=== PATIENT | male | born 1960 | race Caucasian/White ===

== ENCOUNTER 2020-08-09 09:45 | Observation (INO) | payer MEDICAID, SELFPAY ==
[2020-08-09] VITALS (47 sets, daily range): BP systolic 93–147; BP diastolic 49–97; PULSE 82–135; RESP 13–23; TEMP 36.4–37.3; O2SAT 93–99
--- NOTE | 2020-08-09 09:30 | RT.EKG_ITS ---
APPROVED REPORT Exam: Resting ECG Patient Location: E HR:87 bpm ECG Measurements Heart Rate 87 AXIS [place] 170 P 95 QRSd 86 QRS 20 QT 377 T 88 QTc 454 Conclusion Pacemaker spikes or artifacts...timing non-diagnostic Sinus rhythm AnteriorQ >40mS, abnormal ST-T, V2-V5 Nonspecific T abnormalities, lateral leads I aVL V5 V6
--- NOTE | 2020-08-09 09:41 | ED.GENADUL_ITS ---
Discharge Plan Disposition Patient Disposition: [facility] INPATIENT Condition: Stable Discharge Details Clinical Impression: Contusion of pelvis, Alcoholism, Acute hyponatremia Primary Care Provider: Unknown,Unknown ED Provider: Riaz Schroeder Home Meds and New Rx's Prescriptions: Continued albuterol sulfate 8.5 GM HFA aerosol inhaler 2 inh Implant Q4H PRN Qty: 1 RF: 0 Anoro Ellipta 62.5-25 mcg/actuation blister with device INHALATION DAILY RF: 0 Medical Decision Making 59-year-old male called the ambulance this morning for days of left hip pain. Fell at home on , while using walker and crossing threshold. States he then dragged himself to his couch where he has been using a bucket to go to the bathroom. Denies any other injury at that time. Continues to drink alcohol and smoke cigarettes. He has a history of previous left hip total arthroplasty in [address] Mendoza. Also has a distant history of cervical spine fracture with resultant left-sided weakness for 20 years. The patient presents to the ER afebrile, pulse 103, blood pressure 147/90. He is generally thin and poorly groomed. He is tender without deformity of the left proximal femur. Referred for plain x-rays did not show fracture and subsequent CT images. No acute fracture seen. Patient evaluated by physical therapy and unable to bear weight. With his hyponatremia, general decompensated state, and pelvic contusion with inability to ambulate he will require admission. We discussed loading of Phenobarbital dose for alcohol withdrawal. Lab Data Lab results reviewed: Yes I reviewed the patient's lab results. Labs: Laboratory Results - last 24 hr 08/09/20 08/09/20 08/09/20 10:00 10:05 10:05 WBC RBC Hgb Hct MCV MCH MCHC RDW Plt Count MPV Immature Gran % Neutrophils % Lymphocytes % Monocytes % Eosinophils % Basophils % Nucleated RBC % Absolute Neutrophils Absolute Lymphocytes Absolute Monocytes Absolute Eosinophils Absolute Basophils PT 10.3 INR 1.0 APTT 29.0 H Sodium Potassium Chloride Carbon Dioxide Anion Gap BUN Creatinine Estimated GFR/1.73 m2 Glucose Calcium Magnesium Total Bilirubin AST ALT Alkaline Phosphatase Creatine Kinase 88 Troponin I Total Protein Albumin Urine Color Yellow Urine Clarity Clear Urine pH 6.0 Ur Specific Waldron 1.020 Urine Protein Negative Urine Ketones Negative Urine Blood Trace-lysed H Urine Nitrite Negative Urine Bilirubin Negative Urine Urobilinogen 1.0 H Ur Leukocyte Esterase Negative Urine RBC 0-2 Urine WBC 0-2 Ur Epithelial Cells Few Urine Crystals Negative Urine Bacteria Few Urine Casts Negative Urine Mucus Negative Urine Other Negative Ur Culture Indicated? No Urine Glucose Negative Ethyl Alcohol 229.5 08/09/20 08/09/20 10:05 10:05 WBC 7.95 RBC 4.80 Hgb 16.2 Hct 46.8 MCV 97.5 H MCH 33.8 H MCHC 34.6 RDW 11.9 Plt Count 186 MPV 9.2 Immature Gran % 0.5 Neutrophils % 51.8 Lymphocytes % 33.5 Monocytes % 12.8 Eosinophils % 0.9 Basophils % 0.5 Nucleated RBC % 0 Absolute Neutrophils 4.12 Absolute Lymphocytes 2.66 Absolute Monocytes 1.02 H Absolute Eosinophils 0.07 Absolute Basophils 0.04 PT INR APTT Sodium 129 L Potassium 4.0 Chloride 94 L Carbon Dioxide 25.5 Anion Gap 9.5 BUN 2 L Creatinine 0.57 L Estimated GFR/1.73 m2 >= 60.00 Glucose 100 Calcium 8.6 Magnesium 2.0 Total Bilirubin 0.5 AST 39 H ALT 33 Alkaline Phosphatase 83 Creatine Kinase Troponin I < 0.05 Total Protein 7.9 Albumin 3.3 L Urine Color Urine Clarity Urine pH Ur Specific Wald[place] Urine Protein Urine Ketones Urine Blood Urine Nitrite Urine Bilirubin Urine Urobilinogen Ur Leukocyte Esterase Urine RBC Urine WBC Ur Epithelial Cells Urine Crystals Urine Bacteria Urine Casts Urine Mucus Urine Other Ur Culture Indicated? Urine Glucose Ethyl Alcohol HPI General Mode of arrival: EMS . Date/Time Provider Initiated Documentation: 08/09/20 10:20 . Limitations to Documentation: no limitations . Information obtained by: patient and EMS . History of Present Illness 59 year old M presents to the emergency department with the chief complaint of Fall , Hip pain, Quality is described as dull and constant, and is localized to the left and lower extremity. Patient reports no radiation. Patient started experiencing this day(s) and it has been constant. Rest improves symptom(s), Movement worsens symptoms . Patient notes denies chest pain, fever/chills, headaches and loss of appetite. Patient did receive the following treatments prior to arrival, none Related Data Home Medications Medication Instructions Recorded Confirmed albuterol sulfate 2 inh IMPLANT Q4H PRN #1 inhaler 02/02/14 08/09/20 Anoro Ellipta inh INHALATION DAILY 08/09/20 08/09/20 Previous Rx's Medication Instructions Recorded albuterol sulfate 2 inh IMPLANT Q4H PRN #1 inhaler 02/02/14 Allergies Allergy/AdvReac Type Severity Reaction Status Date / Time ENVIRONMENTAL/POLLEN Allergy CONGESTION, Uncoded 08/09/20 09:46 WATERY EYES, RUNNY NOSE Review of Systems Narrative: Chronic daily use of alcohol. States he dragged himself to his couch. No recent illness. States his breathing has been okay, continues to smoke cigarettes. 8 systems reviewed and otherwise negative. [facility] Social History Smoking/Tobacco Use Status: Current every day Smoking risk assessment performed?: Yes Alcohol Intake: current Alcohol Intake frequency: 3 or more drinks per day Alcohol type: beer Drug use: Never Do you feel safe in your relationship?: Yes Exam Narrative Exam Narrative: GEN: awake, alert, oriented 3. Pleasant, poorly groomed, interactive. HEAD: Normocephalic, atraumatic ENT: Mucous membranes dry, external ear exam unremarkable EYES: PERRL, EOMI NECK: Full ROM, no OLVIN, no menigismus, no pain with palpation CHEST/RESP: Nontender, clear to auscultation bilateral, no wheeze/rhonchi/rales CARDIOVASCULAR: RRR [place] tachycardic, no murmur, rub tasia. 2+ Rad pulse bilateral ABDOMEN: Soft, nontender, no mass. +Bowel sounds EXT: Left proximal femur tenderness to palpation, no gross deformity present. Palpable DP bilaterally. Neuro: Grossly normal neurologic exam, conversant, interactive. Psych: Speech fluent, thoughts congruent, affect normal
--- NOTE | 2020-08-09 09:45 | DI.RAD_ITS ---
EXAM: XR FEMUR LT CLINICAL HISTORY: fall, pain. TECHNIQUE: 2D digital imaging was performed. FINDINGS: Left hip prosthesis is again noted. On the AP view there is a bony fragment off the lateral acetabul ar component which was not evident previously and probably represents fracture fragment at this level . Some calcifications also noted immediately adjacent to the lesser trochanter but this is unchanged fr om 2014. There is no dislocation the prosthesis components. No obvious loosening. IMPRESSION: Left hip prosthesis. Possible acetabular fracture as described above. DATA REPOSITORY: RADIATION DOSE DELIVERED:
--- NOTE | 2020-08-09 09:45 | DI.RAD_ITS ---
EXAM: XR PELVIS AP CLINICAL HISTORY: fall, L pain. TECHNIQUE: 2D digital imaging was performed. FINDINGS: There is a left hip prosthesis. There is a 8 x 5 millimeter calcification off the lateral aspect of the acetabulum which was not evid ent on the 2014 images. However it appears corticated and therefore may not be an acute fracture fra gment, despite the fact that was not evident on the prior 2014 images. IMPRESSION: 8 x 5 millimeter corticated appearing os ossific density off the superolateral aspect of the left hip acetabulum. This is the side with the prosthesis. If clinically indicated further study with CT or MRI can be performed. DATA REPOSITORY: RADIATION DOSE DELIVERED:
--- NOTE | 2020-08-09 09:53 | DI.RAD_ITS ---
EXAM: XR CHEST 1V IN DI DEPT CLINICAL HISTORY: fall, L hip pain. TECHNIQUE: 2D digital imaging was performed. COMPARISON: CR PORTABLE CHEST ONE VIEW from 01/20/2014 FINDINGS: Heart size is normal. The mediastinum is not widened. Lung shepherd reveal COPD emphysematous changes and scarring in the right upper lobe unchanged from 201 4. There are no infiltrates nor pleural effusions. No pulmonary edema. IMPRESSION: No acute pulmonary findings on this single AP portable view of the chest.Six emphysema and right uppe r lobe scarring again noted, as was evident in 2013. DATA REPOSITORY: RADIATION DOSE DELIVERED:
[2020-08-09 10:13] LABS: Abs Immature Grans 0.04 10^3/uL (0.0-0.06); Absolute Basophil Count 0.04 10^3/uL (0.0-0.2); Absolute Eosinophil Count 0.07 10^3/uL (0.0-0.7); Absolute Lymphocyte Count 2.66 10^3/uL (1.2-3.4); Absolute Monocyte Count 1.02 10^3/uL (0.1-0.8); Absolute Neutrophil Count 4.12 10^3/uL (1.2-6.7); Basophils % 0.5; Eosinophils % 0.9; HCT 46.8 % (40.0-50.0); HGB 16.2 g/dL (13.5-17.5); Immature Grans % 0.5; Lymphocytes % 33.5; MCH 33.8 pg (27.0-33.0); MCHC 34.6 % (32.0-36.0); MCV 97.5 fL (80-95); MPV 9.2 fL (8.0-11.0); Monocytes % 12.8; Neutrophils % 51.8; Nucleated RBC 0 %; Platelet Count 186 10^3/uL (130-400); RDW 11.9 % (11.8-14.1); RDW-SD 43.2 fL; WBC 7.95 10^3/uL (4.4-10.8)
[2020-08-09 10:15] LABS: Bilirubin Negative (Negative); Blood Trace-lysed (Negative); Clarity Clear (Clear); Glucose Negative (Negative); Ketones Negative (Negative); Leukocyte Esterase Negative (Negative); Nitrite Negative (Negative)
[2020-08-09] MEDS: HYDROmorphone 2 MG/ML VIAL 0.5 MG IVP (10:15)
[2020-08-09 10:25] LABS: Epithelial Cells Few HPF (Negative); RBC 0-2 HPF (0-2); WBC 0-2 HPF (0-5)
[2020-08-09 10:25] LABS: Creatine Kinase 88 U/L (39-308); ETHANOL BLOOD 229.5 mg/dL (<3)
[2020-08-09 10:26] LABS: Bacteria Few HPF (Negative); C & S Indicated? No; Casts Negative LPF (Negative); Crystals Negative HPF (Negative); Mucus Negative (Negative); Other Cells Negative (Negative)
[2020-08-09 10:29] LABS: ALT 33 U/L (16-63); AST 39 U/L (15-37); Albumin 3.3 g/dL (3.4-5.0); Alkaline Phosphatase 83 U/L (46-116); Anion Gap 9.5 mmol/L (3-11); BUN 2 mg/dL (7-18); Bilirubin, Total 0.5 mg/dL (0.2-1.0); CO2 25.5 mmol/L (21.0-32.0); CREATININE 0.57 mg/dL (0.70-1.30); Calcium 8.6 mg/dL (8.5-10.1); Chloride 94 mmol/L (98-107); Glucose 100 mg/dL (74-106); Sodium 129 mmol/L (136-145); Total Protein 7.9 g/dL (6.4-8.2)
[2020-08-09 10:35] LABS: Troponin I < 0.05 ng/mL (<0.06)
[2020-08-09 10:36] LABS: Prothrombin Time 10.3 sec (9.3-11.0)
--- NOTE | 2020-08-09 10:52 | DI.CT_ITS ---
EXAM: CT HEAD CERVICAL SPINE WO CLINICAL HISTORY: Fall, L hip pain, + Eoth, prev C spine fx. TECHNIQUE: Imaging Protocol: Axial computed tomography images with coronal and sagittal reformatted images were created and reviewed COMPARISON: CT HEAD AND CSPINE W/O CONTRAST from 05/10/2017 FINDINGS: BRAIN: There are no skull fractures nor fluid in the visualized paranasal sinuses. There are prominent areas of abnormal hypodensity in the anterior forceps white matter both frontal l obes, unchanged from 2017 and consistent with prior infarction at these levels in the territory of th e anterior cerebral arteries. There is presently no evidence of intracranial hemorrhage, new mass effect, or shift of midline struc tures. There are no extra-axial fluid collections. The ventricles are not enlarged or shifted and t here is no blood within the ventricular system nor within the basal cisterns. CERVICAL SPINE: Again noted is previously described posterior fusion hardware at C4-C5 level. There has been removal of posterior osseous elements at these levels and there is bilateral intrapedicular screws at these levels again noted. No hardware fracture nor obvious loosening nor radiographic evidence of osteomye litis. No listhesis. There is fusion across the facet joints bilaterally at this level and partial fusion of the anterior column. There is no decreased disc height on either side of this fusion level. There is chronic adv anced degenerative disc disease at C6-7 level. There no jumped facets. No prevertebral soft tissue swelling. No incidental osseous lesions. 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 Other possibly would be for sequelae of remote prior bifr ontal hemorrhages. There is presently no evidence of hemorrhage, intra or extra-axial. No evidence of cervical spine fracture, malalignment, nor acute compromise of the cervical spinal can al. Posterior fusion hardware at C4-5 again noted. RADIATION DOSE DELIVERED: 1,272.59mGy.cm Total DLP DATA REPOSITORY: All CT scans at this facility are submitted to the National Radiology Data Registry (NRDR) Dose Index Registry (DIR) with the [employer] (ACR). RADIATION OPTIMIZATION: All CT scans at this facility use at least one of these dose optimization te chniques: automated exposure control; mA and/or kV adjustment per patient size (includes targeted exa ms where dose is matched to clinical indication); or iterative reconstruction.
[2020-08-09] MEDS: MAGNESIUM SULFATE 8.12 MEQ, MULTIVITAMIN 10 ML, THIAMINE 100 MG, FOLIC ACID 1 MG in Nor... 168.867 MG IV (11:51)
--- NOTE | 2020-08-09 12:51 | DI.CT_ITS ---
EXAM: CT ABDOMEN PELVIS WO CLINICAL HISTORY: Fall, L pelvis pain sacral bruising. TECHNIQUE: Imaging Protocol: Axial computed tomography images with coronal and sagittal reformatted images were created and reviewed CONTRAST MATERIAL: Intravenous: none Oral: None COMPARISON: No exams were available for comparison FINDINGS: VISUALIZED LUNG BASES: No nodules nor pleural effusions evident. ABDOMEN: There is no ascites. LIVER: There are no obvious focal hepatic lesions evident of this noninfused study. No evidence of o bvious a patent laceration. GALLBLADDER/BILIARY: No obvious gallbladder pathology. CBD is not dilated. PANCREAS: No evidence of pancreatic mass nor dilatation of the pancreatic duct. SPLEEN: Spleen is not enlarged. No evidence of splenic laceration. No obvious intrasplenic lesions. ADRENALS: There are no significant adrenal masses. KIDNEYS:No cysts evident. No laceration. No solid lesions. No perinephric fluid. No calculi. No h ydronephrosis.. ABDOMINAL AORTA: The abdominal aorta is heavily calcified but not enlarged. Also heavy calcified joya que at the origin left renal artery and heavily calcified bilateral common iliac arteries which are n ot aneurysmal. ABDOMINAL WALL/GI: No evidence of significant anterior abdominal wall hernia. No bowel obstruction. No evidence of bowel wall hematoma nor mesenteric hematoma. PELVIS: LYMPH NODES: There is no intrapelvic nor inguinal adenopathy. GI: No evidence of appendicitis.No evidence of sigmoid diverticulitis. URINARY BLADDER: Distended. REPRODUCTIVE: Prostate gland is enlarged. Prostatic urethra reflects prior probable TURP. OSSEOUS: There is left hip prosthesis. There does not appear to be an obvious acute fracture of the hip nor of the pubic rami. IMPRESSION: 1. Left hip prosthesis. No obvious acute hip fracture on either side nor pubic rami fractures. 2. Urinary bladder is distended. Prostate gland moderately enlarged and exhibits TURP defect. 3. Heavily calcified abdominal aorta and iliac arteries. No aneurysm evident. There is also calcifi ed plaque at the origin of the left renal artery. Both kidneys exhibit normal size. RADIATION DOSE DELIVERED: 605.38mGy.cm Total DLP DATA REPOSITORY: All CT scans at this facility are submitted to the National Radiology Data Registry (NRDR) Dose Index Registry (DIR) with the [employer] (ACR). RADIATION OPTIMIZATION: All CT scans at this facility use at least one of these dose optimization te chniques: automated exposure control; mA and/or kV adjustment per patient size (includes targeted exa ms where dose is matched to clinical indication); or iterative reconstruction.
--- NOTE | 2020-08-09 14:14 | IN_ITS ---
Date of service: 08/09/20 Time of Service: 14:14 PT Notes Visit Reasons: [facility] Inpatient Initial Evaluation Date: 08/01/2020 Referring Doctor: Riaz Schroeder MD PT Orders: PT CONSULT: Safety consult for D/C Precautions: Fall. Standard. Activity as tolerated. Patient Profile/Admitting Diagnosis: Hesham is a 59-year-old male who presented to the ED today with chief complaints of left hip pain, difficulty with standing, and inability to walk since he fell last , 08/05/2020 while crossing a threshold inside his home using his 4-wheeled walker. X-ray and CT scans did not show any fracture of the L hip and the pelvis chart and per MD. Referral was sent for PT evaluation to make recommendations for safe discharge destination or whether patient is appropriate for med/surg admission. PMHX: COPD History of femoral neck fracture on the left side S/P L CHAD in 2013 History of neck fracture Sepsis syndrome Dystrophic nail Chronic alcoholism Tobacco use History of surgical procedure Social History/Home Situation: Kaleb states that he lives in a home which he sahres with other tenants. He however emphaiszes that he will not have the support of any of these tenants as he states he is on his own. He is independent using a 4 wheeled walker for all indoor ambulation. He states that he rides the taxi for all his community errands. He gets Meals on Wheels every day; gets Sunday and Sunday meals on Fridays. Has 1 step to get into the house without rails. Equipment Owned/DME: 4WW, raised toilet seat Subjective: Kaleb does not feel safe going home in this weak and hurting state saying that he will not have anybody who can help him at home. Reports significant pain at 7-8/10 that can shoot up to 8-9/10 with weight bearing. Refused to walk, even stand long enough, using the front-wheeled walker saying that he will suffer when he does them. He was agreeable to just sitting up and to a quick standing so this provider could replace his wet draw sheet with a new one. Indicated that he has had the tremors since he had the cervical surgery some twenty years ago. Inquired whether he can use his inhaler as he has not had it today. Objective: General Observation: Supine in ED stretcher. L well-healed lateral surgical CHAD incision well-healed. No redness /contusion seen in L hip. Intention tremor to B UE seen while he to sit up from supine. Mental Status: Alert and oriented x4 Pain: 2-3/10 at rest, up to 8-9/10 with weight bearing in the left hip. No lateralization of pain reported. ROM: Right Upper Extremity: Shoulder Flexion WFL. Shoulder abduction WFL. Elbow flexion WFL. Wrist flexion WFL. Opening and closing of hand WFL. Left Upper Extremity: Shoulder Flexion WFL. Shoulder abduction WFL. Elbow flexion WFL. Wrist flexion WFL. Opening and closing of hand WFL. Right Lower Extremity: Hip flexion WFL. Hip abduction WFL. Knee flexion WFL. Knee extension -20 degrees. Ankle dorsiflexion WFL. Ankle plantarflexion WFL. Left Lower Extremity: Hip flexion lacks the last 25% of AROM due to chroninc we akness and pain. Hip abduction aloows only up to 20 degrees, gravity-eliminated. Knee flexion WFL. Knee extension -30 degrees. Ankle dorsiflexion WFL. Ankle plantarflexion WFL. Strength: Right Upper Extremity: Shoulder flexors 4-/5. Shoulder abductors 4-/5. Elbow flexors 4-/5. Elbow extensors 4-/5. Fretted Instrument Maker Hand strong. Left Upper Extremity: Shoulder flexors 4-/5. Shoulder abductors 4-/5. Elbow flexors 4-/5. Elbow extensors 4-/5. Fretted Instrument Maker Hand strong. Right Lower Extremity: Hip flexors 4-/5. Hip abductors 4-/5. Knee flexors 4-/5. Knee extensors 3-/5. Ankle dorsiflexors 4-/5 Ankle plantarflexors 4-/5. Left Lower Extremity:Hip flexors 3-/5. Hip abductors 3-/5. Knee flexors 3-/5. Knee extensors 3-/5. Ankle dorsiflexors 4-/5. Ankle plantarflexors 4-/5. Sensation: Intact as to pain and pressure on bilateral lower extremities. Bed Mobility/Transfers: Rolling guard assist Supine to sit contact guard assist with HOB 30 degrees Sit to supine minimal assist Sit to stand moderate assist Stand to sit moderate assist Bed to chair refused, highly anxious about pain level in the left hip with weight bearing Chair to bed refused, highly anxious about pain level in the left hip with weight bearing Gait: Patient refused to walk as he was so anxious about the level of pain he is going to be at. Balance: Static Sitting: Good Dynamic Sitting: Fair Static Standing: Poor Dynamic Standing: Poor Special Tests: Mobility Limitations Standardized Measure [facility] AM-PAC 6 clicks Basic Mobility Inpatient Short Form: Raw Score: 13 CMS Score: 65% deficit Informed Consent/Education: Patient instructed in purpose of PT consult and plan of care. Assessment: Hesham demonstrates significant functional mobility decline requiring physical assistance with transfers, impaired standing tolerance, inability to walk, impairment with sitting and standing balance, and increased fall risk due to admitting diagnoses and co-morbidities. Patient will require skilled services in order to address impairment level findings and functional limitations listed below. Without services patient will be at risk for further functional mobility decline, higher risk for falls, and inability to thrive at home. Nurse made koehler about issue with inhaler. Patient presents with clinical signs and symptoms consistent with current/admitting diagnoses that have resulted to mobility limitations, gait instability, generalized weakness, and impairment of motor control as demonstrated by the following impairment level findings: 1. Decreased strength to B UE/LE major muscle groups 2. Impaired sitting/standing balance 3. Impaired activity tolerance 4. Limitation of joint range of motion in left hip and knee 5. Intention tremors 6. Pain in left hip 7. Chronic left-sided weakness Impairments are contributing to the following functional limitations: 1. Dependent bed mobility skills 2. Increased dependence with transfers 3. Inability to safely ambulate without assistive device and physical assistance 4. Increase completion time for mobility ADL performance 5. Increased fall risk 6. Inability to negotiate steps alone safely Patient is assessed as a 33359 high complexity based on the following: History: 59-year-old male with impairment level findings, functional limitations, and past medical history as indicated above Examination: Demonstrable impairment in strength, balance, and mobility level with underlying impairments and functional limitations as documented above Presentation:Evolving Decision Makin high complexity Goals: Goals X1 week 1. Supine-Sit independent 2. Sit-Supine independent 3. Sit-Stand independent 4. Stand-Sit independent 5. Bed-Chair independent 6. Chair-Bed independent 7. Independent gait on level surface with use of 4WW for at least 300 feet without report of pain nor dyspnea 8. Independent stair negotiation while holding onto bilateral rails for at least 10 steps without report of pain nor dyspnea 9. Independent with home exercise program 10. Good static and dynamic standing balance/tolerance Plan of Care/Treatment Plan: 1-2x/day, 7 days/week x 1 week. Plan of care has been reviewed with the DIRECTOR REGULATORY COMPLIANCE providing the service under Physical Therapy direction. Initiate Physical Therapy intervention for strengthening, bed mobility, transfers, gait, stairs, balance training, use of assistive device. DISCHARGE RECOMMENDATIONS: Recommend admission to medical surgical unit for mobility training, global strengthening, and balance retraining in order to increase ability to thrive at home and reduce fall risk. TREATMENT CODE/TIME: 21715 x 41 minutes beginning at 2:14 PM. Thank you for the opportunity to participate in the care of this patient. Génesis Castillo PT, DPT, CLT [facility] [place], [place]
--- NOTE | 2020-08-09 14:24 | NUR.NOTE ---
Nursing Note:PT here to evaluate patient.
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
[2020-08-09 16:21] LABS: *AMPHETAMINES SCREEN URINE Negative (Negative); *BARBITURATES SCREEN URINE Negative (Negative); *BENZODIAZEPINES SCREEN URINE Negative (Negative); Cannabinoids THC Negative (Negative); Cocaine Screen,Urine Negative (Negative); METHADONE URINE SCREEN Negative (Negative); OPIATES URINE SCREEN Negative (Negative)
[2020-08-09 16:23] LABS: PHOSPHORUS 3.5 mg/dL (2.6-4.7)
[2020-08-09 16:24] LABS: Tricyclic Antidepressants Negative (Negative)
[2020-08-09] MEDS: Albuterol HFA 8 GM 60 PUFF INH IH (17:42)
[2020-08-09] MEDS: Acetaminophen 325 MG TAB PO (17:48)
[2020-08-09] MEDS: Ketorolac 15 MG/ML VIAL IVP (17:49)
[2020-08-09] MEDS: Normal Saline Flush 10 ML SYR IVP (18:51)
[2020-08-09] MEDS: DEXTROSE 5%-0.9% SALINE 1,000 ML 100 ML IV (22:01)
[2020-08-09] MEDS: Nicotine 21 MG/24 HR PATCH TD (22:47)
[2020-08-10] VITALS (18 sets, daily range): BP systolic 97–127; BP diastolic 53–81; PULSE 66–106; RESP 13–21; TEMP 36.6; O2SAT 93–97
[2020-08-10 07:10] LABS: Anion Gap 6.1 mmol/L (3-11); BUN 4 mg/dL (7-18); CO2 25.9 mmol/L (21.0-32.0); CREATININE 0.51 mg/dL (0.70-1.30); Calcium 7.8 mg/dL (8.5-10.1); Chloride 101 mmol/L (98-107); Glucose 109 mg/dL (74-106); Magnesium 1.7 mg/dL (1.8-2.4); Potassium 3.3 mmol/L (3.5-5.1); Sodium 133 mmol/L (136-145); TSH (W/Ref FT4) 2.03 uIU/mL (0.36-3.74)
--- NOTE | 2020-08-10 07:12 | OCONE_ITS ---
Date of service: 08/10/20 Time of Service: 07:12 History of Present Illness History of Present Illness Chief Complaint: Left Hip and Leg Pain Narrative: Kaleb is a 59-year-old who fell on his left leg and hip around [place]. He is unclear on the details but thinks it was [place]. Either way, he said at home with difficulties with weightbearing and pain. Eventually he was brought into the emergency department. He has chronic weakness and some pain and dysfunction of the left leg due to cervical fracture as well as the hip fracture which he had a total hip replacement performed on 2013. He use a walker and ambulates minimally at baseline. He thinks he slipped on a wet floor but does not believe he lost consciousness or had any prefall symptoms. He denies chest pain or shortness of breath or dizziness. He does have muscle spasms at baseline as well as weakness. He reports pain mostly over the lateral aspect of the left hip. He has been able to assist nursing with moving in the bed although he still feels he will be unable to ambulate. He expresses anxiety about going home and being stranded. He also expresses concern that he does not have the strength to mobilize on his own. 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 Additionally, during his last admission 2013 he had severe delirium tremens. He lives in an apartment with multiple other tenants however none of those he feels will be able to assist him. Consults Consult date: 08/09/20 Requesting physician: Joshua James Consult Reason Left hip pain and ambulatory dysfunction Assessment and Plan Assessment and plan (1) Contusion of pelvis: Status: Acute Assessment and plan: Hesham is a 59-year-old chronic alcoholic who has pain about his left hip after a fall. Unfortunate this matters complicated by his chronic weakness and debilitation from nerve injury after cervical fracture, hip fracture, as well as chronic alcoholism which likely plays a role into his weakness, malnutrition, and nerve dysfunction. I was very honest with Hesham that I do not find anything on examination or on the radiographic studies which would suggest that this needs surgery or any intervention. It is likely that he contused his left side of his pelvis including his greater trochanter. This likely just represents pain within the bone itself which is going to hurt with certain motions especially going from flexion to extension as well as some weightbearing. His weightbearing is limited at baseline and I think it is imperative that we realize his ceiling for improvement is quite low. I think he functions at a very minimal level at baseline and therefore has very little reserve to handle any fall which has set him back some. It is imperative that he work aggressively on trying to strengthen what he has, especially at 59. He will need home services. I also am somewhat pessimistic about his willingness to push through some discomfort and pain. I would consider diclofenac gel to apply over the greater trochanter and iliotibial band on the left side. Additionally, scheduled anti-inflammatory, although there is a risk of bleeding, as well as a possible muscle relaxant may be considered. From orthopedic perspective, there is no reason why he should not be able to mobilize although with some pain, complicated by his chronic weakness. His total hip replacement is in a stable position does not need any further follow-up. If he continues to have issues with mobilization MRI could be considered for diagnosis of bone contusion, however, the sensitivity of this exam will be limited by artifact and therefore would not recommend that. Qualifiers: Encounter type: initial encounter Qualified Code(s): S30.0XXA - Contusion of lower back and pelvis, initial encounter Review of Systems All systems reviewed & are unremarkable except as noted in HPI and below PFSH Medical History Alcohol withdrawal delirium Alcoholism (~01/2014) a. Drinks at least 6 beers per day on a regular basis. COPD (chronic obstructive pulmonary disease) a. Ongoing tobacco abuse. Fracture of femoral neck, left a. S/P left total knee arthroplast, 01/26/[address] Mendoza. History of neck fracture a. Left-sided weakness. b. On SSI disability. Surgical History History of cervical spinal arthrodesis History of total left hip arthroplasty (01/26/14) left total hip arthroplasty; Dr. Riaz Mendoza, [facility] after fall and hip fracture Social History Smoking/Tobacco Use Status: Current every day Smoking risk assessment performed?: Yes Alcohol Intake: current Alcohol Intake frequency: 3 or more drinks per day Alcohol type: beer Drug use: Never Do you feel safe in your relationship?: Yes Exam Narrative Exam Narrative: Hesham is sitting up in bed. He is alert and oriented x3. He is in no acute distress. He is slightly disheveled. He is cooperative and his thought process is congruent. In the bed there is no significant deformity seen of the lower legs. The left leg has a slightly internally rotated posture when compared to the right side. Attempted rotation of the leg does not is a cause pain but does cause some spasms, mostly posteriorly and medially. When he relaxes more fully unable to internally and externally rotate the hip with very minimal discomfort. He does have some pain with flexion and points to the lateral aspect of the left hip. He is quite thin and with very little adiposity. The greater trochanter is palpable almost as a superficial structure where there may be some deficiency of the iliotibial band repair from his hip replacement on the left side. He has exquisite pain to palpation over this area especially over the posterior and posterior lateral aspect of the greater trochanteric. Mild pain over the iliotibial band down towards the knee. He has very weak ankle dorsiflexion and eversion of the foot. The foot is warm and well-perfused. Results Last Vital Signs Temp 37.3 C 08/09/20 20:22 Pulse 67 08/10/20 02:01 Resp 14 08/10/20 02:01 BP 115/59 L 08/10/20 02:01 Pulse Ox 93 08/09/20 16:25 Labs Result diagrams: 08/09/20 10:05 08/10/20 06:14 Labs: Laboratory Results - last 24 hr 08/09/20 08/09/20 08/09/20 10:00 10:00 10:05 WBC RBC Hgb Hct MCV MCH MCHC RDW Plt Count MPV Immature Gran % Neutrophils % Lymphocytes % Monocytes % Eosinophils % Basophils % Nucleated RBC % Absolute Neutrophils Absolute Lymphocytes Absolute Monocytes Absolute Eosinophils Absolute Basophils PT INR APTT Sodium Potassium Chloride Carbon Dioxide Anion Gap BUN Creatinine Estimated GFR/1.73 m2 Glucose Calcium Phosphorus Magnesium Total Bilirubin AST ALT Alkaline Phosphatase Creatine Kinase 88 Troponin I Total Protein Albumin TSH Urine Color Yellow Urine Clarity Clear Urine pH 6.0 Ur Specific [place] 1.020 Urine Protein Negative Urine Ketones Negative Urine Blood Trace-lysed H Urine Nitrite Negative Urine Bilirubin Negative Urine Urobilinogen 1.0 H Ur Leukocyte Esterase Negative Urine RBC 0-2 Urine WBC 0-2 Ur Epithelial Cells Few Urine Crystals Negative Urine Bacteria Few Urine Casts Negative Urine Mucus Negative Urine Other Negative Ur Culture Indicated? No Urine Glucose Negative Urine Opiates Screen Negative Urine Methadone Screen Negative Ur Barbiturates Screen Negative Ur Tricyclics Screen Negative Ur Amphetamines Screen Negative U Benzodiazepines Scrn Negative Urine Cocaine Screen Negative Ur THC Screen Negative Ethyl Alcohol 229.5 08/09/20 08/09/20 08/09/20 10:05 10:05 10:05 WBC 7.95 RBC 4.80 Hgb 16.2 Hct 46.8 MCV 97.5 H MCH 33.8 H MCHC 34.6 RDW 11.9 Plt Count 186 MPV 9.2 Immature Gran % 0.5 Neutrophils % 51.8 Lymphocytes % 33.5 Monocytes % 12.8 Eosinophils % 0.9 Basophils % 0.5 Nucleated RBC % 0 Absolute Neutrophils 4.12 Absolute Lymphocytes 2.66 Absolute Monocytes 1.02 H Absolute Eosinophils 0.07 Absolute Basophils 0.04 PT 10.3 INR 1.0 APTT 29.0 H Sodium 129 L Potassium 4.0 Chloride 94 L Carbon Dioxide 25.5 Anion Gap 9.5 BUN 2 L Creatinine 0.57 L Estimated GFR/1.73 m2 >= 60.00 Glucose 100 Calcium 8.6 Phosphorus Magnesium 2.0 Total Bilirubin 0.5 AST 39 H ALT 33 Alkaline Phosphatase 83 Creatine Kinase Troponin I < 0.05 Total Protein 7.9 Albumin 3.3 L TSH Urine Color Urine Clarity Urine pH Ur Specific [place] Urine Protein Urine Ketones Urine Blood Urine Nitrite Urine Bilirubin Urine Urobilinogen Ur Leukocyte Esterase Urine RBC Urine WBC Ur Epithelial Cells Urine Crystals Urine Bacteria Urine Casts Urine Mucus Urine Other Ur Culture Indicated? Urine Glucose Urine Opiates Screen Urine Methadone Screen Ur Barbiturates Screen Ur Tricyclics Screen Ur Amphetamines Screen U Benzodiazepines Scrn Urine Cocaine Screen Ur THC Screen Ethyl Alcohol 08/09/20 08/10/20 10:05 06:14 WBC RBC Hgb Hct MCV MCH MCHC RDW Plt Count MPV Immature Gran % Neutrophils % Lymphocytes % Monocytes % Eosinophils % Basophils % Nucleated RBC % Absolute Neutrophils Absolute Lymphocytes Absolute Monocytes Absolute Eosinophils Absolute Basophils PT INR APTT Sodium 133 L Potassium 3.3 L Chloride 101 Carbon Dioxide 25.9 Anion Gap 6.1 BUN 4 L Creatinine 0.51 L Estimated GFR/1.73 m2 >= 60.00 Glucose 109 H Calcium 7.8 L Phosphorus 3.5 Magnesium 1.7 L Total Bilirubin AST ALT Alkaline Phosphatase Creatine Kinase Troponin I Total Protein Albumin TSH 2.03 Urine Color Urine Clarity Urine pH Ur Specific [place] Urine Protein Urine Ketones Urine Blood Urine Nitrite Urine Bilirubin Urine Urobilinogen Ur Leukocyte Esterase Urine RBC Urine WBC Ur Epithelial Cells Urine Crystals Urine Bacteria Urine Casts Urine Mucus Urine Other Ur Culture Indicated? Urine Glucose Urine Opiates Screen Urine Methadone Screen Ur Barbiturates Screen Ur Tricyclics Screen Ur Amphetamines Screen U Benzodiazepines Scrn Urine Cocaine Screen Ur THC Screen Ethyl Alcohol Imaging Imaging Studies: X-ray of the left hip and femur shows a hip replacement and appropriate position. There is a osseous fragment seen lateral to the acetabular component but I will see any particular changes in the positioning of the acetabular component or 8 screws when compared to previous x-rays. There are no apparent fracture lines traveling down the left femur. Compared to the previous x-rays I see no change in positioning of components to suggest acute loosening. There are no other areas of lucency seen around the implants and cells. I see no other fracture lines in the pelvis. CT scan of the left hip does show a well-placed prosthesis of the acetabular component as well as the femoral component. One of the posterior screws through the acetabulum does appear to be slightly long but without change or signs of change around the screw suggestive of a fracture. There is an osseous fragment seen on the lateral acetabulum this appears to be heterotopic ossification and not any true fracture from the acetabulum. No fracture seen in the proximal femur. The hip is reduced.
--- NOTE | 2020-08-10 08:06 | NUR.NOTE ---
Urine sample obtained and hand carried to lab.Nursing Note:
[2020-08-10] MEDS: Folic Acid 1 MG TAB PO (08:50)
[2020-08-10] MEDS: Potassium Chloride 10 MEQ CAPCR 20 MEQ PO ×3 (08:52→21:01)
[2020-08-10] MEDS: Thiamine 100 MG TAB PO (08:53)
[2020-08-10] MEDS: Multivitamin TAB 1 TAB PO (08:53)
[2020-08-10] MEDS: Magnesium Gluconate 500 MG TAB PO ×2 (09:08→21:01)
[2020-08-10] MEDS: Methocarbamol 750 MG TAB 1500 MG PO ×4 (09:08→21:00)
[2020-08-10] MEDS: Diclofenac 1% Gel 100 GM TUBE TP ×4 (09:10→21:01)
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
--- NOTE | 2020-08-10 09:49 | IN_ITS ---
Date of service: 08/10/20 Time of Service: 09:49 PT Notes Visit Reasons: HIP CONTUSION, AMBULATORY DYSFUNCTION Physical Therapy Inpatient Initial Evaluation Date: 08/10/2020 Referring Doctor: Joshua James MD PT Orders: PT CONSULT: Safety consult for D/C Precautions: Fall. Standard. WBAT on left LE. Patient Profile/Admitting Diagnosis: Hesham is a 59-year-old male who presented to the ED today with chief complaints of left hip pain, difficulty with standing, and inability to walk since he fell last , 08/05/2020 while crossing a threshold inside his home using his 4-wheeled walker. X-ray and CT scans did not show any fracture of the L hip and the pelvis chart and per MD. Referral was sent for PT evaluation to make recommendations for safe discharge destination or whether patient is appropriate for med/surg admission. PMHX: Medical History Alcohol withdrawal delirium Alcoholism (~01/2014) a. Drinks at least 6 beers per day on a regular basis. COPD (chronic obstructive pulmonary disease) a. Ongoing tobacco abuse. Fracture of femoral neck, left a. S/P left total knee arthroplast, 01/26/[address] Mendoza. History of neck fracture a. Left-sided weakness. b. On SSI disability. Surgical History History of cervical spinal arthrodesis History of total left hip arthroplasty (01/26/14) left total hip arthroplasty; Dr. Riaz Mendoza, [facility] after fall and hip fracture Social History/Home Situation: Kaleb states that he lives in a home which he shares with other tenants. He however emphasizes that he will not have the support of any of these tenants as he states he is on his own. He is independent using a 4-wheeled walker for all indoor ambulation. He states that he rides the taxi for all his community errands. He gets Meals on Wheels every day; gets Sunday and Sunday meals on Fridays. Has 1 step to get into the house without rails. Equipment Owned/DME: 4WW, raised toilet seat Subjective: Kaleb continues to feel not feel safe going home. He indicates that although his pain is better controlled now, his level of mobility still needs to improve in order to return home. Feels good about being able to defecate early this morning. Objective: General Observation: Supine in bed. Telemetry monitoring in place. L well- healed lateral surgical CHAD incision well-healed. Atrophy of L UE and L LE hip/knee major muscle groups due to pre-existing chronic weakness related to previous spinal surgery. Mental Status: Alert and oriented x4 Pain: 2-3/10 at rest, up to 8-9/10 with weight bearing in the left hip. No lateralization of pain reported. ROM: Right Upper Extremity: Shoulder Flexion WFL. Shoulder abduction WFL. Elbow flexion WFL. Wrist flexion WFL. Opening and closing of hand WFL. Left Upper Extremity: Shoulder Flexion allows up to 90 degrees only. Shoulder abduction allows up to 90 degrees only. Elbow flexion WFL. Wrist flexion WFL. O pening and closing of hand WFL. Right Lower Extremity: Hip flexion WFL. Hip abduction WFL. Knee flexion WFL. Knee extension -20 degrees. Ankle dorsiflexion WFL. Ankle plantarflexion WFL. Left Lower Extremity: Hip flexion lacks the last 25% of AROM due to chroninc weakness and pain. Hip abduction aloows only up to 20 degrees, gravity- eliminated. Knee flexion WFL. Knee extension -30 degrees. Ankle dorsiflexion WFL. Ankle plantarflexion WFL. Strength: Right Upper Extremity: Shoulder flexors 4-/5. Shoulder abductors 4-/5. Elbow flexors 4-/5. Elbow extensors 4-/5. Freight Inspector strong. Left Upper Extremity: Shoulder flexors 3-/5. Shoulder abductors 3-/5. Elbow flexors 4-/5. Elbow extensors 3-/5. Freight Inspector weak but functional. Right Lower Extremity: Hip flexors 4-/5. Hip abductors 4-/5. Knee flexors 4-/5. Knee extensors 3-/5. Ankle dorsiflexors 4-/5 Ankle plantarflexors 4-/5. Left Lower Extremity:Hip flexors 3-/5. Hip abductors 3-/5. Knee flexors 3-/5. Knee extensors 3-/5. Ankle dorsiflexors 4-/5. Ankle plantarflexors 4-/5. Sensation: Intact as to pain and pressure on bilateral lower extremities. Bed Mobility/Transfers: Rolling supervision Supine to sit supervision Sit to supine standby assist Sit to stand minimal assist Stand to sit contact-guard assist Bed to chair minimal assist Chair to bed contact-guard assist THERA EX: Patient tolerated seated level range of motion exercises consisting of hip flexion x 10, LAQ x10, and hip abduction adduction x 10 without increase in pain level. Gait: Guided through using front wheeled walker with WBAT on the left LE requiring minimal assist 5 feet was 8 feet was 20 feet with decreased knee extension bilaterally and mid stance due to bilateral knee flexion contracture. Nurse Medrano provided wheelchair follow assist for safety. Decreased kaiden. Complained of minimal pain in the left hip that resolved with rest. Balance: Static Sitting: Normal Dynamic Sitting: Normal Static Standing: Fair Dynamic Standing: Fair Special Tests: Mobility Limitations Standardized Measure [facility] AM-PAC 6 clicks Basic Mobility Inpatient Short Form: Raw Score: 20 CMS Score: 36% deficit Informed Consent/Education: Patient instructed in purpose of PT consult and plan of care. Assessment: Mart demonstrates significant functional mobility decline requiring physical assistance and the use of a front-wheeled walker with mobility ADL perrformance, impaired standing tolerance, difficulty with walking, impairment with standing balance, and increased fall risk due to admitting diagnoses and co-morbidities. Patient will require skilled services in order to address impairment level findings and functional limitations listed below. Without services patient will be at risk for further functional mobility decline , higher risk for falls, and inability to thrive at home. Patient will benfit from [facility] prior to discharge to home to increase ability to stay at home independently. Patient presents with clinical signs and symptoms consistent with current/admitting diagnoses that have resulted to mobility limitations, gait instability, generalized weakness, and impairment of motor control as demonstrated by the following impairment level findings: 1. Decreased strength to B UE/LE major muscle groups with L more affected than R 2. Impaired sitting/standing balance 3. Impaired activity tolerance 4. Limitation of joint range of motion in left hip and knee 5. Intention tremors 6. Pain in left hip 7. Chronic left-sided weakness Impairments are contributing to the following functional limitations: 1. Dependent bed mobility skills 2. Increased dependence with transfers 3. Inability to safely ambulate without assistive device and physical assistance 4. Increase completion time for mobility ADL performance 5. Increased fall risk 6. Inability to negotiate steps alone safely Patient is assessed as a 55524 low complexity based on the following: History: 59-year-old male with impairment level findings, functional limitations, and past medical history as indicated above Examination: Demonstrable impairment in strength, balance, and mobility level with underlying impairments and functional limitations as documented above Presentation:Evolving Decision Makin low complexity Goals: Goals X1 week 1. Supine-Sit independent 2. Sit-Supine independent 3. Sit-Stand independent 4. Stand-Sit independent 5. Bed-Chair supervision 6. Chair-Bed supervision 7. Supervision gait on level surface with use of 4WW for at least 300 feet without report of pain nor dyspnea 8. Supervision stair negotiation while holding onto bilateral rails for at least 10 steps without report of pain nor dyspnea 9. Supervision with home exercise program 10. Good static and dynamic standing balance/tolerance Plan of Care/Treatment Plan: 1-2x/day, 7 days/week x 1 week. Plan of care has been reviewed with the [facility] [employer] providing the service under Physical Therapy direction. Initiate Physical Therapy intervention for strengthening, bed mobility, transfers, gait, stairs, balance training, use of assistive device. DISCHARGE RECOMMENDATIONS: Patient will benefit from [facility] for continued skilled physical therapy services in order to progress mobility level, strength, and balance in preparation for a safe discharge to home. TREATMENT CODE/TIME: 01111 x 25 minutes, 81027 x 20 minutes, 06564 x 11 minutes beginning at 9:49 AM. Thank you for the opportunity to participate in the care of this patient.
--- NOTE | 2020-08-10 10:05 | NUR.NOTE ---
Physical therapist begins working with patient to have him transfer from bed to chair.Nursing Note:
[2020-08-10] MEDS: Ipratropium/Albuterol 4 GM 120 PUFF INH IH ×4 (10:10→20:59)
--- NOTE | 2020-08-10 10:36 | PGE_ITS ---
Date of Service Date of service: 08/10/20 Time of Service: 10:36 Assessment and Plan Assessment and plan (1) Contusion of pelvis: Status: Acute Assessment and plan: Diclofenac ointment and Robaxin were added as per Dr. Lloyd's recommendation for Voltaren gel and a muscle relaxant. Patient will continue to work with physical therapy. We will ask case management to put in referrals for inpatient rehabilitation stay on a short-term basis to improve patient is gait and balance and strength with a goal to work towards independent ADL performance and return to his home safely. Qualifiers: Encounter type: initial encounter Qualified Code(s): S30.0XXA - Contusion of lower back and pelvis, initial encounter (2) Acute hyponatremia: Status: Acute Assessment and plan: Serum sodium has improved with IV fluid hydration. Current sodium levels 133 however he is also developed some hypokalemia and hypomagnesemia probably delusional but also nutritional deficiency from his alcoholism. I have added supplemental potassium and magnesium and repeat his labs for tomorrow. He is on folic acid and a multivitamin and thiamine. (3) Alcoholism: Status: Chronic Assessment and plan: Electrolyte replacement and nutritional supplementation as above. Continue to monitor for acute alcohol withdrawal. He has as needed doses of oral phenobarbital if needed. (4) Hypokalemia: Status: Acute Assessment and plan: Electrolyte replacement as above. Repeat BMP and magnesium in the morning (5) Hypomagnesemia: Status: Acute Assessment and plan: As above (6) Discharge planning issues: Status: Acute Assessment and plan: Case management to make referrals for short-term stay at a SNF for rehabilitation patient intends to return home after that. (7) DVT prophylaxis: Status: Acute Assessment and plan: Patient: Currently on enoxaparin and SCD and WARNER hose Subjective Subjective Interval history since last seen: Patient states his left hip pain is better today and it was tolerable enough that he was able to ambulate with use of his walker and standby assistance of physical therapist and the patient's nurse. Patient is indicated willingness to enter into a [facility] facility for short-term stay for rehabilitation as long as he can go to a facility local to [place]. Lillian, the physical therapist, will discuss recommendations with case management who then make the appropriate referrals. Patient's had no arrhythmias overnight he remains in sinus rhythm and working to discontinue further telemetry. Present time patient does not feel that he is going through any acute alcohol withdrawal. Exam Narrative Exam Narrative: Cachectic disheveled middle-age male who appears to be older than his stated age he is sitting up in his chair eating his breakfast. He is alert and oriented person place time and circumstance. Lungs with diffusely diminished breath sounds no rhonchi or wheezing. Heart regular rate and rhythm. Sacrum with some small bruising and abrasion. Left hip is mildly tender to p alpation but he was able to weight-bear Objective Last Vital Signs Temp 36.6 C 08/10/20 08:12 Pulse 82 08/10/20 08:29 Resp 14 08/10/20 08:12 BP 127/56 L 08/10/20 08:12 Pulse Ox 95 08/10/20 08:12 Laboratory Results - last 24 hr 08/09/20 08/09/20 08/09/20 10:00 10:05 10:05 PT 10.3 INR 1.0 APTT 29.0 H Sodium Potassium Chloride Carbon Dioxide Anion Gap BUN Creatinine Estimated GFR/1.73 m2 Glucose Calcium Phosphorus 3.5 Magnesium TSH Urine Color Urine Clarity Urine pH Ur Specific [place] Urine Protein Urine Ketones Urine Blood Urine Nitrite Urine Bilirubin Urine Urobilinogen Ur Leukocyte Esterase Urine Glucose Urine Opiates Screen Negative Urine Methadone Screen Negative Ur Barbiturates Screen Negative Ur Tricyclics Screen Negative Ur Amphetamines Screen Negative U Benzodiazepines Scrn Negative Urine Cocaine Screen Negative Ur THC Screen Negative 08/09/20 08/10/20 10:08 06:14 PT INR APTT Sodium 133 L Potassium 3.3 L Chloride 101 Carbon Dioxide 25.9 Anion Gap 6.1 BUN 4 L Creatinine 0.51 L Estimated GFR/1.73 m2 >= 60.00 Glucose 109 H Calcium 7.8 L Phosphorus Magnesium 1.7 L TSH 2.03 Urine Color Cancelled Urine Clarity Cancelled Urine pH Cancelled Ur Specific [place] Cancelled Urine Protein Cancelled Urine Ketones Cancelled Urine Blood Cancelled Urine Nitrite Cancelled Urine Bilirubin Cancelled Urine Urobilinogen Cancelled Ur Leukocyte Esterase Cancelled Urine Glucose Cancelled Urine Opiates Screen Urine Methadone Screen Ur Barbiturates Screen Ur Tricyclics Screen Ur Amphetamines Screen U Benzodiazepines Scrn Urine Cocaine Screen Ur THC Screen
--- NOTE | 2020-08-10 10:41 | NUR.NOTE ---
Physical therapist completes work with patient.Nursing Note:
--- NOTE | 2020-08-10 10:47 | NUR.NOTE ---
Telemetry monitoring is dc'd.Nursing Note:
[2020-08-10] MEDS: Normal Saline Flush 10 ML SYR IVP (10:49)
[2020-08-10 11:07] LABS: COVID-19 RT-PCR UVMMC Result Negative (Negative)
--- NOTE | 2020-08-10 12:09 | NUR.NOTE ---
Nursing Note: Patient's lunch is not delivered. RN calls kitchen to have lunch delivered.
--- NOTE | 2020-08-10 12:53 | NUR.NOTE ---
Patient has a healthy appetite.ng Note:
--- NOTE | 2020-08-10 13:55 | NUR.NOTE ---
Patient very comfortable in bed giving his menu choices to the medicine aide.Nursing Note:
--- NOTE | 2020-08-10 14:57 | PT.INTREAT ---
Date of service: 08/10/20 Time of Service: 13:10 PT Notes Visit Reasons: HIP CONTUSION, AMBULATORY DYSFUNCTION Inpatient Physical Therapy Treatment Note [facility] Date: 08/10/2020 PRECAUTIONS: Fall, WBAT L SUBJECTIVE: Kaleb is hesitant, but agreeable to participating in PT. He reports that he continues to have some pain in L hip area, but it better controlled than yesterday. He remains agreeable to discharging to a SNF for continued rehab. OBJECTIVE: PAIN: Patient c/o L hip pain, increasing with gait training BED MOBILITY/TRANSFERS Supine-sit: I Sit-supine: I Sit-stand: S Stand-sit: S GAIT Assistive Device: FWW Weight bearing: WBAT L Assist: CGA Distance: 50' Deviation: B knee flexion contracture, shakiness THEREX: Patient was instructed in a LE strengthening program, while seated at EOB, as per flow sheet. He demonstrates L LE weakness. ASSESSMENT: Patient tolerated session with c/o increased L hip pain with gait training, although was able to tolerate a progression in gait distance, requiring CGA. PLAN: He would benefit from continued gait and transfer training as well as global strengthening for improved activity tolerance and mobility. TREATMENT CODE/TIME: 15 minutes; [id number]
--- NOTE | 2020-08-10 15:32 | PHA.REVIEW ---
Pharmacy Admission Review - Admission Clinical Review (Last Reviewed 08/10/20 @ 07:19 by Josiah Lloyd MD) DVT prophylaxis (Acute) Discharge planning issues (Acute) Hypomagnesemia (Acute) Hypokalemia (Acute) Contusion of pelvis (Acute) Acute hyponatremia (Acute) ENVIRONMENTAL/POLLEN Allergy (Uncoded 08/09/20 09:46) CONGESTION, WATERY EYES, RUNNY NOSE Height 5 ft 8 in Weight 55 kg - Renal Dosing Renal Dosing: BUN 4 mg/dL (7-18) L 08/10/20 06:14 Creatinine 0.51 mg/dL (0.70-1.30) L 08/10/20 06:14 Medications needing adjustments: Reviewed (Crcl ~75 mL/min current meds okay) - Anticoagulation Anticoagulation: Hgb 16.2 g/dL (13.5-17.5) 08/09/20 10:05 Hct 46.8 % (40.0-50.0) 08/09/20 10:05 Plt Count 186 10^3/uL (130-400) 08/09/20 10:05 INR 1.0 (0.9-1.1) 08/09/20 10:05 Creatinine 0.51 mg/dL (0.70-1.30) L 08/10/20 06:14 DVT Prohphylaxis: Reviewed Medications: Enoxaparin Therapeutic Anticoagulation: N/A - Opiate Usage Evaluate Pain Scale/Pains Meds: Reviewed Scheduled Bowel Reg ordered if on Opiates?: No (has PRN meds ordered) - Relevant Labs Sodium 133 mmol/L (136-145) L 08/10/20 06:14 Potassium 3.3 mmol/L (3.5-5.1) L 08/10/20 06:14 Chloride 101 mmol/L (98-107) 08/10/20 06:14 Phosphorus 3.5 mg/dL (2.6-4.7) 08/09/20 10:05 Magnesium 1.7 mg/dL (1.8-2.4) L 08/10/20 06:14 Electrolytes, C-Reactive P, ESR: Reviewed (PO mag and K+ replacment ordered) - DM Control DM Control: Glucose 109 mg/dL (74-106) H 08/10/20 06:14 Insulin Dosing: N/A (BG mildly elevated) - Heart Failure/CO Heart Failure/CO: Troponin I < 0.05 ng/mL (<0.06) 08/09/20 10:05 EF%, HARSHAD's, B-Blockers, Diuretics: Reviewed - BP Control BP Control: Blood Pressure 127/56 Blood Pressure 127/56 Blood Pressure 127/56 Blood Pressure 127/56 Blood Pressure 125/59 If elevated: N/A - Qtc Review If Elevated: N/A (QTc 454 on admission) - IV to PO Switch IV Medications: Reviewed - Home Meds Home Med List reviewed: Reviewed Relevent Home Meds Not ordered & why?: umeclidinium/vilanterol (pt unable to bring in, MD ordered ipratropium/albuterol QID scheduled) - Current meds Current Medication Order Review: Reviewed - Comments Comments/Follow Ups: Watch VS, electrolytes, SCr, and for med changes (need of additional BM meds).
[2020-08-10] MEDS: Enoxaparin 40 MG/0.4 ML SYR SC (16:05)
[2020-08-10] MEDS: Nicotine 21 MG/24 HR PATCH TD (20:57)
[2020-08-10] MEDS: Acetaminophen 325 MG TAB PO (21:01)
[2020-08-11 03:26] VITALS: BP 110/61; PULSE 76
[2020-08-11 03:56] VITALS: BP 110/61; PULSE 82; RESP 12; TEMP 36; O2SAT 96
[2020-08-11 06:57] LABS: Anion Gap 5.6 mmol/L (3-11); BUN 6 mg/dL (7-18); CO2 26.4 mmol/L (21.0-32.0); CREATININE 0.57 mg/dL (0.70-1.30); Calcium 8.3 mg/dL (8.5-10.1); Chloride 102 mmol/L (98-107); Glucose 103 mg/dL (74-106); Magnesium 1.7 mg/dL (1.8-2.4); Sodium 134 mmol/L (136-145)
[2020-08-11] MEDS: Methocarbamol 750 MG TAB 1500 MG PO ×3 (07:33→16:39)
[2020-08-11] MEDS: Diclofenac 1% Gel 100 GM TUBE TP ×3 (07:33→16:39)
[2020-08-11] MEDS: Magnesium Gluconate 500 MG TAB PO (07:33)
[2020-08-11] MEDS: Folic Acid 1 MG TAB PO (07:33)
[2020-08-11] MEDS: Multivitamin TAB 1 TAB PO (07:33)
[2020-08-11] MEDS: Thiamine 100 MG TAB PO (07:34)
[2020-08-11] MEDS: Potassium Chloride 10 MEQ CAPCR 20 MEQ PO (07:34)
[2020-08-11] MEDS: Ipratropium/Albuterol 4 GM 120 PUFF INH IH ×3 (07:39→16:16)
--- NOTE | 2020-08-11 09:42 | W.PM.PROGNOT ---
Date of Service Date of service: 08/11/20 Time of Service: 09:43 Assessment and Plan Assessment and plan (1) Contusion of pelvis: Status: Acute Assessment and plan: Continue diclofenac ointment to his hip along with Robaxin and gabapentin. Continue with physical therapy. Case management is putting out referrals to [facility] for short-term rehabilitation stay. Qualifiers: Encounter type: initial encounter Qualified Code(s): S30.0XXA - Contusion of lower back and pelvis, initial encounter (2) Acute hyponatremia: Status: Acute Assessment and plan: Resolving. Sodium is up to 134. We can DC his IV fluids at this time as he is taking adequate p.o. (3) Alcoholism: Status: Chronic Assessment and plan: Electrolyte replacement and nutritional supplementation as above. Continue to monitor for acute alcohol withdrawal. He has as needed doses of oral phenobarbital if needed. (4) Hypokalemia: Status: Resolved Assessment and plan: Hypokalemia resolved with supplementation (5) Hypomagnesemia: Status: Acute Assessment and plan: Hypomagnesia persist although improved at 1.7. I will increase his oral supplementation. (6) Discharge planning issues: Status: Acute Assessment and plan: Case management to make referrals for short-term stay at a SNF for rehabilitation patient intends to return home after that. (7) DVT prophylaxis: Status: Acute Assessment and plan: Patient: Currently on enoxaparin and SCD and WARNER guerrero Subjective Subjective Interval history since last seen: Overall patient is improving. Was able to ambulate with a front wheel walker and assistance from physical therapy yesterday. He is asking me this morning why is not getting his albuterol. Explained to him that he is getting Combivent on a scheduled basis and only needs to ask for the albuterol but he only be used as needed for wheezing or dyspnea. He says he still has a moderate amount of left hip pain but is not limiting his ability to bear weight. Exam Narrative Exam Narrative: Middle-age male who appears to be older than his stated age of 59. He is alert and oriented person place time circumstance. He is lying in bed having completed his breakfast and was trying to catch a nap before physical therapy. Lungs are clear to auscultation Heart is regular Left hip has some point tenderness over the femoral neck area where he has a prosthesis. I do not see any swelling or redness over the site. Objective Last Vital Signs Temp 36.0 C L 08/11/20 03:56 Pulse 82 08/11/20 03:56 Resp 12 08/11/20 03:56 BP 110/61 08/11/20 03:56 Pulse Ox 96 08/11/20 03:56 Laboratory Results - last 24 hr 08/09/20 08/11/20 16:05 06:20 Sodium 134 L Potassium 4.0 D Chloride 102 Carbon Dioxide 26.4 Anion Gap 5.6 BUN 6 L Creatinine 0.57 L Estimated GFR/1.73 m2 >= 60.00 Glucose 103 Calcium 8.3 L Magnesium 1.7 L SARS-CoV-2 (PCR) Negative Nasopharyn COVID-19 PCR Not Applicable Ref Test Perform Site [facility]
[2020-08-11] MEDS: Acetaminophen 325 MG TAB PO (09:56)
--- NOTE | 2020-08-11 09:56 | W.NUTRFU ---
Date of service: 08/11/20 Time of Service: 09:56 Nutritional Follow up NOTE: 59 year old male admitted to ICU for acute hyponatremia s/p fall at home. Long standing hx of ETOH abuse. BMI indicates underweight status and has been stable > 1 year. Pt is nutritionally compromised in view of low BMI and increased nutrient requirement in view of excessive ETOH use. Currently on MVI, thiamin and folate for repletion. Following regular diet with excellent intake (>75% of meals). Currently meeting 100% nutrient and fluid needs by mouth. Will continue to follow. Time Spent in Nutritional Counseling and Treatment: 0
[2020-08-11] MEDS: Ketorolac 15 MG/ML VIAL IVP (09:57)
[2020-08-11] MEDS: Normal Saline Flush 10 ML SYR IVP (09:57)
[2020-08-11] MEDS: MAGNESIUM SULFATE 2 GM/50 ML BAG IVPB (10:04)
--- NOTE | 2020-08-11 11:00 | PDOC.CMPRO ---
- If Service Date Differs Date of service: 08/11/20 Time of Service: 11:00 Care Management Progress Note S/O: Kaleb was sitting up in bed when CM met with him. He had just been transferred to a new room on [facility]. Kaleb will transition to SB-1 today as he is no longer acute. He may go to a SNF for rehab if he is unable to regain enough strength to return home and care for himself independently. PT will do another evaluation and make recommendations regarding appropriate treatment and disposition. A: Kaleb is a 59 isr[place] old man admitted on 08/10/20 with a hip contusion and ambulatory dysfunction P:Kaleb is agreeable to SNF referral to [facility] which was faxed yesterday. Denisse, from Admissions at [facility] reported that [facility] is closed to admissions until at least Sunday of next week. Bed offer would therefore be pending bed availability for 08/16/19. Transportation to be determined by disposition; if admitted to [facility] anticipate he will transport via the facility's W/C van. Anticipate Kaleb may need to transition to SWB1 awaiting disposition. CM continues to follow. cc:
--- NOTE | 2020-08-11 11:09 | PHA.REVIEW ---
Pharmacy Admission Review - Admission Clinical Review (Last Reviewed 08/10/20 @ 07:19 by Josiah Lloyd MD) DVT prophylaxis (Acute) Discharge planning issues (Acute) Hypomagnesemia (Acute) Contusion of pelvis (Acute) Acute hyponatremia (Acute) ENVIRONMENTAL/POLLEN Allergy (Uncoded 08/09/20 09:46) CONGESTION, WATERY EYES, RUNNY NOSE Height 5 ft 8 in Weight 55.3 kg - Renal Dosing Renal Dosing: BUN 6 mg/dL (7-18) L 08/11/20 06:20 Creatinine 0.57 mg/dL (0.70-1.30) L 08/11/20 06:20 - Anticoagulation Anticoagulation: Hgb 16.2 g/dL (13.5-17.5) 08/09/20 10:05 Hct 46.8 % (40.0-50.0) 08/09/20 10:05 Plt Count 186 10^3/uL (130-400) 08/09/20 10:05 INR 1.0 (0.9-1.1) 08/09/20 10:05 Creatinine 0.57 mg/dL (0.70-1.30) L 08/11/20 06:20 - Relevant Labs Sodium 134 mmol/L (136-145) L 08/11/20 06:20 Potassium 4.0 mmol/L (3.5-5.1) D 08/11/20 06:20 Chloride 102 mmol/L (98-107) 08/11/20 06:20 Phosphorus 3.5 mg/dL (2.6-4.7) 08/09/20 10:05 Magnesium 1.7 mg/dL (1.8-2.4) L 08/11/20 06:20 - DM Control DM Control: Glucose 103 mg/dL (74-106) 08/11/20 06:20 - Heart Failure/MA Heart Failure/MA: Troponin I < 0.05 ng/mL (<0.06) 08/09/20 10:05 - BP Control BP Control: Blood Pressure 110/61 Blood Pressure 110/61
--- NOTE | 2020-08-11 14:40 | PT.INTREAT ---
Date of service: 08/11/20 Time of Service: 14:40 PT Notes Visit Reasons: HIP CONTUSION, AMBULATORY DYSFUNCTION Inpatient Physical Therapy Treatment Note [facility] Date: 08/11/2020 PRECAUTIONS: Fall, WBAT L LE. SUBJECTIVE: Kaleb is more cheerful and much more confident about session performance today. Did not report any pain throughout session but did report fatigue after exercise and ambulation activity. Complained about not having had a bowel movement since hospital admission. OBJECTIVE: PAIN: NOne reported BED MOBILITY/TRANSFERS Supine-sit: Independent Sit-supine: Independent Sit-stand: Supervision Stand-sit: Supervision GAIT Assistive Device: 4WW Weight bearing: WBAT L Assist: SBA Distance: 100 feet +100 feet Deviation: Demonstrates increase in knee extension in bilateral sides with use of 4 wheeled walker resolution of pain. Florencia increasing. Trunk more erect. STAIRS: Instructed on going up and down 6 x 4 inch steps while holding onto bilateral rails with step to gait pattern requiring standby assist however required contact-guard assist while holding onto just one rail only being able to manage 1 step. THEREX: Facilitated BLE strengthening and standing balance with performance of standing level balance exercises while holding onto the ends of bilateral stair rails. Set of hip extension x10, toe taps onto first step of 4 inch step x10, and bilateral heel raises without increase in pain that with report of fatigue and mild SOB. ASSESSMENT: Hesham demonstrates increased tolerance to longer ambulation distance and increased activity level and standing with out increase in pain complaint. PLAN: Progress regimen for strengthening, balance, and ambulation as tolerated by patient in order to achieve initially established goals. TREATMENT CODE/TIME: 99116 x 30 minutes, 35975 x 15 minutes beginning at 14:40 PM.
[2020-08-11 15:35] VITALS: BP 111/72; PULSE 93; RESP 18; TEMP 36.7; O2SAT 96
[2020-08-11] MEDS: Enoxaparin 40 MG/0.4 ML SYR SC (16:39)
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
== END 2020-08-11 17:26 | disposition swing bed (61) ==
LOC: ER 15:39 → ICU 16:10 → MS 08-11 14:21
PROVIDERS: Admitting Provider Internal Medicine; Emergency Provider Emergency Medicine; Visit Provider Internal Medicine
DX: S30.0XXA Contusion of lower back and pelvis, initial encounter (principal); W18.39XA Other fall on same level, initial encounter; E87.1 Hypo-osmolality and hyponatremia; F10.20 Alcohol dependence, uncomplicated; Z96.642 Presence of left artificial hip joint; J44.9 Chronic obstructive pulmonary disease, unspecified; F17.210 Nicotine dependence, cigarettes, uncomplicated; E83.42 Hypomagnesemia; E87.6 Hypokalemia
CPT/HCPCS: 36415; 73552; 80048; 80053; 80307; 82550; 93005; 94640; 96365; 96366; 96375; 97110; 97162; 97530; 99220; 99226; 99238; 99253; 99285; J1650; U0003; 70450; 71045; 72125; 72170; 74176; 80320; 81003; 81015; 83735; 84100; 84443; 84484; 85025; 85610; 85730; 93010; 99217; 99284; G0378; J1885; J2560; J3490; J7042

== ENCOUNTER 2020-08-11 17:38 | Inpatient (IN) | payer MEDICAID, SELFPAY ==
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
--- NOTE | 2020-08-11 17:43 | PT.INTREAT ---
Date of service: 08/11/20 Time of Service: 14:40 PT Notes Inpatient Physical Therapy Treatment Note [facility] Date: 08/11/2020 PRECAUTIONS: Fall, WBAT L LE. SUBJECTIVE: Kaleb is more cheerful and much more confident about session performance today. Did not report any pain throughout session but did report fatigue after exercise and ambulation activity. Complained about not having had a bowel movement since hospital admission. OBJECTIVE: PAIN: NOne reported BED MOBILITY/TRANSFERS Supine-sit: Independent Sit-supine: Independent Sit-stand: Supervision Stand-sit: Supervision GAIT Assistive Device: 4WW Weight bearing: WBAT L Assist: SBA Distance: 100 feet +100 feet Deviation: Demonstrates increase in knee extension in bilateral sides with use of 4 wheeled walker resolution of pain. Florencia increasing. Trunk more erect. STAIRS: Instructed on going up and down 6 x 4 inch steps while holding onto bilateral rails with step to gait pattern requiring standby assist however required contact-guard assist while holding onto just one rail only being able to manage 1 step. THEREX: Facilitated BLE strengthening and standing balance with performance of standing level balance exercises while holding onto the ends of bilateral stair rails. Set of hip extension x10, toe taps onto first step of 4 inch step x10, and bilateral heel raises without increase in pain that with report of fatigue and mild SOB. ASSESSMENT: Hesham demonstrates increased tolerance to longer ambulation distance and increased activity level and standing with out increase in pain complaint. PLAN: Progress regimen for strengthening, balance, and ambulation as tolerated by patient in order to achieve initially established goals. TREATMENT CODE/TIME: 75666 x 30 minutes, 51621 x 15 minutes beginning at 14:40 PM.
[2020-08-11 17:54] VITALS: BP 110/61; PULSE 82; RESP 12; TEMP 36; O2SAT 96
[2020-08-11] MEDS: Methocarbamol 750 MG TAB 1500 MG PO (20:02)
[2020-08-11] MEDS: Magnesium Gluconate 500 MG TAB PO (20:02)
[2020-08-11] MEDS: Ipratropium/Albuterol 4 GM 120 PUFF INH IH (20:03)
[2020-08-11] MEDS: Diclofenac 1% Gel 100 GM TUBE TP (20:03)
[2020-08-11] MEDS: Nicotine 21 MG/24 HR PATCH TD (20:03)
[2020-08-11 22:59] VITALS: BP 132/75; PULSE 79; RESP 18; TEMP 36.2; O2SAT 96
[2020-08-12 06:46] LABS: Platelet Count 191 10^3/uL (130-400)
[2020-08-12] MEDS: Magnesium Gluconate 500 MG TAB PO ×2 (08:02→20:34)
[2020-08-12] MEDS: Potassium Chloride 10 MEQ CAPCR 20 MEQ PO (08:02)
[2020-08-12] MEDS: Methocarbamol 750 MG TAB 1500 MG PO ×4 (08:02→20:34)
[2020-08-12] MEDS: Diclofenac 1% Gel 100 GM TUBE TP ×2 (08:02→20:34)
[2020-08-12] MEDS: Folic Acid 1 MG TAB PO (08:02)
[2020-08-12] MEDS: Thiamine 100 MG TAB PO (08:03)
[2020-08-12] MEDS: Multivitamin TAB 1 TAB PO (08:05)
[2020-08-12 08:07] VITALS: BP 163/83; PULSE 92; RESP 17; TEMP 36.6; O2SAT 97
[2020-08-12] MEDS: Ipratropium/Albuterol 4 GM 120 PUFF INH IH ×4 (08:12→20:34)
--- NOTE | 2020-08-12 08:14 | OTIE_ITS ---
Occupational Therapy Notes Inpatient Occupational Therapy Evaluation Date: 08/12/20 Referring Doctor: Joshua James MD OT Orders: Non- Urgent Precautions: Fall, Standard, Full PATIENT PROFILE/ADMITTING DIAGNOSIS: Pt is a 59-year-old male who presented to the ED with c/o left hip pain, difficulty with standing/walking, and inability to walk. X-ray and CT scans did not show any fracture of the (L) hip and the pelvis chart and per MD. Past Medical History: Medical History Alcohol withdrawal delirium Alcoholism (~01/2014) a. Drinks at least 6 beers per day on a regular basis. COPD (chronic obstructive pulmonary disease) a. Ongoing tobacco abuse. Fracture of femoral neck, left a. S/P left total knee arthroplast, 01/26/[address] Mendoza. History of neck fracture a. Left-sided weakness. b. On SSI disability. Surgical History History of cervical spinal arthrodesis History of total left hip arthroplasty (01/26/14) left total hip arthroplasty; Dr. Riaz Mendoza[facility] after fall and hip fracture Social History/Home Situation: Pt states that he lives alone in an apartment. He notes that he doesn't drive and uses the taxi. He has HH services for two hours but notes that time is limited as he does not have laundry on site so things are not always done that he needs help with. He states that he has a shower with grab bars and he is able to perform his bathing and dressing (I). He always has had issue with donning his (L) sock due to his hip. Equipment owned/DME: 4WW, grab bars, cane, sock aid, grabber SUBJECTIVE: Pt was sitting in bed when OT arrived. He was agreeable to OT session and notes that he is fairly (I) but has some pain in his hip at times. OBJECTIVE: General Observation: Pt was pleasant and agreeable and able to answer questions appropriately. Mental Status: A&Ox3 Pain: no c/o pain during session but notes he has pain in his leg. ROM: RUE AROM WFL L UE AROM WFL STRENGTH: RUE 4/5 throughout globally LUE 4-/5 throughout globally FUNCTIONAL MOBILITY/ADLS: Transfers with 4WW Supine-sit (I) Sit-supine (I) BATHING sitting in bed with max (A) Set up/clean up and min vc Bathing UE (I) face, (B) UE, abdomen, max (A) back Bathing LE (I) to thighs, Mod (A) below knees, max (A) feet DRESSING sitting in bed Dressing UE Min (A) with [facility] hospital gown Dressing LE Max (A) (L) and min (A) (R) pt states that he has adaptive equipment at home but states that he can't find it. OT educates pt in adaptive equipment including sock aid, dressing stick and registered medical transcriptionist for dressing routines. GROOMING (I) with brushing hair TOILETING with urinal (I) EATING NT BALANCE: Static sitting Normal Dynamic Sitting Good SPECIAL TESTS: Daily Activity Limitations Standardized Measure [facility] AM -PAC ?6 clicks? Daily Activity Inpatient Short Form: Raw score: 19 Standardized score: 40.22 CMS score: 42.80% INFORMED CONSENT/EDUCATION: Pt instructed in purpose of OT Consult and plan of care. ASSESSMENT: Patient is a 59-year-old male referred to occupational therapy services with diagnosis of left hip pain, difficulty with standing/walking, and inability to walk. Patient presents with clinical signs and symptoms consistent with dx, as demonstrated by the following impairment level findings/functional limitations: Impairments in ADL/IADL and leisure activities, decreased standing and functional mobility required for ADL performance, decreased standing ADLs, decreased LE dressing and bathing, pain in (L) hip. AMPAC score 19 Patient is assessed as a Low 28701 complexity based on the following: History: see above Examination: see functional limitations/impairments as noted above Presentation: evolving Decision Making: AMPAC score 19 GOALS Goals x1 week 1. Transfers with FWW (I) 2. Dressing sitting on side of the bed (I) UE/LE with adaptive equipment 3. Bathing sitting on side of the bed (I) UE/LE 4. Toileting on commode (I) 5. Eating (I) PLAN OF CARE/TREATMENT PLAN: 1x/day, 5 days/ week x 1week Initiate Occupational Therapy Services for bathing, dressing, grooming, toileting, eating, transfer training. DISCHARGE RECOMMENDATIONS OT recommends that pt return home with HH services vs. short term stay at SNF for increased strengthening. OT will continue to assess as pt progresses throughout [facility] B1 rehabilitation status. TREATMENT TIME/MINUTES/CODES 32980, 26185, 30 minutes (07:05) Klarissa Mukherjee OTR/L [facility]
--- NOTE | 2020-08-12 09:50 | IN_ITS ---
Date of service: 08/12/20 Time of Service: 09:50 PT Notes Visit Reasons: HIP CONTUSION,AMBULATORY DYSFUNCTION Physical Therapy Inpatient Swing bed Level 1 Initial Evaluation Date: 08/12/2020 Referring Doctor: Joshua James MD PT Orders: PT CONSULT: Safety consult for D/C Precautions: Fall. Standard. WBAT on left LE. Patient Profile/Admitting Diagnosis: SB 1 converted as of 08/11/2020. Hesham is a 59-year-old male who presented to the ED today with chief complaints of left hip pain, difficulty with standing, and inability to walk since he fell last , 08/05/2020 while crossing a threshold inside his home using his 4- wheeled walker. X-ray and CT scans did not show any fracture of the L hip and the pelvis chart and per MD. Another referral was sent for PT evaluation to continue with physical therapy services to achieve initially established goals. PMHX: Medical History Alcohol withdrawal delirium Alcoholism (~01/2014) a. Drinks at least 6 beers per day on a regular basis. COPD (chronic obstructive pulmonary disease) a. Ongoing tobacco abuse. Fracture of femoral neck, left a. S/P left total knee arthroplast, 01/26/[address] Mendoza. History of neck fracture a. Left-sided weakness. b. On SSI disability. Surgical History History of cervical spinal arthrodesis on high appetite History of total left hip arthroplasty (01/26/14) left total hip arthroplasty; Dr. Riaz Mendoza, [facility] after fall and hip fracture Social History/Home Situation: Kaleb states that he lives in a home which he shares with other tenants. He however emphasizes that he will not have the support of any of these tenants as he states he is on his own. He is independent using a 4-wheeled walker for all indoor ambulation. He states that he rides the taxi for all his community errands. He gets Meals on Wheels every day; gets Sunday and Sunday meals on Fridays. Has 1 step to get into the house without rails. Equipment Owned/DME: 4WW, raised toilet seat Subjective: Hesham reports stiffness in the left hip that subsides with ambulation performance. Denies any pain throughout session. Did complain of mild shortness of breath after first 300 feet of level surface ambulation that subsided with rest. Objective: General Observation: Seated on bedside chair. L well-healed lateral surgical CHAD incision well-healed. Atrophy of L UE and L LE hip/knee major muscle groups due to pre-existing chronic weakness related to previous spinal surgery. Mental Status: Alert and oriented x4 Pain: None reported ROM: Right Upper Extremity: Shoulder Flexion WFL. Shoulder abduction WFL. Elbow flexion WFL. Wrist flexion WFL. Opening and closing of hand WFL. Left Upper Extremity: Shoulder Flexion allows up to 90 degrees only. Shoulder abduction allows up to 90 degrees only. Elbow flexion WFL. Wrist flexion WFL. Opening and closing of hand WFL. Right Lower Extremity: Hip flexion WFL. Hip abduction WFL. Knee flexion WFL. Knee extension -20 degrees. Ankle dorsiflexion WFL. Ankle plantarflexion WFL. Left Lower Extremity: Hip flexion lacks the last 25% of AROM due to chronic weakness and pain. Hip abduction aloows only up to 20 degrees, gravity- eliminated. Knee flexion WFL. Knee extension -30 degrees. Ankle dorsiflexion WFL. Ankle plantarflexion WFL. Strength: Right Upper Extremity: Shoulder flexors 4-/5. Shoulder abductors 4-/5. Elbow flexors 4-/5. Elbow extensors 4-/5. Saw Handle Assembler strong. Left Upper Extremity: Shoulder flexors 3-/5. Shoulder abductors 3-/5. Elbow flexors 4-/5. Elbow extensors 3-/5. Saw Handle Assembler weak but functional. Right Lower Extremity: Hip flexors 4-/5. Hip abductors 4-/5. Knee flexors 4-/5. Knee extensors 3-/5. Ankle dorsiflexors 4-/5 Ankle plantarflexors 4-/5. Left Lower Extremity:Hip flexors 3-/5. Hip abductors 3-/5. Knee flexors 3-/5. Knee extensors 3-/5. Ankle dorsiflexors 4-/5. Ankle plantarflexors 4-/5. Sensation: Intact as to pain and pressure on bilateral lower extremities. Bed Mobility/Transfers: Rolling independent Supine to sit independent Sit to supine independent Sit to stand supervision Stand to sit supervision Bed to chair supervision Chair to bed supervision GAIT Assistive Device: 4WW Weight bearing: WBAT L Assist: SBA Distance: 300 feet x 2 Deviation: Continues to demonstrate increase in knee extension in both sides with use of 4-wheeled walker. Florencia increasing. Trunk more erect. THEREX: Facilitated B LE strengthening and standing balance with performance of standing level balance exercises while holding onto FWW. Exercises consisted of hip extension x10, hip abduction x 10 and bilateral heel raises without increase in pain that with report of fatigue and mild SOB. Balance: Static Sitting: Normal Dynamic Sitting: Normal Static Standing: Fair Dynamic Standing: Fair Special Tests: Mobility Limitations Standardized Measure [facility] AM-PAC 6 clicks Basic Mobility Inpatient Short Form: Raw Score: 23 CMS Score: 11% deficit Informed Consent/Education: Patient instructed in purpose of PT consult and plan of care. Assessment: Kaleb converted to swing bed level 1 as of 08/11/2020 and is evaluated today for continued services. He continues to demonstrate remaining functional mobility impairments requiring physical assistance and the use of a front-wheeled walker with mobility ADL perrformance, impaired standing balance, difficulty with walking, impairment with standing balance, and increased fall risk due to admitting diagnoses and co-morbidities. Patient will continue to require skilled services in order to address remaining impairment level findings and functional limitations listed below. Without services patient will be at risk for further functional mobility decline, higher risk for falls, and inability to thrive at home. Patient will benfit from senior care facility placement prior to discharge to home to increase ability to stay at home independently. Patient continues to present with clinical signs and symptoms consistent with current/admitting diagnoses that have resulted to mobility limitations, gait instability, generalized weakness, and impairment of motor control as d emonstrated by the following impairment level findings: 1. Decreased strength to B UE/LE major muscle groups with L more affected than R 2. Impaired standing balance 3. Impaired activity tolerance 4. Limitation of joint range of motion in left hip and knee 5. Chronic left-sided weakness Impairments are contributing to the following functional limitations: 1. Inability to safely ambulate without assistive device 2. Increase completion time for mobility ADL performance 3. Increased fall risk 4. Inability to negotiate steps alone safely Patient is assessed as a 16518 moderate complexity based on the following: History: 59-year-old male with impairment level findings, functional limitations, and past medical history as indicated above Examination: Demonstrable impairment in strength, balance, and mobility level with underlying impairments and functional limitations as documented above Presentation:Evolving Decision Makin moderate complexity Goals: Goals X1 week 1. Sit-Stand independent 2. Stand-Sit independent 3. Bed-Chair supervision 4. Chair-Bed supervision 5. Independent gait on level surface with use of 4WW for at least 300 feet without report of pain nor dyspnea 6. Independent stair negotiation while holding onto bilateral rails for at least 10 steps without report of pain nor dyspnea 7. Independent with home exercise program 8. Good static and dynamic standing balance/tolerance Plan of Care/Treatment Plan: 1-2x/day, 7 days/week x 1 week. Plan of care has been reviewed with the OPERATIONS/DISPATCH providing the service under Physical Therapy direction. Initiate Physical Therapy intervention for strengthening, bed mobility, transfers, gait, stairs, balance training, use of assistive device. DISCHARGE RECOMMENDATIONS: Patient will benefit from home health PT services in order to progress mobility level using least restrictive assistive ambulatory device, assess home safety, identify additional equipment needs, and establish a functional maintenance program that will increase ability of patient to remain at home. TREATMENT CODE/TIME: 74878 x 25 minutes, 69209 x 15 minutes beginning at 9:25 AM. Thank you for the opportunity to participate in the care of this patient.
--- NOTE | 2020-08-12 12:41 | W.NUTCONSULT ---
Date of service: 08/12/20 Time of Service: 12:42 Nutritional Consult ASSESSMENT: 59 year old male admitted with COPD, hypokalemia and functional decline, long standing history of alcoholism. Met with Kaleb today, he reports 40 lbs weight loss in last year. At home, receives meals on wheels, home health services. Unable to explain weight loss, reports no food insecurity. Suspect increase in ETOH abuse has decreased PO intake and body weight. At high nutritional risk, presents with moderate malnutrition in view of significant weight loss in last year and excessive intake of ETOH. Following regular meal plan with 100% meal completion. Currently meeting nutrient and fluid needs. Estimated Needs: [id number] kcal, 56-67 g protein. NUTRITIONAL DIAGNOSIS: Moderate malnutrition in view of significant weight loss in past year INTERVENTION: dom regular meal plan declines referral to community connections for additional services when discharges MONITORING AND EVALUATION: weight, po intake, labs Time Spent in Nutritional Counseling and Treatment: 15
--- NOTE | 2020-08-12 14:31 | CM.SBPSYCH ---
- If Service Date Differs Date of service: 08/11/20 Time of Service: 11:00 SB Psychosocial/Act.Assessment - Hospital Admission Admission Date: 08/09/20 Admission From:: Home Diagnosis:: Hip Contusion, Ambulatory Dysfunction - Swing Bed Admission Swing Bed Admit Date:: 08/11/20 Swing Bed Level of Care: Level 1/SNF - Social Supports PREVIOUS FUNCTIONAL STATUS/SOCIAL/FAMILY SUPPORTS:: Kaleb resides locally in [facility], he lives in a shared living dwelling with other tenants, but each is independent of one another. He reports no natural supports in the area. He has a son who resides in [place]. [facility]. Kaleb had an accident many years ago resulting in cervical damage resulting in baseline weakness and tremors. He fell last and has struggled to mobilize since. Kaleb utilizes a FWW at baseline, has [employer] delivery and utilizes the local taxi for transportation. - Prior to Admission Living Arrangements/Environment Prior to Admission:: Resides in rented quarters in shared home. Reports he only shares the front door and has his own living room, bedroom, kitchen and bathroom. Utilizes taxi for transport and MOWs in the community. Housing support through [facility]; subsidized housing voucher. - Work History Employment Status:: Disabled without disability support. - : No 's Spouse: No - Benefits Financial: Medicaid - Temple Active Taoist Member:: No Will Taoist Members or [employer] Visit:: No - Advance Directives for Healthcare If no AD, do you want more information:: No - Present Functional Status Physical Abilities:: Demonstrable impairment in strength, balance, and mobility level with underlying impairments and functional limitations - Medical History PAST MEDICAL HISTORY/PAST SURGICAL HISTORY:: Alcohol withdrawal delirium, alcoholism, COPD, fracture of femoral neck left, hx of neck fracture, cervical spinal arthrodesis, total left hip arthroplasty - Admission Data Reason for Swing Bed Admission:: He continues to demonstrate remaining functional mobility impairments requiring physical assistance and the use of a front-wheeled walker with mobility ADL perrformance, impaired standing balance, difficulty with walking, impairment with standing balance, and increased fall risk due to admitting diagnoses and co-morbidities.Without services patient will be at risk for further functional mobility decline, higher risk for falls, and inability to thrive at home. Kaleb will benefit from SNF placement prior to discharge to home to increase ability to stay at home independently. Discharge Plan:: Home with VNA support and new referral to [facility]. Assessment: S/T rehab prior to returning home to increase mobility level and reduce fall risk. Computer Repair Technician: Barbara Quintero Date Assessment was completed:: 08/11/20
--- NOTE | 2020-08-12 15:19 | CM.SWINGPC ---
- If Service Date Differs Date of service: 08/11/20 Time of Service: 15:20 Swingbed Plan of Care Plan of care: SWING BED PROGRAM ACTIVITIES/DISCHARGE PLAN OF CARE ACTIVITIES PLAN Date: 08/11/20 Identified Need: Life Enrichment during extended hospitalization. Intervention/Plan: CART offerings; declined patient laptop, activities at this time. Requested landlord outreach; CM notified Landlord of hospitalization. Initials: DOUG DISCHARGE PLAN Date: 08/11/20 Identified Need: functional mobility impairments requiring physical assistance and the use of a front-wheeled walker with mobility ADL performance, impaired standing balance, difficulty with walking, impairment with standing balance, and increased fall risk due to admitting diagnoses and co-morbidities. Intervention/Plan: Patient will continue to require skilled services in order to address remaining impairment level findings and functional limitations listed below. Without services patient will be at risk for further functional mobility decline, higher risk for falls, and inability to thrive at home. Patient will benfit from shelter facility placement prior to discharge to home to increase ability to stay at home independently. DISCHARGE CONSIDERATIONS: VNA support, [facility] referral. Initials: DOUG
--- NOTE | 2020-08-12 15:28 | CHAPLAIN ---
Kaleb was in bed when I visited. He said his pain level had been high because of his hop injury, and he hasn't been able to sleep well. He said he[facility] but lives in [facility]. When I asked if he's been in touch any friends or family, he said no, why ruin their holiday. Later I heard him talking on his cell phone with someone.
--- NOTE | 2020-08-12 15:29 | PHA.REVIEW ---
Pharmacy Admission Review - Admission Clinical Review (Last Updated 08/11/20 @ 17:51 by Joshua James) Discharge planning issues (Acute) DVT prophylaxis (Acute) Contusion of pelvis (Acute) ENVIRONMENTAL/POLLEN Allergy (Uncoded 08/09/20 09:46) CONGESTION, WATERY EYES, RUNNY NOSE Weight 56.2 kg - Renal Dosing Medications needing adjustments: Reviewed List of meds needing interventions: eCrCl 77ml/min - Anticoagulation Anticoagulation: Plt Count 191 10^3/uL (130-400) 08/12/20 06:17 DVT Prohphylaxis: Reviewed Medications: Enoxaparin - Opiate Usage Evaluate Pain Scale/Pains Meds: Reviewed (nucynta prn) Scheduled Bowel Reg ordered if on Opiates?: Yes (prn orders) - Relevant Labs Electrolytes, C-Reactive P, ESR: N/A - DM Control Insulin Dosing: N/A - Heart Failure/AK EF%, HARSHAD's, B-Blockers, Diuretics: Reviewed - BP Control BP Control: Blood Pressure 163/83 If elevated: Reviewed - Qtc Review If Elevated: N/A - IV to PO Switch IV Medications: Reviewed - Home Meds Home Med List reviewed: Reviewed Relevent Home Meds Not ordered & why?: all ordered, combivent has been ordered in place of Anoro - Current meds Current Medication Order Review: Intervened (methocarbamol 1500 QID still active now x 3 days -- spoke to md about reducing down to maintance dose of 1500 TID, will potentially wean further) - Comments Comments/Follow Ups: pain control is working well with topical diclofenac and methocarbamol
[2020-08-12 15:51] VITALS: BP 112/69; PULSE 78; RESP 17; TEMP 37.6; O2SAT 95
[2020-08-12] MEDS: Nicotine 21 MG/24 HR PATCH TD (20:34)
[2020-08-12] MEDS: Normal Saline Flush 10 ML SYR IVP (20:49)
[2020-08-12 23:27] VITALS: BP 118/71; PULSE 80; RESP 18; TEMP 37.1; O2SAT 97
[2020-08-13] MEDS: Ipratropium/Albuterol 4 GM 120 PUFF INH IH (07:40)
[2020-08-13 07:42] VITALS: BP 130/75; PULSE 72; RESP 17; TEMP 36.2; O2SAT 96
[2020-08-13] MEDS: Diclofenac 1% Gel 100 GM TUBE TP ×4 (08:52→19:36)
[2020-08-13] MEDS: Methocarbamol 750 MG TAB 1500 MG PO ×3 (08:52→19:36)
[2020-08-13] MEDS: Multivitamin TAB 1 TAB PO (08:53)
[2020-08-13] MEDS: Magnesium Gluconate 500 MG TAB PO ×2 (08:53→19:36)
[2020-08-13] MEDS: Thiamine 100 MG TAB PO (08:53)
[2020-08-13] MEDS: Potassium Chloride 10 MEQ CAPCR 20 MEQ PO (08:53)
[2020-08-13] MEDS: Folic Acid 1 MG TAB PO (08:53)
[2020-08-13] MEDS: Normal Saline Flush 10 ML SYR IVP ×2 (10:18→19:47)
--- NOTE | 2020-08-13 11:30 | PT.INTREAT ---
PT Notes Visit Reasons: HIP CONTUSION,AMBULATORY DYSFUNCTION Inpatient Physical Therapy Treatment Note [facility] Date:08/13/20 SUBJECTIVE: Kaleb offers no complaints to me this am. OBJECTIVE: [] BED MOBILITY/TRANSFERS Supine-sit: I Sit-stand: S Stand-sit: S GAIT Assistive Device: 4WW Weight bearing: AT left Assist:SBA Distance: 150' THEREX: global strength and stabilizations of LE. See flowsheet for details. ASSESSMENT: tolerated session quite well. Seems to be making gains with strength and functional mobility. PLAN: will continue to progress his strength and functional mobility as he is able to tolerate. TREATMENT CODE/TIME: 30 min. [id number], [id number].
--- NOTE | 2020-08-13 13:23 | W.PODCONSULT ---
Date of service: 08/13/20 Time of Service: 13:23 History of Present Illness History of Present Illness Chief Complaint: Severe onychomycosis, onychogryphosis Narrative: 59-year-old male with poor body habitus complaining of severely overgrown toenails that he has tried unsuccessfully to manage. Pain is experienced not only with shoe gear from pressure of bed sheets even his socks cause pain. [facility] Medical History Alcohol withdrawal delirium Alcoholism (~01/2014) a. Drinks at least 6 beers per day on a regular basis. COPD (chronic obstructive pulmonary disease) a. Ongoing tobacco abuse. Fracture of femoral neck, left a. S/P left total knee arthroplast, 01/26/[address] Mendoza. History of neck fracture a. Left-sided weakness. b. On SSI disability. Surgical History History of cervical spinal arthrodesis History of total left hip arthroplasty (01/26/14) left total hip arthroplasty; Dr. Riaz Mendoza, [facility] after fall and hip fracture Social History Smoking/Tobacco Use Status: Current every day Smoking risk assessment performed?: Yes Alcohol Intake: current Alcohol Intake frequency: 3 or more drinks per day Alcohol type: beer Drug use: Never Do you feel safe in your relationship?: Yes Exam Narrative Exam Narrative: 59-year-old white male seen in his room at chair side looking older than his stated age. No acute distress. Peripheral pulses are diminished at the ankle bilaterally but his feet are warm to the touch, no peripheral edema noted. Toenails are severely overgrown, dark yellow, thick, dystrophic, hypertrophic, elongated, laterally rotated with heavy subungual debris and periungual tenderness. No active drainage is noted coming from the nail plates. They are extremely sensitive to even gentle palpation. Heavy xerosis with plaque and peeling noted across the plantar aspects of both feet and web space. Muscle groups of 5 out of 5 bilaterally although markedly deconditioned. He is ambulating with the use of a walker. He did fall initiating this admission contusing his left hip which he states hurts worse than when he fractured and had a hip replacement performed. Impressions: Severe onychomycosis with onychogryphosis Xerosis Plan:. I explained to Kaleb that more effort for personal hygiene, washing the feet with soap and water, applying moisturizing creams would greatly benefit his skin condition. I mechanically and electrically debrided all toenails to patient tolerance. Although his toenails and feet look significantly better than where I started he still needs a fair amount of ongoing work for further improvement. I do believe he will be more comfortable than he was before podiatric care was administered. I would be happy to see him in the office in 6 to 8 weeks for ongoing management as needed. Results Last Vital Signs Temp 36.2 C L 08/13/20 07:42 Pulse 72 08/13/20 07:42 Resp 17 08/13/20 07:42 BP 130/75 08/13/20 07:42 Pulse Ox 96 08/13/20 07:42 Labs Result diagrams: 08/12/20 06:17
[2020-08-13 15:06] VITALS: BP 121/69; PULSE 82; RESP 18; TEMP 36.7; O2SAT 96
[2020-08-13] MEDS: Enoxaparin 40 MG/0.4 ML SYR SC (16:33)
[2020-08-13 19:11] VITALS: BP 119/68; PULSE 94; RESP 19; TEMP 36.9; O2SAT 94
[2020-08-13] MEDS: Nicotine 21 MG/24 HR PATCH TD (19:36)
[2020-08-14 00:02] VITALS: BP 121/71; PULSE 84; RESP 18; TEMP 36.4; O2SAT 96
[2020-08-14 05:25] VITALS: BP 116/70; PULSE 78; RESP 17; TEMP 36.8; O2SAT 93
[2020-08-14 08:00] VITALS: BP 117/71; PULSE 80; RESP 20; TEMP 36.9; O2SAT 97
[2020-08-14] MEDS: Folic Acid 1 MG TAB PO (08:03)
[2020-08-14] MEDS: Magnesium Gluconate 500 MG TAB PO ×2 (08:03→19:25)
[2020-08-14] MEDS: Methocarbamol 750 MG TAB 1500 MG PO ×3 (08:03→19:25)
[2020-08-14] MEDS: Thiamine 100 MG TAB PO (08:03)
[2020-08-14] MEDS: Multivitamin TAB 1 TAB PO (08:04)
[2020-08-14] MEDS: Potassium Chloride 10 MEQ CAPCR 20 MEQ PO (08:04)
[2020-08-14] MEDS: Diclofenac 1% Gel 100 GM TUBE TP ×4 (08:04→19:25)
--- NOTE | 2020-08-14 10:17 | PT.INTREAT ---
PT Notes Visit Reasons: HIP CONTUSION,AMBULATORY DYSFUNCTION Inpatient Physical Therapy Treatment Note [facility] Date: 08/14/20 SUBJECTIVE: Kaleb reports that he is hoping to go home soon. He reports that his hip only bothers when I'm on it too long. OBJECTIVE: [] BED MOBILITY/TRANSFERS Supine-sit: I Sit-supine: I Sit-stand: I Stand-sit: I GAIT Assistive Device: FWW Weight bearing: AT left Assist: SBA Distance: 450' THEREX: held on ther ex today as he increased his distance with ambulation, and beginning to note left hip pain and SOB. ASSESSMENT: tolerated session well despite c/o SOB and hip discomfort. He was able to progress his distance with ambulation without LOB. Fatigued noted towards the end and required standing rest break x 2 fro approx 30 sec each. He declined ex for fear of being too lame afterward as this happened a few days prior. Is making great functional gains as he is able to toilet self and clean himself up. Don/doff shoes and transfer himself into and OOB. PLAN: will continue to progress his strength and endurance as well as further independence with functional mobility. TREATMENT CODE/TIME: 20 min [id number]
[2020-08-14 15:14] VITALS: BP 125/80; PULSE 83; RESP 19; TEMP 36.6; O2SAT 95
[2020-08-14 19:19] VITALS: BP 141/82; PULSE 84; RESP 18; TEMP 37.4; O2SAT 96
[2020-08-14] MEDS: Nicotine 21 MG/24 HR PATCH TD (19:26)
[2020-08-15 03:16] VITALS: BP 157/72; PULSE 71; RESP 18; TEMP 36.4; O2SAT 97
[2020-08-15 07:35] VITALS: BP 119/73; PULSE 55; RESP 18; TEMP 36.1; O2SAT 97
[2020-08-15] MEDS: Magnesium Gluconate 500 MG TAB PO ×2 (07:42→19:35)
[2020-08-15] MEDS: Acetaminophen 325 MG TAB PO (07:43)
[2020-08-15] MEDS: Methocarbamol 750 MG TAB 1500 MG PO ×3 (07:43→19:35)
[2020-08-15] MEDS: Thiamine 100 MG TAB PO (07:43)
[2020-08-15] MEDS: Potassium Chloride 10 MEQ CAPCR 20 MEQ PO (07:43)
[2020-08-15] MEDS: Multivitamin TAB 1 TAB PO (07:43)
[2020-08-15] MEDS: Folic Acid 1 MG TAB PO (07:44)
[2020-08-15] MEDS: Diclofenac 1% Gel 100 GM TUBE TP ×3 (07:44→19:36)
--- NOTE | 2020-08-15 10:37 | PT.INTREAT ---
PT Notes Visit Reasons: HIP CONTUSION,AMBULATORY DYSFUNCTION Inpatient Physical Therapy Treatment Note [facility] Date: 08/15/20 SUBJECTIVE: Kaleb reports that he is feeling well today. He notes improvements in his strength, endurance and balance. Is hoping to go home soon. OBJECTIVE: [] BED MOBILITY/TRANSFERS Supine-sit: I Sit-stand:I Stand-sit: I Bed-Chair: S GAIT Assistive Device:4WW Weight bearing: AT left Assist:SBA Distance: 450' THEREX: performed a global LE strength and functional mobility program, see flowsheet for details. ASSESSMENT: tolerated session well. Very little c/o hip discomfort. He did report stiffness in left knee with ex. No SOB noted today. PLAN:continue following POC TREATMENT CODE/TIME: 30 min [id number], [id number]
[2020-08-15 15:11] VITALS: BP 108/65; PULSE 72; RESP 17; TEMP 36.4; O2SAT 97
--- NOTE | 2020-08-15 16:55 | NUR.NOTE ---
Nursing Note: 08/15/2020 16:55 Nurse offered Enoxaparin and Voltaren gel as ordered for 16:00, patient requested waiting until later for these medication and that he would like to take them but not at this time. Charge nurse notified, nurse will leave medications in [facility] as undocumented.
[2020-08-15] MEDS: Nicotine 21 MG/24 HR PATCH TD (19:35)
[2020-08-15 23:35] VITALS: BP 98/61; PULSE 74; RESP 17; TEMP 34.4; O2SAT 97
[2020-08-16 07:29] VITALS: BP 127/74; PULSE 64; RESP 18; TEMP 36.8; O2SAT 97
[2020-08-16] MEDS: Thiamine 100 MG TAB PO (08:07)
[2020-08-16] MEDS: Folic Acid 1 MG TAB PO (08:07)
[2020-08-16] MEDS: Methocarbamol 750 MG TAB 1500 MG PO (08:07)
[2020-08-16] MEDS: Magnesium Gluconate 500 MG TAB PO (08:07)
[2020-08-16] MEDS: Potassium Chloride 10 MEQ CAPCR 20 MEQ PO (08:07)
[2020-08-16] MEDS: Multivitamin TAB 1 TAB PO (08:07)
[2020-08-16] MEDS: Diclofenac 1% Gel 100 GM TUBE TP (08:09)
--- NOTE | 2020-08-16 08:46 | OTTR_ITS ---
Date of service: 08/16/20 Time of Service: 08:30 Occupational Therapy Notes Occupational Therapy Inpatient Treatment Note Date: 08/16/19 PRECAUTIONS: Fall, Standard, Full SUBJECTIVE: Pt was lying in bed when OT arrived. He was agreeable to OT session and notes that he is tired because he has been up since 1am. OBJECTIVE: PAIN:no c/o pain FUNCTIONAL MOBILITY Rolling L/R: (I) Supine-sit: (I) Sit-supine: (I) BATHING: sitting on side of the bed with max (A) set up/clean up Upper Body: (I) face, (B) UE, abdomen, max (A) back Lower Body: (I) (B) LE DRESSING: sitting on side of the Upper Extremity: Min (A) with don and doffing hospital gown due to (L) UE w eakness. Lower Extremity: (I) (B) LE don and doffing (B) socks TOILETING: Device: Urinal Assist: (I) EATING: Sitting in bed (I) ASSESSMENT/PLAN: Pt was tired but was still able to perform his ADLS in the sitting position. He required (A) with his hospital gown and notes that the weakness in his (L) UE is bothersome to him at times. He is tolerating his ADLs well and is receptive to performing his bathing/dressing in sitting position but denies standing ADLs at this time. TREATMENT CODES/TIME: 04790, 20 minutes (08:30) Klarissa Mukherjee, OTR/L [facility]
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
--- NOTE | 2020-08-16 10:19 | PDOC.HHF2F_ITS ---
Home Health Certification Home Health Certification: 1. Encounter Date and Reason I certify that ROBERT CHANDLER was seen by Hesham Mancia MD on 08/16/20 and that I had a [id number] encounter with this patient that meets the physician face to face encounter requirements. 2. Clinical Findings Supporting Skilled Need and Homebound Status I certify that home health services are medically necessary, include either intermittent [place] [facility] and/or physical/speech therapy, and that this p atient is homebound in that absences from the home require considerable and taxing effort and are infrequent or of short duration, or are attributable to the need to receive medical care. [X] (a) Attached documentation from encounter provides clinical findings supporting skilled need and homebound status (including what assistance patient requires to leave the home). The encounter with the patient was in whole, or in part, for the following medical condition, which is the primary reason for home health care: HIP CONTUSION,AMBULATORY DYSFUNCTION Custodial: Monitor respiratory status / COPD and cardiac status / CAD. Physical Therapy/Occupational Therapy: Continue therapies for strengthening, gait stability, coordination. Speech Therapy: Homebound: Requires assistance of another person to ambulate outside of the home d/t fall with hip contusion 3. Certification and Authentication I certify that I composed the above information based on my clinical judgement relating to this patient's medical condition and, if applicable, clinical findings communicated to me by the NPP or inpatient physician who performed the Home Health Referral. All further orders will be obtained through ____PCP (Community Based Physician - PCP)
--- NOTE | 2020-08-16 11:37 | PT.INDS ---
Date of service: 08/16/20 Time of Service: 11:37 PT Notes Visit Reasons: HIP CONTUSION,AMBULATORY DYSFUNCTION Physical Therapy Inpatient Discharge Summary Date: 08/16/2020 Date of service: 08/10/2020 and 08/15/2020 This is a clinical summary of care provided on the duration of dates listed above. No charge was made in the completion of this documentation. Referring Doctor: Joshua James MD PT Orders: PT CONSULT: Safety consult for D/C Precautions: Fall. Standard. WBAT on left LE. Patient Profile/Admitting Diagnosis: SB 1 converted as of 08/11/2020. Hesham is a 59-year-old male who presented to the ED today with chief complaints of left hip pain, difficulty with standing, and inability to walk since he fell last , 08/05/2020 while crossing a threshold inside his home using his 4-wheeled walker. X-ray and CT scans did not show any fracture of the L hip and the pelvis chart and per MD. Another referral was sent for PT evaluation to continue with physical therapy services to achieve initially established goals. PMHX: Medical History Alcohol withdrawal delirium Alcoholism (~01/2014) a. Drinks at least 6 beers per day on a regular basis. COPD (chronic obstructive pulmonary disease) a. Ongoing tobacco abuse. Fracture of femoral neck, left a. S/P left total knee arthroplast, 01/26/[address] Mendoza. History of neck fracture a. Left-sided weakness. b. On SSI disability. Surgical History History of cervical spinal arthrodesis on high appetite History of total left hip arthroplasty (01/26/14) left total hip arthroplasty; Dr. Riaz Mendoza, [facility] after fall and hip fracture Social History/Home Situation: Kaleb states that he lives in a home which he shares with other tenants. He however emphasizes that he will not have the support of any of these tenants as he states he is on his own. He is independent using a 4-wheeled walker for all indoor ambulation. He states that he rides the taxi for all his community errands. He gets Meals on Wheels every day; gets Saturday and Sunday meals on Fridays. Has 1 step to get into the house without rails. Equipment Owned/DME: 4WW, raised toilet seat Subjective: NT. See most recent GAS OPERATIONS SUPERINTENDENT notes. Objective: General Observation: NT. See most recent GAS OPERATIONS SUPERINTENDENT notes. Mental Status: NT. See most recent GAS OPERATIONS SUPERINTENDENT notes. Pain: NT. See most recent GAS OPERATIONS SUPERINTENDENT notes. ROM: Right Upper Extremity: Shoulder Flexion WFL. Shoulder abduction WFL. Elbow flexion WFL. Wrist flexion WFL. Opening and closing of hand WFL. Left Upper Extremity: Shoulder Flexion allows up to 90 degrees only. Shoulder abduction allows up to 90 degrees only. Elbow flexion WFL. Wrist flexion WFL. Opening and closing of hand WFL. Right Lower Extremity: Hip flexion WFL. Hip abduction WFL. Knee flexion WFL. Knee extension -20 degrees. Ankle dorsiflexion WFL. Ankle plantarflexion WFL. Left Lower Extremity: Hip flexion lacks the last 25% of AROM due to chronic weakness and pain. Hip abduction aloows only up to 20 degrees, gravity-eliminated. Knee flexion WFL. Knee extension -30 degrees. Ankle dorsiflexion WFL. Ankle plantarflexion WFL. Strength: Right Upper Extremity: Shoulder flexors 4-/5. Shoulder abductors 4-/5. Elbow flexors 4-/5. Elbow extensors 4-/5. Contract Administrator strong. Left Upper Extremity: Shoulder flexors 3-/5. Shoulder abductors 3-/5. Elbow flexors 4-/5. Elbow extensors 3-/5. Contract Administrator weak but functional. Right Lower Extremity: Hip flexors 4-/5. Hip abductors 4-/5. Knee flexors 4-/5. Knee extensors 3-/5. Ankle dorsiflexors 4-/5 Ankle plantarflexors 4-/5. Left Lower Extremity:Hip flexors 3-/5. Hip abductors 3-/5. Knee flexors 3-/5. Knee extensors 3-/5. Ankle dorsiflexors 4-/5. Ankle plantarflexors 4-/5. Sensation: Intact as to pain and pressure on bilateral lower extremities. Bed Mobility/Transfers: Rolling independent Supine to sit independent Sit to supine independent Sit to stand independent Stand to sit independent Bed to chair independent Chair to bed independent GAIT Assistive Device: 4WW Weight bearing: WBAT L Assist: Supervision Distance: Up to 450 feet Deviation: Continues to demonstrate increase in knee extension in both sides with use of 4-wheeled walker. Florencia increasing. Trunk more erect. Balance: Static Sitting: Normal Dynamic Sitting: Normal Static Standing: Fair Dynamic Standing: Fair Assessment: Kaleb demonstrates signifincat functional mobility improvement during this episode of care now being modified independent with all bed mobility, transfer task performance, and short distance ambulation using a 4 wheeled walker. He will benefit from home health PT/OT services to gain independence in all ADLs at discharge destination. Patient continues to present with clinical signs and symptoms consistent with current/admitting diagnoses that have resulted to mobility limitations, gait instability, generalized weakness, and impairment of motor control as demonstrated by the following impairment level findings: 1. Decreased strength to B UE/LE major muscle groups with L more affected than R 2. Impaired standing balance 3. Impaired activity tolerance 4. Limitation of joint range of motion in left hip and knee 5. Chronic left-sided weakness Impairments are continuing to contribute to the following functional limitations: 1. Inability to safely ambulate without assistive device 2. Increase completion time for mobility ADL performance 3. Increased fall risk 4. Inability to negotiate steps alone safely Goals: Goals X1 week 1. Sit-Stand independent MET 2. Stand-Sit independent MET 3. Bed-Chair supervision MET 4. Chair-Bed supervision MET 5. Independent gait on level surface with use of 4WW for at least 300 feet without report of pain nor dyspnea NOT MET 6. Independent stair negotiation while holding onto bilateral rails for at least 10 steps without report of pain nor dyspnea NOT MET 7. Independent with home exercise program NOT MET 8. Good static and dynamic standing balance/tolerance NOT MET DISCHARGE RECOMMENDATIONS: Patient will benefit from home health PT services in order to progress mobility level using least restrictive assistive ambulatory device, assess home safety, identify additional equipment needs, and establish a functional maintenance program that will increase ability of patient to remain at home. TREATMENT CODE/TIME: [place] Thank you for the opportunity to participate in the care of this patient. Génesis Castillo PT, DPT, CLT [facility] [place], [place]
--- NOTE | 2020-08-16 15:52 | CMDISCH_ITS ---
LACE Index Scoring Tool - Questions: Length of Stay (in days): 7 - 13 Acuity (Admit via E.D.?): Yes Comorbidities: Chronic Pulmonary Disease E.D. Visits: 1 - Answers: Total Score: 11 Risk of Readmission: High Risk Care Management Discharge Reason for Hospitalization: Hip Contusion resulting in increased weakness. Discharge Plan: Kaleb will return home with new orders for VNA RN/PT. He has a follow up with Dr. Luna on 08/25/19, CM requested Dr. Luna follow orders to permit VNA to open services; awaiting determination. CM discussed plan with Rafita at [facility] and Siria; CCC at [facility]. CM submitted referral for [facility] RN CM as well. Kaleb will resume M[facility] supports and transport via [facility]; coordinated by this service writer. Patient/Family Education Needs: Review of discharge instructions, discuss Ask Me Three. Kaleb was motivated to return home today, he shared no concerns re: care needs or follow up and was agreeable to recommendations for increased service connection. Services Needed at Discharge: Home Delivered Meals (Resume), Home Health Care Services (Pending PCP attachment; RN/PT. ), Transportation ([facility] private over the road driver)
--- NOTE | 2020-08-17 07:18 | OT.INDS ---
Date of service: 08/17/20 Time of Service: 07:18 Occupational Therapy Notes Occupational Therapy Inpatient Discharge Summary Date: 08/17/19 Dates of Service: 08/12/20-08/16/19 Referring Doctor: Joshua James MD OT Orders: Non- Urgent Precautions: Fall, Standard, Full *This document serves as a summary of care, no skilled OT services were provided for this documentation in this date. All information reflects patients care throughout his stay and while working with occupational therapy services* PATIENT PROFILE/ADMITTING DIAGNOSIS: Pt is a 59-year-old male who presented to the ED with c/o left hip pain, difficulty with standing/walking, and inability to walk. X-ray and CT scans did not show any fracture of the (L) hip and the pelvis chart and per MD. Past Medical History: Medical History Alcohol withdrawal delirium Alcoholism (~01/2014) a. Drinks at least 6 beers per day on a regular basis. COPD (chronic obstructive pulmonary disease) a. Ongoing tobacco abuse. Fracture of femoral neck, left a. S/P left total knee arthroplast, 01/26/[address] Mendoza. History of neck fracture a. Left-sided weakness. b. On SSI disability. Surgical History History of cervical spinal arthrodesis History of total left hip arthroplasty (01/26/14) left total hip arthroplasty; Dr. Riaz Mendoza, [facility] after fall and hip fracture Social History/Home Situation: Pt states that he lives alone in an apartment. He notes that he doesn't drive and uses the taxi. He has HH services for two hours but notes that time is limited as he does not have laundry on site so things are not always done that he needs help with. He states that he has a shower with grab bars and he is able to perform his bathing and dressing (I). He always has had issue with donning his (L) sock due to his hip. Equipment owned/DME: 4WW, grab bars, cane, sock aid, grabber SUBJECTIVE: NT OBJECTIVE: ROM: RUE AROM WFL L UE AROM WFL STRENGTH: RUE 4/5 throughout globally LUE 4-/5 throughout globally FUNCTIONAL MOBILITY/ADLS: Transfers with 4WW Supine-sit (I) Sit-supine (I) Bed mobility (I) BATHING sitting on side of the bed with max (A) Set up/clean up and min vc Bathing UE (I) face, (B) UE, abdomen, max (A) back Bathing LE (I) to thighs, (I) below knees, (I) feet DRESSING sitting on side of the bed bed Dressing UE (I) with [facility] gown Dressing LE Max (A) (L) and min (A) (R) pt states that he has adaptive equipment at home but states that he can't find it. OT educates pt in adaptive equipment including sock aid, dressing stick and paperhanger contractor for dressing routines. GROOMING (I) with brushing hair TOILETING with urinal (I) EATING (I) BALANCE: Static sitting Normal Dynamic Sitting Good ASSESSMENT: Patient is a 59-year-old male referred to occupational therapy services with diagnosis of left hip pain, difficulty with standing/walking, and inability to walk. Pt was seen for initial evaluation and 1 consecutive session. He was able to perform his ADLS with increased (I) and increased functional activity tolerance. Pt was discharged home on 08/16/19 and medically cleared per MD. At this time plan is to discharge pt from skilled OT services at this time. GOALS: 1. Transfers with FWW (I)- met 2. Dressing sitting on side of the bed (I) UE/LE with adaptive equipment- met 3. Bathing sitting on side of the bed (I) UE/LE- met 4. Toileting on commode (I)- not met 5. Eating (I)- met PLAN OF CARE/TREATMENT PLAN: Discharge from skilled OT services. DISCHARGE RECOMMENDATIONS OT recommends that pt return home with services vs. short term stay at SNF for increased strengthening. *Pt was discharged home on 08/16/19. TREATMENT TIME/MINUTES/CODES N/A Klarissa Mukherjee OTR/L [facility]
--- NOTE | 2020-08-17 10:23 | PDOC.CMPRO ---
Care Management Progress Note Siria Grover, CCC at [facility] notified that Dr. Luna was willing to follow VNA orders until Kaleb's appointment on 08/25/20. CM notified Rafita of [facility] who reported VNA services would begin tomorrow. CM spoke with Kaleb, reviewed importance of attending appointment and completing new patient paperwork for PCP attachment. CM coordinated [facility] transport for Kaleb to attend PCP appointment at [facility] with parts picker time of 0930 on 08/25/20.
== END 2020-08-16 11:50 | disposition home or self-care (01) | DRG 605 ==
PROVIDERS: Admitting Provider Internal Medicine; Visit Provider Internal Medicine
DX: S30.0XXA Contusion of lower back and pelvis, initial encounter (principal); E87.1 Hypo-osmolality and hyponatremia; Z68.1 Body mass index [BMI] 19.9 or less, adult; J44.9 Chronic obstructive pulmonary disease, unspecified; F10.20 Alcohol dependence, uncomplicated; R26.2 Difficulty in walking, not elsewhere classified; Z96.642 Presence of left artificial hip joint; Z98.1 Arthrodesis status; E86.0 Dehydration; Y90.7 Blood alcohol level of 200-239 mg/100 ml; B35.1 Tinea unguium; R63.6 Underweight
CPT/HCPCS: 11721; 36415; 94640; 97110; 97162; 97530; 97535; 99239; 99306; J1650; 85049

== ENCOUNTER 2022-07-03 09:23 | Emergency (ER) | payer MEDICAID, SELFPAY ==
[2022-07-03] VITALS (37 sets, daily range): BP systolic 106–142; BP diastolic 61–95; PULSE 85–104; RESP 14–18; O2SAT 93–98
--- NOTE | 2022-07-03 09:30 | RT.EKG_ITS ---
APPROVED REPORT Exam: Resting ECG Reason for Exam: ETOH abuse, spasms Patient Location: E HR:86 bpm ECG Measurements Heart Rate 86 AXIS KS 156 P 75 QRSd 92 QRS 40 QT 373 T 77 QTc 446 Conclusion Sinus rhythm...normal P axis, V-rate 60- 99 sinus rhythm, normal axis, normal intervals, non ischemic
--- NOTE | 2022-07-03 09:30 | DI.RAD_ITS ---
Exam(s) XR PORTABLE CHEST AP EXAM: XR PORTABLE CHEST AP CLINICAL HISTORY: SOB TECHNIQUE: 2D digital imaging was performed. COMPARISON: CR XR CHEST 1V IN DI DEPT from 08/09/2020 FINDINGS: LUNGS: Scarring right upper lobe, otherwise clear. No pleural abnormality seen. HEART: Normal. AORTA: Normal. BONES: Unremarkable for age. Soft tissues: Unremarkable. IMPRESSION: No acute findings. DATA REPOSITORY: RADIATION DOSE DELIVERED:
--- NOTE | 2022-07-03 09:43 | ED.GENADUL_ITS ---
Discharge Plan Disposition Patient Disposition: Home Condition: Stable Discharge Details Clinical Impression: Alcohol abuse, Muscle spasm, Chronic pain, Hyponatremia, Hypomagnesemia Primary Care Provider: Juan Diego Luna ED Provider: Vi Ward Home Meds and New Rx's Prescriptions: Continued baclofen 10 mg tablet 10 mg PO TID PRN (Reason: neck pain) Qty: 10 0RF albuterol sulfate 90 mcg/actuation HFA aerosol inhaler 2 inh Implant Q4H PRN Qty: 1 3RF acetaminophen [Tylenol] 325 mg Tablet 325 - 650 mg PO Q4H PRN PRNQty: 0 0RF magnesium gluconate 27 mg magnesium (500 mg) Tablet 500 mg PO DAILY Qty: 30 0RF Discharge Instructions Instructions: Baclofen (By mouth), Chronic Pain (ED), Abuse of Alcohol (ED), Muscle Spasm (ED) Additional Instructions: Please try to cut back on alcohol intake. Encourage frequent walks and mobility- this will help with your muscle spasms. You may use the Baclofen as previously prescribed to help with your leg pain and spasms. Please call primary care to schedule follow up appointment as soon as possible. Please consider use of the reading recovery teacher. If you develop fevers/chills, increased pain or other new/worsening symptoms please seek care urgently once again. We are sending you home with #3 Baclofen, do not take this with alcohol. You may take one tab every 6 hours as needed. Referrals: Juan Diego Luna MD [Primary Care Provider] - Discharge Data Discharge Date/Time-TO BE ENTERED AT DEPARTURE: 07/03/22 16:22 Medical Decision Making Patient is a pleasant 61-year-old gentleman presenting today with chief complaint of spasms in his bilateral legs extending from hip to knee that has been severe and intermittent for the past 24 hours. States that it is chronic but had this acute increase over the past 24 hours. He denies any fevers or chills. Denies any trauma. No back pain. States that he does have a history of alcoholism, last drink at 3 AM but is currently out of alcohol. He denies f eeling like he is having any withdrawal symptoms as of yet. He denies any chest pain. He does report that he has chronic shortness of breath which he attributes to his COPD. Patient is an active smoker. Patient reports that he was able to get dinner last night by ordering from [facility] and having them bring it to where he sat in his chair. Was incontinent of both urine and stool while sitting in his recliner all night. EMS reports that patient is disheveled not concerned about his current living situation. On exam, patient appears chronically unwell and dishevelled. He is covered in feces and urine. Moving all of his extremities. He is A&O, speaking clearly. No objective evidence of trauma. He does have skin breakdown to bottom which was cleansed and protective ointment applied. Neuro exam is intact with no focal deficits. Have not yet attempted ambulation. Lungs are clear, normal cardiac exam. No ascites, LE edema. 2+ distal pulses. Patient cleansed, skin addressed. Concerned about his overall health and nutritional deficits. Will give banana bag. Will treat muscle spasms. ECG obtained, no acute abnormality. Labs reviewed. CBC WNl. CMOP concerned for Na of 124. Discussed with patient. He is eating here. Likely associated with his limited solid food intake and caloric intake being from ETOH. UA shows + leuks. He denies any sxs of UTI. He has blood in his urine which appears to be chronic, advised he discuss further with PCP, likely will need referral to urology. Spasms and pain have improved. Patient ambulated with walker with nursing staff. He was weak but able to do so. Will have him evaluated by PT. Patient refused to ambulate with PT, states that his primary concern is that he has a bad couch at home that is old and difficult to get out of. He states that home health was going to buy him a new couch but that he first needs to buy and be reimbursed. Patient now reporting that he ambulates with walker at home. Does not do much throughout the day. States that he lays on the couch and watches TV but that it is now too uncomfortable which is what prompted him to come in for evaluation. We discussed admission vs. return home. He is not interesed in ETOH cessation, was evaluated by reading recovery teacher and refuses intervetion. He feels he may need admission until new couch is able to be obtained. However, he does not want to work with PT when here. I do not see medical need for admission at this time. He feels that with the improvement in his spasms his strength and ambulation is back to baseline. I have asked our care management team to assist with home needs but advised that we are not able to provide furniture at this time. Recommended that he try to get up and mobilize more frequently as this may be contributing to his spasms. Patient wants to be transported home via taxi so he can go to [facility] store, feels like he will able to ambulate well at the sttore. Will continue to treat spasms. Encouraged that he have more solid food intake with goals of healthier foods. Encouraged cutting back on ETOH and advise dthat he should consider further ETOH cessation. Strict return precautions given. Advised close f/u with PCP. Encoura ged movement, showers, skin care. All of his questions and concerns were addressed, he is in agreement with this plan. Sign Out No HPI General Date/Time Provider Initiated Documentation: 07/03/22 09:26 . Limitations to Documentation: no limitations . Information obtained by: patient, RN notes reviewed and old records reviewed . History of Present Illness 61 year old M presents to the emergency department with the chief complaint of ambulatory dysfunction, weakness, alcohol abuse, bilateral leg pain , described as severe and similar to prior episodes (hx of spasms and severe pain, Baclofen stopped recently), with intensity rated at 10. and is localized to the left, right and lower extremity. Patient extremity (pain BLE hip to knee). Patient started experiencing this unknown (acute on chronic) and it has been intermittent. Immobilization improves symptom(s), Movement worsens symptoms . Patient notes cough (chronic, associates with COPD, no acute change), malaise and weakness; denies chest pain, fever/chills, headaches, nausea/vomiting, rash and shortness of breath. Patient did receive the following treatments prior to arrival, none Related Data Home Medications Medication Instructions Recorded Confirmed acetaminophen 325 mg tablet 325 - 650 mg PO Q4H PRN PRN #0 tabs 08/16/20 07/08/22 (Tylenol) magnesium gluconate 27 mg 500 mg PO DAILY #30 tabs 08/16/20 07/08/22 magnesium (500 mg) tablet baclofen 10 mg tablet 10 mg PO TID PRN neck pain #10 tabs 08/19/21 07/08/22 albuterol sulfate 90 mcg/actuation 2 inh implant Q4H PRN ##1 04/18/22 07/08/22 aerosol inhaler Previous Rx's Medication Instructions Recorded acetaminophen 325 mg tablet 325 - 650 mg PO Q4H PRN PRN #0 tabs 08/16/20 (Tylenol) magnesium gluconate 27 mg 500 mg PO DAILY #30 tabs 08/16/20 magnesium (500 mg) tablet baclofen 10 mg tablet 10 mg PO TID PRN neck pain #10 tabs 08/19/21 albuterol sulfate 90 mcg/actuation 2 inh implant Q4H PRN ##1 04/18/22 aerosol inhaler Allergies Allergy/AdvReac Type Severity Reaction Status Date / Time ENVIRONMENTAL/POLLEN Allergy CONGESTION, Uncoded 10/20/20 15:08 WATERY EYES, RUNNY NOSE General Stated Complaint: GenMedical SOBEIDA: 3 Review of Systems Constitutional Constitutional: Reports as per HPI, Denies chills, Denies fever(s) and Denies headache(s) Eyes Eyes: Reports as per HPI ENT Ears, Nose, Mouth, and Throat: Denies abnormal hearing and Denies headache(s) Cardiovascular Cardiovascular: Reports as per HPI, Denies chest pain and Denies dyspnea Respiratory Respiratory: Reports as per HPI, Denies cough and Denies dyspnea Gastrointestinal Gastrointestinal: Reports as per HPI, Denies abdominal pain, Denies nausea and Denies vomiting Genitourinary Genitourinary: Reports as per HPI and Denies urinary incontinence Musculoskeletal Musculoskeletal: Reports as per HPI Integumentary/Breasts Skin/Breast: Reports as per HPI and Denies rash Neurologic Neurologic: Reports as per HPI, Denies abnormal hearing, Denies abnormal movements, Denies abnormal speech, Denies headache(s), Denies lack of coordination, Denies localized weakness, Denies seizure-like activity and Denies paresthesias PFSH All Active Problems (Updated 07/14/22 @ 15:58 by Josiah Lloyd MD) Tendinitis involving left hip abductors (Acute) Urinary retention with incomplete bladder emptying (Acute) Palliative care encounter (Acute) DVT prophylaxis (Acute) Fever (Acute) Pain, foot (Acute) Arterial vascular disease (Acute) Nail dystrophy (Acute) Decreased activities of daily living (ADL) (Acute) Generalized weakness (Acute) Ambulatory dysfunction (Acute) Alcohol abuse (Chronic) Muscle spasm (Acute) Chronic pain (Chronic) Hyponatremia (Acute) Hypomagnesemia (Acute) Well adult (Acute) White coat syndrome with hypertension (Acute) Discharge planning issues (Acute) DVT prophylaxis (Acute) COPD (chronic obstructive pulmonary disease) (Chronic) a. Ongoing tobacco abuse. Alcoholism (Chronic ~01/2014) a. Drinks at least 6 beers per day on a regular basis. Contusion of pelvis (Acute) Medical History Alcohol withdrawal delirium Fracture of femoral neck, left a. S/P left total knee arthroplast, 01/26/[address] Mendoza. History of neck fracture a. Left-sided weakness. b. On SSI disability. Surgical History History of cervical spinal arthrodesis History of total left hip arthroplasty (01/26/14) left total hip arthroplasty; Dr. Riaz Mendoza, [facility] after fall and hip fracture Social History Smoking/Tobacco Use Status: Current every day Smoking risk assessment performed?: Yes Alcohol Intake: current Alcohol Intake frequency: 3 or more drinks per day Alcohol type: beer Drug use: Never Do you feel safe in your relationship?: Yes Exam Const General: cooperative, healthy appearing, comfortable, no acute distress, disheveled and frail appearing Nutritional Appearance: cachectic Orientation: alert, awake and oriented x3 [facility] Head: normal to inspection, no palpable skull fracture, normocephalic and atraumatic Ears: hearing grossly normal bilaterally, external ears normal and TM's normal bilaterally General nose exam: external nose normal Mouth: oral mucosae normal, lip normal, tongue normal and mucous membranes dry (dry mucous membranes) Throat: posterior oropharynx normal Eyes General: appearance normal, both eyes and all related structures Alignment and Position: alignment normal Periorbital: periorbital findings normal Eyelids: eyelids normal Conjunctivae: conjunctivae normal Pupils: PERRL EOM: EOM intact bilaterally Neck Neck: normal visual inspection, no lymphadenopathy and supple Chest Chest: normal inspection of the chest, normal palpation of entire chest wall, no crepitus and no localized rib tenderness Resp Effort & Inspection: normal respiratory effort, able to speak in complete sentences and no respiratory distress Auscultation: clear to auscultation bilaterally, no rales, no rhonchi and no wheezes Cardio Rate: regular rate Rhythm: regular rhythm Heart Sounds: S1 normal and S2 normal GI Inspection: normal to inspection, no abdominal wall ecchymosis, no edema and non-distended Palpation: soft, no hepatosplenomegaly, not firm, no guarding, no pulsatile masses, not rigid and nontender Auscultation: normal bowel sounds Back/Spine/Pelvis Back: no CVA tenderness Cervical Spine: normal cervical lordosis and cervical ROM normal Thoracic/Lumbar Spine: thoracic and lumbar spine normal to inspection, thoraco- lumbar ROM normal, No thoraco-lumbar ROM limited, No thoraco-lumbar spasm and No thoracic spinal tenderness Pelvis: no pain with anterior-posterior compression and no pain with lateral compression Skin General skin exam: no rashes or lesions noted Lesions: no lesions Rashes: no rashes Trauma: no lacerations or abrasions Wounds: no wounds Neuro General: patient alert, patient awake, patient oriented x3, gait normal, tone normal and moves all extremities Cranial Nerves: CN's II-XI intact bilaterally Cognition: normal cognition Speech: speech normal Gait: normal gait Motor: muscle tone normal throughout and strength 5/5 throughout Sensory Exam: no sensory deficits noted (no saddle paresthesias) Extrem General: normal to inspection, full ROM, capillary refill normal, no pedal edema and no calf tenderness Psych Appearance: grossly normal and well kempt Mental Status: mental status grossly normal Speech and Movement: speech and movement normal Course Vital Signs Vital signs: Vital Signs Pulse 93 H 07/03/22 09:29 Respiratory Rate 18 07/03/22 09:29 Blood Pressure 142/93 H 07/03/22 09:29 Pulse Oximetry 96 07/03/22 09:29 Pulse 93 H 07/03/22 09:29 Respiratory Rate 18 07/03/22 09:29 Blood Pressure 142/93 H 07/03/22 09:29 Pulse Oximetry 96 07/03/22 09:29 Oxygen Delivery Method Room Air 07/03/22 09:29 Oxygen Flow Rate 0 07/03/22 09:29
[2022-07-03 10:05] LABS: Abs Immature Grans 0.05 10^3/uL (0.0-0.06); Absolute Basophil Count 0.02 10^3/uL (0.0-0.2); Absolute Eosinophil Count 0.08 10^3/uL (0.0-0.7); Absolute Monocyte Count 1.11 10^3/uL (0.1-0.8); Absolute Neutrophil Count 5.86 10^3/uL (1.2-6.7); Basophils % 0.2; Eosinophils % 0.8; HCT 41.2 % (40.0-50.0); HGB 14.6 g/dL (13.5-17.5); Immature Grans % 0.5; MCH 32.9 pg (27.0-33.0); MCHC 35.4 % (32.0-36.0); MCV 93 fL (80-95); MPV 8.4 fL (8.0-11.0); Monocytes % 10.8; Neutrophils % 56.7; Platelet Count 300 10^3/uL (130-400); RBC 4.44 10^6/uL (4.36-5.78); RDW 11.8 % (11.8-14.1); RDW-SD 40.8 fL; WBC 10.32 10^3/uL (4.4-10.8)
[2022-07-03 10:27] LABS: ALT 15 U/L (16-63); AST 21 U/L (15-37); Albumin 3.4 g/dL (3.4-5.0); Alkaline Phosphatase 105 U/L (46-116); Anion Gap 8.1 mmol/L (3-11); BUN 5 mg/dL (7-18); Bilirubin, Total 0.5 mg/dL (0.2-1.0); CO2 27.9 mmol/L (21.0-32.0); CREATININE 0.4 mg/dL (0.70-1.30); Calcium 8.8 mg/dL (8.5-10.1); Chloride 88 mmol/L (98-107); ETHANOL BLOOD 51.2 mg/dL (<10); Glucose 80 mg/dL (74-106); Lipase 72 U/L (73-393); Magnesium 1.7 mg/dL (1.8-2.4); Potassium 3.9 mmol/L (3.5-5.1); Troponin I < 50 ng/L (<or=60)
[2022-07-03 10:33] LABS: Sodium 124 mmol/L (136-145)
[2022-07-03 10:34] LABS: Ammonia 22 umol/L (11-32)
[2022-07-03] MEDS: diazePAM 10 MG/2 ML SYR 2 MG IVP (10:56)
[2022-07-03] MEDS: Nicotine 21 MG/24 HR PATCH TD (10:57)
[2022-07-03] MEDS: MAGNESIUM SULFATE 8.12 MEQ, MULTIVITAMIN 10 ML, THIAMINE 100 MG, FOLIC ACID 1 MG in Nor... 168.867 MG IV (10:58)
[2022-07-03] MEDS: diazePAM 5 MG TAB PO (13:48)
[2022-07-03 14:48] LABS: Bilirubin Negative (Negative); Blood Trace-lysed (Negative); Clarity Sl Cloudy (Clear); Glucose Negative (Negative); Ketones Negative (Negative); Leukocyte Esterase Moderate (Negative); Nitrite Negative (Negative); Urobilinogen 0.2 EU/dL (Up TO 0.2)
[2022-07-03 14:53] LABS: Bacteria Few HPF (Negative); C & S Indicated? Yes; Casts Negative LPF (Negative); Crystals Negative HPF (Negative); Epithelial Cells Few HPF (Negative); Mucus Negative (Negative); WBC >50 HPF (0-5)
[2022-07-03 15:04] LABS: Troponin I < 50 ng/L (<or=60)
--- NOTE | 2022-07-03 15:05 | PT.INIE ---
Date of service: 07/03/22 Time of Service: 14:05 PT Notes Visit Reasons: [facility] Inpatient Initial Evaluation Date: 07/03/2022 Referring Doctor: MO Meyer PT Orders: PT CONSULT: difficulty with ambulation Precautions: Fall. Standard. Activity as tolerated. Patient Profile/Admitting Diagnosis: Kaleb is a 61-year-old male who presented to the ED today with diagnosis of EtOH abuse, muscle spasms, chronic pain, hyponatremia, and hypomagnesemia. PMHX: All Active Problems?(Updated 07/03/22 @ 15:40 by MO Meyer) Alcohol abuse (Chronic) Muscle spasm (Acute) Chronic pain (Chronic) Hyponatremia (Acute) Hypomagnesemia (Acute) Well adult (Acute) White coat syndrome with hypertension (Acute) Discharge planning issues (Acute) DVT prophylaxis (Acute) COPD (chronic obstructive pulmonary disease) (Chronic) a. Ongoing tobacco abuse.Alcoholism (Chronic ~01/2014) a. Drinks at least 6 beers per day on a regular basis.Contusion of pelvis (Acute) Medical History? Alcohol withdrawal delirium Alcoholism (~01/2014) a. Drinks at least 6 beers per day on a regular basis.COPD (chronic obstructive pulmonary disease) b. Ongoing tobacco abuse.Fracture of femoral neck, left c. S/P left total knee arthroplast, 01/26/[address] Mendoza.History of? neck fracture d. Left-sided weakness. e. On SSI disability.White coat syndrome with hypertension Surgical History? History of cervical spinal arthrodesis History of total left hip arthroplasty (01/26/14) left total hip arthroplasty; Dr. Riaz Mendoza, [facility] after fall and hip fracture Social History/Home Situation: Kaleb states that he lives in a home which he shares with other tenants. He however emphasizes that he will not have the support of any of these tenants as he states he is on his own. He is independent using a 4-wheeled walker for all indoor ambulation.? He states that he rides the taxi for all his community errands.? He gets Meals on Wheels every day; gets Sunday and Sunday meals on Fridays.? Has 1 step to get into the house without rails. Equipment Owned/DME: 4WW, raised toilet seat Subjective: Hesham states that there were times when he nearly fell but that his 4WW has supported him very well. His main issue is the chronic pain and the spasm which has affected his ability to sleep and move about. He emphasized the difficulty he has had with getting in and out of his [id number] couch at home. He does okay with indoor and outdoor ambulation using said rollator. He refused to walk again with PT stating that he already just walked around the nurses' station using his FWW, he was still recovering from fatigue from that walk when this PT came in. Objective: General Observation: Supine on stretcher.? Deformed and unkempt toenails. Atrophy of L UE and L LE hip/knee major muscle groups due to pre-existing chronic weakness related to previous spinal surgery. Mental Status: Alert and oriented x 4 Pain: Pain in B LE that he states has been chronic ROM: Right Upper Extremity: ? Shoulder Flexion WFL. Shoulder abduction WFL. Elbow flexion WFL. Wrist flexion WFL. Opening and closing of hand WFL. Left Upper Extremity:? Shoulder Flexion allows up to 90 degrees only. Shoulder abduction allows up to 90 degrees only. Elbow flexion WFL. Wrist flexion WFL. Opening and closing of hand WFL. Right Lower Extremity: Hip flexion WFL. Hip abduction WFL. Knee flexion WFL.? Knee extension -20 degrees.? Ankle dorsiflexion WFL. Ankle plantarflexion WFL. Left Lower Extremity: Hip flexion lacks the last 25% of AROM due to chronic weakness and pain. Hip abduction aloows only up to 20 degrees, gravity-eliminated. Knee flexion WFL.? Knee extension -30 degrees.? Ankle dorsiflexion WFL. Ankle plantarflexion WFL. Strength: Right Upper Extremity: Shoulder flexors 4-/5. Shoulder abductors 4-/5. Elbow flexors 4-/5. Elbow extensors 4-/5. Parquetry Layer strong. Left Upper Extremity: Shoulder flexors 3-/5. Shoulder abductors 3-/5. Elbow flexors 4-/5. Elbow extensors 3-/5. Parquetry Layer weak but functional. Right Lower Extremity: Hip flexors 4-/5. Hip abductors 4-/5. Knee flexors 4-/5. Knee extensors 3-/5. Ankle dorsiflexors 4-/5 Ankle plantarflexors 4-/5. Left Lower Extremity:Hip flexors 3-/5. Hip abductors 3-/5. Knee flexors 3-/5. Knee extensors 3-/5. Ankle dorsiflexors 4-/5. Ankle plantarflexors 4-/5. Sensation: Intact as to pain and pressure on bilateral lower extremities. Bed Mobility/Transfers: Supine to sit independent Sit to supine independent Sit to stand supervision. Only tolerated 2 minutes of static standing and requested to sit down due to fatigue. GAIT? Refused by patient. Patient walked with ED nurses using the FWW but looked unsteady. Patient reported fatigue from said activity and refused offer of PT for another walk. ? Balance: Static Sitting: Normal Dynamic Sitting: Normal Static Standing: Fair Dynamic Standing: Fair Special Tests: Mobility Limitations Standardized Measure [facility] 6 clicks Basic Mobility Inpatient Short Form: Raw Score: 23 ? CMS Score: ? 11% deficit? Informed Consent/Education:? Patient instructed in purpose of PT consult and plan of care. Assessment: Patient continues to present with clinical signs and symptoms consistent with current/admitting diagnoses that have resulted to mobility limitations, gait instability, generalized weakness, and impairment of motor control as demonstrated by the following impairment level findings: 1.? Decreased strength to B UE/LE major muscle groups with L more affected than R 2.? Impaired standing balance 3.? Impaired activity tolerance 4.? Limitation of joint range of motion in left hip and knee 5.? Chronic left-sided weakness Impairments are contributing to the following functional limitations: 1.? Inability to safely ambulate without assistive device 2.? Increase completion time for mobility ADL performance 3.? Increased fall risk 4.? Inability to negotiate steps alone safely Patient is assessed as a [id number] moderate complexity based on the following: History: 59-year-old male with impairment level findings, functional limitations, and past medical history as indicated above Examination: Demonstrable impairment in strength, balance, and mobility level with underlying impairments and functional limitations as documented above Presentation:Evolving Decision Makin moderate complexity Goals: N/A. PT evalaution only. Plan of Care/Treatment Plan: N/A. PT evalaution only. DISCHARGE RECOMMENDATIONS: Patient will benefit from home health PT services in order to progress mobility level using least restrictive assistive ambulatory device, assess home safety, identify additional equipment needs, and establish a functional maintenance program that will increase ability of patient to remain at home. TREATMENT CODE/TIME: 09617 x 26 minutes beginning at 14:05 PM. Thank you for the opportunity to participate in the care of this patient. Génesis Castillo PT, DPT, CLT [facility] [place], [place]
[2022-07-03] MEDS: Baclofen 10 MG TAB 30 MG PO (16:36)
== END 2022-07-03 16:22 | disposition home or self-care (01) ==
PROVIDERS: Emergency Provider Physician Assistant; PCP Family Medicine
DX: F10.10 Alcohol abuse, uncomplicated (principal); M62.838 Other muscle spasm; G89.29 Other chronic pain; E87.1 Hypo-osmolality and hyponatremia; E83.42 Hypomagnesemia; J44.9 Chronic obstructive pulmonary disease, unspecified; F17.200 Nicotine dependence, unspecified, uncomplicated; Y90.9 Presence of alcohol in blood, level not specified
CPT/HCPCS: 80053; 83690; 93005; 96365; 96366; 96375; 97163; 99284; 71045; 80320; 81003; 81015; 82140; 83735; 84484; 85025; 87086; 93010; 99285; J3360

== ENCOUNTER 2022-07-08 13:10 | Inpatient (IN) | payer MEDICAID, SELFPAY ==
--- NOTE | 2022-07-08 14:01 | W.ED.GENAD ---
Discharge Plan Discharge Details Chief Complaint: GenMedical Primary Care Provider: Juan Diego Luna ED Provider: Joshua Yao Home Meds and New Rx's Prescriptions: No Action baclofen 10 mg tablet 10 mg PO TID PRN (Reason: neck pain) Qty: 10 0RF albuterol sulfate 90 mcg/actuation HFA aerosol inhaler 2 inh Implant Q4H PRN Qty: 1 3RF acetaminophen [Tylenol] 325 mg Tablet 325 - 650 mg PO Q4H PRN PRNQty: 0 0RF magnesium gluconate 27 mg magnesium (500 mg) Tablet 500 mg PO DAILY Qty: 30 0RF Medical Decision Making This is a 61-year-old gentleman with a past medical history of alcohol abuse, chronic back pain, generalized weakness, presenting to the ER today reporting acute on chronic and worsening back pain with leg weakness. Clinically he appears chronically ill but hemodynamically stable and in no acute distress. He is able to fully lift his legs. Plan is to obtain IV access, give IV fluid, and obtain routine screening laboratory values. If laboratory values are unremarkable then I believe we need to trial him on a walker for ambulation which he typically uses at baseline. I will also check an alcohol level as he does admit to drinking over the past 24 hours. Patient was evaluated earlier this week and was able to ambulate using a walker. At time of signout, awaiting CBC, CMP, alcohol level, COVID, flu, RSV. If unremarkable then likely needs ambulation trial with a walker. This documentation was generated using [employer] dictation system, please disregard any oddities of phrase or misspellings. Medical Records Medical records reviewed: Yes I reviewed the patient's medical records. Sign Out Yes HPI General Mode of arrival: EMS. Date/Time Provider Initiated Documentation: 07/08/22 13:31. Limitations to Documentation: no limitations. Information obtained by: patient and EMS. HPI Narrative: This is a 61-year-old gentleman with a past medical history of alcohol abuse, admits to drinking over the past 24 hours, chronic back pain, COPD, current smoker, presents to the ER complaining of acute on chronic pain, bilateral lower extremities, generalized weakness, difficulty ambulating. He ambulates at baseline using a walker. Patient states that he has a hard time getting up from his couch and because of this has soiled himself. He is currently requesting to have a snack as he is hungry, a glass of water, and he would like his clothing changed. He denies recent illness or trauma. He has no new acute medical concerns or complaints at this time. Related Data Home Medications Medication Instructions Recorded Confirmed acetaminophen 325 mg tablet 325 - 650 mg PO Q4H PRN PRN #0 tabs 08/16/20 08/25/20 (Tylenol) magnesium gluconate 27 mg 500 mg PO DAILY #30 tabs 08/16/20 08/25/20 magnesium (500 mg) tablet baclofen 10 mg tablet 10 mg PO TID PRN neck pain #10 tabs 08/19/21 albuterol sulfate 90 mcg/actuation 2 inh implant Q4H PRN ##1 04/18/22 aerosol inhaler Previous Rx's Medication Instructions Recorded acetaminophen 325 mg tablet 325 - 650 mg PO Q4H PRN PRN #0 tabs 08/16/20 (Tylenol) magnesium gluconate 27 mg 500 mg PO DAILY #30 tabs 08/16/20 magnesium (500 mg) tablet baclofen 10 mg tablet 10 mg PO TID PRN neck pain #10 tabs 08/19/21 albuterol sulfate 90 mcg/actuation 2 inh implant Q4H PRN ##1 04/18/22 aerosol inhaler Allergies Allergy/AdvReac Type Severity Reaction Status Date / Time ENVIRONMENTAL/POLLEN Allergy CONGESTION, Uncoded 10/20/20 15:08 WATERY EYES, RUNNY NOSE General SOBEIDA: 3 Review of Systems Constitutional Constitutional: Denies fever(s), Denies headache(s) and Reports weakness (Generalized) ENT Ears, Nose, Mouth, and Throat: Denies headache(s) and Denies neck pain Cardiovascular Cardiovascular: Denies chest pain and Reports dyspnea (Chronic) Respiratory Respiratory: Denies cough and Reports dyspnea (Chronic) Gastrointestinal Gastrointestinal: Denies abdominal pain, Denies nausea and Denies vomiting Genitourinary Genitourinary: Denies dysuria Musculoskeletal Musculoskeletal: Reports back pain (Chronic) and Denies neck pain Integumentary/Breasts Skin/Breast: Denies rash Neurologic Neurologic: Denies headache(s) and Reports weakness (Generalized) PFSH All Active Problems Alcohol abuse (Chronic) Muscle spasm (Acute) Chronic pain (Chronic) Hyponatremia (Acute) Hypomagnesemia (Acute) Well adult (Acute) White coat syndrome with hypertension (Acute) Discharge planning issues (Acute) DVT prophylaxis (Acute) COPD (chronic obstructive pulmonary disease) (Chronic) a. Ongoing tobacco abuse. Alcoholism (Chronic ~01/2014) a. Drinks at least 6 beers per day on a regular basis. Contusion of pelvis (Acute) Medical History Alcohol withdrawal delirium Fracture of femoral neck, left a. S/P left total knee arthroplast, 01/26/[address] Mendoza. History of neck fracture a. Left-sided weakness. b. On SSI disability. Surgical History History of cervical spinal arthrodesis History of total left hip arthroplasty (01/26/14) left total hip arthroplasty; Dr. Riaz Mendoza, [facility] after fall and hip fracture Social History Smoking/Tobacco Use Status: Current every day Smoking risk assessment performed?: Yes Alcohol Intake: current Alcohol Intake frequency: 3 or more drinks per day Alcohol type: beer Drug use: Never Do you feel safe in your relationship?: Yes Exam Const General: cooperative, comfortable, no acute distress and ill appearing chronically Orientation: alert, awake and oriented x3 Other: His clothing appears to be soiled in both feces and urine HENMT Head: normal to inspection, normocephalic and atraumatic Face and sinus: normal facial exam Mouth: moist mucous membranes abnormal (Slightly dry) Eyes General: appearance normal, both eyes and all related structures Conjunctivae: conjunctivae normal Neck Neck: normal visual inspection, full ROM, no meningeal signs, trachea midline and supple Resp Effort & Inspection: normal respiratory effort and able to speak in complete sentences Auscultation: diminished lung sounds bilaterally in the lower lung shepherd Cardio Rate: regular rate Rhythm: regular rhythm GI Palpation: soft and nontender Back/Spine/Pelvis Back: no CVA tenderness and back tenderness (Diffuse mild lumbar, no midline point tenderness) Skin General skin exam: no rashes or lesions noted Neuro General: patient alert, patient awake, moves all extremities and no focal motor deficits Cognition: normal cognition Speech: speech normal Motor: muscle tone normal throughout and strength 5/5 throughout Sensory Exam: no sensory deficits noted Extrem General: normal to inspection, full ROM, capillary refill normal, no pedal edema and no calf tenderness Psych Appearance: grossly normal Mental Status: mental status grossly normal
[2022-07-08 15:18] VITALS: BP 134/82; PULSE 85; RESP 18; TEMP 36.4; O2SAT 97
[2022-07-08 15:53] LABS: Abs Immature Grans 0.04 10^3/uL (0.0-0.06); Absolute Basophil Count 0.04 10^3/uL (0.0-0.2); Absolute Eosinophil Count 0.21 10^3/uL (0.0-0.7); Absolute Lymphocyte Count 3.62 10^3/uL (1.2-3.4); Absolute Monocyte Count 0.91 10^3/uL (0.1-0.8); Absolute Neutrophil Count 4.92 10^3/uL (1.2-6.7); Basophils % 0.4; Eosinophils % 2.2; HCT 41.1 % (40.0-50.0); HGB 14.2 g/dL (13.5-17.5); Immature Grans % 0.4; Lymphocytes % 37.2; MCH 32.1 pg (27.0-33.0); MCHC 34.5 % (32.0-36.0); MCV 93 fL (80-95); MPV 8.5 fL (8.0-11.0); Monocytes % 9.3; Neutrophils % 50.5; Platelet Count 261 10^3/uL (130-400); RBC 4.42 10^6/uL (4.36-5.78); RDW 11.7 % (11.8-14.1); RDW-SD 40.4 fL; WBC 9.74 10^3/uL (4.4-10.8)
[2022-07-08] MEDS: Normal Saline 1,000 ML 1000 ML IV (15:57)
[2022-07-08 16:08] LABS: ALT 13 U/L (16-63); AST 18 U/L (15-37); Albumin 3.2 g/dL (3.4-5.0); Alkaline Phosphatase 107 U/L (46-116); Anion Gap 3.8 mmol/L (3-11); BUN 5 mg/dL (7-18); Bilirubin, Total 0.4 mg/dL (0.2-1.0); CO2 29.2 mmol/L (21.0-32.0); CREATININE 0.4 mg/dL (0.70-1.30); Calcium 8.6 mg/dL (8.5-10.1); Chloride 85 mmol/L (98-107); ETHANOL BLOOD 105.1 mg/dL (<10); Glucose 85 mg/dL (74-106); Lipase 77 U/L (73-393); Potassium 4.1 mmol/L (3.5-5.1); Total Protein 7.8 g/dL (6.4-8.2)
[2022-07-08 16:10] LABS: Sodium 118 mmol/L (136-145)
--- NOTE | 2022-07-08 16:15 | W.EDPROG ---
Date of service: 07/08/22 Time of Service: 16:15 Medical Decision Making Care assumed from provider (MO Ruiz) Please see their initial HPI, PE, and documentation. Discussed patient details and case and pending workup and disposition. Patient is hemodynamically stable, and alert and oriented. Upon signout awaiting labs, fluids and further evaluation. Patient is a 61-year-old male who is chronically ill and a chronic alcoholic who presents to the ER with weakness reporting that he is unable to get himself off the couch. CBC shows no leukocytosis, absolute lymphocytes 3.62 monocytes 0.91, CMP comes back with a critically low sodium at 118 potassium is 4.1, chloride 85 BUN is 5 creatinine 0.4 GFR is 122. Albumin is 3.2, ethyl alcohol 105.1 fluvid is pending at this time. Discussed results with patient who verbalized understanding. He is eating a sandwich at this time. IV is infusing had approximately 500 cc in. He is agreeable to admission. Will page hospitalist. [id number]: Spoke with Dr. James regarding patient case and details. He agrees to accept patient for admission. This text was generated using [employer] dictation system, please disregard any oddities of phrase or misspellings. Medical Records Medical records reviewed: Yes I reviewed the patient's medical records. Lab Data Lab results reviewed: Yes I reviewed the patient's lab results. Labs: Laboratory Tests Range/Units 07/08/22 07/08/22 07/08/22 15:25 15:43 15:43 WBC (4.4-10.8) 10^3/uL 9.74 RBC (4.36-5.78) 10^6/uL 4.42 Hgb (13.5-17.5) g/dL 14.2 Hct (40.0-50.0) % 41.1 MCV (80-95) fL 93 MCH (27.0-33.0) pg 32.1 MCHC (32.0-36.0) % 34.5 RDW (11.8-14.1) % 11.7 L Plt Count (130-400) 10^3/uL 261 MPV (8.0-11.0) fL 8.5 Immature Gran % 0.4 Neutrophils % 50.5 Lymphocytes % 37.2 Monocytes % 9.3 Eosinophils % 2.2 Basophils % 0.4 Nucleated RBC % (0.0-0.3) % 0.0 Absolute Neutrophils (1.2-6.7) 10^3/uL 4.92 Absolute Lymphocytes (1.2-3.4) 10^3/uL 3.62 H Absolute Monocytes (0.1-0.8) 10^3/uL 0.91 H Absolute Eosinophils (0.0-0.7) 10^3/uL 0.21 Absolute Basophils (0.0-0.2) 10^3/uL 0.04 Sodium (136-145) mmol/L 118 L* Potassium (3.5-5.1) mmol/L 4.1 Chloride (98-107) mmol/L 85 L Carbon Dioxide (21.0-32.0) mmol/L 29.2 Anion Gap (3-11) mmol/L 3.8 BUN (7-18) mg/dL 5 L Creatinine (0.70-1.30) mg/dL 0.4 L Est GFR (CKD-EPI 2020) (mL/min/1.73m2) 122.60 Glucose (74-106) mg/dL 85 Calcium (8.5-10.1) mg/dL 8.6 Total Bilirubin (0.2-1.0) mg/dL 0.4 AST (15-37) U/L 18 ALT (16-63) U/L 13 L Alkaline Phosphatase (46-116) U/L 107 Total Protein (6.4-8.2) g/dL 7.8 Albumin (3.4-5.0) g/dL 3.2 L Lipase (73-393) U/L 77 Ethyl Alcohol (<10) mg/dL 105.1 H COVID-19 Source Nasopharynx SARS-CoV-2 (PCR) (Negative) Negative Influenza Type A (PCR) (Negative) Negative Influenza Type B (PCR) (Negative) Negative RSV (PCR) (Negative) Negative Sign Out Yes Sign Out Sign Out Data: Sign Out Comment: Chronic alcohol abuse. Recent visit for the same. Reports chronic back pain and leg weakness which is worsening in general. Denies recent illness or trauma. No obvious focal deficit on my evaluation. He would like his clothing changed, he would like to eat dinner. Awaiting laboratory values and if unremarkable likely trial ambulation. Patient tells me he is unsure if he would like to pursue admission and/or potential rehab facility placement. Last updated by Joshua Yao PA at 07/08/22 15:36 Discharge Plan Disposition Patient Disposition: Admit to [facility] Condition: Fair Discharge Details Clinical Impression: Acute hyponatremia Admit Date/Time: 07/08/22 16:30 Admit Provider: Joshua James Attending Provider: Joshua James Primary Care Provider: Juan Diego Luna ED Provider: Jessica Chicas
[2022-07-08 16:24] LABS: COVID-19 PCR Negative (Negative); Influenza A PCR Negative (Negative); Influenza B PCR Negative (Negative); RSV PCR Negative (Negative)
[2022-07-08 16:27] LABS: Source Nasopharynx
[2022-07-08 16:30] VITALS: RESP 18
--- NOTE | 2022-07-08 16:33 | NUR.NOTE ---
Nursing Note: Patient to the ED c/o spasms and weakness in legs and needing to eat. He explained that he was unable to get off couch to eat today and only ate a meat stick. Per provider this nurse gave sandwich and a cola to patient
--- NOTE | 2022-07-08 16:54 | HPE_ITS ---
Date of service: 07/08/22 Time of Service: 16:54 Assessment and Plan Assessment and plan (1) Acute hyponatremia: Status: Acute Assessment and plan: will put him on 3% saline @ 36 mL/hr along w/ DDAVP 2 mcg SC/IV q8hr and monitor his BMP every 4hrs. Likely etiology is beer potomania. Professional time spent interviewing and examining patient, discussion of goals of care with hospital team (care management, nursing and consulting professionals) was 45 minutes. (2) Alcohol abuse: Status: Chronic Assessment and plan: high risk of acute withdrawal therefore will put him on phenobarbital protocol prophylaxis (3) Chronic pain: Status: Chronic Assessment and plan: will reorder his baclofen for his chronic back pains. avoid narcotics and particularly Tramadol in setting of hyponatremia which would lower his seizure threshold (4) Ambulatory dysfunction: Status: Acute Assessment and plan: will consult P.T. to evaluate and treat. 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 (5) Generalized weakness: Status: Acute Assessment and plan: as above (6) COPD (chronic obstructive pulmonary disease): Status: Chronic Assessment and plan: he does not take any long acting bronchodilators. I will reorder prn DuoNebs however he should probably be on a long acting muscarinic agent such as Spiriva. History of Present Illness History of Present Illness Chief Complaint: weakness, inability to walk Narrative: 61-year-old male alcoholic with COPD who presents emergency department with generalized weakness of 1-1/2 days duration. Patient states he is been unable to walk. 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 He lives on a first floor apartment in [place]. He lives alone. He is but has 2 grown children with his son in [place] and a daughter who lives on the [facility] border. Patient consumes beer on a daily basis but he cannot give me a definitive answer in terms of how much beer he consumes. He says it depends on whether he has company or not. He drinks at least several beers every day. He continues to smoke although he is down to less than a pack a day. Formerly he was a 3 pack-a-day smoker and began smoking when he was 13 years old. Evaluation in the emergency department revealed that he is significantly hyponatremic with a serum sodium of 118. Despite his drinking history of CBC was pretty unremarkable. There was no macrocytosis and no anemia and no blood dyscrasias. The rest of his chemistry panel in addition to low sodium of 118 showed a chloride of 85. Anion gap was normal at 3.8 BUN and creatinine were low at 5 and 0.4. Transaminases were within normal limits his albumin was low at 3.2. Lipase was normal at 77. Patient was recent evaluated emergency department 07/03/2022 for complaint of spasm in both legs from his hips to his knees. This was interfering with his ambulatory abilities nevertheless he was able to ambulate with a walker. He was discharged from the emergency department and instructed to use his baclofen as needed for leg pain and spasm and follow- up with his primary care provider. He was also advised on his need to cut back on his alcohol and recommend they be referred to a organ recovery coordinator. I asked the patient about going through alcohol withdrawal. He denies any seizures does ad brandon to some increased anxiety when he does not drink but he very rarely goes without drinking. Patient was given 1 L of normal saline while in the emergency department. He will now be admitted to the medical/surgical floor for continued correction of his hyponatremia. He will be put on 3% saline with use of the DDAVP clamp to prevent overcorrection. Using the sodium correction calculator by Dr. Maico Mercado, and putting in for the patient's serum sodium of 118 mmol/L, and a correction rate of 0.5M EQ's per liter per hour and the patient's weight of 55.5 kg this gives a calculated fluid rate of 36 mL/h using 3% saline. DDAVP clamp should be 2 mcg subcu or IV every 8 hours. We will monitor BMP every 4 hours. We will get a physical therapy consultation in the morning to evaluate his s trength and gait. Review of Systems All systems reviewed & are unremarkable except as noted in HPI and below PFSH All Active Problems (Updated 07/08/22 @ 18:28 by Joshua James MD) Generalized weakness (Acute) Ambulatory dysfunction (Acute) Alcohol abuse (Chronic) Muscle spasm (Acute) Chronic pain (Chronic) Hyponatremia (Acute) Hypomagnesemia (Acute) Acute hyponatremia (Acute) Well adult (Acute) White coat syndrome with hypertension (Acute) Discharge planning issues (Acute) DVT prophylaxis (Acute) COPD (chronic obstructive pulmonary disease) (Chronic) a. Ongoing tobacco abuse. Alcoholism (Chronic ~01/2014) a. Drinks at least 6 beers per day on a regular basis. Contusion of pelvis (Acute) Medical History Alcohol withdrawal delirium Fracture of femoral neck, left a. S/P left total knee arthroplast, 01/26/[address] Mendoza. History of neck fracture a. Left-sided weakness. b. On SSI disability. Surgical History History of cervical spinal arthrodesis History of total left hip arthroplasty (01/26/14) left total hip arthroplasty; Dr. Riaz Mendoza[facility] after fall and hip fracture Social History Smoking/Tobacco Use Status: Current every day Smoking risk assessment performed?: Yes Alcohol Intake: current Alcohol Intake frequency: 3 or more drinks per day Alcohol type: beer Drug use: Never Do you feel safe in your relationship?: Yes Meds Allergies and Home Medications Allergies Allergy/AdvReac Type Severity Reaction Status Date / Time ENVIRONMENTAL/POLLEN Allergy CONGESTION, Uncoded 10/20/20 15:08 WATERY EYES, RUNNY NOSE Home Medications Medication Instructions Recorded Confirmed Type acetaminophen 325 mg tablet 325 - 650 mg PO Q4H PRN PRN #0 tabs 08/16/20 Rx (Tylenol) magnesium gluconate 27 mg 500 mg PO DAILY #30 tabs 08/16/20 07/08/22 Rx magnesium (500 mg) tablet baclofen 10 mg tablet 10 mg PO TID PRN neck pain #10 tabs 08/19/21 07/08/22 Rx albuterol sulfate 90 mcg/actuation 2 inh implant Q4H PRN ##1 04/18/22 07/08/22 Rx aerosol inhaler Exam Narrative Exam Narrative: Thin disheveled appearing late middle-aged male. He is alert and oriented person place time circumstance. He has no tremors. HEENT is remarkable and that he is edentulous. Oropharynx without exudate or erythema Neck no JVD normal carotid pulses he has decreased range of motion particularly with extension secondary to previous cervical fusion. He is able to laterally rotate to 45 degrees to either side he is able to flex his neck and touch his chin to his chest. He has visible surgical scar over the cervical spine. There is no erythema no induration Lungs prolonged expiratory phase no rhonchi he does have some fine end expiratory wheezes Heart is regular rate and rhythm Abdomen soft nontender no organomegaly no bruits no tenderness. Extremities no peripheral cyanosis or edema. He is missing the fifth digit on his right hand which he said he lost in the wood splitter. Neuro no focal cranial nerve deficits however he has some paresis in his left hand and arm he is able to raise his left arm up over his head he is able to squeeze with his left hand but not able to fully open his left hand secondary to his previous cervical injury. Results Labs Result diagrams: 07/08/22 15:43 07/08/22 15:43 Labs: Laboratory Results - last 24 hr 07/08/22 07/08/22 07/08/22 15:25 15:43 15:43 WBC 9.74 RBC 4.42 Hgb 14.2 Hct 41.1 MCV 93 MCH 32.1 MCHC 34.5 RDW 11.7 L Plt Count 261 MPV 8.5 Immature Gran % 0.4 Neutrophils % 50.5 Lymphocytes % 37.2 Monocytes % 9.3 Eosinophils % 2.2 Basophils % 0.4 Nucleated RBC % 0.0 Absolute Neutrophils 4.92 Absolute Lymphocytes 3.62 H Absolute Monocytes 0.91 H Absolute Eosinophils 0.21 Absolute Basophils 0.04 Sodium 118 L* Potassium 4.1 Chloride 85 L Carbon Dioxide 29.2 Anion Gap 3.8 BUN 5 L Creatinine 0.4 L Est GFR (CKD-EPI 2020) 122.60 Glucose 85 Calcium 8.6 Total Bilirubin 0.4 AST 18 ALT 13 L Alkaline Phosphatase 107 Total Protein 7.8 Albumin 3.2 L Lipase 77 Ethyl Alcohol 105.1 H COVID-19 Source Nasopharynx SARS-CoV-2 (PCR) Negative Influenza Type A (PCR) Negative Influenza Type B (PCR) Negative RSV (PCR) Negative Last Vital Signs Temp 36.4 C L 07/08/22 15:18 Pulse 85 07/08/22 15:18 Resp 18 07/08/22 16:30 BP 134/82 07/08/22 15:18 Pulse Ox 97 07/08/22 15:18 PAWSS Have you Been Recently Intoxicated or Drunk Within the Last 30 days?: Yes Have you Ever Experienced Previous Episodes of Alcohol Withdrawal?: No Have you ever Experienced Withdrawal Seizures?: No Have you ever Experienced Delirium Tremens(DT)s?: No Have you ever undergone Alcohol Rehabilitation Treatment (i.e, inpt ot outpatient treatment programs)?: Yes Have you ever Experienced Blackouts?: No Have you ever Combined Alcohol with other Downers within the last 90 days?: No Have you ever Combined Alcohol with any other Substance of Abuse during the last 90 days?: No Positive Blood Alcohol level on Presentation? [PCS.BAL]: Yes Evidence of Increased Autonomic Activity (i.e. HR>120, tremor, sweating, agitation, nausea)?: No Result: 3
[2022-07-08] MEDS: Thiamine 100 MG TAB PO (19:06)
[2022-07-08] MEDS: Multivitamin TAB 1 TAB PO (19:06)
[2022-07-08] MEDS: Baclofen 10 MG TAB PO (19:06)
[2022-07-08] MEDS: Folic Acid 1 MG TAB PO (19:06)
[2022-07-08 19:45] VITALS: BP 139/65; PULSE 101; RESP 20; TEMP 35.9; O2SAT 95
[2022-07-08 20:21] LABS: Anion Gap 5.9 mmol/L (3-11); BUN 7 mg/dL (7-18); CO2 26.1 mmol/L (21.0-32.0); CREATININE 0.4 mg/dL (0.70-1.30); Calcium 8.2 mg/dL (8.5-10.1); Chloride 89 mmol/L (98-107); Glucose 96 mg/dL (74-106); Potassium 3.8 mmol/L (3.5-5.1)
[2022-07-08 20:33] LABS: Sodium 121 mmol/L (136-145)
[2022-07-08 21:44] VITALS: PULSE 89
[2022-07-08] MEDS: Enoxaparin 40 MG/0.4 ML SYR SC (21:46)
[2022-07-08 23:30] VITALS: PULSE 90
[2022-07-08 23:41] VITALS: BP 121/75; PULSE 96; RESP 19; TEMP 37.6; O2SAT 96
[2022-07-09] VITALS (9 sets, daily range): BP systolic 94–120; BP diastolic 52–74; PULSE 91–106; RESP 17–20; TEMP 36.5–37.5; O2SAT 93–97
[2022-07-09 01:24] LABS: BUN 7 mg/dL (7-18); CREATININE 0.4 mg/dL (0.70-1.30); Calcium 8.7 mg/dL (8.5-10.1); Chloride 92 mmol/L (98-107); Glucose 89 mg/dL (74-106); Potassium 4.1 mmol/L (3.5-5.1)
[2022-07-09 01:26] LABS: Sodium 124 mmol/L (136-145)
[2022-07-09] MEDS: Acetaminophen 325 MG TAB PO ×2 (02:33→12:54)
[2022-07-09 03:46] LABS: BUN 7 mg/dL (7-18); CREATININE 0.4 mg/dL (0.70-1.30); Calcium 8.1 mg/dL (8.5-10.1); Chloride 92 mmol/L (98-107); Glucose 105 mg/dL (74-106)
[2022-07-09 03:49] LABS: Sodium 123 mmol/L (136-145)
[2022-07-09] MEDS: SODIUM CHLORIDE 3% 500 ML 36 ML IV (04:30)
[2022-07-09 07:19] LABS: PHOSPHORUS 4.2 mg/dL (2.6-4.7)
[2022-07-09 07:30] LABS: Magnesium 1.6 mg/dL (1.8-2.4); TSH (W/Ref FT4) 2.58 uIU/mL (0.36-3.74)
[2022-07-09] MEDS: Magnesium Gluconate 500 MG TAB PO ×3 (07:53→21:23)
[2022-07-09] MEDS: Multivitamin TAB 1 TAB PO (07:54)
[2022-07-09] MEDS: Thiamine 100 MG TAB PO (07:54)
[2022-07-09] MEDS: Baclofen 10 MG TAB PO ×3 (07:54→21:24)
[2022-07-09] MEDS: Folic Acid 1 MG TAB PO (07:54)
[2022-07-09 08:17] LABS: Anion Gap 7.8 mmol/L (3-11); BUN 6 mg/dL (7-18); CO2 26.2 mmol/L (21.0-32.0); CREATININE 0.4 mg/dL (0.70-1.30); Calcium 8.3 mg/dL (8.5-10.1); Chloride 92 mmol/L (98-107); Glucose 105 mg/dL (74-106); Potassium 3.9 mmol/L (3.5-5.1); Sodium 126 mmol/L (136-145)
--- NOTE | 2022-07-09 08:48 | IN_ITS ---
PT Notes Visit Reasons: Hyponatremia, Gen Weak, Self Neglect, Alcoholism Inpatient Physical Therapy Evaluation Date: 07/09/22 Referring Doctor: Dr. James PT Orders: PT CONSULT: fall risk/safety assessment Precautions: fall, standard Patient Profile/Admitting Diagnosis: Patient admitted 07/08/22 after presenting to ER with weakness. Diagnosed with acute hyponatremia in the presence of EtOH abuse, and admitted for medical management. PT consult requested for safety assessment. PMHX: All Active Problems?(Updated 07/08/22 @ 18:28 by Joshua James MD) Generalized weakness (Acute) Ambulatory dysfunction (Acute) Alcohol abuse (Chronic) Muscle spasm (Acute) Chronic pain (Chronic) Hyponatremia (Acute) Hypomagnesemia (Acute) Acute hyponatremia (Acute) Well adult (Acute) White coat syndrome with hypertension (Acute) Discharge planning issues (Acute) DVT prophylaxis (Acute) COPD (chronic obstructive pulmonary disease) (Chronic) a. Ongoing tobacco abuse.Alcoholism (Chronic ~01/2014) a. Drinks at least 6 beers per day on a regular basis.Contusion of pelvis (Acute) Medical History? Alcohol withdrawal delirium Fracture of femoral neck, left a. S/P left total knee arthroplast, 01/26/[address] Mendoza.History of? neck fracture a. Left-sided weakness. b. On SSI disability. Social History/Home Situation: lives alone in first floor apartment. 4WW at baseline. Equipment Owned/DME: 4WW Subjective: Kaleb initially refuses treatment, stating he would like to have breakfast first. He is agreeable on second attempt. States that his legs still feel weak, but perhaps a bit better since getting some food in him. Reports increasing difficulty getting up from couch and walking. States that his legs feel weak, a nd his left hip is painful with all movement. States his hip hurts all the way around. He has a distant history of hip fracture, and underwent CHAD many years ago. Reports frequent stumbles and admits to fall onto his left hip, although cannot recall specifics, including how long ago or if it precedes his current hip pain. Objective: General Observation: Resting in chair with multiple lines. Mental Status: A&Ox3. Cooperative throughout session. Pain: left hip pain with all active movements and weight bearing. Vital Signs: monitored by nursing throughout ROM: Right Upper Extremity: Shoulder flexion 135*. Partial corporate executive chef, full hand opening. Left Upper Extremity: Shoulder flexion to 60* actively. Elbow motion full. Partial corporate executive chef, and limited active hand opening. Functionally able to place hand to walker effectively. Right Lower Extremity: Hip flexion 100*. Knee extension -10*. Knee flexion 130*. Left Lower Extremity: Hip flexion to 90* with pain. ER passively to 15* limited by pain. IR to 20*. Strength: Right Lower Extremity: Hip flexion 4/5. Quads 3+/5. Ankle DF 3/5 or greater. Left Lower Extremity: Hip flexion 3/5 with pain. Quads 3/5, with painful SLR. Ankle DF 3/5 or greater. Sensation: intact distally Coordination: impaired with rapid alternating movements of ankles Bed Mobility/Transfers: sit-stand: mod A x 1 stand-sit: min A x 1 Gait: unable. Patient statically stands x 45 seconds with FWW and mod A, with limited weightbearing to LLE, and approx 20* knee flexion on the right. Balance: Static Sitting: good Dynamic Sitting: fair Static Standing: poor Dynamic Standing: poor Special Tests: Mobility Limitations Standardized Measure [facility] AM-PAC 6 clicks Basic Mobility Inpatient Short Form: Raw Score: 12 CMS Score: 67% impairment Informed Consent/Education: Patient instructed in purpose of PT consult and plan of care. Assessment: Patient is a 61 year old male referred to physical therapy services during acute care stay for management of hyponatremia in the presence of alcoholism. Patient presents with clinical signs and symptoms consistent with acute on chronic mobility issues, with reports of worsening ability to transfer and ambulate. He currently demonstrates the following impairment level findings: 1. LE weakness 2. decreased left hip ROM 3. persistent left hip pain in the presence of CHAD with ? h/o trauma 4. unable to ambulate 5. decreased coordination Impairments are contributing to the following functional limitations: 1. unable to ambulate 2. high fall risk 3. severe hip pain Patient is assessed as Moderate [id number] based on the following: History: Patient is a 61 year old male presenting with severe mobility impairments, with worsening pain and weakness over an unknown period of time. He does have significant restriction in left hip ROM and pain with all motion and weightbearing, with possible h/o trauma. Feel imaging is indicated to rule out hip pathology. He requires skilled PT intervention to maximize strength and mobility, and anticipate he will require further rehabilitation in SNF setting prior to return to community, given his severe mobility deficits and AMPAC score of 12 (below threshold for community dwelling). Examination: functional limiations as above Presentation: evolving Decision Making: moderate complexity Goals: Goals X1 week 1. Supine-Sit : supervision 2. Sit-Supine : supervision 3. Sit-Stand : supervision 4. Stand-Sit : supervision 5. Bed-Chair : min A with FWW 6. Chair-Bed min A with FWW 7. Gait : min A with FWW x 25' Plan of Care/Treatment Plan: 1-2x/day, 7 days/week x 1 week. Plan of care has been reviewed with the ELECTRONIC SECURITY TECHNICIAN providing the service under Physical Therapy direction. Initiate Physical Therapy intervention for strengthening, bed mobility, transfers, gait, stairs, balance training, use of assistive device. DISCHARGE RECOMMENDATIONS: Anticipate need for SNF for continued rehabilitation TREATMENT CODE/TIME: 9:30-10:00 ([id number]) Ingrid Hernández, PT, DPT [facility]
--- NOTE | 2022-07-09 09:11 | NUR.NOTE ---
Nursing Note: At approximately 0910 on 07/09/22, this RN attempted to return a call from Jagdish Prince pt.'s son (on HIPAA). Phone call went to voicemail; no voicemail was left. RN will attempt to return the call again later.
[2022-07-09] MEDS: Normal Saline Flush 10 ML SYR (09:20)
[2022-07-09] MEDS: MAGNESIUM SULFATE 4 GM/100 ML BAG IVPB (09:42)
--- NOTE | 2022-07-09 10:06 | INITIAL_ITS ---
- If Service Date Differs Date of service: 07/09/22 Time of Service: 10:06 Care Management Initial Assess REASON FOR HOSPITALIZATION:: Hyponatremia, Generalized weakness, self neglect, alcoholism PAST MEDICAL HISTORY/PAST SURGICAL HISTORY:: Medical History . Alcohol withdrawal delirium. Fracture of femoral neck, left. a. S/P left total knee arthroplast, 01/26/[address] Mendoza. History of neck fracture. a. Left-sided weakness. b. On SSI disability. Surgical History . History of cervical spinal arthrodesis. History of total left hip arthroplasty (01/26/14). left total hip arthroplasty; Dr. Riaz Mendoza, [facility] after fall and hip fracture PREVIOUS FUNCTIONAL STATUS/SOCIAL/FAMILY SUPPORTS:: Resides alone in [facility], reports having friends that check on him periodically. Son Jagdish and brother Kelvin are next of kin. CURRENT FUNCTIONAL STATUS:: Remains on CIWA protocol, per provider not yet acutely withdrawing. He is working with PT, with goal of progressing mobility with pain management. He is open to considering assisted living, anticipate SNF placement may be indicated upon discharge. Has patient been provided with info about the portal/API?: No Did the patient sign up for the portal?: No CODE STATUS:: Full Code INSURANCE COVERAGE / FINANCIAL ISSUES:: Medicaid CURRENT HOME/COMMUNITY SERVICES/EQUIPMENT:: Tub seat, hand held shower, FWW PRIMARY CARE PHYSICIAN:: Juan Diego Luna POTENTIAL DISCHARGE NEEDS:: gymnastics coach, review of community based supports, PT evaluation for discharge planning recommendations. PATIENT/FAMILY EDUCATION NEEDS:: Review discharge instructions, discuss Ask Me Three. ANTICIPATED BARRIERS TO DISCHARGE:: CIWA protocol, alcohol withdrawal, generalized weakness. TRANSPORTATION:: To be determined by disposition. PLAN:: Kaleb is being closely monitored and treated and remains on CIWA protocol, anticipate once medically stable, he will be evaluated by PT for discharge planning recommendations. CM continues to follow.
--- NOTE | 2022-07-09 11:13 | NUR.NOTE ---
Nursing Note: At approximately 1105 on 07/09/22, this RN attempted to return a call from Jagdish Prince, pt.'s son (on HIPAA), and was able to get through to him. Pt.'s son was updated regarding pt.'s admitting diagnoses, mentation, plan of care, etc. Pt.'s son asking if pt. was going to be seen by a pharmacy care coordinator. RN informed pt.'s son that, yes, a pharmacy care coordinator would be around to speak with the pt. Pt.'s son stating that he would like to start a discussion about the pt. going either to a nursing rehab facility or an assisted living facility/usp, since the pt. has been slowly declining at home. RN informed the pt.'s son that the pharmacy care coordinator would discuss safe discharge options when speaking with the pt. and that the healthcare team would work together with the pt. to determine the best option. Pt.'s son verbalized understanding and presented with no more questions.
[2022-07-09 12:08] LABS: Anion Gap 4.8 mmol/L (3-11); BUN 9 mg/dL (7-18); CO2 28.2 mmol/L (21.0-32.0); CREATININE 0.4 mg/dL (0.70-1.30); Calcium 8.1 mg/dL (8.5-10.1); Chloride 94 mmol/L (98-107); Glucose 130 mg/dL (74-106); Potassium 3.8 mmol/L (3.5-5.1); Sodium 127 mmol/L (136-145)
--- NOTE | 2022-07-09 13:20 | DI.RAD_ITS ---
Exam(s) XR HIP LT COMPLETE AP PELVIS EXAM: XR HIP LT COMPLETE AP PELVIS INDICATION: left hip pain; s/p fall. COMPARISON: CR PELVIS AP from 01/26/2014 CR XR PELVIS AP from 08/09/2020 TECHNIQUE: 2D digital imaging was performed. Three views. FINDINGS: No acute fracture. No change in alignment of left total hip prosthesis. No abnormal surrounding wanda encies. Right hip joint space is maintained. There are prominent vascular calcifications. There ar e degenerative changes in the lower lumbar spine. IMPRESSION: No acute abnormality. DATA REPOSITORY: RADIATION DOSE DELIVERED:
--- NOTE | 2022-07-09 13:37 | DI.VRAD_ITS ---
PROCEDURE INFORMATION: Exam: XR Left Hip Exam date and time: 07/09/2022 1:18 PM Age: 61 years old Clinical indication: Injury or trauma; Fall; Blunt trauma (contusions or hematomas); Left; Prior surgery; Surgery date: 6+ months; Surgery type: Hip replacement TECHNIQUE: Imaging protocol: Radiologic exam of the Left hip. Views: 2 or 3 views hip with pelvis when performed. COMPARISON: CT ABDOMEN PELVIS WO 08/09/2020 12:48 PM FINDINGS: Bones/joints: No acute fracture or dislocation. Total hip prosthesis in satisfactory position, no evidence of hardware malfunction. Soft tissues: Unremarkable. IMPRESSION: No acute findings. Dictated and Authenticated by: Jade Dinh MD. Ordering:[facility] Jacob Lewis MD
--- NOTE | 2022-07-09 14:31 | W.PM.PROGNOT ---
Date of Service Date of service: 07/09/22 Time of Service: 14:31 Assessment and Plan Assessment and plan (1) Acute hyponatremia: Status: Acute Assessment and plan: cont. 3% saline w/ DDAVP clamp; sodium is gradually correcting and now is up to 127 from 118. continue to monitor BMP q4h. (2) Alcohol abuse: Status: Chronic Assessment and plan: high risk of acute withdrawal therefore will put him on phenobarbital protocol prophylaxis. so far no evidence for acute withdrawal. use phenobarbital prn. continue thiamine and folic acid and MVS (3) Chronic pain: Status: Chronic Assessment and plan: will reorder his baclofen for his chronic back pains. avoid narcotics and particularly Tramadol in setting of hyponatremia which would lower his seizure threshold. I have added prn Toradol and scheduled voltaren gel and lidoderm patch. (4) Ambulatory dysfunction: Status: Acute Assessment and plan: continue P.T. hopefully w/ better pain control he will be able to be ambulated. (5) Generalized weakness: Status: Acute Assessment and plan: as above (6) COPD (chronic obstructive pulmonary disease): Status: Chronic Assessment and plan: Spiriva added along w/ prn xopenex.. (7) Decreased activities of daily living (ADL): Status: Acute Assessment and plan: patient has been neglecting himself as evidenced by his poor nutrition and hygiene. I have asked CM to look into his living situation. He even admits that he probably needs placement in assisted living. I think he will need SNF given his ambulatory dysfunction. Subjective Subjective Interval history since last seen: patient was seen by P.T. this morning they attempted to ambulate him but were unable to do so d/t his left hip pain. He has poor static and dynamic standing balance and was only able to stand for 45 sec w/ FWW and moderate asssitance. P.T. came to me out of concern d/t his hx of falls and concern for possible mechanical injury to the right prosthetic joint. X-ray of the left hip and pelvis were obtained and demonstrated the following: No acute fracture.? No change in alignment of left total hip prosthesis.? No abnormal surrounding lucencies.? Right hip joint space is maintained.? There are prominent vascular calcifications.? There are degenerative changes in the lower lumbar spine. Exam Narrative Exam Narrative: Kaleb is alert and oriented x 3, he is in no acute distress; he just finished his bath and nursing found that his groin is rather excoriated (probably d/t self neglect, inability for him to bathe himself at home) So far he has not exhibited any signs of alcohol withdrawal Lungs: diffusely diminished but clear Heart: RRR Abdomen: soft, nontender Groin very reddened and moist and excoriated over intriginous groin folds and scrotum Objective Last Vital Signs Temp 37.1 C 07/09/22 11:00 Pulse 100 H 07/09/22 11:00 Resp 18 07/09/22 11:00 BP 107/63 07/09/22 11:00 Pulse Ox 95 07/09/22 11:00 Laboratory Results - last 24 hr 07/08/22 07/08/22 07/08/22 15:25 15:43 15:43 WBC 9.74 RBC 4.42 Hgb 14.2 Hct 41.1 MCV 93 MCH 32.1 MCHC 34.5 RDW 11.7 L Plt Count 261 MPV 8.5 Immature Gran % 0.4 Neutrophils % 50.5 Lymphocytes % 37.2 Monocytes % 9.3 Eosinophils % 2.2 Basophils % 0.4 Nucleated RBC % 0.0 Absolute Neutrophils 4.92 Absolute Lymphocytes 3.62 H Absolute Monocytes 0.91 H Absolute Eosinophils 0.21 Absolute Basophils 0.04 Sodium 118 L* Potassium 4.1 Chloride 85 L Carbon Dioxide 29.2 Anion Gap 3.8 BUN 5 L Creatinine 0.4 L Est GFR (CKD-EPI 2020) 122.60 Glucose 85 Calcium 8.6 Phosphorus Magnesium Total Bilirubin 0.4 AST 18 ALT 13 L Alkaline Phosphatase 107 Total Protein 7.8 Albumin 3.2 L Lipase 77 TSH Ethyl Alcohol 105.1 H COVID-19 Source Nasopharynx SARS-CoV-2 (PCR) Negative Influenza Type A (PCR) Negative Influenza Type B (PCR) Negative RSV (PCR) Negative 07/08/22 07/09/22 07/09/22 20:00 00:42 03:10 WBC RBC Hgb Hct MCV MCH MCHC RDW Plt Count MPV Immature Gran % Neutrophils % Lymphocytes % Monocytes % Eosinophils % Basophils % Nucleated RBC % Absolute Neutrophils Absolute Lymphocytes Absolute Monocytes Absolute Eosinophils Absolute Basophils Sodium 121 L* 124 L 123 L* Potassium 3.8 4.1 4.0 Chloride 89 L 92 L 92 L Carbon Dioxide 26.1 29.0 29.0 Anion Gap 5.9 3.0 2.0 L BUN 7 7 7 Creatinine 0.4 L 0.4 L 0.4 L Est GFR (CKD-EPI 2020) 122.60 122.60 122.60 Glucose 96 89 105 Calcium 8.2 L 8.7 8.1 L Phosphorus Magnesium Total Bilirubin AST ALT Alkaline Phosphatase Total Protein Albumin Lipase TSH Ethyl Alcohol COVID-19 Source SARS-CoV-2 (PCR) Influenza Type A (PCR) Influenza Type B (PCR) RSV (PCR) 07/09/22 07/09/22 07/09/22 06:00 06:00 07:50 WBC RBC Hgb Hct MCV MCH MCHC RDW Plt Count MPV Immature Gran % Neutrophils % Lymphocytes % Monocytes % Eosinophils % Basophils % Nucleated RBC % Absolute Neutrophils Absolute Lymphocytes Absolute Monocytes Absolute Eosinophils Absolute Basophils Sodium 126 L Potassium 3.9 Chloride 92 L Carbon Dioxide 26.2 Anion Gap 7.8 BUN 6 L Creatinine 0.4 L Est GFR (CKD-EPI 2020) 122.60 Glucose 105 Calcium 8.3 L Phosphorus 4.2 Magnesium 1.6 L Total Bilirubin AST ALT Alkaline Phosphatase Total Protein Albumin Lipase TSH 2.58 Ethyl Alcohol COVID-19 Source SARS-CoV-2 (PCR) Influenza Type A (PCR) Influenza Type B (PCR) RSV (PCR) 07/09/22 11:50 WBC RBC Hgb Hct MCV MCH MCHC RDW Plt Count MPV Immature Gran % Neutrophils % Lymphocytes % Monocytes % Eosinophils % Basophils % Nucleated RBC % Absolute Neutrophils Absolute Lymphocytes Absolute Monocytes Absolute Eosinophils Absolute Basophils Sodium 127 L Potassium 3.8 Chloride 94 L Carbon Dioxide 28.2 Anion Gap 4.8 BUN 9 Creatinine 0.4 L Est GFR (CKD-EPI 2020) 122.60 Glucose 130 H Calcium 8.1 L Phosphorus Magnesium Total Bilirubin AST ALT Alkaline Phosphatase Total Protein Albumin Lipase TSH Ethyl Alcohol COVID-19 Source SARS-CoV-2 (PCR) Influenza Type A (PCR) Influenza Type B (PCR) RSV (PCR) PAWSS Have you Been Recently Intoxicated or Drunk Within the Last 30 days?: Yes Have you Ever Experienced Previous Episodes of Alcohol Withdrawal?: No Have you ever Experienced Withdrawal Seizures?: No Have you ever Experienced Delirium Tremens(DT)s?: No Have you ever undergone Alcohol Rehabilitation Treatment (i.e, inpt ot outpatient treatment programs)?: Yes Have you ever Experienced Blackouts?: No Have you ever Combined Alcohol with other Downers within the last 90 days?: No Have you ever Combined Alcohol with any other Substance of Abuse during the last 90 days?: No Positive Blood Alcohol level on Presentation? [PCS.BAL]: Yes Evidence of Increased Autonomic Activity (i.e. HR>120, tremor, sweating, agitation, nausea)?: No Result: 3
[2022-07-09 16:56] LABS: Anion Gap 3.6 mmol/L (3-11); BUN 11 mg/dL (7-18); CO2 28.4 mmol/L (21.0-32.0); CREATININE 0.5 mg/dL (0.70-1.30); Calcium 7.8 mg/dL (8.5-10.1); Chloride 95 mmol/L (98-107); Estimated GFR 114.61 (mL/min/1.73m2); Glucose 110 mg/dL (74-106); Potassium 4.5 mmol/L (3.5-5.1); Sodium 127 mmol/L (136-145)
[2022-07-09] MEDS: Diclofenac 1% Gel 100 GM TUBE TP ×2 (18:58→21:25)
[2022-07-09] MEDS: Lidocaine 5% Patch 2 PATCH TP (18:59)
[2022-07-09] MEDS: Normal Saline Flush 10 ML SYR IVP (19:00)
[2022-07-09 20:22] LABS: Anion Gap 1.9 mmol/L (3-11); BUN 13 mg/dL (7-18); CO2 30.1 mmol/L (21.0-32.0); CREATININE 0.5 mg/dL (0.70-1.30); Calcium 7.9 mg/dL (8.5-10.1); Chloride 95 mmol/L (98-107); Estimated GFR 114.61 (mL/min/1.73m2); Glucose 107 mg/dL (74-106); Potassium 4.2 mmol/L (3.5-5.1); Sodium 127 mmol/L (136-145)
[2022-07-09] MEDS: Enoxaparin 40 MG/0.4 ML SYR SC (21:25)
[2022-07-10] VITALS (9 sets, daily range): BP systolic 110–130; BP diastolic 67–77; PULSE 64–92; RESP 4–18; TEMP 36.8–37.5; O2SAT 93–97
[2022-07-10 00:54] LABS: Anion Gap 7.7 mmol/L (3-11); BUN 13 mg/dL (7-18); CO2 26.3 mmol/L (21.0-32.0); CREATININE 0.4 mg/dL (0.70-1.30); Calcium 7.8 mg/dL (8.5-10.1); Chloride 94 mmol/L (98-107); Glucose 124 mg/dL (74-106); Potassium 3.8 mmol/L (3.5-5.1); Sodium 128 mmol/L (136-145)
[2022-07-10] MEDS: Normal Saline Flush 10 ML SYR IVP ×2 (02:06→11:40)
[2022-07-10] MEDS: SODIUM CHLORIDE 3% 500 ML 36 ML IV (02:06)
[2022-07-10 06:14] LABS: Abs Immature Grans 0.04 10^3/uL (0.0-0.06); Absolute Basophil Count 0.02 10^3/uL (0.0-0.2); Absolute Lymphocyte Count 3.22 10^3/uL (1.2-3.4); Absolute Monocyte Count 1.09 10^3/uL (0.1-0.8); Absolute Neutrophil Count 3.23 10^3/uL (1.2-6.7); Basophils % 0.3; Eosinophils % 1.3; HCT 33.7 % (40.0-50.0); HGB 11.5 g/dL (13.5-17.5); Immature Grans % 0.5; Lymphocytes % 41.8; MCH 32.8 pg (27.0-33.0); MCHC 34.1 % (32.0-36.0); MCV 96 fL (80-95); MPV 9.1 fL (8.0-11.0); Monocytes % 14.2; Neutrophils % 41.9; Platelet Count 233 10^3/uL (130-400); RBC 3.51 10^6/uL (4.36-5.78); RDW 12.5 % (11.8-14.1); RDW-SD 44.3 fL
[2022-07-10 06:29] LABS: Anion Gap 4.5 mmol/L (3-11); BUN 10 mg/dL (7-18); CO2 29.5 mmol/L (21.0-32.0); CREATININE 0.4 mg/dL (0.70-1.30); Chloride 97 mmol/L (98-107); Glucose 98 mg/dL (74-106); Potassium 3.9 mmol/L (3.5-5.1); Sodium 131 mmol/L (136-145)
[2022-07-10 06:31] LABS: Bilirubin Negative (Negative); Blood Negative (Negative); Clarity Sl Cloudy (Clear); Glucose Negative (Negative); Ketones Negative (Negative); Leukocyte Esterase Moderate (Negative); Nitrite Negative (Negative); Specific Gravity 1.025 (1.005-1.025); Urobilinogen 0.2 EU/dL (Up TO 0.2)
[2022-07-10 06:32] LABS: C-Reactive Protein 0.89 mg/dL (0.0-0.3); Magnesium 1.7 mg/dL (1.8-2.4)
[2022-07-10] MEDS: Patch Removal 1 EACH TP (06:33)
[2022-07-10 06:41] LABS: Bacteria Few HPF (Negative); C & S Indicated? Yes; Crystals Negative HPF (Negative); Epithelial Cells Few HPF (Negative); Mucus Negative (Negative); RBC Negative HPF (0-2); WBC >50 HPF (0-5)
[2022-07-10 06:43] LABS: *AMPHETAMINES SCREEN URINE Negative (Negative); *BARBITURATES SCREEN URINE Positive (Negative); *BENZODIAZEPINES SCREEN URINE Negative (Negative); Cannabinoids THC Negative (Negative); Cocaine Screen,Urine Negative (Negative); METHADONE URINE SCREEN Negative (Negative); OPIATES URINE SCREEN Negative (Negative)
[2022-07-10 06:46] LABS: Tricyclic Antidepressants Negative (Negative)
[2022-07-10 06:52] LABS: Procalcitonin < 0.1 ng/mL
[2022-07-10] MEDS: Tiotropium Bromide-Respimat 10 PUFF INH 2 PUFF IH (07:57)
--- NOTE | 2022-07-10 08:52 | OT.INIE ---
Occupational Therapy Notes Inpatient Occupational Therapy Evaluation Date: 07/10/22 Referring Doctor: Joshua James MD OT Orders: Non- Urgent Precautions: Fall, Standard, Full PATIENT PROFILE/ADMITTING DIAGNOSIS: Pt is a 61-year-old male who presented to the ED with a past medical history of alcohol abuse, chronic back pain, generalized weakness, presenting to the ER today reporting acute on chronic and worsening back pain with leg weakness.?He was admitted to Med Surg. Past Medical History: All Active Problems?(Updated 07/08/22 @ 18:28 by Joshua James MD) Generalized weakness (Acute) Ambulatory dysfunction (Acute) Alcohol abuse (Chronic) Muscle spasm (Acute) Chronic pain (Chronic) Hyponatremia (Acute) Hypomagnesemia (Acute) Acute hyponatremia (Acute) Well adult (Acute) White coat syndrome with hypertension (Acute) Discharge planning issues (Acute) DVT prophylaxis (Acute) COPD (chronic obstructive pulmonary disease) (Chronic) a. Ongoing tobacco abuse.Alcoholism (Chronic ~01/2014) a. Drinks at least 6 beers per day on a regular basis.Contusion of pelvis (Acute) Medical History? Alcohol withdrawal delirium Fracture of femoral neck, left a. S/P left total knee arthroplast, 01/26/[address] Mendoza.History of? neck fracture a. Left-sided weakness. b. On SSI disability. Surgical History? History of cervical spinal arthrodesis History of total left hip arthroplasty (01/26/14) left total hip arthroplasty; Dr. Riaz Mendoza, N.V.R.H. after fall and hip fracture Social History/Home Situation: Pt states that he lives alone in an apartment. He notes that he doesn't drive and uses the [employer] taxi. He has HH services once every 2-3 weeks but notes that time is limited as he does not have laundry on site so things are not always done due to time that he needs help with. He states that he has a shower with grab bars and he is able to perform his dressing (I). He notes that he performs his bathing with wipes and that he is worried that he is going to run out. He does not feel comfortable performing his bathing in his tub shower due to the transfer in and out of the tub. He notes that since his services have declined he only baths 1x every 2-3 weeks in the shower. He always has had issue with donning his (L) sock due to his hip. He states that he has a son that lives in [place] and notes that he gets meals on wheels but if he runs out of that food he has to find someone to take him to the grocery store to be able to get more food. He notes that he is limited in his (I) without (A). He has a woman from that he can call to help him clean his home if needed but she gets paid for by he states that her name is Alexandria Wright. He has a bad (L) shoulder and states that he is limited by this. Equipment owned/DME: 4WW, grab bars, cane, sock aid, grabber SUBJECTIVE:??Pt was sitting in chair when OT arrived. He was agreeable to OT session and notes that he is fairly (I). OBJECTIVE:? General Observation: Pt was pleasant and agreeable and able to answer questions appropriately, valentin in place, IV in (L) UE Mental Status: A&Ox3 Pain: no c/o pain during session but notes some discomfort in his (L) shoulder ROM: RUE AROM WFL L UE AROM WFL STRENGTH: RUE 4/5 throughout globally LUE 3/5 throughout globally FUNCTIONAL MOBILITY/ADLS:? Transfers with 4WW Supine-sit (I) Sit-supine (I) BATHING pt denies at this time DRESSING Dressing LE Max (A) (L) and min (A) (R) pt states that he has adaptive equipment at home but states that he can't find it. OT and pt go over adaptive equipment options and pt is receptive to attempting this. GROOMING (I) with brushing hair TOILETING NT EATING sitting in chair (I) with hand to mouth, utilizes (B) hand hold on food to (A) to mouth. No issues with chewing or swallowing. BALANCE: ? Static sitting Normal Dynamic Sitting Good SPECIAL TESTS:? Daily Activity Limitations Standardized Measure [facility] ? AM -PAC ? ?6 clicks? Daily Activity Inpatient Short Form: Raw score: 17? Standardized score: 37.26? CMS score: 50.11% ? INFORMED CONSENT/EDUCATION: Pt instructed in purpose of OT Consult and plan of care. ASSESSMENT:?? Patient is a? 61-year-old male referred to occupational therapy services with diagnosis with a past medical history of alcohol abuse, chronic back pain, generalized weakness, presenting to the ER today reporting acute on chronic and worsening back pain with leg weakness. Patient presents with clinical signs and symptoms consistent with dx, as demonstrated by the following impairment level findings/functional limitations: Impairments in ADL/IADL and leisure activities, decreased standing and functional mobility required for ADL performance, decreased standing ADLs, decreased LE dressing and bathing, pain in (L) shoulder and hx of (L) leg/hip pain, decreased functional activity tolerance. AMPAC score 19 Patient is assessed as a? Moderate [id number] complexity based on the following: History: see above Examination: see functional limitations/impairments as noted above Presentation: evolving Decision Making: AMPAC score 17 GOALS Goals x1 week 1.? Transfers with FWW (I) for ADLs 2.? Dressing sitting on side of the bed (I) UE/LE with adaptive equipment 3.? Bathing sitting on side of the bed (I) UE/LE 4.? Toileting on commode (I) 5.? Eating (I) PLAN OF CARE/TREATMENT PLAN: 1x/day, 5 days/ week x 1week Initiate Occupational Therapy Services for bathing, dressing, grooming, toileting, eating, transfer training. DISCHARGE RECOMMENDATIONS OT recommends that pt return home with increased HH services vs. short term stay at SNF for increased strengthening. TREATMENT TIME/MINUTES/CODES [id number], 20 minutes (08:25) Klarissa Mukherjee OTR/L [facility]
[2022-07-10] MEDS: Folic Acid 1 MG TAB PO (08:54)
[2022-07-10] MEDS: Magnesium Gluconate 500 MG TAB PO ×2 (08:54→20:12)
[2022-07-10] MEDS: Multivitamin TAB 1 TAB PO (08:54)
[2022-07-10] MEDS: Diclofenac 1% Gel 100 GM TUBE TP ×4 (08:54→20:12)
[2022-07-10] MEDS: Thiamine 100 MG TAB PO (08:54)
[2022-07-10] MEDS: Baclofen 10 MG TAB PO ×3 (08:54→20:12)
--- NOTE | 2022-07-10 12:10 | CMPROGNOTE_ITS ---
- If Service Date Differs Date of service: 07/10/22 Time of Service: 12:10 Care Management Progress Note S/O: Kaleb was sitting up in his chair when CM met with him. He stated that he is still very weak and tired. He stated that at baseline, he is able to walk with a walker, although in the past week his legs have been weak and he has struggled to walk. He stated that he has been more sedentary since moving to his current home, [place] farther out of town than where he previously lived. CM discussed support for alcohol cessation, which he declined. Kaleb is agreeable to short term rehab to gain strength and independence with mobility. He stated that he has been to [facility] in the past, and was very happy with his care, therefore that is the only facility that he is willing to have a referral sent to at this time. CM discussed the limited bed availability, and stated that if he is not accepted for admission at [facility], he would need to identify other facilities vs return home with HH PT/OT. He is not interested in any other facilities at this time. CM will continue to follow. A: Kaleb is a 61 year old male admitted to [facility] on 07/08/22 with hyponatremia, weakness. P: Kaleb is being closely monitored on [facility] for alcohol withdrawal, and continues to work with PT/OT. He may need a short term rehab stay vs home with HH services once he is medically cleared.
--- NOTE | 2022-07-10 14:46 | PGE_ITS ---
Date of Service Date of service: 07/10/22 Time of Service: 14:46 Assessment and Plan Assessment and plan (1) Acute hyponatremia: Status: Resolved Assessment and plan: 3% saline and DDAVP have been stopped. cont free water restriction and monitor his BMP daily. Professional time spent interviewing and examining patient, discussion of goals of care with hospital team (care management, nursing and consulting professionals) was 20 minutes. (2) Alcohol abuse: Status: Chronic Assessment and plan: high risk of acute withdrawal therefore he was put on the prophylaxis dosing of phenobarbital and he continues to receive MVS, thiamine and folic acid (3) Chronic pain: Status: Chronic Assessment and plan: cont. baclofen along w/ topical lidocaine patches and voltaren gel (4) Ambulatory dysfunction: Status: Acute Assessment and plan: cont. P.T., patient likely will need SNF, he is agreeable to going for SNF but [facility]. (5) Generalized weakness: Status: Acute Assessment and plan: as above (6) COPD (chronic obstructive pulmonary disease): Status: Chronic Assessment and plan: Spiriva added along w/ prn xopenex.. (7) Decreased activities of daily living (ADL): Status: Acute Assessment and plan: patient has been neglecting himself as evidenced by his poor nutrition and hygiene. 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 Subjective Subjective Interval history since last seen: Patient did better today for P.T. although they still feel that his generalized weakness and ambulatory dyfunction from his right hip; right hemparesis is going to need inpatient SNF. His hyponatremia has resolved. I have stopped his 3% saline drip and DDAVP clamp. I have put him on a 1 liter per day free water restriction and will monitor his electrolyte response overnight. I suspect that this is d/t beer potomania. Hopefully his sodium will be fine as long as he is not consuming alcohol. As for alcohol withdrawal, he is doing well. He was given phenobarbital prophylaxis dose and has not exhibited symptoms of withdrawal. Exam Narrative Exam Narrative: Alert, oriented; offers no complaints Lungs: diffusely diminished but clear Heart: RRR Abdomen: soft, nondistended, nontender Extremities: no edmea; he has some rubor over both feet but with elevation this has improved. he has some scabs over the dorsum of his toes and his toenails are very dystrophic, thickened some appear to be falling off, others need trimming (podiatry consult has been requested) Objective Last Vital Signs Temp 37.1 C 07/10/22 11:18 Pulse 85 07/10/22 11:18 Resp 17 07/10/22 11:18 BP 130/76 07/10/22 11:18 Pulse Ox 94 07/10/22 11:18 Laboratory Results - last 24 hr 07/09/22 07/09/22 07/10/22 16:10 20:05 00:12 WBC RBC Hgb Hct MCV MCH MCHC RDW Plt Count MPV Immature Gran % Neutrophils % Lymphocytes % Monocytes % Eosinophils % Basophils % Nucleated RBC % Absolute Neutrophils Absolute Lymphocytes Absolute Monocytes Absolute Eosinophils Absolute Basophils Sodium 127 L 127 L Potassium 4.5 4.2 Chloride 95 L 95 L Carbon Dioxide 28.4 30.1 Anion Gap 3.6 1.9 L BUN 11 13 Creatinine 0.5 L 0.5 L Est GFR (CKD-EPI 2020) 114.61 114.61 Glucose 110 H 107 H Calcium 7.8 L 7.9 L Magnesium C-Reactive Protein Procalcitonin Urine Color Yellow Urine Clarity Sl Cloudy Urine pH 6.0 Ur Specific Gregory 1.025 Urine Protein Negative Urine Ketones Negative Urine Blood Negative Urine Nitrite Negative Urine Bilirubin Negative Urine Urobilinogen 0.2 Ur Leukocyte Esterase Moderate H Urine RBC Negative Urine WBC >50 H Ur Epithelial Cells Few Urine Crystals Negative Urine Bacteria Few Urine Mucus Negative Ur Culture Indicated? Yes Urine Glucose Negative Urine Opiates Screen Urine Methadone Screen Ur Barbiturates Screen Ur Tricyclics Screen Ur Amphetamines Screen U Benzodiazepines Scrn Urine Cocaine Screen Ur THC Screen 07/10/22 07/10/22 07/10/22 00:12 00:35 05:40 WBC RBC Hgb Hct MCV MCH MCHC RDW Plt Count MPV Immature Gran % Neutrophils % Lymphocytes % Monocytes % Eosinophils % Basophils % Nucleated RBC % Absolute Neutrophils Absolute Lymphocytes Absolute Monocytes Absolute Eosinophils Absolute Basophils Sodium 128 L Potassium 3.8 Chloride 94 L Carbon Dioxide 26.3 Anion Gap 7.7 BUN 13 Creatinine 0.4 L Est GFR (CKD-EPI 2020) 122.60 Glucose 124 H Calcium 7.8 L Magnesium 1.7 L C-Reactive Protein 0.89 H Procalcitonin Urine Color Urine Clarity Urine pH Ur Specific Gregory Urine Protein Urine Ketones Urine Blood Urine Nitrite Urine Bilirubin Urine Urobilinogen Ur Leukocyte Esterase Urine RBC Urine WBC Ur Epithelial Cells Urine Crystals Urine Bacteria Urine Mucus Ur Culture Indicated? Urine Glucose Urine Opiates Screen Negative Urine Methadone Screen Negative Ur Barbiturates Screen Positive A Ur Tricyclics Screen Negative Ur Amphetamines Screen Negative U Benzodiazepines Scrn Negative Urine Cocaine Screen Negative Ur THC Screen Negative 07/10/22 07/10/22 07/10/22 05:40 05:40 05:40 WBC 7.70 RBC 3.51 L Hgb 11.5 L D Hct 33.7 L MCV 96 H MCH 32.8 MCHC 34.1 RDW 12.5 Plt Count 233 MPV 9.1 Immature Gran % 0.5 Neutrophils % 41.9 Lymphocytes % 41.8 Monocytes % 14.2 Eosinophils % 1.3 Basophils % 0.3 Nucleated RBC % 0.0 Absolute Neutrophils 3.23 Absolute Lymphocytes 3.22 Absolute Monocytes 1.09 H Absolute Eosinophils 0.10 Absolute Basophils 0.02 Sodium 131 L Potassium 3.9 Chloride 97 L Carbon Dioxide 29.5 Anion Gap 4.5 BUN 10 Creatinine 0.4 L Est GFR (CKD-EPI 2020) 122.60 Glucose 98 Calcium 8.0 L Magnesium C-Reactive Protein Procalcitonin < 0.1 Urine Color Urine Clarity Urine pH Ur Specific Gregory Urine Protein Urine Ketones Urine Blood Urine Nitrite Urine Bilirubin Urine Urobilinogen Ur Leukocyte Esterase Urine RBC Urine WBC Ur Epithelial Cells Urine Crystals Urine Bacteria Urine Mucus Ur Culture Indicated? Urine Glucose Urine Opiates Screen Urine Methadone Screen Ur Barbiturates Screen Ur Tricyclics Screen Ur Amphetamines Screen U Benzodiazepines Scrn Urine Cocaine Screen Ur THC Screen PAWSS Have you Been Recently Intoxicated or Drunk Within the Last 30 days?: Yes Have you Ever Experienced Previous Episodes of Alcohol Withdrawal?: No Have you ever Experienced Withdrawal Seizures?: No Have you ever Experienced Delirium Tremens(DT)s?: No Have you ever undergone Alcohol Rehabilitation Treatment (i.e, inpt ot outpatient treatment programs)?: Yes Have you ever Experienced Blackouts?: No Have you ever Combined Alcohol with other Downers within the last 90 days?: No Have you ever Combined Alcohol with any other Substance of Abuse during the last 90 days?: No Positive Blood Alcohol level on Presentation? [PCS.BAL]: Yes Evidence of Increased Autonomic Activity (i.e. HR>120, tremor, sweating, agitation, nausea)?: No Result: 3
--- NOTE | 2022-07-10 15:01 | PT.INTREAT ---
Date of service: 07/10/22 Time of Service: 11:38 PT Notes Visit Reasons: Hyponatremia,Gener Weaknes,Self Neglect,Alcoholism Inpatient Physical Therapy Treatment Note [facility] Date: 07/10/2022 PRECAUTIONS: Fall, activity as tolerated SUBJECTIVE: Kaleb reports that he is feeling very tired today. He is agreeable to participating in PT. OBJECTIVE: PAIN: Patient c/o buttock pain as well as L hip pain BED MOBILITY/TRANSFERS Sit-supine: I with HOB flat Sit-stand: Min A x2 Stand-sit: CGA x2 GAIT Assistive Device: FWW Weight bearing: Full Assist: CGA x2 Distance: 5' F/B + 15' in a.m.; 5' in p.m. Deviation: B knee flexion, increased fatigue, ataxic gait TOILETING: Patient was incontinent of urine in both a.m. and p.m., requiring max assist ASSESSMENT: Patient appears limited by global weakness. He tolerates a slight progression in gait distance, although demonstrates ataxic gait and increased fatigue. PLAN: Continue with global strengthening and general conditioning for improved mobility and activity tolerance. TREATMENT CODE/TIME: Session 1: 20 minutes; [id number] (11:38) Session 2: 12 minutes; [id number] (15:06)
[2022-07-10] MEDS: Levalbuterol 1.25 MG/3 ML UPD VIAL UPD (17:51)
[2022-07-10] MEDS: Lidocaine 5% Patch 2 PATCH TP (17:51)
[2022-07-10] MEDS: Enoxaparin 40 MG/0.4 ML SYR SC (20:12)
[2022-07-10] MEDS: Nicotine 21 MG/24 HR PATCH TD (20:43)
[2022-07-10] MEDS: Albuterol HFA 8 GM 60 PUFF INH IH (22:54)
[2022-07-10] MEDS: Ketorolac 15 MG/ML VIAL IVP (22:57)
[2022-07-11] MEDS: Albuterol HFA 8 GM 60 PUFF INH IH (05:05)
[2022-07-11] MEDS: Ketorolac 15 MG/ML VIAL IVP (05:13)
[2022-07-11] MEDS: Patch Removal 1 EACH TP (05:15)
[2022-07-11] MEDS: Normal Saline Flush 10 ML SYR IVP ×3 (05:16→19:43)
[2022-07-11 06:10] LABS: Anion Gap 4.1 mmol/L (3-11); BUN 9 mg/dL (7-18); CO2 28.9 mmol/L (21.0-32.0); CREATININE 0.4 mg/dL (0.70-1.30); Calcium 8.1 mg/dL (8.5-10.1); Chloride 92 mmol/L (98-107); Glucose 95 mg/dL (74-106); Potassium 3.8 mmol/L (3.5-5.1); Sodium 125 mmol/L (136-145)
[2022-07-11 07:26] VITALS: BP 129/71; PULSE 78; RESP 18; TEMP 36.5; O2SAT 97
[2022-07-11] MEDS: Tiotropium Bromide-Respimat 10 PUFF INH 2 PUFF IH (08:16)
[2022-07-11] MEDS: Folic Acid 1 MG TAB PO (08:21)
[2022-07-11] MEDS: Diclofenac 1% Gel 100 GM TUBE TP ×4 (08:21→19:42)
[2022-07-11] MEDS: Thiamine 100 MG TAB PO (08:22)
[2022-07-11] MEDS: Magnesium Gluconate 500 MG TAB PO ×2 (08:22→19:41)
[2022-07-11] MEDS: Baclofen 10 MG TAB PO ×3 (08:22→19:42)
[2022-07-11] MEDS: Multivitamin TAB 1 TAB PO (08:22)
--- NOTE | 2022-07-11 08:49 | OTTR_ITS ---
Date of service: 07/11/22 Occupational Therapy Notes Occupational Therapy Inpatient Treatment Note Date: 07/11/22 PRECAUTIONS: Fall, standard, full SUBJECTIVE: Pt states that he is doing fine. Nursing is in the room and notes that they are getting ready to wash pt up. OBJECTIVE: PAIN:c/o pain in oscar area which is red with skin breakdown FUNCTIONAL MOBILITY Rolling L/R: min (A) BATHING: max (A) Set up/clean up Upper Body: with vc pt is (I) with his face and (B) UE. He has weakness on his (L) side but is able to perform his washing his UE with vc provided for task initiation. Lower Body: Max (A) oscar area due to soreness/skin breakdown. DRESSING: Upper Extremity: min (A) [facility] seated in bed Lower Extremity: NT GROOMING: (I) with brushing his kevin TOILETING: Device: Urinal Assist: Pt states that he requires (A) with set up but is able to perform (I) TREATMENT CODES/TIME: [id number], 35 minutes Klarissa Mukherjee OTR/L [facility]
--- NOTE | 2022-07-11 10:00 | CMPROGNOTE_ITS ---
- If Service Date Differs Date of service: 07/11/22 Time of Service: 10:00 Care Management Progress Note S/O: Kaleb was sitting on the edge of his bed, getting ready to work with PT when CM met with him. CM discussed options for rehab, as his first choice, [facility] is not accepting patients at this time. He agreed to CM sending a referral to [facility], in [place], on the recommendation of Chip Avalos, from [facility], who works with him in the community. CM followed up on the referral, and admissions is currently reviewing it. CM will continue to follow. A: Kaleb is a 61 year old male admitted to [facility] on 07/08/22 with hyponatremia, weakness. P: Kaleb is being closely monitored on [facility] for alcohol withdrawal, and continues to work with PT/OT. He may need a short term rehab stay vs home with services once he is medically cleared.
[2022-07-11] MEDS: Albuterol HFA 18 GM 200 PUFF INH IH ×3 (10:14→18:24)
--- NOTE | 2022-07-11 10:47 | W.PM.PROGNOT ---
Date of Service Date of service: 07/11/22 Time of Service: 10:47 Assessment and Plan Assessment and plan (1) Acute hyponatremia: Status: Acute Assessment and plan: his sodium seems to fluctuate. He is not symptomatic from this. He has some mild peripheral edema despite elevation of his legs. I will put him on low dose torsdemide to help w/ his edema, this should help w/ his low sodium as well. (2) Alcohol abuse: Status: Chronic Assessment and plan: high risk of acute withdrawal therefore he was put on the prophylaxis dosing of phenobarbital and he continues to receive MVS, thiamine and folic acid. Patient has completed his prophylactic dose of phenobarbital and his CIWA score has been low. (3) Chronic pain: Status: Chronic Assessment and plan: cont. baclofen along w/ topical lidocaine patches and voltaren gel, I have added Nucynta prn for his pain. (4) Ambulatory dysfunction: Status: Acute Assessment and plan: cont. P.T., patient likely will need SNF, he is agreeable to going for SNF but [facility]. (5) Generalized weakness: Status: Acute Assessment and plan: as above (6) COPD (chronic obstructive pulmonary disease): Status: Chronic Assessment and plan: Spiriva added along w/ prn xopenex.. (7) Decreased activities of daily living (ADL): Status: Acute Assessment and plan: patient has been neglecting himself as evidenced by his poor nutrition and hygiene. he will need SNF and should be in a detention facility as he is unable to care for himself. Subjective Subjective Interval history since last seen: Patient states that he did not sleep well last night. He complains of muscle spasms in his left leg however, he has baclofen 10 mg tid. He is willing to go to SNF for rehab but prefers [facility]. I explained to him that they do not have any bed availability and he may have to accept an offer from other facilities otherwise he will have to return home w/ home health services. he indicated that if he returns home he will fail and end up sitting in his own feces. Exam Narrative Exam Narrative: Kaleb was sleeping when I entered the room. He awakens easily and was conversant w/ me Lungs: clear but diffuse diminished Heart: RRR Abdomen: soft, nontender Extremities: trace edema Objective Last Vital Signs Temp 36.5 C 07/11/22 07:26 Pulse 78 07/11/22 07:26 Resp 18 07/11/22 07:26 BP 129/71 07/11/22 07:26 Pulse Ox 97 07/11/22 07:26 Laboratory Results - last 24 hr 07/11/22 05:22 Sodium 125 L Potassium 3.8 Chloride 92 L Carbon Dioxide 28.9 Anion Gap 4.1 BUN 9 Creatinine 0.4 L Est GFR (CKD-EPI 2020) 122.60 Glucose 95 Calcium 8.1 L PAWSS Have you Been Recently Intoxicated or Drunk Within the Last 30 days?: Yes Have you Ever Experienced Previous Episodes of Alcohol Withdrawal?: No Have you ever Experienced Withdrawal Seizures?: No Have you ever Experienced Delirium Tremens(DT)s?: No Have you ever undergone Alcohol Rehabilitation Treatment (i.e, inpt ot outpatient treatment programs)?: Yes Have you ever Experienced Blackouts?: No Have you ever Combined Alcohol with other Downers within the last 90 days?: No Have you ever Combined Alcohol with any other Substance of Abuse during the last 90 days?: No Positive Blood Alcohol level on Presentation? [PCS.BAL]: Yes Evidence of Increased Autonomic Activity (i.e. HR>120, tremor, sweating, agitation, nausea)?: No Result: 3
[2022-07-11] MEDS: Torsemide 20 MG TAB 10 MG PO (12:05)
[2022-07-11] MEDS: Ciprofloxacin 0.3% 2.5 ML BTL OU ×5 (12:06→19:42)
--- NOTE | 2022-07-11 12:17 | PHA.REVIEW2 ---
Pharmacy Admission Review - Admission Clinical Review (Last Reviewed 07/08/22 @ 17:57 by Joshua James MD) Decreased activities of daily living (ADL) (Acute) Generalized weakness (Acute) Ambulatory dysfunction (Acute) Acute hyponatremia (Acute) ENVIRONMENTAL/POLLEN Allergy (Uncoded 10/20/20 15:08) CONGESTION, WATERY EYES, RUNNY NOSE Resuscitation Status Full Code Height 5 ft 7 in Weight 56.6 kg - Renal Dosing Renal Dosing: BUN 9 mg/dL (7-18) 07/11/22 05:22 Creatinine 0.4 mg/dL (0.70-1.30) L 07/11/22 05:22 Medications needing adjustments: Reviewed (Crcl ~60.5 mL/min current meds okay) - Anticoagulation Anticoagulation: Hgb 11.5 g/dL (13.5-17.5) L D 07/10/22 05:40 Hct 33.7 % (40.0-50.0) L 07/10/22 05:40 Plt Count 233 10^3/uL (130-400) 07/10/22 05:40 Creatinine 0.4 mg/dL (0.70-1.30) L 07/11/22 05:22 DVT Prophylaxis: Reviewed Medications: Enoxaparin Therapeutic Anticoagulation: N/A - Opiate Usage Evaluate Pain Scale/Pains Meds: Reviewed Scheduled Bowel Reg ordered if on Opiates?: No (has prn meds ordered) - Relevant Labs Sodium 125 mmol/L (136-145) L 07/11/22 05:22 Potassium 3.8 mmol/L (3.5-5.1) 07/11/22 05:22 Chloride 92 mmol/L (98-107) L 07/11/22 05:22 Phosphorus 4.2 mg/dL (2.6-4.7) 07/09/22 06:00 Magnesium 1.7 mg/dL (1.8-2.4) L 07/10/22 05:40 C-Reactive Protein 0.89 mg/dL (0.0-0.3) H 07/10/22 05:40 Electrolytes, C-Reactive P, ESR: Reviewed (PO mag ordered) - DM Control DM Control: Glucose 95 mg/dL (74-106) 07/11/22 05:22 DM Control: N/A - Cardiac Review BP, HR, EF%: Reviewed - Qtc Review QTc: N/A - IV to PO Switch IV Medications: Reviewed - Home Meds Home Med List reviewed: Reviewed - Current meds Current Medication Order Review: Reviewed - Comments Comments/Follow Ups: Watch VS, SCr, sodium, mag, labs and for med changes (possible renal dose adjustments).
--- NOTE | 2022-07-11 14:52 | PT.INTREAT ---
Date of service: 07/11/22 Time of Service: 09:35 PT Notes Visit Reasons: Hyponatremia,Gener Weaknes,Self Neglect,Alcoholism Inpatient Physical Therapy Treatment Note [facility] Date: 07/11/2022 PRECAUTIONS: Fall, activity as tolerated TREATMENT CODE/TIME: Session 1: 24 minutes; [id number], [id number] (09:35) Session 2: 42 minutes; [id number] x3 (14:11)
[2022-07-11 15:43] VITALS: BP 125/68; PULSE 97; RESP 18; TEMP 37.4; O2SAT 97
[2022-07-11 16:19] LABS: Anion Gap 3.7 mmol/L (3-11); BUN 13 mg/dL (7-18); CO2 32.3 mmol/L (21.0-32.0); CREATININE 0.4 mg/dL (0.70-1.30); Calcium 8.5 mg/dL (8.5-10.1); Chloride 90 mmol/L (98-107); Glucose 106 mg/dL (74-106); Potassium 3.8 mmol/L (3.5-5.1); Sodium 126 mmol/L (136-145)
[2022-07-11] MEDS: Lidocaine 5% Patch 2 PATCH TP (18:10)
[2022-07-11] MEDS: Lidocaine 2% Jelly 11 ML SYR UR (18:11)
[2022-07-11] MEDS: Enoxaparin 40 MG/0.4 ML SYR SC (19:41)
[2022-07-11] MEDS: Tamsulosin 0.4 MG CAPCR PO (19:42)
--- NOTE | 2022-07-12 | DI.RAD_ITS ---
Exam(s) XR PORTABLE CHEST AP EXAM: XR PORTABLE CHEST AP CLINICAL HISTORY: fever TECHNIQUE: COMPARISON: CR XR PORTABLE CHEST AP from 07/03/2022 FINDINGS: There are changes of COPD and pulmonary scarring. Otherwise lungs appear clear. No pleural effusion seen on these frontal films. Cardiac size is within normal limits. IMPRESSION: No evidence of acute process RADIATION DOSE DELIVERED: Total DLP
[2022-07-12 02:44] VITALS: BP 120/62; PULSE 88; RESP 16; TEMP 36.9; O2SAT 96
[2022-07-12] MEDS: Ciprofloxacin 0.3% 2.5 ML BTL OU ×4 (02:50→15:27)
[2022-07-12] MEDS: Albuterol HFA 18 GM 200 PUFF INH IH ×4 (02:51→20:07)
[2022-07-12] MEDS: Patch Removal 1 EACH TP (06:08)
[2022-07-12 07:09] LABS: Anion Gap 4.1 mmol/L (3-11); BUN 10 mg/dL (7-18); CO2 31.9 mmol/L (21.0-32.0); CREATININE 0.4 mg/dL (0.70-1.30); Calcium 8.8 mg/dL (8.5-10.1); Chloride 95 mmol/L (98-107); Glucose 99 mg/dL (74-106); Sodium 131 mmol/L (136-145)
[2022-07-12 07:32] VITALS: BP 111/64; PULSE 94; RESP 18; TEMP 37.3; O2SAT 93
[2022-07-12] MEDS: Torsemide 20 MG TAB 10 MG PO (09:27)
[2022-07-12] MEDS: Thiamine 100 MG TAB PO (09:28)
[2022-07-12] MEDS: Magnesium Gluconate 500 MG TAB PO ×2 (09:28→20:04)
[2022-07-12] MEDS: Multivitamin TAB 1 TAB PO (09:28)
[2022-07-12] MEDS: Folic Acid 1 MG TAB PO (09:28)
[2022-07-12] MEDS: Baclofen 10 MG TAB PO ×3 (09:28→20:04)
[2022-07-12] MEDS: Tamsulosin 0.4 MG CAPCR PO (09:29)
[2022-07-12] MEDS: Diclofenac 1% Gel 100 GM TUBE TP ×3 (09:29→20:02)
[2022-07-12 10:30] LABS: Procalcitonin < 0.1 ng/mL
[2022-07-12] MEDS: Tiotropium Bromide-Respimat 10 PUFF INH 2 PUFF IH (11:45)
[2022-07-12 12:46] LABS: Lab Add On Test DONE
--- NOTE | 2022-07-12 12:56 | PT.INTREAT ---
Date of service: 07/12/22 Time of Service: 11:47 PT Notes Visit Reasons: Hyponatremia,Gener Weaknes,Self Neglect,Alcoholism Inpatient Physical Therapy Treatment Note [facility] Date: 07/12/2022 PRECAUTIONS: Fall, activity as tolerated SUBJECTIVE: Kaleb reports that he is feeling very tired today. He states mentally, I've got one foot in the grave already. He reports that he does not plan to walk again, he feels that his body is giving up. OBJECTIVE: PAIN: Patient c/o buttock pain as well as L hip pain BED MOBILITY/TRANSFERS Supine-sit: Min A and significant cueing with HOB at 50 degrees Sit-stand: Min A Stand-sit: CGA x2 GAIT Assistive Device: FWW Weight bearing: Full Assist: CGA x2 Distance: 5' + 15' x2 Deviation: B knee flexion contracture, increased fatigue, ataxic gait, SOB, seated rest x2 ASSESSMENT: Patient appears limited by global weakness. He tolerates a slight progression in gait distance, although demonstrates ataxic gait, SOB and increased fatigue. PLAN: Continue with global strengthening and general conditioning for improved mobility and activity tolerance. TREATMENT CODE/TIME: Session 1: 28 minutes; [id number] x2 (11:47) Session 2: Refused due to fatigue
--- NOTE | 2022-07-12 14:04 | W.PODCONSULT ---
Date of service: 07/12/22 Time of Service: 12:30 Assessment and Plan Assessment and plan (1) Nail dystrophy: Status: Acute Assessment and plan: The patient was evaluated and treated. Treatment options were reviewed in detail. Dystrophic nails digits 1-5 bilaterally were debrided today in clinic. This was performed uneventfully in clinic today with nail nippers, with a decrease in length achieved upon doing so. This was medically necessary with the pain related, clinical signs of PAD, as well as class findings (Q9), making him at risk for complications, such as infection. He was encouraged to assess her feet daily, present to clinic immediately if he notes any open wounds, blisters, ulcerations, or signs of infection. Emphasis was placed on appropriately fitting footwear, use of socks, drying in between his toes, and use of lotion elsewhere. All questions were answered (2) Arterial vascular disease: Status: Acute (3) Pain, foot: Status: Acute History of Present Illness History of Present Illness Chief Complaint: scabs on toes, toe infections, toenails need to be cut Narrative: Mr. Prince was evaluated at bedside for scabs on toes, toe infectons, and elongated toenails. He notes pain with the toenails, and reports some bleeding recently as they snagged on his socks. He notes there is often bleeding from the toenails and sores, but is unsure what causes this. He denies diabetes and denies numbness or tingling. His feet and legs are generally painful and he notes sensitivity to cold temperatures. He has pain when the nails are treated and warns that treatment will have to be stopped right away if he has pain [facility] All Active Problems (Updated 07/12/22 @ 14:10 by Yvonne Moore DPM) Pain, foot (Acute) Arterial vascular disease (Acute) Nail dystrophy (Acute) Decreased activities of daily living (ADL) (Acute) Generalized weakness (Acute) Ambulatory dysfunction (Acute) Alcohol abuse (Chronic) Muscle spasm (Acute) Chronic pain (Chronic) Hyponatremia (Acute) Hypomagnesemia (Acute) Acute hyponatremia (Acute) Well adult (Acute) White coat syndrome with hypertension (Acute) Discharge planning issues (Acute) DVT prophylaxis (Acute) COPD (chronic obstructive pulmonary disease) (Chronic) a. Ongoing tobacco abuse. Alcoholism (Chronic ~01/2014) a. Drinks at least 6 beers per day on a regular basis. Contusion of pelvis (Acute) Medical History Alcohol withdrawal delirium Fracture of femoral neck, left a. S/P left total knee arthroplast, 01/26/[address] Mendoza. History of neck fracture a. Left-sided weakness. b. On SSI disability. Surgical History History of cervical spinal arthrodesis History of total left hip arthroplasty (01/26/14) left total hip arthroplasty; Dr. Riaz Mendoza, [facility] after fall and hip fracture Social History Smoking/Tobacco Use Status: Current every day Smoking risk assessment performed?: Yes Alcohol Intake: current Alcohol Intake frequency: 3 or more drinks per day Alcohol type: beer Drug use: Never Do you feel safe in your relationship?: Yes Exam Cardio Other: DP/ PT pulses 1/4, CFT slightly delayed, pedal hair decreased, delayed proximal to distal cooling, changes in skin texture and turgor, nails discolored and dystrophic. Dependent rubor noted with thin shiny skin and feet are cool today Skin Other: Nails 1-5 bilaterally are elongated, dystrophic, a few thickened, all discolored and some incurvated, with minimal subungual debris, and with pain to palpation today. No surrounding erythema, purulence, fluctuance or signs of infection noted. Eschars are noted on the digits, stable and with skin deep to them. No full thickness ulcerations are noted with no purulence, fluctuance, lymphangitis or signs of infection Neuro Other: Paresthesias present. No other neurological deficits Extrem Other: no significant musculoskeletal abnormalities are noted Results Last Vital Signs Temp 99.1 F 07/12/22 07:32 Pulse 94 H 07/12/22 07:32 Resp 18 07/12/22 07:32 BP 111/64 07/12/22 07:32 Pulse Ox 93 07/12/22 07:32 Labs Result diagrams: 07/10/22 05:40 07/12/22 05:50 Labs: Laboratory Results - last 24 hr 07/11/22 07/12/2222 15:51 03:50 03:50 Sodium 126 L Potassium 3.8 Chloride 90 L Carbon Dioxide 32.3 H Anion Gap 3.7 BUN 13 Creatinine 0.4 L Est GFR (CKD-EPI 2020) 122.60 Glucose 106 Calcium 8.5 C-Reactive Protein 1.40 H Procalcitonin Add-On Test Request DONE 07/12/22 07/12/22 03:50 05:50 Sodium 131 L Potassium 4.0 Chloride 95 L Carbon Dioxide 31.9 Anion Gap 4.1 BUN 10 Creatinine 0.4 L Est GFR (CKD-EPI 2020) 122.60 Glucose 99 Calcium 8.8 C-Reactive Protein Procalcitonin < 0.1 Add-On Test Request
[2022-07-12 15:25] VITALS: BP 104/67; PULSE 99; RESP 16; TEMP 38.1; O2SAT 93
[2022-07-12 15:26] VITALS: TEMP 38.1
[2022-07-12] MEDS: Acetaminophen 325 MG TAB PO (15:26)
[2022-07-12] MEDS: Lidocaine 5% Patch 2 PATCH TP (18:47)
--- NOTE | 2022-07-12 18:47 | W.PM.PROGNOT ---
Date of Service Date of service: 07/12/22 Time of Service: 18:47 Assessment and Plan Assessment and plan (1) Fever: Status: Acute Assessment and plan: Obtain UA, Blood cultures, CXR, pcr for COVID-19, procalcitonin. (2) Acute hyponatremia: Status: Acute Assessment and plan: Continue free water restriction and torsdemide Improving. (3) Alcohol abuse: Status: Chronic Assessment and plan: no evidence of w/d. S/p phenobarbital load. Monitor for sx of w/d. (4) Chronic pain: Status: Chronic Assessment and plan: Pain controlled at time of my exam. continue baclofen, topical lidocaine patches, voltaren gel, Nucynta prn (5) Ambulatory dysfunction: Status: Acute Assessment and plan: Continue working w/ PT. Care management looking for placement. (6) Generalized weakness: Status: Acute Assessment and plan: as above (7) COPD (chronic obstructive pulmonary disease): Status: Chronic Assessment and plan: Doubt COPD exacerbation. However, obtaining CXR and procalcitonin - there may be a role for antibiotics. Continue spiriva, prn xopenex. (8) Decreased activities of daily living (ADL): Status: Acute Assessment and plan: Evidence of self neglect. Unable to care for himself. We are looking for SNF placement. (9) DVT prophylaxis: Status: Acute Assessment and plan: SC enoxaparin (10) Discharge planning issues: Status: Acute Assessment and plan: Full code Continues to require hospitalization Subjective Subjective Interval history since last seen: Mr Prince states that he is feeling ok. HE does reports some shortness of breath at rest. He says not yet when I ask him if he is in pain. Denies dizziness, chest discomfort, nausea. He chooses to take a phone call right as I was about to examin him. Exam Narrative Exam Narrative: General: Frail appearing Middle-aged male, A&Ox3, hypotonic, disheveled appearance HEENT: EOMI, MMM Heart: not auscultated Lungs: nonlabored breathing on RA, not coughing Abdomen: not distended : has a valentin Extremities: no edema BLEs Objective Last Vital Signs Temp 38.1 C H 07/12/22 15:26 Pulse 99 H 07/12/22 15:25 Resp 16 07/12/22 15:25 BP 104/67 07/12/22 15:25 Pulse Ox 93 07/12/22 15:25 Laboratory Results - last 24 hr 07/12/22 07/12/22 07/12/22 03:50 03:50 03:50 Sodium Potassium Chloride Carbon Dioxide Anion Gap BUN Creatinine Est GFR (CKD-EPI 2020) Glucose Calcium C-Reactive Protein 1.40 H Procalcitonin < 0.1 Add-On Test Request DONE 07/12/22 05:50 Sodium 131 L Potassium 4.0 Chloride 95 L Carbon Dioxide 31.9 Anion Gap 4.1 BUN 10 Creatinine 0.4 L Est GFR (CKD-EPI 2020) 122.60 Glucose 99 Calcium 8.8 C-Reactive Protein Procalcitonin Add-On Test Request PAWSS Have you Been Recently Intoxicated or Drunk Within the Last 30 days?: Yes Have you Ever Experienced Previous Episodes of Alcohol Withdrawal?: No Have you ever Experienced Withdrawal Seizures?: No Have you ever Experienced Delirium Tremens(DT)s?: No Have you ever undergone Alcohol Rehabilitation Treatment (i.e, inpt ot outpatient treatment programs)?: Yes Have you ever Experienced Blackouts?: No Have you ever Combined Alcohol with other Downers within the last 90 days?: No Have you ever Combined Alcohol with any other Substance of Abuse during the last 90 days?: No Positive Blood Alcohol level on Presentation? [PCS.BAL]: Yes Evidence of Increased Autonomic Activity (i.e. HR>120, tremor, sweating, agitation, nausea)?: No Result: 3
--- NOTE | 2022-07-12 19:07 | PDOC.CMPRO ---
- If Service Date Differs Date of service: 07/12/22 Time of Service: 19:07 Care Management Progress Note S/O: Kaleb was lying in bed when CM met with him. He reported that he is feeling ok, but he no longer wants to participate with PT, and doesn't want to be 'poked and proded'. CM asked MD for a palliative care consult, and will discuss his discharge plan further after he clarifies his goals. CM will continue to follow. A: Kaleb is a 61 year old male admitted to [facility] on 07/08/22 with hyponatremia, weakness. P: Kaleb is being closely monitored on [facility] for alcohol withdrawal, and continues to work with PT/OT. He may need a short term rehab stay vs home with services once he is medically cleared.
--- NOTE | 2022-07-12 19:57 | DI.VRAD_ITS ---
PROCEDURE INFORMATION: Exam: XR Chest Exam date and time: 07/12/2022 19:06 Age: 61 years old Clinical indication: Other: Fever TECHNIQUE: Imaging protocol: Radiologic exam of the chest. Views: 1 view. COMPARISON: CR XR PORTABLE CHEST AP 07/03/2022 10:45 FINDINGS: Lungs: Mild hyperinflation without airspace consolidation. Pleural spaces: No pleural effusion. No pneumothorax. Heart/Mediastinum: Diminution of the cardiac silhouette in the setting of emphysema. Bones/joints: Cervical spine fixation hardware is partially assessed. No displaced fracture. IMPRESSION: Mild hyperinflation without airspace consolidation. Dictated and Authenticated by: Helen Alamo MD. Ordering:YVES Faust MD
[2022-07-12] MEDS: Normal Saline Flush 10 ML SYR IVP (20:04)
[2022-07-12] MEDS: Enoxaparin 40 MG/0.4 ML SYR SC (20:04)
[2022-07-12 20:37] LABS: Source Nasal/Nares
[2022-07-12 20:56] LABS: ALT 17 U/L (16-63); AST 20 U/L (15-37); Albumin 2.8 g/dL (3.4-5.0); Alkaline Phosphatase 78 U/L (46-116); Anion Gap 3.9 mmol/L (3-11); BUN 17 mg/dL (7-18); Bilirubin, Total 0.3 mg/dL (0.2-1.0); CO2 33.1 mmol/L (21.0-32.0); CREATININE 0.6 mg/dL (0.70-1.30); Calcium 8.7 mg/dL (8.5-10.1); Chloride 90 mmol/L (98-107); Estimated GFR 108.47 (mL/min/1.73m2); Glucose 117 mg/dL (74-106); Potassium 3.9 mmol/L (3.5-5.1); Sodium 127 mmol/L (136-145); Total Protein 6.4 g/dL (6.4-8.2)
[2022-07-12 21:09] LABS: COVID-19 PCR Negative (Negative)
[2022-07-12 21:26] LABS: HCT 33.5 % (40.0-50.0); HGB 11.4 g/dL (13.5-17.5); MCH 32.4 pg (27.0-33.0); MCV 95 fL (80-95); MPV 8.5 fL (8.0-11.0); Platelet Count 256 10^3/uL (130-400); RBC 3.52 10^6/uL (4.36-5.78); RDW-SD 45.1 fL
[2022-07-12 21:26] LABS: Lab Add On Test DONE
[2022-07-12 22:08] LABS: Bilirubin Negative (Negative); Blood Moderate (Negative); Clarity Clear (Clear); Glucose Negative (Negative); Ketones Negative (Negative); Leukocyte Esterase Trace (Negative); Nitrite Negative (Negative); Urobilinogen 0.2 EU/dL (Up TO 0.2)
[2022-07-12 22:37] LABS: Bacteria Rare HPF (Negative); C & S Indicated? No; Crystals Negative HPF (Negative); Epithelial Cells Negative HPF (Negative); Mucus Negative (Negative); WBC 0-2 HPF (0-5)
[2022-07-12 22:54] LABS: Procalcitonin 0.1 ng/mL
[2022-07-12 23:17] VITALS: BP 106/58; PULSE 88; RESP 19; TEMP 37.2; O2SAT 95
--- NOTE | 2022-07-13 | DI.US_ITS ---
Exam(s) US EXTREMITY VENOUS BI EXAM: US EXTREMITY VENOUS BI CLINICAL HISTORY: Fever of unknown origin. TECHNIQUE: Ultrasound performed using standard protocol. COMPARISON: No exams were available for comparison FINDINGS: Duplex venous ultrasound was performed according to the usual protocol. The deep veins are freely com pressible throughout and there is normal flow augmentation with manual calf compression. 2D and Doppl er evaluation are unremarkable. IMPRESSION: No evidence of deep venous thrombosis of the right or left lower extremity. DATA REPOSITORY:
[2022-07-13] MEDS: Albuterol HFA 18 GM 200 PUFF INH IH ×6 (01:16→21:50)
[2022-07-13] MEDS: Patch Removal 1 EACH TP (05:31)
[2022-07-13 06:43] LABS: Abs Immature Grans 0.04 10^3/uL (0.0-0.06); Absolute Basophil Count 0.02 10^3/uL (0.0-0.2); Absolute Eosinophil Count 0.14 10^3/uL (0.0-0.7); Absolute Lymphocyte Count 2.65 10^3/uL (1.2-3.4); Absolute Neutrophil Count 6.05 10^3/uL (1.2-6.7); Basophils % 0.2; Eosinophils % 1.3; HCT 33.2 % (40.0-50.0); HGB 11.2 g/dL (13.5-17.5); Immature Grans % 0.4; Lymphocytes % 25.5; MCH 32.6 pg (27.0-33.0); MCHC 33.7 % (32.0-36.0); MCV 97 fL (80-95); Monocytes % 14.4; Neutrophils % 58.2; Platelet Count 254 10^3/uL (130-400); RBC 3.44 10^6/uL (4.36-5.78); RDW 13.2 % (11.8-14.1)
[2022-07-13 07:08] LABS: Iron 39 ug/dL (65-175); Total Iron Binding Capacity 244 ug/dL (250-450); Transferrin Sat 16 % (20-55)
--- NOTE | 2022-07-13 07:12 | NT_ITS ---
Date of service: 07/13/22 Occupational Therapy Notes 07/14/22 Pt refused performing his ADLs today as he had already performed this with dilma gant. Klarissa Mukherjee, OTR/L
[2022-07-13 07:34] LABS: Anion Gap 3.9 mmol/L (3-11); BUN 13 mg/dL (7-18); CO2 32.1 mmol/L (21.0-32.0); CREATININE 0.4 mg/dL (0.70-1.30); Calcium 8.8 mg/dL (8.5-10.1); Chloride 92 mmol/L (98-107); Ferritin 174 ng/mL (26-388); Folate 15.6 ng/mL (8.6-20.0); Glucose 135 mg/dL (74-106); Magnesium 1.6 mg/dL (1.8-2.4); Potassium 3.5 mmol/L (3.5-5.1); Sodium 128 mmol/L (136-145); Vitamin B12 293 pg/mL (193-986)
[2022-07-13 07:44] VITALS: BP 122/80; PULSE 93; RESP 20; TEMP 37.6; O2SAT 96
[2022-07-13] MEDS: Ciprofloxacin 0.3% 2.5 ML BTL OU ×4 (07:53→18:18)
[2022-07-13] MEDS: Diclofenac 1% Gel 100 GM TUBE TP ×2 (07:53→16:06)
[2022-07-13] MEDS: Tamsulosin 0.4 MG CAPCR PO (07:54)
[2022-07-13] MEDS: Tiotropium Bromide-Respimat 10 PUFF INH 2 PUFF IH (07:54)
[2022-07-13] MEDS: Thiamine 100 MG TAB PO (07:54)
[2022-07-13] MEDS: Torsemide 20 MG TAB 10 MG PO (07:54)
[2022-07-13] MEDS: Baclofen 10 MG TAB PO ×3 (07:54→19:19)
[2022-07-13] MEDS: Multivitamin TAB 1 TAB PO (07:54)
[2022-07-13] MEDS: Magnesium Gluconate 500 MG TAB PO ×2 (07:55→19:15)
[2022-07-13] MEDS: Folic Acid 1 MG TAB PO (07:55)
[2022-07-13 09:06] LABS: Lab Add On Test DONE
[2022-07-13 09:18] LABS: ESR 59 mm/hr (0-20)
[2022-07-13 09:22] LABS: C-Reactive Protein 3.52 mg/dL (0.0-0.3)
[2022-07-13] MEDS: Cyanocobalamin 500 MCG TAB 1000 MCG PO (09:38)
[2022-07-13] MEDS: Cyanocobalamin 1000 MCG/ML VIAL IM/SC (09:38)
[2022-07-13] MEDS: MAGNESIUM SULFATE 2 GM/50 ML BAG IVPB (09:38)
[2022-07-13] MEDS: Normal Saline Flush 10 ML SYR IVP ×2 (10:04→19:21)
--- NOTE | 2022-07-13 14:00 | W.PALLCONSUL ---
Date of service: 07/13/22 Time of Service: 14:00 History of Present Illness Narrative: Kaleb is a 61 year old man who presented to the ED with weakness and leg pain. He was found to have electrolyte abnormalities. He has Hx of ETOH abuse, continues to consume alcohol, COPD, continues to smoke, on disability for remote Hx of neck Fx w/ baseline mobility issues. Normally ambulates with walker. No plans to stop using ETOH or tobacco. He has been working with PT. PT recommends SNF. Kaleb was seen in his hospital room. AMI Cunningham was present at the beginning of the visit. She verbalizes concern that Kaleb's goals may not be in line with his current care. He has verbalized to her that he may not want to continue to work on walking and he may prefer to use a wheelchair. She reports that he has chronic bilateral knee contractures and ambulates with a walker. Kevin states, I want to go home but I know it is impossible... I can't walk. He is open to going to SNF for rehab. He told CM that he only wants [facility], however, he states he is open to referral to the [facility] in [place]. He wants to be able to go out and smoke and have ETOH. Discussed that ETOH would need to be ordered by provider at the facility. Discussed that he has not been drinking or smoking here at the hospital. He states he, has been going through DT's, having hot flashes and has been irritable. Review of documentation states he has not had Sx of withdrawal. Reviewed CODE status. He reports that he has been revived several times and is open to attempts at resuscitation. We reviewed HCA and he was able to assign his son, Jagdish and his brother, Kelvin to make decisions for him if he is unable. He agrees to hospitalization as needed. He agrees to being followed by Palliative as an outpatient. Kelvin joined the meeting at the end, he agrees to be Kevin's HCA. Kevin is connected with family independence case manager, Serena Myles. He has Meals on Wheels. He may be eligible for additional services if he goes home, however, he does not feel he can manage alone at home. Assessment and Plan Assessment and plan (1) Alcoholism: Status: Chronic (2) COPD (chronic obstructive pulmonary disease): Status: Chronic (3) Ambulatory dysfunction: Status: Acute (4) Generalized weakness: Status: Acute (5) Decreased activities of daily living (ADL): Status: Acute (6) Palliative care encounter: Status: Acute Assessment and plan: Kaleb is a 61 year old man who presented to the ED with weakness and leg pain. He was found to have electrolyte abnormalities. He has Hx of ETOH abuse, continues to consume alcohol, COPD, continues to smoke, on disability for remote Hx of neck Fx w/ baseline mobility issues. Normally ambulates with walker. No plans to stop using ETOH or tobacco. He has been working with PT. PT recommends SNF. Kevin does not think he can return home safely. He is open to rehab, which may result in medical terminologist placement. He wishes to remain a full code. He will benefit from ongoing discussion re: CODE STATUS. He named Jagdish, son and Kelvin, brother to be his HCAs. He agrees to f/u with Palliative care as an outpatient. Follow up in 2 months. Review of Systems Narrative: He reports SOB with activity, chronic smokers cough, occasional wheezing. He states he cannot walk, PT reports that he ambulates with walker. [facility] All Active Problems (Updated 07/13/22 @ 15:25 by Leni Mcgregor NP) Palliative care encounter (Acute) DVT prophylaxis (Acute) Fever (Acute) Pain, foot (Acute) Arterial vascular disease (Acute) Nail dystrophy (Acute) Decreased activities of daily living (ADL) (Acute) Generalized weakness (Acute) Ambulatory dysfunction (Acute) Alcohol abuse (Chronic) Muscle spasm (Acute) Chronic pain (Chronic) Hyponatremia (Acute) Hypomagnesemia (Acute) Acute hyponatremia (Acute) Well adult (Acute) White coat syndrome with hypertension (Acute) Discharge planning issues (Acute) DVT prophylaxis (Acute) COPD (chronic obstructive pulmonary disease) (Chronic) a. Ongoing tobacco abuse. Alcoholism (Chronic ~01/2014) a. Drinks at least 6 beers per day on a regular basis. Contusion of pelvis (Acute) Medical History Alcohol withdrawal delirium Fracture of femoral neck, left a. S/P left total knee arthroplast, 01/26/[address] Mendoza. History of neck fracture a. Left-sided weakness. b. On SSI disability. Surgical History History of cervical spinal arthrodesis History of total left hip arthroplasty (01/26/14) left total hip arthroplasty; Dr. Riaz Mendoza, [facility] after fall and hip fracture Social History Smoking/Tobacco Use Status: Current every day Smoking risk assessment performed?: Yes Alcohol Intake: current Alcohol Intake frequency: 3 or more drinks per day Alcohol type: beer Drug use: Never Do you feel safe in your relationship?: Yes Exam Narrative Exam Narrative: General: thin middle aged man, appears older than stated age. He is awake, alert and oriented. He engages in conversation. [place]. HEENT: normocephalic, atraumatic, EOMI, MMM, edentulous. Neck: supple. Skin: several scars over shoulders/chest, ?picking. dressing over sacrum. Cardiovascular: heart sounds regular, HR 94. Respiratory: respirations appear even and unlabored, lungs sound clear on limited anterior and lateral exam. GI: thin/flat abd, soft, nondistended, nontender on palpation, +BS. : valentin draining medium yellow urine. Extremities: bilateral knee contractures, no edema. Moves all 4 extremities. Results Last Vital Signs Temp 37.6 C H 07/13/22 07:44 Pulse 93 H 07/13/22 07:44 Resp 20 07/13/22 07:44 BP 122/80 07/13/22 07:44 Pulse Ox 96 07/13/22 07:44 Labs Result diagrams: 07/13/22 05:36 07/13/22 05:36 Labs: Laboratory Results - last 24 hr 07/12/22 07/12/22 07/12/22 19:15 20:20 20:24 WBC RBC Hgb Hct MCV MCH MCHC RDW Plt Count MPV Immature Gran % Neutrophils % Lymphocytes % Monocytes % Eosinophils % Basophils % Nucleated RBC % Absolute Neutrophils Absolute Lymphocytes Absolute Monocytes Absolute Eosinophils Absolute Basophils ESR Sodium 127 L Potassium 3.9 Chloride 90 L Carbon Dioxide 33.1 H Anion Gap 3.9 BUN 17 Creatinine 0.6 L Est GFR (CKD-EPI 2020) 108.47 Glucose 117 H Calcium 8.7 Magnesium Iron TIBC Transferrin % Sat Ferritin Total Bilirubin 0.3 AST 20 ALT 17 Alkaline Phosphatase 78 C-Reactive Protein Total Protein 6.4 Albumin 2.8 L Vitamin B12 Folate Procalcitonin Urine Color Urine Clarity Urine pH Ur Specific [place] Urine Protein Urine Ketones Urine Blood Urine Nitrite Urine Bilirubin Urine Urobilinogen Ur Leukocyte Esterase Urine RBC Urine WBC Ur Epithelial Cells Urine Crystals Urine Bacteria Urine Mucus Ur Culture Indicated? Urine Glucose COVID-19 Source Nasal/Nares SARS-CoV-2 (PCR) Negative Add-On Test Request DONE 07/12/22 07/12/22 07/12/22 21:19 21:55 22:04 WBC 11.40 H RBC 3.52 L Hgb 11.4 L Hct 33.5 L MCV 95 MCH 32.4 MCHC 34.0 RDW 13.0 Plt Count 256 MPV 8.5 Immature Gran % Neutrophils % Lymphocytes % Monocytes % Eosinophils % Basophils % Nucleated RBC % Absolute Neutrophils Absolute Lymphocytes Absolute Monocytes Absolute Eosinophils Absolute Basophils ESR Sodium Potassium Chloride Carbon Dioxide Anion Gap BUN Creatinine Est GFR (CKD-EPI 2020) Glucose Calcium Magnesium Iron TIBC Transferrin % Sat Ferritin Total Bilirubin AST ALT Alkaline Phosphatase C-Reactive Protein Total Protein Albumin Vitamin B12 Folate Procalcitonin 0.1 Urine Color Yellow Urine Clarity Clear Urine pH 6.0 Ur Specific [place] 1.010 Urine Protein Negative Urine Ketones Negative Urine Blood Moderate H Urine Nitrite Negative Urine Bilirubin Negative Urine Urobilinogen 0.2 Ur Leukocyte Esterase Trace H Urine RBC 3-5 H Urine WBC 0-2 Ur Epithelial Cells Negative Urine Crystals Negative Urine Bacteria Rare Urine Mucus Negative Ur Culture Indicated? No Urine Glucose Negative COVID-19 Source SARS-CoV-2 (PCR) Add-On Test Request 07/13/22 07/13/22 07/13/22 05:36 05:36 05:36 WBC 10.40 RBC 3.44 L Hgb 11.2 L Hct 33.2 L MCV 97 H MCH 32.6 MCHC 33.7 RDW 13.2 Plt Count 254 MPV 9.0 Immature Gran % 0.4 Neutrophils % 58.2 Lymphocytes % 25.5 Monocytes % 14.4 Eosinophils % 1.3 Basophils % 0.2 Nucleated RBC % 0.0 Absolute Neutrophils 6.05 Absolute Lymphocytes 2.65 Absolute Monocytes 1.50 H Absolute Eosinophils 0.14 Absolute Basophils 0.02 ESR Sodium 128 L Potassium 3.5 Chloride 92 L Carbon Dioxide 32.1 H Anion Gap 3.9 BUN 13 Creatinine 0.4 L Est GFR (CKD-EPI 2020) 122.60 Glucose 135 H Calcium 8.8 Magnesium 1.6 L Iron 39 L TIBC 244 L Transferrin % Sat 16 L Ferritin 174 Total Bilirubin AST ALT Alkaline Phosphatase C-Reactive Protein Total Protein Albumin Vitamin B12 293 Folate 15.6 Procalcitonin Urine Color Urine Clarity Urine pH Ur Specific [place] Urine Protein Urine Ketones Urine Blood Urine Nitrite Urine Bilirubin Urine Urobilinogen Ur Leukocyte Esterase Urine RBC Urine WBC Ur Epithelial Cells Urine Crystals Urine Bacteria Urine Mucus Ur Culture Indicated? Urine Glucose COVID-19 Source SARS-CoV-2 (PCR) Add-On Test Request 07/13/22 07/13/22 07/13/22 05:36 05:36 05:36 WBC RBC Hgb Hct MCV MCH MCHC RDW Plt Count MPV Immature Gran % Neutrophils % Lymphocytes % Monocytes % Eosinophils % Basophils % Nucleated RBC % Absolute Neutrophils Absolute Lymphocytes Absolute Monocytes Absolute Eosinophils Absolute Basophils ESR 59 H Sodium Potassium Chloride Carbon Dioxide Anion Gap BUN Creatinine Est GFR (CKD-EPI 2020) Glucose Calcium Magnesium Iron TIBC Transferrin % Sat Ferritin Total Bilirubin AST ALT Alkaline Phosphatase C-Reactive Protein 3.52 H Total Protein Albumin Vitamin B12 Folate Procalcitonin Urine Color Urine Clarity Urine pH Ur Specific [place] Urine Protein Urine Ketones Urine Blood Urine Nitrite Urine Bilirubin Urine Urobilinogen Ur Leukocyte Esterase Urine RBC Urine WBC Ur Epithelial Cells Urine Crystals Urine Bacteria Urine Mucus Ur Culture Indicated? Urine Glucose COVID-19 Source SARS-CoV-2 (PCR) Add-On Test Request DONE
--- NOTE | 2022-07-13 15:27 | PT.INNT ---
Date of service: 07/13/22 Time of Service: 14:00 PT Notes Visit Reasons: Hyponatremia,Gener Weaknes,Self Neglect,Alcoholism 07/13/2022 Patient declined to work with PT today, stating that he is not feeling well and that he is hoping to meet with Palliative Care today to discuss his goals and discharge plan. Leni, from Palliative Care entered during this discussion. We spent several minutes reviewing Kaleb's progress with PT and current mobility level, as well as previous discussions had during PT sessions. Will attempt to resume PT services tomorrow morning, pending outcome of Palliative Care meeting.
--- NOTE | 2022-07-13 15:46 | UCONE_ITS ---
Date of service: 07/13/22 Time of Service: 15:46 Assessment and Plan Assessment and plan (1) Urinary retention with incomplete bladder emptying: Status: Acute Assessment and plan: From his description, I wonder if he has a urethral stricture which made it difficult to place his urethral catheter. Risks for a stricture would include previous catheterization and previous urethral surgery. He has certainly described prolonged urethral catheterization. He does not recall having had a transurethral resection of the prostate, but his CT scan looks as though some type of surgery on the prostate had been done previously (some neurologic conditions can also lead to a dilated proximal urethra). The patient's history is questionable and I do not have any urology records locally. I will do a bit more digging into his [facility] records to see what I can find out. In the meantime, he does have adequate bladder drainage with a urethral catheter. From my brief encounter with this gentleman, I do not believe he would ever be able to perform CIC. If he does require chronic catheterization, we can consider a suprapubic tube instead of a urethral catheter. With no hydronephrosis, leaving him catheter free he is also a reasonable option. History of Present Illness History of Present Illness Chief Complaint: Incomplete bladder emptying Narrative: This is a 61-year-old gentleman who is currently hospitalized with ambulatory dysfunction and electrolyte abnormalities. I have been asked to see him for obstructive uropathy. The patient is a very poor historian but it seems like he has had a significant urologic history. I do not have any record of him seeing the urology service here at [facility]. He tells me that he had been at [facility] for quite a while and I wonder if I might be able to find some records in the [facility] EMR. The patient has a history of a cervical spine injury. He recalls having spent over a month as an inpatient at [facility] back in the 90s after his injury. He does remember that he had a urethral catheter in place for an extended period of time. He does not recall ever having any other type of urologic surgery. When he presented to our emergency department recently, he was evaluated with a CT of the abdomen and pelvis. His bladder was distended but he had no hydronephrosis. The patient tells me that there was quite a bit of difficulty in placing a urethral catheter for him. He does not describe recurrent episodes of retention or urinary tract infections. FOR[facility] All Active Problems (Updated 07/14/22 @ 15:58 by Josiah Lloyd MD) Tendinitis involving left hip abductors (Acute) Urinary retention with incomplete bladder emptying (Acute) Palliative care encounter (Acute) DVT prophylaxis (Acute) Fever (Acute) Pain, foot (Acute) Arterial vascular disease (Acute) Nail dystrophy (Acute) Decreased activities of daily living (ADL) (Acute) Generalized weakness (Acute) Ambulatory dysfunction (Acute) Alcohol abuse (Chronic) Muscle spasm (Acute) Chronic pain (Chronic) Hyponatremia (Acute) Hypomagnesemia (Acute) Well adult (Acute) White coat syndrome with hypertension (Acute) Discharge planning issues (Acute) DVT prophylaxis (Acute) COPD (chronic obstructive pulmonary disease) (Chronic) a. Ongoing tobacco abuse. Alcoholism (Chronic ~01/2014) a. Drinks at least 6 beers per day on a regular basis. Contusion of pelvis (Acute) Medical History Alcohol withdrawal delirium Fracture of femoral neck, left a. S/P left total knee arthroplast, 01/26/[address] Mendoza. History of neck fracture a. Left-sided weakness. b. On SSI disability. Surgical History History of cervical spinal arthrodesis History of total left hip arthroplasty (01/26/14) left total hip arthroplasty; Dr. Riaz Mendoza, [facility] after fall and hip fracture Social History Smoking/Tobacco Use Status: Current every day Smoking risk assessment performed?: Yes Alcohol Intake: current Alcohol Intake frequency: 3 or more drinks per day Alcohol type: beer Drug use: Never Do you feel safe in your relationship?: Yes Exam Narrative Exam Narrative: He appears chronically ill. He does not appear septic or toxic His vital signs are documented elsewhere His abdomen is soft. His bladder is not distended. A urethral catheter is in place and is draining clear urine He is awake and alert I reviewed his CT scan on the PACS system. There was no hydronephrosis at the time of the CT. His bladder was distended but there does appear to be dilation of the proximal ureter which is quite consistent with a previous transurethral resection of the prostate. Results Last Vital Signs Temp 37.6 C H 07/13/22 07:44 Pulse 93 H 07/13/22 07:44 Resp 20 07/13/22 07:44 BP 122/80 07/13/22 07:44 Pulse Ox 96 07/13/22 07:44 Labs Result diagrams: 07/17/22 05:48 07/17/22 05:48 Labs: Laboratory Results - last 24 hr 07/12/22 07/12/22 07/12/22 19:15 20:20 20:24 WBC RBC Hgb Hct MCV MCH MCHC RDW Plt Count MPV Immature Gran % Neutrophils % Lymphocytes % Monocytes % Eosinophils % Basophils % Nucleated RBC % Absolute Neutrophils Absolute Lymphocytes Absolute Monocytes Absolute Eosinophils Absolute Basophils ESR Sodium 127 L Potassium 3.9 Chloride 90 L Carbon Dioxide 33.1 H Anion Gap 3.9 BUN 17 Creatinine 0.6 L Est GFR (CKD-EPI 2020) 108.47 Glucose 117 H Calcium 8.7 Magnesium Iron TIBC Transferrin % Sat Ferritin Total Bilirubin 0.3 AST 20 ALT 17 Alkaline Phosphatase 78 C-Reactive Protein Total Protein 6.4 Albumin 2.8 L Vitamin B12 Folate Procalcitonin Urine Color Urine Clarity Urine pH Ur Specific [place] Urine Protein Urine Ketones Urine Blood Urine Nitrite Urine Bilirubin Urine Urobilinogen Ur Leukocyte Esterase Urine RBC Urine WBC Ur Epithelial Cells Urine Crystals Urine Bacteria Urine Mucus Ur Culture Indicated? Urine Glucose COVID-19 Source Nasal/Nares SARS-CoV-2 (PCR) Negative Add-On Test Request DONE 07/12/22 07/12/22 07/12/22 21:19 21:55 22:04 WBC 11.40 H RBC 3.52 L Hgb 11.4 L Hct 33.5 L MCV 95 MCH 32.4 MCHC 34.0 RDW 13.0 Plt Count 256 MPV 8.5 Immature Gran % Neutrophils % Lymphocytes % Monocytes % Eosinophils % Basophils % Nucleated RBC % Absolute Neutrophils Absolute Lymphocytes Absolute Monocytes Absolute Eosinophils Absolute Basophils ESR Sodium Potassium Chloride Carbon Dioxide Anion Gap BUN Creatinine Est GFR (CKD-EPI 2020) Glucose Calcium Magnesium Iron TIBC Transferrin % Sat Ferritin Total Bilirubin AST ALT Alkaline Phosphatase C-Reactive Protein Total Protein Albumin Vitamin B12 Folate Procalcitonin 0.1 Urine Color Yellow Urine Clarity Clear Urine pH 6.0 Ur Specific [place] 1.010 Urine Protein Negative Urine Ketones Negative Urine Blood Moderate H Urine Nitrite Negative Urine Bilirubin Negative Urine Urobilinogen 0.2 Ur Leukocyte Esterase Trace H Urine RBC 3-5 H Urine WBC 0-2 Ur Epithelial Cells Negative Urine Crystals Negative Urine Bacteria Rare Urine Mucus Negative Ur Culture Indicated? No Urine Glucose Negative COVID-19 Source SARS-CoV-2 (PCR) Add-On Test Request 07/13/22 07/13/22 07/13/22 05:36 05:36 05:36 WBC 10.40 RBC 3.44 L Hgb 11.2 L Hct 33.2 L MCV 97 H MCH 32.6 MCHC 33.7 RDW 13.2 Plt Count 254 MPV 9.0 Immature Gran % 0.4 Neutrophils % 58.2 Lymphocytes % 25.5 Monocytes % 14.4 Eosinophils % 1.3 Basophils % 0.2 Nucleated RBC % 0.0 Absolute Neutrophils 6.05 Absolute Lymphocytes 2.65 Absolute Monocytes 1.50 H Absolute Eosinophils 0.14 Absolute Basophils 0.02 ESR Sodium 128 L Potassium 3.5 Chloride 92 L Carbon Dioxide 32.1 H Anion Gap 3.9 BUN 13 Creatinine 0.4 L Est GFR (CKD-EPI 2020) 122.60 Glucose 135 H Calcium 8.8 Magnesium 1.6 L Iron 39 L TIBC 244 L Transferrin % Sat 16 L Ferritin 174 Total Bilirubin AST ALT Alkaline Phosphatase C-Reactive Protein Total Protein Albumin Vitamin B12 293 Folate 15.6 Procalcitonin Urine Color Urine Clarity Urine pH Ur Specific [place] Urine Protein Urine Ketones Urine Blood Urine Nitrite Urine Bilirubin Urine Urobilinogen Ur Leukocyte Esterase Urine RBC Urine WBC Ur Epithelial Cells Urine Crystals Urine Bacteria Urine Mucus Ur Culture Indicated? Urine Glucose COVID-19 Source SARS-CoV-2 (PCR) Add-On Test Request 07/13/22 07/13/22 07/13/22 05:36 05:36 05:36 WBC RBC Hgb Hct MCV MCH MCHC RDW Plt Count MPV Immature Gran % Neutrophils % Lymphocytes % Monocytes % Eosinophils % Basophils % Nucleated RBC % Absolute Neutrophils Absolute Lymphocytes Absolute Monocytes Absolute Eosinophils Absolute Basophils ESR 59 H Sodium Potassium Chloride Carbon Dioxide Anion Gap BUN Creatinine Est GFR (CKD-EPI 2020) Glucose Calcium Magnesium Iron TIBC Transferrin % Sat Ferritin Total Bilirubin AST ALT Alkaline Phosphatase C-Reactive Protein 3.52 H Total Protein Albumin Vitamin B12 Folate Procalcitonin Urine Color Urine Clarity Urine pH Ur Specific [place] Urine Protein Urine Ketones Urine Blood Urine Nitrite Urine Bilirubin Urine Urobilinogen Ur Leukocyte Esterase Urine RBC Urine WBC Ur Epithelial Cells Urine Crystals Urine Bacteria Urine Mucus Ur Culture Indicated? Urine Glucose COVID-19 Source SARS-CoV-2 (PCR) Add-On Test Request DONE
[2022-07-13 15:49] VITALS: BP 100/73; PULSE 108; RESP 19; TEMP 38; O2SAT 92
[2022-07-13 16:06] VITALS: TEMP 38
[2022-07-13] MEDS: Acetaminophen 325 MG TAB PO (16:06)
--- NOTE | 2022-07-13 17:23 | PDOC.CMPRO ---
- If Service Date Differs Date of service: 07/13/22 Time of Service: 17:23 Care Management Progress Note S/O: Kaleb was lying in bed when CM met with him. His brother, Kelvin, was visiting. CM discussed Kaleb's goals for discharge, and he stated that he would like to have an electric wheelchair and help at home to be able to get him in and out of it. CM stated that there are barriers to obtaining an electric wheelchair. Per PT, he is able to walk, contact guard, although Kaleb reports that it is very painful. CM discussed the option to go to a facility out of the area, with the possibility of returning to [facility] once a bed becomes available. He is agreeable to this plan. 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 CM contacted [facility], who stated that they currently do not have any extermination supervisor beds in the [facility]. CM sent the referral to bordering facilities in [place] that accept LTMCD, as well as other facilities in [place]. CM reached out to Serena Myles, his case supervisor, and left a message. CM also left a message for Jagdish, his son, who is involved in his care, although he lives out of state ([place]). MARY KAY will continue to follow. A: Kaleb is a 61 year old male admitted to [facility] on 07/08/22 with hyponatremia, weakness. P: Kaleb is being closely monitored on CIWA for alcohol withdrawal, and continues to work with PT/OT. He may need a short term rehab stay vs home with services once he is medically cleared.
--- NOTE | 2022-07-13 18:15 | W.PM.PROGNOT ---
Date of Service Date of service: 07/13/22 Time of Service: 18:15 Assessment and Plan Assessment and plan (1) Fever: Status: Acute Assessment and plan: UA, CXR negative. Blood cultures pending. Procalcitonin negative. COVID-19 negative. Venous dopplers negative for DVT. Fever is recurrent tonight. Reinforced need for IS with both nursing and patient. CRP is rising. Consider orthopedic consult for a possibility of L hip prosthesis infection, especially if blood cultures are positive. Consider repeating testing for COVID-19 tomorrow. (2) Acute hyponatremia: Status: Resolved Assessment and plan: The patient is likely at his baseline. COntinue diuretics and monitor sodium. (3) Alcohol abuse: Status: Chronic Assessment and plan: no evidence of w/d. S/p phenobarbital load. Monitor for sx of w/d. (4) Chronic pain: Status: Chronic Assessment and plan: Pain controlled at time of my exam. continue baclofen, topical lidocaine patches, voltaren gel, Nucynta prn (5) Ambulatory dysfunction: Status: Acute Assessment and plan: Continue working w/ PT. Care management looking for placement. (6) Generalized weakness: Status: Acute Assessment and plan: as above (7) COPD (chronic obstructive pulmonary disease): Status: Chronic Assessment and plan: Doubt COPD exacerbation. CXR/procalcitonin negative. Continue spiriva, prn xopenex. (8) Decreased activities of daily living (ADL): Status: Acute Assessment and plan: Evidence of self neglect. Unable to care for himself. We are looking for SNF placement. (9) DVT prophylaxis: Status: Acute Assessment and plan: SC enoxaparin (10) Discharge planning issues: Status: Acute Assessment and plan: Full code Continues to require hospitalization. Hoping for SNF placement on discharge Subjective Subjective Interval history since last seen: Mr Prince states he is having pain in his left hip. He does report feeling short of breath and like he needs his inhaler. When I ask him if he knows what the source of his fever might be, he states is it my smoking and alcohol? Denies dizziness, chest pain, nausea. He requests the use of his inhaler right now. Exam Narrative Exam Narrative: General: Frail appearing Middle-aged male, A&Ox3, NAD HEENT: EOMI, MMM Heart: RRR, no m/r/g Lungs: CTAB, no wheezing Abdomen: not distended : has a valentin Extremities: no edema BLEs Objective Last Vital Signs Temp 38 C H 07/13/22 16:06 Pulse 108 H 07/13/22 15:49 Resp 19 07/13/22 15:49 BP 100/73 07/13/22 15:49 Pulse Ox 92 07/13/22 15:49 Laboratory Results - last 24 hr 07/12/22 07/12/22 07/12/22 19:15 20:20 20:24 WBC RBC Hgb Hct MCV MCH MCHC RDW Plt Count MPV Immature Gran % Neutrophils % Lymphocytes % Monocytes % Eosinophils % Basophils % Nucleated RBC % Absolute Neutrophils Absolute Lymphocytes Absolute Monocytes Absolute Eosinophils Absolute Basophils ESR Sodium 127 L Potassium 3.9 Chloride 90 L Carbon Dioxide 33.1 H Anion Gap 3.9 BUN 17 Creatinine 0.6 L Est GFR (CKD-EPI 2020) 108.47 Glucose 117 H Calcium 8.7 Magnesium Iron TIBC Transferrin % Sat Ferritin Total Bilirubin 0.3 AST 20 ALT 17 Alkaline Phosphatase 78 C-Reactive Protein Total Protein 6.4 Albumin 2.8 L Vitamin B12 Folate Procalcitonin Urine Color Urine Clarity Urine pH Ur Specific [place] Urine Protein Urine Ketones Urine Blood Urine Nitrite Urine Bilirubin Urine Urobilinogen Ur Leukocyte Esterase Urine RBC Urine WBC Ur Epithelial Cells Urine Crystals Urine Bacteria Urine Mucus Ur Culture Indicated? Urine Glucose COVID-19 Source Nasal/Nares SARS-CoV-2 (PCR) Negative Add-On Test Request DONE 07/12/22 07/12/22 07/12/22 21:19 21:55 22:04 WBC 11.40 H RBC 3.52 L Hgb 11.4 L Hct 33.5 L MCV 95 MCH 32.4 MCHC 34.0 RDW 13.0 Plt Count 256 MPV 8.5 Immature Gran % Neutrophils % Lymphocytes % Monocytes % Eosinophils % Basophils % Nucleated RBC % Absolute Neutrophils Absolute Lymphocytes Absolute Monocytes Absolute Eosinophils Absolute Basophils ESR Sodium Potassium Chloride Carbon Dioxide Anion Gap BUN Creatinine Est GFR (CKD-EPI 2020) Glucose Calcium Magnesium Iron TIBC Transferrin % Sat Ferritin Total Bilirubin AST ALT Alkaline Phosphatase C-Reactive Protein Total Protein Albumin Vitamin B12 Folate Procalcitonin 0.1 Urine Color Yellow Urine Clarity Clear Urine pH 6.0 Ur Specific [place] 1.010 Urine Protein Negative Urine Ketones Negative Urine Blood Moderate H Urine Nitrite Negative Urine Bilirubin Negative Urine Urobilinogen 0.2 Ur Leukocyte Esterase Trace H Urine RBC 3-5 H Urine WBC 0-2 Ur Epithelial Cells Negative Urine Crystals Negative Urine Bacteria Rare Urine Mucus Negative Ur Culture Indicated? No Urine Glucose Negative COVID-19 Source SARS-CoV-2 (PCR) Add-On Test Request 07/13/22 07/13/22 07/13/22 05:36 05:36 05:36 WBC 10.40 RBC 3.44 L Hgb 11.2 L Hct 33.2 L MCV 97 H MCH 32.6 MCHC 33.7 RDW 13.2 Plt Count 254 MPV 9.0 Immature Gran % 0.4 Neutrophils % 58.2 Lymphocytes % 25.5 Monocytes % 14.4 Eosinophils % 1.3 Basophils % 0.2 Nucleated RBC % 0.0 Absolute Neutrophils 6.05 Absolute Lymphocytes 2.65 Absolute Monocytes 1.50 H Absolute Eosinophils 0.14 Absolute Basophils 0.02 ESR Sodium 128 L Potassium 3.5 Chloride 92 L Carbon Dioxide 32.1 H Anion Gap 3.9 BUN 13 Creatinine 0.4 L Est GFR (CKD-EPI 2020) 122.60 Glucose 135 H Calcium 8.8 Magnesium 1.6 L Iron 39 L TIBC 244 L Transferrin % Sat 16 L Ferritin 174 Total Bilirubin AST ALT Alkaline Phosphatase C-Reactive Protein Total Protein Albumin Vitamin B12 293 Folate 15.6 Procalcitonin Urine Color Urine Clarity Urine pH Ur Specific [place] Urine Protein Urine Ketones Urine Blood Urine Nitrite Urine Bilirubin Urine Urobilinogen Ur Leukocyte Esterase Urine RBC Urine WBC Ur Epithelial Cells Urine Crystals Urine Bacteria Urine Mucus Ur Culture Indicated? Urine Glucose COVID-19 Source SARS-CoV-2 (PCR) Add-On Test Request 07/13/22 07/13/22 07/13/22 05:36 05:36 05:36 WBC RBC Hgb Hct MCV MCH MCHC RDW Plt Count MPV Immature Gran % Neutrophils % Lymphocytes % Monocytes % Eosinophils % Basophils % Nucleated RBC % Absolute Neutrophils Absolute Lymphocytes Absolute Monocytes Absolute Eosinophils Absolute Basophils ESR 59 H Sodium Potassium Chloride Carbon Dioxide Anion Gap BUN Creatinine Est GFR (CKD-EPI 2020) Glucose Calcium Magnesium Iron TIBC Transferrin % Sat Ferritin Total Bilirubin AST ALT Alkaline Phosphatase C-Reactive Protein 3.52 H Total Protein Albumin Vitamin B12 Folate Procalcitonin Urine Color Urine Clarity Urine pH Ur Specific [place] Urine Protein Urine Ketones Urine Blood Urine Nitrite Urine Bilirubin Urine Urobilinogen Ur Leukocyte Esterase Urine RBC Urine WBC Ur Epithelial Cells Urine Crystals Urine Bacteria Urine Mucus Ur Culture Indicated? Urine Glucose COVID-19 Source SARS-CoV-2 (PCR) Add-On Test Request DONE PAWLG Have you Been Recently Intoxicated or Drunk Within the Last 30 days?: Yes Have you Ever Experienced Previous Episodes of Alcohol Withdrawal?: No Have you ever Experienced Withdrawal Seizures?: No Have you ever Experienced Delirium Tremens(DT)s?: No Have you ever undergone Alcohol Rehabilitation Treatment (i.e, inpt ot outpatient treatment programs)?: Yes Have you ever Experienced Blackouts?: No Have you ever Combined Alcohol with other Downers within the last 90 days?: No Have you ever Combined Alcohol with any other Substance of Abuse during the last 90 days?: No Positive Blood Alcohol level on Presentation? [PCS.BAL]: Yes Evidence of Increased Autonomic Activity (i.e. HR>120, tremor, sweating, agitation, nausea)?: No Result: 3
[2022-07-13] MEDS: Lidocaine 5% Patch 2 PATCH TP (18:19)
[2022-07-13] MEDS: Enoxaparin 40 MG/0.4 ML SYR SC (19:25)
[2022-07-13] MEDS: Melatonin 3 MG TAB PO (21:50)
[2022-07-13 23:34] VITALS: BP 100/75; PULSE 98; RESP 16; TEMP 36.7; O2SAT 94
[2022-07-14] MEDS: Albuterol HFA 18 GM 200 PUFF INH IH ×6 (00:51→20:56)
[2022-07-14] MEDS: Ciprofloxacin 0.3% 2.5 ML BTL OU ×2 (06:23→07:53)
[2022-07-14 06:24] LABS: Abs Immature Grans 0.05 10^3/uL (0.0-0.06); Absolute Basophil Count 0.03 10^3/uL (0.0-0.2); Absolute Eosinophil Count 0.24 10^3/uL (0.0-0.7); Absolute Lymphocyte Count 2.73 10^3/uL (1.2-3.4); Absolute Monocyte Count 1.37 10^3/uL (0.1-0.8); Absolute Neutrophil Count 4.24 10^3/uL (1.2-6.7); Basophils % 0.3; Eosinophils % 2.8; HCT 34.1 % (40.0-50.0); HGB 11.4 g/dL (13.5-17.5); Immature Grans % 0.6; Lymphocytes % 31.5; MCH 32.6 pg (27.0-33.0); MCHC 33.4 % (32.0-36.0); MCV 97 fL (80-95); MPV 8.7 fL (8.0-11.0); Monocytes % 15.8; Platelet Count 279 10^3/uL (130-400); RDW 13.1 % (11.8-14.1); RDW-SD 46.7 fL; WBC 8.66 10^3/uL (4.4-10.8)
[2022-07-14] MEDS: Patch Removal 1 EACH TP (06:30)
[2022-07-14 06:49] LABS: Anion Gap 2.4 mmol/L (3-11); BUN 13 mg/dL (7-18); C-Reactive Protein 3.43 mg/dL (0.0-0.3); CO2 32.6 mmol/L (21.0-32.0); CREATININE 0.4 mg/dL (0.70-1.30); Calcium 8.6 mg/dL (8.5-10.1); Chloride 97 mmol/L (98-107); Glucose 99 mg/dL (74-106); Magnesium 1.9 mg/dL (1.8-2.4); Sodium 132 mmol/L (136-145)
[2022-07-14 07:48] VITALS: BP 105/60; PULSE 100; RESP 16; TEMP 36.7; O2SAT 98
[2022-07-14] MEDS: Diclofenac 1% Gel 100 GM TUBE TP ×3 (07:54→20:57)
[2022-07-14] MEDS: Tiotropium Bromide-Respimat 10 PUFF INH 2 PUFF IH (07:54)
[2022-07-14] MEDS: Cyanocobalamin 500 MCG TAB 1000 MCG PO (07:56)
[2022-07-14] MEDS: Folic Acid 1 MG TAB PO (07:57)
[2022-07-14] MEDS: Thiamine 100 MG TAB PO (07:57)
[2022-07-14] MEDS: Magnesium Gluconate 500 MG TAB PO ×2 (07:58→20:53)
[2022-07-14] MEDS: Baclofen 10 MG TAB PO ×3 (07:58→20:53)
[2022-07-14] MEDS: Torsemide 20 MG TAB 10 MG PO (07:58)
[2022-07-14] MEDS: Multivitamin TAB 1 TAB PO (07:58)
[2022-07-14] MEDS: Tamsulosin 0.4 MG CAPCR PO (07:58)
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
[2022-07-14] MEDS: Omnipaque 350 MG/ML 100 ML BTL IJ (13:03)
[2022-07-14] MEDS: Normal Saline - Diluent 50 ML VIAL IV (13:03)
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
--- NOTE | 2022-07-14 14:04 | CMPROGNOTE_ITS ---
- If Service Date Differs Date of service: 07/14/22 Time of Service: 14:04 Care Management Progress Note S/O: Kaleb was lying in bed when CM met with him. He stated that he went to an ultrasound today, which was difficult for him. He refused to work with PT today. CM discussed this with him, as he will need to work with PT in order to be placed for rehab. CM discussed the plan to get him home with increased support and services. CM supported him with filling out a senior care [employer] application today. CM will continue to follow. A: Kaleb is a 61 year old male admitted to [facility] on 07/08/22 with hyponatremia, weakness. P: Kaleb is being closely monitored on CIWA for alcohol withdrawal, and continues to work with PT/OT. He may need a short term rehab stay vs home with services once he is medically cleared.
--- NOTE | 2022-07-14 14:32 | PT.INNT ---
PT Notes Visit Reasons: Hyponatremia,Gener Weaknes,Self Neglect,Alcoholism pt refused PT. States that he has been busy all am. Just returned from some sort of a scan. He is tired and not interested in doing ex or walking. Will check in with him in am.
[2022-07-14 15:45] VITALS: BP 117/67; PULSE 95; RESP 18; TEMP 37.6; O2SAT 93
--- NOTE | 2022-07-14 15:45 | OCONE_ITS ---
Date of service: 07/14/22 Time of Service: 12:40 History of Present Illness History of Present Illness Chief Complaint: Left hip pain Narrative: Hesham is a 61-year-old who has notable medical issues. He suffered a cervical fracture in 1992 which caused partial paralysis on his left side and has caused weakness since then. He fractured his left hip and 2013 and underwent a hip replacement. He feels that since that time he has always had some pain and dysfunction of his left hip. He continues to smoke and drink. He has very lit tle function at baseline and has been admitted for failure to thrive at home with notable weakness and inability to care for himself. He has been treated for hyponatremia and general medical decompensation with some improvements. However, he started running low-grade temperatures of 38-38.1 yesterday. He continues to have an elevated CRP with a negative procalcitonin. Blood cultures have been negative. He reports that the pain is intermittent. It is over the buttock and posterior region of the left hip. It is not sharp. It is present with some palpation. However, sometimes is not present. Sometimes it is at rest and sometimes it is with motion although mostly when he is sitting in the bed. He denies any groin pain. Denies any numbness or tingling. Consults Consult date: 07/14/22 Requesting physician: Christianne Salomon Consult Reason Left hip pain Assessment and Plan Assessment and plan (1) Tendinitis involving left hip abductors: Status: Acute Assessment and plan: Kaleb is a 61-year-old who is notably conditioned. He has a history of a cervical fracture which is caused weakness and numbness but he also has a history of a hip fracture for which he had hip replacement in 2013. His pain he is having currently around the left hip is mostly related to the deconditioning of the abductors, resultant tendinitis, and some likely bursitis of the greater trochanter. I do not see anything on his examination nor in his imaging studies which suggest that he has a periprosthetic infection about the left hip. If he did it would be a chronic, indolent infection. Given his other medical comorbidities you would make an argument even to treat this with suppressive antibiotics. Nevertheless, I do not think it warrants aspiration the left hip unless his symptoms change. I cannot fully explain his elevated CRP or the low- grade fevers but is likely related to some generalized inflammation, especially with a negative procalcitonin. If he does have any worsening left hip pain the neck step would be an aspiration of the left hip. I would expect that his pain would be more located to the groin and worsened with weightbearing activities and active motion rather than just direct pressure over the buttock. Review of Systems All systems reviewed & are unremarkable except as noted in HPI and below PFSH All Active Problems (Updated 07/14/22 @ 15:58 by Josiah Lloyd MD) Tendinitis involving left hip abductors (Acute) Urinary retention with incomplete bladder emptying (Acute) Palliative care encounter (Acute) DVT prophylaxis (Acute) Fever (Acute) Pain, foot (Acute) Arterial vascular disease (Acute) Nail dystrophy (Acute) Decreased activities of daily living (ADL) (Acute) Generalized weakness (Acute) Ambulatory dysfunction (Acute) Alcohol abuse (Chronic) Muscle spasm (Acute) Chronic pain (Chronic) Hyponatremia (Acute) Hypomagnesemia (Acute) Well adult (Acute) White coat syndrome with hypertension (Acute) Discharge planning issues (Acute) DVT prophylaxis (Acute) COPD (chronic obstructive pulmonary disease) (Chronic) a. Ongoing tobacco abuse. Alcoholism (Chronic ~01/2014) a. Drinks at least 6 beers per day on a regular basis. Contusion of pelvis (Acute) Medical History Alcohol withdrawal delirium Fracture of femoral neck, left a. S/P left total knee arthroplast, 01/26/[address] Mendoza. History of neck fracture a. Left-sided weakness. b. On SSI disability. Surgical History History of cervical spinal arthrodesis History of total left hip arthroplasty (01/26/14) left total hip arthroplasty; Dr. Riaz Mendoza, [facility] after fall and hip fracture Social History Smoking/Tobacco Use Status: Current every day Smoking risk assessment performed?: Yes Alcohol Intake: current Alcohol Intake frequency: 3 or more drinks per day Alcohol type: beer Drug use: Never Do you feel safe in your relationship?: Yes Exam Narrative Exam Narrative: Sitting in the hospital bed. No acute distress. Frail. Evaluation of the left hip shows a well-healed incision. No erythema. No warmth. Some mild fullness over the posterior lateral aspect left hip. Prominent greater trochanter. Pain with palpation of the abductors and the posterior hip musculature. Some pain over the greater trochanter although much milder. Minimal pain with hip internal and external rotation. He is able to actively demonstrate flexion, external and internal rotation of the hip without notable limitation. Results Last Vital Signs Temp 36.7 C 07/14/22 07:48 Pulse 100 H 07/14/22 07:48 Resp 16 07/14/22 07:48 BP 105/60 07/14/22 07:48 Pulse Ox 98 07/14/22 07:48 Labs Result diagrams: 07/14/22 05:46 07/14/22 05:46 Labs: Laboratory Results - last 24 hr 07/14/22 07/14/22 05:46 05:46 WBC 8.66 RBC 3.50 L Hgb 11.4 L Hct 34.1 L MCV 97 H MCH 32.6 MCHC 33.4 RDW 13.1 Plt Count 279 MPV 8.7 Immature Gran % 0.6 Neutrophils % 49.0 Lymphocytes % 31.5 Monocytes % 15.8 Eosinophils % 2.8 Basophils % 0.3 Nucleated RBC % 0.0 Absolute Neutrophils 4.24 Absolute Lymphocytes 2.73 Absolute Monocytes 1.37 H Absolute Eosinophils 0.24 Absolute Basophils 0.03 Sodium 132 L Potassium 4.0 Chloride 97 L Carbon Dioxide 32.6 H Anion Gap 2.4 L BUN 13 Creatinine 0.4 L Est GFR (CKD-EPI 2020) 122.60 Glucose 99 Calcium 8.6 Magnesium 1.9 C-Reactive Protein 3.43 H Imaging Imaging Studies: X-ray of the left hip was reviewed. This shows a hip replacement in position. No sign of fracture. No lucencies. No bony erosions or fractures. CT scan the left hip was also reviewed. This once again shows no fractures. No lucencies. There is no apparent effusion. There is no soft tissue calcifications or collections.
[2022-07-14] MEDS: Acetaminophen 325 MG TAB PO ×2 (15:53→21:01)
--- NOTE | 2022-07-14 17:46 | W.PM.PROGNOT ---
Date of Service Date of service: 07/14/22 Time of Service: 17:46 Assessment and Plan Assessment and plan (1) Fever: Status: Acute Assessment and plan: Obtain UA, Blood cultures, CXR, pcr for COVID-19, procalcitonin. (2) Acute hyponatremia: Status: Resolved Assessment and plan: Continue free water restriction and torsdemide Improving. (3) Alcohol abuse: Status: Chronic Assessment and plan: no evidence of w/d. S/p phenobarbital load. Monitor for sx of w/d. (4) Chronic pain: Status: Chronic Assessment and plan: Pain controlled at time of my exam. continue baclofen, topical lidocaine patches, voltaren gel, Nucynta prn (5) Ambulatory dysfunction: Status: Acute Assessment and plan: Continue working w/ PT. Care management looking for placement. (6) Generalized weakness: Status: Acute Assessment and plan: as above (7) COPD (chronic obstructive pulmonary disease): Status: Chronic Assessment and plan: Doubt COPD exacerbation. No acute findings onCXR and procalcitonin negative. Continue spiriva, prn xopenex. (8) Decreased activities of daily living (ADL): Status: Acute Assessment and plan: Evidence of self neglect. Unable to care for himself. We are looking for SNF placement. PT consulted (9) DVT prophylaxis: Status: Acute Assessment and plan: SC enoxaparin (10) Discharge planning issues: Status: Acute Assessment and plan: Full code Continues to require hospitalization Discussed with Dr Salomon Subjective Subjective Patient reports: no new complaints, feels better, tolerating a regular diet, bowel movement and afebrile; denies diarrhea, nausea, vomiting or shortness of breath Exam Narrative Exam Narrative: General: Frail appearing Middle-aged male, A&Ox3, NAD HEENT: EOMI, MMM Heart: RRR, no m/r/g Lungs: CTAB, no wheezing Abdomen: not distended : has a valentin Extremities: no edema BLEs Objective Last Vital Signs Temp 37.6 C H 07/14/22 15:45 Pulse 95 H 07/14/22 15:45 Resp 18 07/14/22 15:45 BP 117/67 07/14/22 15:45 Pulse Ox 93 07/14/22 15:45 Laboratory Results - last 24 hr 07/14/22 07/14/22 05:46 05:46 WBC 8.66 RBC 3.50 L Hgb 11.4 L Hct 34.1 L MCV 97 H MCH 32.6 MCHC 33.4 RDW 13.1 Plt Count 279 MPV 8.7 Immature Gran % 0.6 Neutrophils % 49.0 Lymphocytes % 31.5 Monocytes % 15.8 Eosinophils % 2.8 Basophils % 0.3 Nucleated RBC % 0.0 Absolute Neutrophils 4.24 Absolute Lymphocytes 2.73 Absolute Monocytes 1.37 H Absolute Eosinophils 0.24 Absolute Basophils 0.03 Sodium 132 L Potassium 4.0 Chloride 97 L Carbon Dioxide 32.6 H Anion Gap 2.4 L BUN 13 Creatinine 0.4 L Est GFR (CKD-EPI 2020) 122.60 Glucose 99 Calcium 8.6 Magnesium 1.9 C-Reactive Protein 3.43 H PAWSS Have you Been Recently Intoxicated or Drunk Within the Last 30 days?: Yes Have you Ever Experienced Previous Episodes of Alcohol Withdrawal?: No Have you ever Experienced Withdrawal Seizures?: No Have you ever Experienced Delirium Tremens(DT)s?: No Have you ever undergone Alcohol Rehabilitation Treatment (i.e, inpt ot outpatient treatment programs)?: Yes Have you ever Experienced Blackouts?: No Have you ever Combined Alcohol with other Downers within the last 90 days?: No Have you ever Combined Alcohol with any other Substance of Abuse during the last 90 days?: No Positive Blood Alcohol level on Presentation? [PCS.BAL]: Yes Evidence of Increased Autonomic Activity (i.e. HR>120, tremor, sweating, agitation, nausea)?: No Result: 3
[2022-07-14 17:47] VITALS: BP 155/72; PULSE 97; RESP 16; O2SAT 91
[2022-07-14] MEDS: Lidocaine 5% Patch 2 PATCH TP (17:50)
--- NOTE | 2022-07-14 18:01 | NUR.NOTE ---
Nursing Note: S. Patient is found in room choking. O. Patient is loudly choking and gagging, HOB raised to hi-neri. Patient encouraged continue to cough. A. Vs taken, patient is breathing more normally and coughing less. P.Patient remains in a hi-neri, encouraged to sit higher when eating or drinking
[2022-07-14] MEDS: Enoxaparin 40 MG/0.4 ML SYR SC (20:53)
[2022-07-14] MEDS: Melatonin 3 MG TAB PO (21:15)
[2022-07-14 23:00] VITALS: BP 110/70; PULSE 85; RESP 16; TEMP 37.1; O2SAT 94
[2022-07-15] MEDS: Albuterol HFA 18 GM 200 PUFF INH IH ×3 (06:01→21:36)
[2022-07-15] MEDS: Patch Removal 1 EACH TP (06:02)
[2022-07-15 06:24] LABS: Abs Immature Grans 0.05 10^3/uL (0.0-0.06); Absolute Basophil Count 0.04 10^3/uL (0.0-0.2); Absolute Eosinophil Count 0.32 10^3/uL (0.0-0.7); Absolute Monocyte Count 1.03 10^3/uL (0.1-0.8); Absolute Neutrophil Count 3.26 10^3/uL (1.2-6.7); Basophils % 0.6; Eosinophils % 4.4; HCT 35.2 % (40.0-50.0); HGB 11.7 g/dL (13.5-17.5); Immature Grans % 0.7; Lymphocytes % 34.7; MCHC 33.2 % (32.0-36.0); MCV 96 fL (80-95); MPV 8.6 fL (8.0-11.0); Monocytes % 14.3; Neutrophils % 45.3; Platelet Count 340 10^3/uL (130-400); RBC 3.66 10^6/uL (4.36-5.78); RDW 12.8 % (11.8-14.1); RDW-SD 45.7 fL
[2022-07-15 06:44] LABS: Anion Gap 5.8 mmol/L (3-11); BUN 14 mg/dL (7-18); C-Reactive Protein 2.02 mg/dL (0.0-0.3); CO2 32.2 mmol/L (21.0-32.0); CREATININE 0.4 mg/dL (0.70-1.30); Calcium 8.8 mg/dL (8.5-10.1); Chloride 96 mmol/L (98-107); Glucose 101 mg/dL (74-106); Magnesium 1.9 mg/dL (1.8-2.4); Potassium 4.3 mmol/L (3.5-5.1); Sodium 134 mmol/L (136-145)
[2022-07-15 07:41] VITALS: BP 133/77; PULSE 81; RESP 20; TEMP 36.4; O2SAT 96
[2022-07-15] MEDS: Diclofenac 1% Gel 100 GM TUBE TP ×4 (08:13→19:39)
[2022-07-15] MEDS: Baclofen 10 MG TAB PO ×3 (08:13→19:38)
[2022-07-15] MEDS: Cyanocobalamin 500 MCG TAB 1000 MCG PO (08:13)
[2022-07-15] MEDS: Torsemide 20 MG TAB 10 MG PO (08:13)
[2022-07-15] MEDS: Magnesium Gluconate 500 MG TAB PO ×2 (08:13→19:38)
[2022-07-15] MEDS: Tamsulosin 0.4 MG CAPCR PO (08:13)
[2022-07-15] MEDS: Tiotropium Bromide-Respimat 10 PUFF INH 2 PUFF IH (08:32)
--- NOTE | 2022-07-15 09:33 | NT_ITS ---
Date of service: 07/15/22 Time of Service: 08:00 PT Notes Visit Reasons: Hyponatremia,Gener Weaknes,Self Neglect,Alcoholism 07/15/2022 Patient declined to work with PT today, stating that he does not feel he can work with PT this morning. He states that he would like to try tomorrow morn ing. Will attempt to resume PT services tomorrow morning.
--- NOTE | 2022-07-15 09:47 | W.PM.PROGNOT ---
Date of Service Date of service: 07/15/22 Time of Service: 09:47 Assessment and Plan Assessment and plan (1) Fever: Status: Acute Assessment and plan: Obtain UA - mixed ez, Blood cultures no growth at 48h CXR no acute changes, pcr for COVID-19 negative, procalcitonin negative (2) Acute hyponatremia: Status: Resolved Assessment and plan: Continue free water restriction and torsdemide Improving. (3) Alcohol abuse: Status: Chronic Assessment and plan: no evidence of w/d. S/p phenobarbital load. Monitor for sx of w/d. CIWA discontinued (4) Chronic pain: Status: Chronic Assessment and plan: Pain controlled at time of my exam. continue baclofen, topical lidocaine patches, voltaren gel, Nucynta prn (5) Ambulatory dysfunction: Status: Acute Assessment and plan: Continue working w/ PT. Care management looking for placement. (6) Generalized weakness: Status: Acute Assessment and plan: as above (7) COPD (chronic obstructive pulmonary disease): Status: Chronic Assessment and plan: Doubt COPD exacerbation. No acute findings on CXR and procalcitonin negative. Continue spiriva, prn xopenex. (8) Decreased activities of daily living (ADL): Status: Acute Assessment and plan: Evidence of self neglect. Unable to care for himself. We are looking for SNF placement. PT consulted (9) DVT prophylaxis: Status: Acute Assessment and plan: SC enoxaparin (10) Discharge planning issues: Status: Acute Assessment and plan: Full code Continues to require hospitalization Discussed with Dr Mancia Subjective Subjective Patient reports: no new complaints, feels better, pain is less, tolerating a regular diet and afebrile; denies diarrhea or vomiting Exam Narrative Exam Narrative: General: Frail appearing Middle-aged male, A&Ox3, NAD HEENT: EOMI, MMM Heart: RRR, no m/r/g Lungs: CTAB, no wheezing Abdomen: not distended : has a valentin Extremities: no edema BLEs Objective Last Vital Signs Temp 36.4 C L 07/15/22 07:41 Pulse 81 07/15/22 07:41 Resp 20 07/15/22 07:41 BP 133/77 07/15/22 07:41 Pulse Ox 96 07/15/22 07:41 Laboratory Results - last 24 hr 07/15/22 07/15/22 05:51 05:51 WBC 7.20 RBC 3.66 L Hgb 11.7 L Hct 35.2 L MCV 96 H MCH 32.0 MCHC 33.2 RDW 12.8 Plt Count 340 MPV 8.6 Immature Gran % 0.7 Neutrophils % 45.3 Lymphocytes % 34.7 Monocytes % 14.3 Eosinophils % 4.4 Basophils % 0.6 Nucleated RBC % 0.0 Absolute Neutrophils 3.26 Absolute Lymphocytes 2.50 Absolute Monocytes 1.03 H Absolute Eosinophils 0.32 Absolute Basophils 0.04 Sodium 134 L Potassium 4.3 Chloride 96 L Carbon Dioxide 32.2 H Anion Gap 5.8 BUN 14 Creatinine 0.4 L Est GFR (CKD-EPI 2020) 122.60 Glucose 101 Calcium 8.8 Magnesium 1.9 C-Reactive Protein 2.02 H PAWSS Have you Been Recently Intoxicated or Drunk Within the Last 30 days?: Yes Have you Ever Experienced Previous Episodes of Alcohol Withdrawal?: No Have you ever Experienced Withdrawal Seizures?: No Have you ever Experienced Delirium Tremens(DT)s?: No Have you ever undergone Alcohol Rehabilitation Treatment (i.e, inpt ot outpatient treatment programs)?: Yes Have you ever Experienced Blackouts?: No Have you ever Combined Alcohol with other Downers within the last 90 days?: No Have you ever Combined Alcohol with any other Substance of Abuse during the last 90 days?: No Positive Blood Alcohol level on Presentation? [PCS.BAL]: Yes Evidence of Increased Autonomic Activity (i.e. HR>120, tremor, sweating, agitation, nausea)?: No Result: 3
--- NOTE | 2022-07-15 13:26 | PT.INTREAT ---
PT Notes Visit Reasons: Hyponatremia,Gener Weaknes,Self Neglect,Alcoholism PRECAUTIONS: Fall, activity as tolerated SUBJECTIVE: Kaleb not too eager to get up but after a few min agrees to go for walk. OBJECTIVE: ?Takes encouragement for patient to perform requested tasks ?, he refused morning session ? PAIN: no complaints ? BED MOBILITY/TRANSFERS? Supine-sit: indep with HOB at 50 degrees, and use of bed rail Sit-stand: indep, with supervision for safety, v/c for hand placement ,? bed to RW? Stand-sit: indep, v/c for hand placement RW to chair ? GAIT? Assistive Device: FWW ? Weight bearing: Full Assist: supervision, had gait belt on ? Distance:? 1x10' with turn around room, maneurvers RW indep Deviation: B knee flexion contracture,no c/o fatigue 'why didn't we go further' ASSESSMENT:? Pt. demonstrates good strength going sit to stand, and ambulating with RW around hospital room. No demonstrated LOB or fatigue within distance performed. He is able to reposition in chair independently. PLAN: Continue with global strengthening and general conditioning for improved mobility and activity tolerance. TREATMENT CODE/TIME:?52265 10'
[2022-07-15 15:47] VITALS: BP 111/67; PULSE 92; RESP 19; TEMP 36.8; O2SAT 94
[2022-07-15] MEDS: Lidocaine 5% Patch 2 PATCH TP (17:17)
[2022-07-15] MEDS: Acetaminophen 325 MG TAB PO (19:38)
[2022-07-15 19:40] VITALS: RESP 16; O2SAT 93
[2022-07-15] MEDS: Melatonin 3 MG TAB PO (21:12)
[2022-07-15] MEDS: Enoxaparin 40 MG/0.4 ML SYR SC (21:12)
[2022-07-15 21:34] VITALS: BP 113/65; PULSE 80; RESP 16; TEMP 36.4; O2SAT 93
[2022-07-16] MEDS: Albuterol HFA 18 GM 200 PUFF INH IH ×2 (04:26→21:29)
[2022-07-16] MEDS: Acetaminophen 325 MG TAB PO (04:29)
[2022-07-16] MEDS: Patch Removal 1 EACH TP (05:04)
[2022-07-16 06:07] LABS: Abs Immature Grans 0.06 10^3/uL (0.0-0.06); Absolute Basophil Count 0.04 10^3/uL (0.0-0.2); Absolute Eosinophil Count 0.33 10^3/uL (0.0-0.7); Absolute Lymphocyte Count 2.55 10^3/uL (1.2-3.4); Absolute Monocyte Count 0.96 10^3/uL (0.1-0.8); Absolute Neutrophil Count 2.95 10^3/uL (1.2-6.7); Basophils % 0.6; Eosinophils % 4.8; HCT 32.8 % (40.0-50.0); HGB 10.9 g/dL (13.5-17.5); Immature Grans % 0.9; MCH 32.2 pg (27.0-33.0); MCHC 33.2 % (32.0-36.0); MCV 97 fL (80-95); MPV 8.4 fL (8.0-11.0); Monocytes % 13.9; Neutrophils % 42.8; Platelet Count 347 10^3/uL (130-400); RBC 3.39 10^6/uL (4.36-5.78); RDW 12.7 % (11.8-14.1); RDW-SD 45.4 fL; WBC 6.89 10^3/uL (4.4-10.8)
[2022-07-16 06:26] LABS: Anion Gap 5.2 mmol/L (3-11); BUN 12 mg/dL (7-18); CO2 29.8 mmol/L (21.0-32.0); CREATININE 0.4 mg/dL (0.70-1.30); Calcium 8.6 mg/dL (8.5-10.1); Chloride 96 mmol/L (98-107); Glucose 98 mg/dL (74-106); Magnesium 1.8 mg/dL (1.8-2.4); Potassium 4.1 mmol/L (3.5-5.1); Sodium 131 mmol/L (136-145)
[2022-07-16 07:44] VITALS: BP 121/69; PULSE 70; RESP 18; TEMP 36.4; O2SAT 97
[2022-07-16] MEDS: Tamsulosin 0.4 MG CAPCR PO (07:48)
[2022-07-16] MEDS: Baclofen 10 MG TAB PO ×3 (07:48→21:19)
[2022-07-16] MEDS: Cyanocobalamin 500 MCG TAB 1000 MCG PO (07:48)
[2022-07-16] MEDS: Torsemide 20 MG TAB 10 MG PO (07:48)
[2022-07-16] MEDS: Diclofenac 1% Gel 100 GM TUBE TP ×2 (07:48→21:22)
[2022-07-16] MEDS: Magnesium Gluconate 500 MG TAB PO ×2 (07:48→21:19)
[2022-07-16] MEDS: Tiotropium Bromide-Respimat 10 PUFF INH 2 PUFF IH (07:53)
[2022-07-16 14:54] VITALS: BP 116/67; PULSE 77; RESP 19; TEMP 36.8; O2SAT 95
--- NOTE | 2022-07-16 15:17 | PT.INTREAT ---
Date of service: 07/16/22 Time of Service: 09:42 PT Notes Visit Reasons: Hyponatremia,Gener Weaknes,Self Neglect,Alcoholism Inpatient Physical Therapy Treatment Note [facility] Date: 07/16/2022 PRECAUTIONS: Fall, activity as tolerated SUBJECTIVE: Kaleb is pleasant and agreeable to participating in PT. He reports that he is feeling better today. OBJECTIVE: PAIN: No c/o pain BED MOBILITY/TRANSFERS Sit-stand: SBA with verbal cueing for sequence for safety Stand-sit: SBA with verbal cueing for sequence for safety GAIT Assistive Device: No AD Weight bearing: Full Assist: SBA Distance: Chair<>wheelchair stand-pivot transfer x4 Deviation: None WHEELCHAIR MOBILITY: Patient was instructed in wheelchair mobility, to include self-propulsion with B UE utilizing wheels, as well as with B feet on the floor. He demonstrates independence with wheelchair mobility and safety with aligning wheelchair for transfer to chair. ASSESSMENT: Patient tolerated session without complaint. He demonstrates independence with wheelchair mobility. He is able to complete chair<>wheelchair transfers with SBA. PLAN: Continue with gait training, as desired and tolerated. Continue with transfer training for improved activity tolerance. TREATMENT CODE/TIME: 15 minutes; 25991 (09:42)
[2022-07-16] MEDS: Nicotine 21 MG/24 HR PATCH TD (17:08)
[2022-07-16] MEDS: Lidocaine 5% Patch 2 PATCH TP (17:59)
[2022-07-16 18:04] VITALS: RESP 1
[2022-07-16] MEDS: Levalbuterol 1.25 MG/3 ML UPD VIAL UPD (18:04)
[2022-07-16] MEDS: Melatonin 3 MG TAB PO (21:19)
[2022-07-16] MEDS: Enoxaparin 40 MG/0.4 ML SYR SC (21:19)
[2022-07-16 21:42] VITALS: BP 113/65; PULSE 82; RESP 18; TEMP 37.1; O2SAT 96
--- NOTE | 2022-07-16 22:32 | W.PM.PROGNOT ---
Date of Service Date of service: 07/16/22 Time of Service: 22:32 Assessment and Plan Assessment and plan (1) Fever: Status: Acute Assessment and plan: UA - mixed ze, Blood cultures no growth at 72h - CXR no acute changes, pcr for COVID-19 negative, procalcitonin negative No fever today (2) Acute hyponatremia: Status: Resolved Assessment and plan: Continue free water restriction and torsdemide Improving. (3) Alcohol abuse: Status: Chronic Assessment and plan: no evidence of w/d. S/p phenobarbital load. Monitor for sx of w/d. CIWA discontinued (4) Chronic pain: Status: Chronic Assessment and plan: Pain controlled continue baclofen, topical lidocaine patches, voltaren gel, Nucynta prn (5) Ambulatory dysfunction: Status: Acute Assessment and plan: Continue working w/ PT. Using wheel chair independently and able to transfer independently Care management looking for placement. (6) Generalized weakness: Status: Acute Assessment and plan: as above (7) COPD (chronic obstructive pulmonary disease): Status: Chronic Assessment and plan: No acute findings on CXR and procalcitonin negative. Continue spiriva, prn xopenex. (8) Decreased activities of daily living (ADL): Status: Acute Assessment and plan: Evidence of self neglect. Unable to care for himself. We are looking for SNF placement. PT consulted (9) DVT prophylaxis: Status: Acute Assessment and plan: SC enoxaparin (10) Discharge planning issues: Status: Acute Assessment and plan: Full code Continues to require hospitalization Discussed with Dr Mancia Subjective Subjective Patient reports: no new complaints, feels better, tolerating a regular diet, bowel movement and afebrile; denies diarrhea, nausea, vomiting or shortness of breath Interval history since last seen: Kaleb is back to baseline. He states he is not safe to go home. He did walk with a walker to the bathroom and back and did well. Exam Narrative Exam Narrative: General: Frail appearing Middle-aged male, A&Ox3, NAD HEENT: EOMI, MMM Heart: RRR, no m/r/g Lungs: CTAB, no wheezing Abdomen: not distended : has a valentin Extremities: no edema BLEs Objective Last Vital Signs Temp 37.1 C 07/16/22 21:42 Pulse 82 07/16/22 21:42 Resp 18 07/16/22 21:42 BP 113/65 07/16/22 21:42 Pulse Ox 96 07/16/22 21:42 Laboratory Results - last 24 hr 07/16/22 07/16/22 05:49 05:49 WBC 6.89 RBC 3.39 L Hgb 10.9 L Hct 32.8 L MCV 97 H MCH 32.2 MCHC 33.2 RDW 12.7 Plt Count 347 MPV 8.4 Immature Gran % 0.9 Neutrophils % 42.8 Lymphocytes % 37.0 Monocytes % 13.9 Eosinophils % 4.8 Basophils % 0.6 Nucleated RBC % 0.0 Absolute Neutrophils 2.95 Absolute Lymphocytes 2.55 Absolute Monocytes 0.96 H Absolute Eosinophils 0.33 Absolute Basophils 0.04 Sodium 131 L Potassium 4.1 Chloride 96 L Carbon Dioxide 29.8 Anion Gap 5.2 BUN 12 Creatinine 0.4 L Est GFR (CKD-EPI 2020) 122.60 Glucose 98 Calcium 8.6 Magnesium 1.8 PAWSS Have you Been Recently Intoxicated or Drunk Within the Last 30 days?: Yes Have you Ever Experienced Previous Episodes of Alcohol Withdrawal?: No Have you ever Experienced Withdrawal Seizures?: No Have you ever Experienced Delirium Tremens(DT)s?: No Have you ever undergone Alcohol Rehabilitation Treatment (i.e, inpt ot outpatient treatment programs)?: Yes Have you ever Experienced Blackouts?: No Have you ever Combined Alcohol with other Downers within the last 90 days?: No Have you ever Combined Alcohol with any other Substance of Abuse during the last 90 days?: No Positive Blood Alcohol level on Presentation? [PCS.BAL]: Yes Evidence of Increased Autonomic Activity (i.e. HR>120, tremor, sweating, agitation, nausea)?: No Result: 3
[2022-07-17] MEDS: Albuterol HFA 18 GM 200 PUFF INH IH (05:05)
[2022-07-17] MEDS: Patch Removal 1 EACH TP (05:07)
[2022-07-17 06:50] LABS: Abs Immature Grans 0.06 10^3/uL (0.0-0.06); Absolute Basophil Count 0.04 10^3/uL (0.0-0.2); Absolute Eosinophil Count 0.24 10^3/uL (0.0-0.7); Absolute Lymphocyte Count 2.96 10^3/uL (1.2-3.4); Absolute Monocyte Count 0.95 10^3/uL (0.1-0.8); Absolute Neutrophil Count 3.16 10^3/uL (1.2-6.7); Basophils % 0.5; Eosinophils % 3.2; HCT 34.4 % (40.0-50.0); HGB 11.5 g/dL (13.5-17.5); Immature Grans % 0.8; Lymphocytes % 39.9; MCHC 33.4 % (32.0-36.0); MCV 96 fL (80-95); MPV 8.9 fL (8.0-11.0); Monocytes % 12.8; Neutrophils % 42.8; Platelet Count 401 10^3/uL (130-400); RBC 3.59 10^6/uL (4.36-5.78); RDW 12.9 % (11.8-14.1); RDW-SD 46.1 fL; WBC 7.41 10^3/uL (4.4-10.8)
[2022-07-17 07:02] LABS: BUN 13 mg/dL (7-18); CREATININE 0.4 mg/dL (0.70-1.30); Chloride 100 mmol/L (98-107); Glucose 96 mg/dL (74-106); Magnesium 1.8 mg/dL (1.8-2.4); Potassium 4.2 mmol/L (3.5-5.1); Sodium 137 mmol/L (136-145)
[2022-07-17 07:41] VITALS: BP 103/64; PULSE 74; RESP 20; TEMP 36.2; O2SAT 97
[2022-07-17] MEDS: Tiotropium Bromide-Respimat 10 PUFF INH 2 PUFF IH (07:47)
[2022-07-17] MEDS: Cyanocobalamin 500 MCG TAB 1000 MCG PO (07:54)
[2022-07-17] MEDS: Tamsulosin 0.4 MG CAPCR PO (07:54)
[2022-07-17] MEDS: Baclofen 10 MG TAB PO ×2 (07:54→14:10)
[2022-07-17] MEDS: Diclofenac 1% Gel 100 GM TUBE TP ×2 (07:54→12:04)
[2022-07-17] MEDS: Torsemide 20 MG TAB 10 MG PO (07:55)
[2022-07-17] MEDS: Magnesium Gluconate 500 MG TAB PO (07:55)
[2022-07-17] MEDS: Nicotine 21 MG/24 HR PATCH TD (07:57)
--- NOTE | 2022-07-17 11:29 | PGE_ITS ---
Date of Service Date of service: 07/17/22 Time of Service: 11:36 Assessment and Plan Assessment and plan (1) Urinary retention with incomplete bladder emptying: Status: Acute Assessment and plan: Unfortunately, his old records do not showed any more light on his urologic condition. We will start from scratch and see how he does with his voiding trial. If he is not able to urinate, I do not believe he would be able to perform CIC. Even if he does not empty his bladder completely, as long as he does not have hydronephrosis or recurrent UTIs, the most practical approach might be to just allow him to void on his own. Chronic indwelling catheters are associated with episodes of urosepsis. Depending on the patient's disposition, I am not sure how compliant he would be with daily catheter care or having the catheter is changed monthly. Subjective Subjective Interval history since last seen: The patient has been given a voiding trial this morning. He has not voided as yet. I have been [place] [facility] [place] of the records are from the neurosurgery, orthopedics and physical therapy departments. Do not find any records from urology. There is one indication that the patient was performing CIC after he was discharged from the hospital. The patient does not recall ever catheterizing himself. There is no indication that the patient had a TURP (at least at [facility]). Objective Last Vital Signs Temp 36.2 C L 07/17/22 07:41 Pulse 74 07/17/22 07:41 Resp 20 07/17/22 07:41 BP 103/64 07/17/22 07:41 Pulse Ox 97 07/17/22 07:41 Laboratory Results - last 24 hr 07/17/22 07/17/22 05:48 05:48 WBC 7.41 RBC 3.59 L Hgb 11.5 L Hct 34.4 L MCV 96 H MCH 32.0 MCHC 33.4 RDW 12.9 Plt Count 401 H MPV 8.9 Immature Gran % 0.8 Neutrophils % 42.8 Lymphocytes % 39.9 Monocytes % 12.8 Eosinophils % 3.2 Basophils % 0.5 Nucleated RBC % 0.0 Absolute Neutrophils 3.16 Absolute Lymphocytes 2.96 Absolute Monocytes 0.95 H Absolute Eosinophils 0.24 Absolute Basophils 0.04 Sodium 137 Potassium 4.2 Chloride 100 Carbon Dioxide 32.0 Anion Gap 5.0 BUN 13 Creatinine 0.4 L Est GFR (CKD-EPI 2020) 122.60 Glucose 96 Calcium 9.0 Magnesium 1.8 Objective Narrative Objective Narrative: He is sitting up in his recliner He appears chronically ill but not acutely ill He is awake and alert PAWSS Have you Been Recently Intoxicated or Drunk Within the Last 30 days?: Yes Have you Ever Experienced Previous Episodes of Alcohol Withdrawal?: No Have you ever Experienced Withdrawal Seizures?: No Have you ever Experienced Delirium Tremens(DT)s?: No Have you ever undergone Alcohol Rehabilitation Treatment (i.e, inpt ot outpatient treatment programs)?: Yes Have you ever Experienced Blackouts?: No Have you ever Combined Alcohol with other Downers within the last 90 days?: No Have you ever Combined Alcohol with any other Substance of Abuse during the last 90 days?: No Positive Blood Alcohol level on Presentation? [PCS.BAL]: Yes Evidence of Increased Autonomic Activity (i.e. HR>120, tremor, sweating, agitation, nausea)?: No Result: 3
--- NOTE | 2022-07-17 12:33 | CMPROGNOTE_ITS ---
- If Service Date Differs Date of service: 07/17/22 Time of Service: 12:33 Care Management Progress Note S/O: PT DISCHARGED. SEE DISCHARGE NOTE. A: Kaleb is a 61 year old male admitted to [facility] on 07/08/22 with hyponatremia, weakness. P: Kaleb is being closely monitored on CIWA for alcohol withdrawal, and continues to work with PT/OT. He may need a short term rehab stay vs home with services once he is medically cleared.
--- NOTE | 2022-07-17 13:15 | DSE_ITS ---
Date of service: 07/17/22 Time of Service: 14:00 DS: Diagnosis Discharge Diagnosis (1) Urinary retention with incomplete bladder emptying: Status: Acute Discharge Plan Disposition Patient Disposition: Home W/Home Health Services Condition: Fair Discharge Details Reason For Visit: Hyponatremia,Gener Weaknes,Self Neglect,Alcoholism Admit Date/Time: 07/08/22 16:30 Admit Provider: Joshua James Attending Provider: Joshua James Primary Care Provider: Juan Diego Luna Hospital Course Hospital Course: Patient is a 61-year-old male with past medical history of alcoholism, COPD, and a distant neck fracture, that caused him to have left-sided weakness, was evaluated in the [facility] emergency department on 07/03/2022 for complaint of spasm in both legs from his hips to his knees, although he continued to be able to ambulate with a walker.? He was discharged from the emergency department and instructed to use his baclofen as needed for leg pain and spasm and follow-up with his primary care provider.? He was also advised on his need to cut back on his alcohol and recommend they be referred to a high school assistant football coach.? He again presented to the [facility] emergency department on 07/08/2022 with generalized weakness of 1-1/2 days? duration.? Patient chief complaint, he stated he was unable to walk.? 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 He lives on a first floor apartment in [place].? He lives alone.? He is but has 2 grown children with his son in [place] and a daughter who lives on the [facility] border.? Patient consumes beer on a daily basis. He says it depends on whether he has company or not as to the quantity he consumes.? He drinks at least several beers every day.? He continues to smoke what he reports to be about one pack per day, formerly he was a 3 pack-a-day smoker and began smoking when he was 13 years old: 147 pack years.? Evaluation in the emergency department revealed that he was significantly hyponatremic with a serum sodium of 118. The rest of his chemistry panel in addition to low sodium of 118 showed a chloride of 85.? Anion gap was normal at 3.8 BUN and creatinine were low at 5 and 0.4.? Transaminases were within normal limits his albumin was low at 3.2.? Lipase was normal at 77.? He was admitted to the medical floor for correction of his hyponatremia.? His sodium was gradually corrected.? He is at high risk for alcohol withdrawal and was treated empirically with phenobarbital for possible alcohol withdrawal.? He did not have any symptoms with that and no seizures. ?During his visit he developed a fever and was worked up by orthopedics for a possible infection; he had a total hip replacement in 2013 after a fractured hip; the work up was negative.? His blood cultures remained negative; procalcitonin was negative He reported his hip pain as being intermittent.? He denies numbness and tingling. Aspiration of the joint was not recommended. For chronic pain he was treated with Baclofen, topical lidocaine patches, voltaren gel and prn Nucynta. He worked with PT and was able to ambulate with a walker independently and is deemed back to baseline.? He states he is going home and will continue drinking alcohol and smoking cigarettes. He was seen by the Palliative Care team and he has agreed to be followed by them. At home he has meals on wheels, choices for care and a case packer and sealer, Serena Myles. He reports he has a brother that can help him buy a recliner, he states he has the money.? His biggest obstacle to him going home in his words is his couch is difficult to get up from.? PT and I discussed alternatives and remedies such as blocks under it.? It will be evaluated by home health physical therapy.? He is clinically stable and not requiring hospitalization.? He is in agreement to going home with home health nursing, PT, OT & STRUCTURES ENGINEER.? He was discharged via [facility] stable. Discussed with Dr Mancia Home Meds and New Rx's Prescriptions: New albuterol sulfate [Ventolin HFA] 90 mcg/actuation Hfa Aerosol Inhaler 2 puff inhalation Q2H PRN PRNQty: 6.7 0RF tamsulosin 0.4 mg Capsule 0.4 mg PO DAILY Qty: 30 0RF torsemide 20 mg Tablet 10 mg PO DAILY Qty: 15 0RF Inhaler, Assist Devices [Pocket Chamber] 1 ea miscellaneous DIRECTED Qty: 0 0RF Continued baclofen 10 mg tablet 10 mg PO TID PRN (Reason: neck pain) Qty: 10 0RF albuterol sulfate 90 mcg/actuation HFA aerosol inhaler 2 inh Implant Q4H PRN Qty: 1 3RF acetaminophen [Tylenol] 325 mg Tablet 325 - 650 mg PO Q4H PRN PRNQty: 0 0RF magnesium gluconate 27 mg magnesium (500 mg) Tablet 500 mg PO DAILY Qty: 30 0RF Discharge Instructions Instructions: Torsemide (By mouth), Tamsulosin (By mouth) Additional Instructions: Home health will contact you to make an appointment to come to your home and provide services. Stand Alone Forms: Nursing Discharge Form Referrals: Juan Diego Luna MD [Primary Care Provider] - (A Nurse will call you from DR Shukla office with an Appointment ) Activity:: Activity as Tolerated Equipment/Supplies:: No Equipment Needed Diet:: Low Sodium Discharge Orders Discharge Orders: Discharge Order (Routine); Ordered 07/17/22 Ordered By: Saskia Lowe Discharge Data Discharge Date/Time-TO BE ENTERED AT DEPARTURE: 07/17/22 15:04 DS: Summary Time Spent with Patient providing and/or coordinating discharge services: Greater than 30 minutes Status at Discharge Functional status at discharge: uses cane/walker Overall status at discharge: patient is progressing back to baseline Mental Status: mental status grossly normal Speech and Movement: speech and movement normal Mood: congruent mood Affect: normal affect Exam Narrative Exam Narrative: General: Frail appearing Middle-aged male, A&Ox3, NAD HEENT: EOMI, MMM Heart: RRR, no m/r/g Lungs: CTAB, no wheezing Abdomen: not distended : voiding without difficulty after indwelling urinary catheter removed Extremities: no edema BLEs Psych Mental Status: mental status grossly normal Speech and Movement: speech and movement normal Mood: congruent mood Affect: normal affect DS: Data Vitals/I&O Vitals and I&O: Vital Signs Temperature 36.2 C L 07/17/22 07:41 Temperature Source Tympanic 07/17/22 07:41 Pulse 74 07/17/22 07:41 Pulse Rhythm Regular 07/17/22 10:09 Respiratory Rate 20 07/17/22 07:41 Respiratory Effort Non-Labored 07/17/22 10:09 Respiratory Depth Normal 07/17/22 10:09 Respiratory Pattern Normal 07/17/22 10:09 Blood Pressure 103/64 07/17/22 07:41 Blood Pressure Position Supine 07/08/22 15:18 Pulse Oximetry 97 07/17/22 07:41 Oxygen Delivery Method Room Air 07/17/22 07:41 Oxygen Flow Rate 0 07/17/22 07:41 Pain Level 0 07/16/22 21:42 Comment 07/13/22 15:49 Intake & Output 07/16/22 07/17/22 07/17/22 23:59 11:59 23:59 Intake Total 960 / 960 300 / 780 480 / 780 Output Total 1550 / 2500 2100 / 2225 125 / 2225 Balance -590 / -1540 -1800 / -1445 355 / -1445 Weight 56 kg Intake: Oral 960 / 960 300 / 780 480 / 780 Output: Urine 1550 / 2500 2100 / 2225 125 / 2225 Other: Urine Color Yellow Yellow Pale Urine Appearance Clear Clear Clear Urine Odor None Comment Valentin DC'd as per order. Pt able to void w/o complications (reports no pain or burning) into urinal s/p valentin removal. Stool Size Moderate Stool Characteristics Soft Formed Voiding Methods Urinal Data Completed and Pending Labs on day of discharge: Labs from last 24 hours 07/17/22 07/17/22 05:48 05:48 WBC 7.41 RBC 3.59 L Hgb 11.5 L Hct 34.4 L MCV 96 H MCH 32.0 MCHC 33.4 RDW 12.9 Plt Count 401 H MPV 8.9 Immature Gran % 0.8 Neutrophils % 42.8 Lymphocytes % 39.9 Monocytes % 12.8 Eosinophils % 3.2 Basophils % 0.5 Nucleated RBC % 0.0 Absolute Neutrophils 3.16 Absolute Lymphocytes 2.96 Absolute Monocytes 0.95 H Absolute Eosinophils 0.24 Absolute Basophils 0.04 Sodium 137 Potassium 4.2 Chloride 100 Carbon Dioxide 32.0 Anion Gap 5.0 BUN 13 Creatinine 0.4 L Est GFR (CKD-EPI 2020) 122.60 Glucose 96 Calcium 9.0 Magnesium 1.8 Preliminary micro results at discharge 07/12/22 19:15 Blood Culture - Preliminary Blood NO GROWTH 96 HOURS 07/12/22 19:05 Blood Culture - Preliminary Blood NO GROWTH 96 HOURS PFSH All Active Problems (Updated 12/02/22 @ 15:58 by Josiah Lloyd MD) Tendinitis involving left hip abductors (Acute) Urinary retention with incomplete bladder emptying (Acute) Palliative care encounter (Acute) DVT prophylaxis (Acute) Fever (Acute) Pain, foot (Acute) Arterial vascular disease (Acute) Nail dystrophy (Acute) Decreased activities of daily living (ADL) (Acute) Generalized weakness (Acute) Ambulatory dysfunction (Acute) Alcohol abuse (Chronic) Muscle spasm (Acute) Chronic pain (Chronic) Hyponatremia (Acute) Hypomagnesemia (Acute) Well adult (Acute) White coat syndrome with hypertension (Acute) Discharge planning issues (Acute) DVT prophylaxis (Acute) COPD (chronic obstructive pulmonary disease) (Chronic) a. Ongoing tobacco abuse. Alcoholism (Chronic ~01/2014) a. Drinks at least 6 beers per day on a regular basis. Contusion of pelvis (Acute) Medical History Alcohol withdrawal delirium Fracture of femoral neck, left a. S/P left total knee arthroplast, 01/26/[address] Mendoza. History of neck fracture a. Left-sided weakness. b. On SSI disability. Surgical History History of cervical spinal arthrodesis History of total left hip arthroplasty (01/26/14) left total hip arthroplasty; Dr. Riaz Mendoza, [facility] after fall and hip fracture Social History Smoking/Tobacco Use Status: Current every day Smoking risk assessment performed?: Yes Alcohol Intake: current Alcohol Intake frequency: 3 or more drinks per day Alcohol type: beer Drug use: Never Do you feel safe in your relationship?: Yes
--- NOTE | 2022-07-17 14:11 | PDOC.HHF2F ---
Home Health Referral Home Health Orders Clinical synopsis of why skilled professionals are needed: Patient is a 61-year-old male with past medical history of alcoholism, COPD, and a distant neck fracture, that caused him to have left-sided weakness, was evaluated in the [facility] emergency department on 07/03/2022 for complaint of spasm in both legs from his hips to his knees, although he continued to be able to ambulate with a walker.? He was discharged from the emergency department and instructed to use his baclofen as needed for leg pain and spasm and follow-up with his primary care provider.? He was also advised on his need to cut back on his alcohol and recommend they be referred to a recovery operator.? He again presented to the [facility] emergency department on 07/08/2022 with generalized weakness of 1-1/2 days? duration.? Patient chief complaint, he stated he was unable to walk.? 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 He lives on a first floor apartment in [place].? He lives alone.? He is but has 2 grown children with his son in [place] and a daughter who lives on the [facility] border.? Patient consumes beer on a daily basis. He says it depends on whether he has company or not as to the quantity he consumes.? He drinks at least several beers every day.? He continues to smoke what he reports to be about one pack per day, formerly he was a 3 pack-a-day smoker and began smoking when he was 13 years old: 147 pack years.? Evaluation in the emergency department revealed that he was significantly hyponatremic with a serum sodium of 118. The rest of his chemistry panel in addition to low sodium of 118 showed a chloride of 85.? Anion gap was normal at 3.8 BUN and creatinine were low at 5 and 0.4.? Transaminases were within normal limits his albumin was low at 3.2.? Lipase was normal at 77.? He was admitted to the medical floor for correction of his hyponatremia.? His sodium was gradually corrected.? He is at high risk for alcohol withdrawal and was treated empirically with phenobarbital for possible alcohol withdrawal.? He did not have any symptoms with that and no seizures. ?During his visit he developed a fever and was worked up by orthopedics for a possible infection; he had a total hip replacement in 2013 after a fractured hip; the work up was negative.? His blood cultures remained negative; procalcitonin was negative He reported his hip pain as being intermittent.? He denies numbness and tingling. Aspiration of the joint was not recommended. For chronic pain he was treated with Baclofen, topical lidocaine patches, voltaren gel and prn Nucynta. He worked with PT and was able to ambulate with a walker independently and is deemed back to baseline.? He states he is going home and will continue drinking alcohol and smoking cigarettes. He was seen by the Palliative Care team and he has agreed to be followed by them. At home he has meals on wheels, choices for care and a keycase assembler, Serena Myles. He reports he has a brother that can help him buy a recliner, he states he has the money.? His biggest obstacle to him going home in his words is his couch is difficult to get up from.? PT and I discussed alternatives and remedies such as blocks under it.? It will be evaluated by home health physical therapy.? He is clinically stable and not requiring hospitalization.? He is in agreement to going home with home health nursing, PT, OT & AUTOMOTIVE INTERNET SALES CONSULTANT.? He was discharged via [facility] stable. Medical diagnosis necessitation home health referral: Distant past neck fracture resulting in left sided weakness Registered Nurse: Check all that apply Instruct on new or changed medication(s)/assess compliance: Ordered Assess for exacerbation of medical condition, instruct patient/caregivers on signs and symptoms to report for early detection: Ordered Physical Therapist: Check all that apply Increase strength & endurance for safe mobility at home: Ordered To design/establish home maintenance program: Ordered Fall reduction therapy program for patient with history of frequent falls: Ordered Home safety evaluation and teaching/gait training including stair management (if applicable): Ordered Better Breathing Program: Ordered Occupational Therapist: Evaluate and treat for patient unable to perform ADL/IADL/self-care: Ordered Upper extremity strengthening, range and motion: Ordered Metal Finisher: Assist with community resources: Ordered Assist with longwall headgate operator care planning: Ordered Home Bound Status Requires the aid of supportive device (check all that apply): Walker Patient has a condition such that leaving home is medically contraindicated (Describe): general weakness and permanent left sided weakness from distant past neck fracture; unable to ambulate safely without a device or one person to assist him Describe why leaving home would require a considerable and taxing effort: Requires frequent rest periods and Safety Concerns: describe Encounter Date and Reason: I certify that a FTF encounter for this patient was performed on July 17, 2022 and that such encounter was related to the primary reason the patient requires home health services. The encounter was conducted in the following manner: By me as the certifying physician, CAKE WASHER, PA or By an inpatient physician, CAKE WASHER or PA during an inpatient stay who communicated findings to me, Certification And Authentication I certify that I composed the above information based on my clinical judgment relating to this patient's medical condition and, if applicable, clinical findings communicated to me by the NPP or inpatient physician who performed the FTF encounter. Name of Provider that will be monitoring home health services: Juan Diego Luna
--- NOTE | 2022-07-17 14:24 | PT.INDS ---
Date of service: 07/18/22 Time of Service: 14:24 PT Notes Visit Reasons: Hyponatremia,Gener Weaknes,Self Neglect,Alcoholism Physical Therapy Inpatient Discharge Summary Date: 07/17/22 Dates of Service: 07/09/2022 through 07/17/2022 Referring Doctor:? Dr. James PT Orders: PT CONSULT: fall risk/safety assessment Precautions: fall, standard Patient Profile/Admitting Diagnosis:?? Patient admitted 07/08/22 after presenting to ER with weakness. Diagnosed with acute hyponatremia in the presence of EtOH abuse, and admitted for medical management. PT consult requested for safety assessment.? PMHX: All Active Problems?(Updated 07/08/22 @ 18:28 by Joshua James MD) Generalized weakness (Acute) Ambulatory dysfunction (Acute) Alcohol abuse (Chronic) Muscle spasm (Acute) Chronic pain (Chronic) Hyponatremia (Acute) Hypomagnesemia (Acute) Acute hyponatremia (Acute) Well adult (Acute) White coat syndrome with hypertension (Acute) Discharge planning issues (Acute) DVT prophylaxis (Acute) COPD (chronic obstructive pulmonary disease) (Chronic) a. Ongoing tobacco abuse.Alcoholism (Chronic ~01/2014) a. Drinks at least 6 beers per day on a regular basis.Contusion of pelvis (Acute) Medical History? Alcohol withdrawal delirium Fracture of femoral neck, left a. S/P left total knee arthroplast, 01/26/[address] Mendoza.History of? neck fracture a. Left-sided weakness. b. On SSI disability. Social History/Home Situation: Lives alone in first floor apartment. 4WW at baseline. Equipment Owned/DME: 4WW Subjective:? Hesitant at first to go home but was agreeable once services by PT/OT/RN were reinstated. Agreeable to continuing with meals on wheels. Happy with receipt of options for electric recliner given to him by this provider. He states that he will ask the help of his brother to purchase said device to make it easier for him to sit-stand at home. Objective:? General Observation: Resting in chair. Guerrero discontinued in the afternoon Mental Status: A&Ox3. Cooperative throughout session. Pain: Denies Vital Signs: WNL as closely monitored by nursing staff ROM: Right Upper Extremity: Shoulder flexion 135*. Partial family member caretaker, full hand opening. Left Upper Extremity: Shoulder flexion to 60* actively. Elbow motion full. Partial family member caretaker, and limited active hand opening. Functionally able to place hand to walker effectively. Right Lower Extremity: Hip flexion 100*. Knee extension -10*. Knee flexion 130*. Left Lower Extremity: Hip flexion to 90* with pain. ER passively to 15* limited by pain. IR to 20*. Strength: Right Lower Extremity: Hip flexion 4/5. Quads 3+/5. Ankle DF 3/5 or greater. Left Lower Extremity: Hip flexion 3/5 with pain. Quads 3/5, with painful SLR. Ankle DF 3/5 or greater. Sensation:? Intact as to pain and pressure in B LE Bed Mobility/Transfers: Sit-stand: supervision Bed-chair supervision Gait:? 100 feet + 100 feet using front-wheeled walker with supervision assist and wheelchair follow. 1 seated rest needed due to fatigue but managed to continue once rested for about 2 minutes. Trunk more erect. Step height and length improved. Balance:? Static Sitting: Normal Dynamic Sitting: Normal Static Standing: Fair Dynamic Standing: Fair Special Tests: Mobility Limitations Standardized Measure [facility] 6 clicks Basic Mobility Inpatient Short Form: Raw Score: 23 ? CMS Score: 11%deficit Assessment:?? Patient demonstrates functional mobility improvements and have achieved all goals below now only requiring supervision assist for all mobility ADLs for up to 200 feet using front-wheeled walker. He demonstrates goos and correct technique coming up to standing from a proper height chair with armrest. Patient will benefit from PT services to assess for need for environmental modifications to maximize independence and reduce fall risk at home while continuing with strengthening and balance retraining. Patient has indicated that his couch is very worn out and has been giving him difficutly standing up from it. Patient verbalized willingness to purchase an electric recliner to address mobility limitations placed by low worn out couch. Issue has been brought up to hospitalist and CM. Goals: Goals X1 week 1. Supine-Sit : supervision MET 2. Sit-Supine : supervision MET 3. Sit-Stand : supervision MET 4. Stand-Sit : supervision MET 5. Bed-Chair : min A with FWW MET 6. Chair-Bed min A with FWW MET 7. Gait : min A with FWW x 25' MET DISCHARGE RECOMMENDATIONS: Patient will benefit from home health PT services in order to progress mobility level using least restrictive assistive ambulatory device, assess home safety, identify additional equipment needs, and establish a functional maintenance program that will increase ability of patient to remain at home. TREATMENT CODE/TIME:? Session 1--04267 x 36 minutes beginning at 9:41 AM. Session 2--62297 x 24 minutes beginning at 14:24 PM. Thank you for the opportunity to participate in the care of this patient. Génesis Castillo PT, DPT, CLT [facility] [place], [place]
[2022-07-17 14:40] VITALS: BP 115/71; PULSE 96; RESP 18; TEMP 36.6; O2SAT 95
--- NOTE | 2022-07-17 15:35 | CMDISCH_ITS ---
- If Service Date Differs Date of service: 07/17/22 Time of Service: 15:35 LACE Index Scoring Tool - Questions: Length of Stay (in days): 7 - 13 Acuity (Admit via E.D.?): Yes Comorbidities: Chronic Pulmonary Disease E.D. Visits: 2 - Answers: Total Score: 12 Risk of Readmission: High Risk Care Management Discharge Reason for Hospitalization: Hyponatremia, Generalized weakness, self neglect, alcoholism Discharge Plan: Kaleb will return home today with new orders for HH RN, PT, OT, FIELD CLINICAL ENGINEER. MARY KAY called his case preparer and liner, Peggy Myles, to inform her that he is returning home today, and requested that his community services are resumed, including his housekeeping through moderate needs, which is 2hr visits, 3 days a week, as well as MOW. MARY KAY called his son and discussed his plan of care, and his discharge plan in the community. Kaleb is asking for assistance with purchasing a lift chair, which he plans to ask Peggy and/or Kelvin, his brother. MARY KAY completed a snf MINE application with him, and sent it in via fax. Peggy Myles is listed as an authorized bottling equipment sales representative on the application, per Kaleb. Kaleb will follow up with his PCP and discharge plan of care. Patient/Family Education Needs: Review discharge instructions and limitations, discussion of self care needs including ask me three and goals of care. Services Needed at Discharge: Home Health Care Services (HH RN, PT, OT, FIELD CLINICAL ENGINEER), Transportation (RCT private vehicle)
== END 2022-07-17 15:04 | disposition home health service (06) | DRG 641 ==
LOC: ER 17:03 → MS 18:07
PROVIDERS: Family Medicine; Internal Medicine; Nurse Practitioner Family; Physician Assistant; Admitting Provider Internal Medicine; Emergency Provider Registered Nurse Emergency; PCP Family Medicine; Visit Provider Internal Medicine
DX: E87.1 Hypo-osmolality and hyponatremia (principal); G81.94 Hemiplegia, unspecified affecting left nondominant side; M54.9 Dorsalgia, unspecified; G89.29 Other chronic pain; R53.1 Weakness; J44.9 Chronic obstructive pulmonary disease, unspecified; F17.210 Nicotine dependence, cigarettes, uncomplicated; Z79.899 Other long term (current) drug therapy; E83.42 Hypomagnesemia; F10.20 Alcohol dependence, uncomplicated; Z96.642 Presence of left artificial hip joint; R26.89 Other abnormalities of gait and mobility; S12.9XXS Fracture of neck, unspecified, sequela; Z98.1 Arthrodesis status; R46.0 Very low level of personal hygiene; M62.838 Other muscle spasm; L60.3 Nail dystrophy; R50.9 Fever, unspecified; R33.8 Other retention of urine
CPT/HCPCS: 11721; 36415; 80048; 80053; 80307; 83690; 84145; 85027; 85652; 87040; 87635; 87637; 94640; 96360; 96361; 97110; 97162; 97166; 97530; 97535; 99285; J1650; 71045; 73502; 73701; 80320; 81003; 81015; 82607; 82728; 82746; 83540; 83550; 83735; 84100; 84443; 85025; 86140; 87086; 93970; 99222; 99231; 99232; 99239; J1885; J2560; J2597; J3420; J3475; J3490; J7614

== ENCOUNTER 2022-08-03 03:00 | Inpatient (IN) | payer MEDICAID, SELFPAY ==
[2022-08-03] VITALS (90 sets, daily range): BP systolic 100–222; BP diastolic 53–200; PULSE 79–180; RESP 4–32; TEMP 36.7–37.7; O2SAT 91–100
--- NOTE | 2022-08-03 03:19 | ED.GENADUL_ITS ---
Discharge Plan Disposition Condition: Stable Discharge Details Chief Complaint: GenMedical Clinical Impression: Generalized weakness Primary Care Provider: Juan Diego Luna ED Provider: Arslan Herrmann Home Meds and New Rx's Prescriptions: No Action (DME) diaper,brief,adult,disposable Misc See Rx Instructions .Route Qty: 60 0RF Rx Instructions: As directed, patient is a 32 waist, needs pull ups baclofen 10 mg tablet 10 mg PO TID PRN (Reason: neck pain) Qty: 10 0RF Anoro Ellipta 62.5-25 mcg/actuation blister with device 1 inh inhalation DAILY Qty: 60 4RF acetaminophen [Tylenol] 325 mg Tablet 325 - 650 mg PO Q4H PRN PRNQty: 0 0RF albuterol sulfate [Ventolin HFA] 90 mcg/actuation Hfa Aerosol Inhaler 2 puff inhalation Q2H PRN PRNQty: 6.7 0RF Inhaler, Assist Devices [Pocket Chamber] 1 ea miscellaneous DIRECTED Qty: 0 0RF Medical Decision Making 61 yo male with remote cervical spine fracture in 1992 s/p fusion, chronic alcohol abuse, copd, who was admitted recently for hyponatremia and failure to thrive who comes in with ems with 2 days of worsening general malaise. He states he hasn't been able to get off his cough though was able to use his walker three times to get beer, but states other than this has been too weak to get up. He denies fevers, chills, chest pain. He arrives stable, caox4 speaking clearly t deisy is frail appearing. He has no focal deficits on exam, has some skin break down over the sacral area of his back, no significant erythema or tunneling. Soft nontender abdomen. Suspect failure to thrive secondary to alcohol abuse and malnutrition, will obtain cbc, cmp, cpk and reassess. He also has chronic left hip pain, was seen by ortho for this when he was admitted and felt to be tendonitis. He has no bony tenderness, no erythema, no warmth so doubt infectious etiology and no trauma so do not feel xray indicated. labs without significant abnormalities from baseline, ua still pending. On review of chart it appears he has had trouble getting into and out of his apartment for awhile and issues with him getting out of his couch. Home health has not been in yet to see him. He is stable currently, do not feel there is a current medical reason for admission given his general malaise and left hip pain are chronic. Will have physical therapy and care management evaluate later today. Differential Diagnosis Differential Diagnosis: alcohol abuse, failure to thrive, electrolyte abnormality Medical Records Medical records reviewed: Yes I reviewed the patient's medical records. Lab Data Lab results reviewed: Yes I reviewed the patient's lab results. HPI General Mode of arrival: EMS . Date/Time Provider Initiated Documentation: 08/03/22 03:00 . Limitations to Documentation: no limitations . Information obtained by: patient . History of Present Illness 61 year old M presents to the emergency department with the chief complaint of general weakness, described as moderate, and it has been constant. No relieving factors improve symptom(s), No exacerbating factors reported . Patient did receive the following treatments prior to arrival, none Related Data Home Medications Medication Instructions Recorded Confirmed acetaminophen 325 mg tablet 325 - 650 mg PO Q4H PRN PRN #0 tabs 08/16/20 08/03/22 (Tylenol) Inhaler, Assist Devices [Pocket 1 ea miscellaneous DIRECTED ##0 07/17/22 08/03/22 Chamber] albuterol sulfate 90 mcg/actuation 2 puff inhalation Q2H PRN PRN #6.7 07/17/22 08/03/22 aerosol inhaler (Ventolin HFA) grams baclofen 10 mg tablet 10 mg PO TID PRN neck pain #10 tabs 07/25/22 08/03/22 diaper,brief,adult,disposable #60 ea 07/25/22 08/03/22 umeclidinium 62.5 mcg-vilanterol 1 inh inhalation DAILY #60 ea 07/25/22 08/03/22 25 mcg/actuation powdr for inhalation (Anoro Ellipta) Previous Rx's Medication Instructions Recorded acetaminophen 325 mg tablet 325 - 650 mg PO Q4H PRN PRN #0 tabs 08/16/20 (Tylenol) Inhaler, Assist Devices [Pocket 1 ea miscellaneous DIRECTED ##0 07/17/22 Chamber] albuterol sulfate 90 mcg/actuation 2 puff inhalation Q2H PRN PRN #6.7 07/17/22 aerosol inhaler (Ventolin HFA) grams baclofen 10 mg tablet 10 mg PO TID PRN neck pain #10 tabs 07/25/22 diaper,brief,adult,disposable #60 ea 07/25/22 umeclidinium 62.5 mcg-vilanterol 1 inh inhalation DAILY #60 ea 07/25/22 25 mcg/actuation powdr for inhalation (Anoro Ellipta) Allergies Allergy/AdvReac Type Severity Reaction Status Date / Time ENVIRONMENTAL/POLLEN Allergy CONGESTION, Uncoded 08/03/22 03:09 WATERY EYES, RUNNY NOSE General Stated Complaint: GenMedical SOBEIDA: 3 Review of Systems All systems reviewed & are unremarkable except as noted in HPI and below Constitutional Constitutional: Denies chills and Denies fever(s) Cardiovascular Cardiovascular: Denies chest pain and Denies dyspnea Respiratory Respiratory: Denies cough and Denies dyspnea Gastrointestinal Gastrointestinal: Denies abdominal pain, Denies nausea and Denies vomiting Musculoskeletal Musculoskeletal: Denies joint swelling PFSH All Active Problems (Updated 08/03/22 @ 05:22 by Arslan Herrmann MD) Tobacco dependence (Acute) Incontinence (Acute) Nail dystrophy (Acute) Generalized weakness (Acute) Well adult (Acute) White coat syndrome with hypertension (Acute) DVT prophylaxis (Acute) COPD (chronic obstructive pulmonary disease) (Chronic) a. Ongoing tobacco abuse. Alcoholism (Chronic ~01/2014) a. Drinks at least 6 beers per day on a regular basis. Contusion of pelvis (Acute) Medical History Alcohol withdrawal delirium Fracture of femoral neck, left a. S/P left total knee arthroplast, 01/26/[address] Mendoza. History of neck fracture a. Left-sided weakness. b. On SSI disability. Surgical History History of cervical spinal arthrodesis History of total left hip arthroplasty (01/26/14) left total hip arthroplasty; Dr. Riaz Mendoza, [facility] after fall and hip fracture Social History Smoking/Tobacco Use Status: Current every day Tobacco Type: cigarettes Smoking risk assessment performed?: Yes Alcohol Intake: current Alcohol Intake frequency: 3 or more drinks per day Alcohol type: beer Drug use: Never Do you feel safe in your relationship?: Yes Exam Const General: no acute distress Orientation: alert HENMT Head: normal to inspection Ears: external ears normal General nose exam: external nose normal Mouth: moist mucous membranes Eyes General: appearance normal, both eyes and all related structures Neck Neck: normal visual inspection Resp Effort & Inspection: normal respiratory effort and able to speak in complete sentences Cardio Rate: regular rate Skin General skin exam: no erythema Neuro General: patient alert and patient oriented x3 Extrem General: no joint enlargement Psych Mental Status: mental status grossly normal Course Vital Signs Vital signs: Vital Signs Temperature 36.8 C 08/03/22 03:02 Pulse 104 H 08/03/22 03:02 Respiratory Rate 16 08/03/22 03:02 Blood Pressure 154/93 H 08/03/22 03:02 Pulse Oximetry 98 08/03/22 03:02 Temperature 36.8 C 08/03/22 03:02 Temperature Source Temporal Artery Scan 08/03/22 03:02 Pulse 104 H 08/03/22 03:02 Respiratory Rate 16 08/03/22 03:02 Respiratory Effort 08/03/22 03:02 Blood Pressure 154/93 H 08/03/22 03:02 Blood Pressure Position Supine 08/03/22 03:02 Pulse Oximetry 98 08/03/22 03:02 Pain Level 8 08/03/22 03:02 Sign Out Sign Out Data: Sign Out Comment: chronic alcohol abuse, recently admitted for general malaise in setting of hyponatremia as well as chronic left hip pain seen by ortho and felt to be due to tendonitis. Here today with general malaise and left hip pain, labs today unremarkable, pending PT/CM evaluation. Was supposed to be set up with home health but hasn't yet Last updated by Arslan Herrmann MD at 08/03/22 06:13
[2022-08-03] MEDS: Normal Saline 1,000 ML 150 ML IV ×4 (03:55→19:22)
[2022-08-03 04:01] LABS: Abs Immature Grans 0.03 10^3/uL (0.0-0.06); Absolute Basophil Count 0.04 10^3/uL (0.0-0.2); Absolute Lymphocyte Count 3.05 10^3/uL (1.2-3.4); Absolute Monocyte Count 1.35 10^3/uL (0.1-0.8); Absolute Neutrophil Count 6.43 10^3/uL (1.2-6.7); Basophils % 0.4; Eosinophils % 1.4; HCT 43.4 % (40.0-50.0); HGB 15.1 g/dL (13.5-17.5); Immature Grans % 0.3; Lymphocytes % 27.6; MCH 32.5 pg (27.0-33.0); MCHC 34.8 % (32.0-36.0); MCV 93 fL (80-95); MPV 8.5 fL (8.0-11.0); Monocytes % 12.2; Neutrophils % 58.1; Platelet Count 325 10^3/uL (130-400); RBC 4.65 10^6/uL (4.36-5.78); RDW 12.7 % (11.8-14.1); RDW-SD 43.8 fL; WBC 11.06 10^3/uL (4.4-10.8)
[2022-08-03 04:07] LABS: Absolute Eosinophil Count 0.15 10^3/uL (0.0-0.7)
[2022-08-03 04:16] LABS: COVID-19 PCR Negative (Negative); Influenza A PCR Negative (Negative); Influenza B PCR Negative (Negative); RSV PCR Negative (Negative)
[2022-08-03 04:17] LABS: ALT 17 U/L (16-63); AST 23 U/L (15-37); Albumin 3.7 g/dL (3.4-5.0); Alkaline Phosphatase 126 U/L (46-116); Anion Gap 8.8 mmol/L (3-11); BUN 3 mg/dL (7-18); Bilirubin, Total 0.9 mg/dL (0.2-1.0); CO2 30.2 mmol/L (21.0-32.0); CREATININE 0.4 mg/dL (0.70-1.30); Calcium 9.1 mg/dL (8.5-10.1); Chloride 90 mmol/L (98-107); ETHANOL BLOOD 41.2 mg/dL (<10); Glucose 95 mg/dL (74-106); Potassium 3.8 mmol/L (3.5-5.1); Sodium 129 mmol/L (136-145); Total Protein 8.6 g/dL (6.4-8.2)
[2022-08-03 04:18] LABS: Source Nasopharynx
[2022-08-03 04:43] LABS: Magnesium 1.7 mg/dL (1.8-2.4)
[2022-08-03 04:48] LABS: Creatine Kinase 74 U/L (39-308)
[2022-08-03 06:46] LABS: Bilirubin Negative (Negative); Blood Negative (Negative); Clarity Clear (Clear); Glucose Negative (Negative); Ketones Negative (Negative); Leukocyte Esterase Negative (Negative); Nitrite Negative (Negative); Urobilinogen 0.2 EU/dL (Up TO 0.2); pH 6.5 (5-8)
[2022-08-03] MEDS: Baclofen 10 MG TAB PO (07:42)
--- NOTE | 2022-08-03 08:24 | ED.PROG_ITS ---
Date of service: 08/03/22 Time of Service: 08:00 Medical Decision Making 08 -- Please see Dr. Herrmann's note for initial presentation, exam and plan. Case endorsed to follow-up with care management and physical therapy. If patient able to ambulate, will likely discharge home with continued home health. 929 --patient not safe to go home per physical therapy as he had difficulty using the walker and transferring and would benefit from inpatient physical therapy treatment. Patient's heart rate remains elevated to the 110s-120s. His blood pressure is elevated at 164/108. He is not diaphoretic but does have what appears to be intention tremors in the upper extremities. L hip appears normal to inspection without signs of cellulitis. No significant lower extremity edema. We will start Ativan IV as needed for consideration of alcohol withdrawal. He denies any significant relief of pain with the IV Tylenol and Toradol. Will admit for pain control, PT and disposition planning. Case discussed with [facility] with care management - patient was last admitted here within the past 30 days and was previously agreeable to short-term rehab, so will continue to pursue these options. 949 --Case discussed with hospitalist who accepts patient for admission. Medical Records Medical records reviewed: Yes I reviewed the patient's medical records. Lab Data Lab results reviewed: Yes I reviewed the patient's lab results. Labs: Laboratory Tests Range/Units 08/03/22 08/03/22 08/03/22 03:38 03:57 03:57 WBC (4.4-10.8) 10^3/uL RBC (4.36-5.78) 10^6/uL Hgb (13.5-17.5) g/dL Hct (40.0-50.0) % MCV (80-95) fL MCH (27.0-33.0) pg MCHC (32.0-36.0) % RDW (11.8-14.1) % Plt Count (130-400) 10^3/uL MPV (8.0-11.0) fL Immature Gran % Neutrophils % Lymphocytes % Monocytes % Eosinophils % Basophils % Nucleated RBC % (0.0-0.3) % Absolute Neutrophils (1.2-6.7) 10^3/uL Absolute Lymphocytes (1.2-3.4) 10^3/uL Absolute Monocytes (0.1-0.8) 10^3/uL Absolute Eosinophils (0.0-0.7) 10^3/uL Absolute Basophils (0.0-0.2) 10^3/uL Sodium (136-145) mmol/L 129 L Potassium (3.5-5.1) mmol/L 3.8 Chloride (98-107) mmol/L 90 L Carbon Dioxide (21.0-32.0) mmol/L 30.2 Anion Gap (3-11) mmol/L 8.8 BUN (7-18) mg/dL 3 L Creatinine (0.70-1.30) mg/dL 0.4 L Est GFR (CKD-EPI 2020) (mL/min/1.73m2) 122.60 Glucose (74-106) mg/dL 95 Calcium (8.5-10.1) mg/dL 9.1 Magnesium (1.8-2.4) mg/dL 1.7 L Total Bilirubin (0.2-1.0) mg/dL 0.9 AST (15-37) U/L 23 ALT (16-63) U/L 17 Alkaline Phosphatase (46-116) U/L 126 H Creatine Kinase (39-308) U/L 74 Total Protein (6.4-8.2) g/dL 8.6 H Albumin (3.4-5.0) g/dL 3.7 Urine Color (Yellow) Urine Clarity (Clear) Urine pH (5-8) Ur Specific [place] (1.005-1.025) Urine Protein (Negative) mg/dL Urine Ketones (Negative) mg/dL Urine Blood (Negative) Urine Nitrite (Negative) Urine Bilirubin (Negative) Urine Urobilinogen (Up TO 0.2) EU/dL Ur Leukocyte Esterase (Negative) Urine Glucose (Negative) mg/dL Ethyl Alcohol (<10) mg/dL 41.2 H COVID-19 Source Nasopharynx SARS-CoV-2 (PCR) (Negative) Negative Influenza Type A (PCR) (Negative) Negative Influenza Type B (PCR) (Negative) Negative RSV (PCR) (Negative) Negative Range/Units 08/03/22 08/03/22 03:57 06:37 WBC (4.4-10.8) 10^3/uL 11.06 H RBC (4.36-5.78) 10^6/uL 4.65 Hgb (13.5-17.5) g/dL 15.1 Hct (40.0-50.0) % 43.4 MCV (80-95) fL 93 MCH (27.0-33.0) pg 32.5 MCHC (32.0-36.0) % 34.8 RDW (11.8-14.1) % 12.7 Plt Count (130-400) 10^3/uL 325 MPV (8.0-11.0) fL 8.5 Immature Gran % 0.3 Neutrophils % 58.1 Lymphocytes % 27.6 Monocytes % 12.2 Eosinophils % 1.4 Basophils % 0.4 Nucleated RBC % (0.0-0.3) % 0.0 Absolute Neutrophils (1.2-6.7) 10^3/uL 6.43 Absolute Lymphocytes (1.2-3.4) 10^3/uL 3.05 Absolute Monocytes (0.1-0.8) 10^3/uL 1.35 H Absolute Eosinophils (0.0-0.7) 10^3/uL 0.15 Absolute Basophils (0.0-0.2) 10^3/uL 0.04 Sodium (136-145) mmol/L Potassium (3.5-5.1) mmol/L Chloride (98-107) mmol/L Carbon Dioxide (21.0-32.0) mmol/L Anion Gap (3-11) mmol/L BUN (7-18) mg/dL Creatinine (0.70-1.30) mg/dL Est GFR (CKD-EPI 2020) (mL/min/1.73m2) Glucose (74-106) mg/dL Calcium (8.5-10.1) mg/dL Magnesium (1.8-2.4) mg/dL Total Bilirubin (0.2-1.0) mg/dL AST (15-37) U/L ALT (16-63) U/L Alkaline Phosphatase (46-116) U/L Creatine Kinase (39-308) U/L Total Protein (6.4-8.2) g/dL Albumin (3.4-5.0) g/dL Urine Color (Yellow) Yellow Urine Clarity (Clear) Clear Urine pH (5-8) 6.5 Ur Specific [place] (1.005-1.025) 1.010 Urine Protein (Negative) mg/dL Negative Urine Ketones (Negative) mg/dL Negative Urine Blood (Negative) Negative Urine Nitrite (Negative) Negative Urine Bilirubin (Negative) Negative Urine Urobilinogen (Up TO 0.2) EU/dL 0.2 Ur Leukocyte Esterase (Negative) Negative Urine Glucose (Negative) mg/dL Negative Ethyl Alcohol (<10) mg/dL COVID-19 Source SARS-CoV-2 (PCR) (Negative) Influenza Type A (PCR) (Negative) Influenza Type B (PCR) (Negative) RSV (PCR) (Negative) Sign Out Sign Out Data: Sign Out Comment: chronic alcohol abuse, recently admitted for general malaise in setting of hyponatremia as well as chronic left hip pain seen by ortho and felt to be due to tendonitis. Here today with general malaise and left hip pain, labs today unremarkable, pending PT/CM evaluation. Was supposed to be set up with home health but hasn't yet Last updated by Arslan Herrmann MD at 08/03/22 06:13 Discharge Plan Disposition Patient Disposition: Admit to [facility] Condition: Stable Discharge Details Chief Complaint: GenMedical Clinical Impression: Ambulatory dysfunction, Adult failure to thrive, Alcohol abuse Primary Care Provider: Juan Diego Luna ED Provider: Majo Elliott Home Meds and New Rx's Prescriptions: No Action (DME) diaper,brief,adult,disposable Misc See Rx Instructions .Route Qty: 60 0RF Rx Instructions: As directed, patient is a 32 waist, needs pull ups baclofen 10 mg tablet 10 mg PO TID PRN (Reason: neck pain) Qty: 10 0RF Anoro Ellipta 62.5-25 mcg/actuation blister with device 1 inh inhalation DAILY Qty: 60 4RF acetaminophen [Tylenol] 325 mg Tablet 325 - 650 mg PO Q4H PRN PRNQty: 0 0RF albuterol sulfate [Ventolin HFA] 90 mcg/actuation Hfa Aerosol Inhaler 2 puff inhalation Q2H PRN PRNQty: 6.7 0RF Inhaler, Assist Devices [Pocket Chamber] 1 ea miscellaneous DIRECTED Qty: 0 0RF
[2022-08-03] MEDS: Ketorolac 30 MG/ML VIAL IVP (08:34)
[2022-08-03] MEDS: ACETAMINOPHEN 1,000 MG/100 ML BTL 400 MG IVPB (08:34)
[2022-08-03] MEDS: Normal Saline 1,000 ML 1000 ML IV (08:43)
--- NOTE | 2022-08-03 09:10 | IN_ITS ---
Date of service: 08/03/22 Time of Service: 09:10 PT Notes Visit Reasons: [facility] Inpatient Initial Evaluation Date: 08/03/2022 Referring Doctor:? Arslan Ramires MD PT Orders: PT CONSULT: Eval/Treat Precautions: Fall. Standard. Activity as tolerated. Patient Profile/Admitting Diagnosis:? Kaleb is a 61-year-old male who presented to the ED today with diagnosis of EtOH abuse, muscle spasms, chronic pain, hyponatremia, and hypomagnesemia. PMHX: All Active Problems?(Updated 08/03/22 @ 05:22 by Arslan Herrmann MD) Tobacco dependence (Acute) Incontinence (Acute) Nail dystrophy (Acute) Generalized weakness (Acute) Well adult (Acute) White coat syndrome with hypertension (Acute) DVT prophylaxis (Acute) COPD (chronic obstructive pulmonary disease) (Chronic) a. Ongoing tobacco abuse.Alcoholism (Chronic ~01/2014) b. Drinks at least 6 beers per day on a regular basis.Contusion of pelvis (Acute) Medical History? Alcohol withdrawal delirium Fracture of femoral neck, left a. S/P left total knee arthroplast, 01/26/[address] Mendoza.History of? neck fracture a. Left-sided weakness. b. On SSI disability. Surgical History? History of cervical spinal arthrodesis History of total left hip arthroplasty (01/26/14) left total hip arthroplasty; Dr. Riaz Mendoza, [facility] after fall and hip fracture Social History/Home Situation: Kaleb states that he lives in a home which he shares with other tenants. He however emphasizes that he will not have the support of any of these tenants as he states he is on his own. He is independent using a 4-wheeled walker for all indoor ambulation.? He states that he rides the taxi for all his community errands.? He gets Meals on Wheels every day; gets Sunday and Sunday meals on Fridays.? Has 1 step to get into the house without rails. Equipment Owned/DME: 4WW, raised toilet seat Subjective: Hesham again reports that his spasms and his left leg has really worsened and have been limiting him. He still has not bought the recliner he was meaning to buy and continues to struggle getting up from a very low, very worn out couch in his living room. He reports feeling weak and unstable, unsure of whether he can manage home on his own in this state. Nurse Claudia indicated that patient vivienne ay be starting to withdraw as his BP are in the high 180s/110 mmHg. Adds that he could not straighten both knees due to pain level of 7-8/10 in B legs and feet with left more affected. Denies having fallen since discharge from this hopsitla to home on 07/17/2022. Objective: General Observation: Supine on stretcher.? Unkempt. Atrophy of L UE and L LE hip/knee major muscle groups due to pre-existing chronic weakness related to previous spinal surgery. Mental Status: Alert and oriented x 4 Pain: Pain in B LE at 7-8/10 with L more affected ROM: Right Upper Extremity: ? Shoulder Flexion WFL. Shoulder abduction WFL. Elbow flexion WFL. Wrist flexion WFL. Opening and closing of hand WFL. Left Upper Extremity:? Shoulder Flexion allows up to 90 degrees only. Shoulder abduction allows up to 90 degrees only. Elbow flexion WFL. Wrist flexion WFL. Opening and closing of hand WFL. Right Lower Extremity: Hip flexion WFL. Hip abduction WFL. Knee flexion WFL.? Knee extension -20 degrees.? Ankle dorsiflexion WFL. Ankle plantarflexion WFL. Left Lower Extremity: Hip flexion lacks the last 25% of AROM due to chronic weakness and pain. Hip abduction aloows only up to 20 degrees, gravity- eliminated. Knee flexion WFL.? Knee extension -30 degrees.? Ankle dorsiflexion WFL. Ankle plantarflexion WFL. Strength: Right Upper Extremity: Shoulder flexors 4-/5. Shoulder abductors 4-/5. Elbow flexors 4-/5. Elbow extensors 4-/5. Director Of Medicare strong. Left Upper Extremity: Shoulder flexors 3-/5. Shoulder abductors 3-/5. Elbow flexors 4-/5. Elbow extensors 3-/5. Director Of Medicare weak but functional. Right Lower Extremity: Hip flexors 4-/5. Hip abductors 4-/5. Knee flexors 4-/5. Knee extensors 3-/5. Ankle dorsiflexors 4-/5 Ankle plantarflexors 4-/5. Left Lower Extremity:Hip flexors 3-/5. Hip abductors 3-/5. Knee flexors 3-/5. Knee extensors 3-/5. Ankle dorsiflexors 4-/5. Ankle plantarflexors 4-/5. Sensation: Intact as to pain and pressure on bilateral lower extremities. Bed Mobility/Transfers: Supine to sit moderate assist Sit to stand minimal assist Bed to toilet seat minimal assist Stand to sit onto toilet seat moderate assist GAIT? Small asymmetric steps from bedside to toilet commode ?of about 5 steps using front-wheeled walker. Trunk bent, no full extension to B knees throughout the short walk. ? Balance: Static Sitting: Good Dynamic Sitting: Good Static Standing: Fair Dynamic Standing: Poor Special Tests: Mobility Limitations Standardized Measure [facility]-PAC 6 clicks Basic Mobility Inpatient Short Form: Raw Score: 12 ? CMS Score: ? 69% deficit? Informed Consent/Education:? Patient instructed in purpose of PT consult and plan of care. Assessment: Requires assistance of 1 person to transfer using FWW. Ambulation very limited due to pain and spasms in B LE. High risk for re-hospitalization and poor ability to thrive at home safely due to beginning withdrawal symptoms, functional mobility decline, and ongoing pain issues. Patient continues to present with clinical signs and symptoms consistent with current/admitting diagnoses that have resulted to mobility limitations, gait instability, generalized weakness, and impairment of motor control as demonstrated by the following impairment level findings: 1.? Decreased strength to B UE/LE major muscle groups with L more affected than R 2.? Impaired standing balance 3.? Impaired activity tolerance 4.? Limitation of joint range of motion in left hip and knee 5.? Chronic left-sided weakness 6. Pain in B LE with L more affected Impairments are contributing to the following functional limitations: 1.? Inability to safely ambulate without assistive device 2.? Increase completion time for mobility ADL performance 3.? Increased fall risk 4.? Inability to negotiate steps alone safely Patient is assessed as a [id number] moderate complexity based on the following: History: 59-year-old male with impairment level findings, functional limitations, and past medical history as indicated above Examination: Demonstrable impairment in strength, balance, and mobility level with underlying impairments and functional limitations as documented above Presentation:Evolving Decision Makin moderate complexity Goals: N/A.? PT evalaution only. Plan of Care/Treatment Plan: N/A.? PT evalaution only. DISCHARGE RECOMMENDATIONS: Patient will benefit from care home facility placement for continued skilled physical therapy services in order to progress mobility level, strength, and balance in preparation for a safe discharge to home. TREATMENT CODE/TIME: 56878 x 29 minutes beginning at 9:10 AM. Thank you for the opportunity to participate in the care of this patient. Génesis Castillo PT, DPT, CLT [facility] [place], [place]
[2022-08-03] MEDS: LORazepam 2 MG/ML VIAL 0.5 MG IVP (09:50)
[2022-08-03] MEDS: MAGNESIUM SULFATE 1 GM/100 ML BAG IVPB (09:51)
--- NOTE | 2022-08-03 10:42 | INITIAL_ITS ---
- If Service Date Differs Date of service: 08/03/22 Time of Service: 10:42 Care Management Initial Assess REASON FOR HOSPITALIZATION:: Alcohol Withdrawal, Failure to Thrive, Acute on Chronic Pain. PAST MEDICAL HISTORY/PAST SURGICAL HISTORY:: All Active Problems: Tobacco dependence (Acute), Incontinence (Acute),. Nail dystrophy (Acute), Generalized weakness (Acute), Well adult (Acute),. White coat syndrome with hypertension (Acute), DVT prophylaxis (Acute),. COPD (chronic obstructive pulmonary disease) (Chronic) - a. Ongoing tobacco abuse, Alcoholism (Chronic ~01/2014) - a. Drinks at least 6 beers per day on a regular basis, and Contusion of pelvis (Acute). Medical History: Alcohol withdrawal delirium, Fracture of femoral neck, left - a. S/P left total knee arthroplast, 01/26/[address] Mendoza, and History of neck fracture - a. Left-sided weakness. b. On SSI disability. Surgical History: History of cervical spinal arthrodesis, and History of total left hip arthroplasty (01/26/14) - left total hip arthroplasty; Dr. Riaz Mendoza, N.V.R .H. after fall and hip fracture. PREVIOUS FUNCTIONAL STATUS/SOCIAL/FAMILY SUPPORTS:: Kaleb resides alone in [facility]. He is on disability and has been receiving SSI for many years. He has a long history of alcohol use and is not currently interested in decreasing the amount of alcohol he consumes on a daily basis. Reports drinking approximately 6 beers per day. His son Jagdish Prince and brother Kelvin Prince are his next of kin. CURRENT FUNCTIONAL STATUS:: Kevin is lying in bed when CM comes to meet with him. He appears weak and tired. While he does answer questions asked of him, his speech is soft and at times difficult to understand. CM asks Kevin if he might be interested in going to a rehab center to regain some strength, to which he replies he would like some time to think about it. CM will continue to follow. ADVANCE DIRECTIVES:: Appointment of a Health Care Agent on file; son Jagdish Prince is appointed as HCA and brother Kelvin Prince as alternate. Has patient been provided with info about the portal/API?: No Did the patient sign up for the portal?: No CODE STATUS:: Full Code INSURANCE COVERAGE / FINANCIAL ISSUES:: Medicaid. (Application for overhauler Medicaid completed during last inpatient hospitalization but still being processed). CURRENT HOME/COMMUNITY SERVICES/EQUIPMENT:: Palliative Care, MOWS, [facility] Moderate Needs - Peggy Myles is case worker, and HH RN, PT, OT, COMPUTER NUMERICAL CONTROL GRINDER. Has a tub seat, hand held shower and FWW. PRIMARY CARE PHYSICIAN:: Juan Diego Luna MD. POTENTIAL DISCHARGE NEEDS:: Follow up appointment with PCP, Boat Motor Mechanic, and resumption of HH RN, PT, OT and COMPUTER NUMERICAL CONTROL GRINDER services. PATIENT/FAMILY EDUCATION NEEDS:: Review discharge instructions and discuss Ask Me Three. ANTICIPATED BARRIERS TO DISCHARGE:: Generalized weakness and inability to care for himself at home. TRANSPORTATION:: Via private vehicle with friend or family vs. RCT coordinated by CM. PLAN:: Kaleb will likely be discharged home with a resumption of HH services when medically cleared by provider. He will follow up with his PCP, community services and plan of care as prescribed. He will be transported home via private vehicle by a friend/family vs RCT coordinated by CM when ready. CM will continue to follow. Readmission - Within the Past 30 Days Yes or No: Y - Date of First Admission Date of 1st Admission: 07/08/22 - Date of this Admission Date of Admission: 08/03/22 This admission was: Through ED - Office Visit Since 1st Admission Have you seen your PCP in the office since discharge?: Yes Date of PCP Appointment: 07/25/2022 Had an appointment Been Scheduled?: Yes Date of Scheduled Appointment: 07/25/2022 - Speicalist Appointments Have you seen any other specialist since your 1st Admission?: No - I. Interview patient and/or Family Difficulty reaching your doctor or getting an office appt?: No Have you had trouble purchasing/ or taking medication?: No How do you take your medications and set up your pills?: Patient says he takes his medications as prescribed directly out of the pill bottles they are dispensed in. Have you had trouble with getting meals at home?: No Describe your typical meals since you have been home: Gets MOWs. Did you feel ready for discharge when you left the last time: Yes Were services received that you thought were set up on disch: Yes What services were received?: HH RN and COMPUTER NUMERICAL CONTROL GRINDER. PT and OT were ordered but not yet started. Did you call your physician beore you came to the ED?: No How do you think you became sick enough to come back?: Pain in hips and lower back got worse. - Ask the Care Team Members: What do you think caused the patient to be readmitted: Failure to thrive secondary to alcohol abuse and malnutrition. - ED visits How many ED visits in the past 12 months: 3 - Assessment for Readmission Summary of readmission circumstances, based upon interviews: Patient is deconditioned and experiencing worsening generalized weakness sec ondary to his ongoing alcohol use and malnutrition.
[2022-08-03] MEDS: PHENobarbital 150 MG in Normal Saline 50 ML 100 MG IVPB (12:25)
[2022-08-03] MEDS: Normal Saline Flush 10 ML SYR IVP (12:35)
--- NOTE | 2022-08-03 13:28 | HPE_ITS ---
Date of service: 08/03/22 Time of Service: 13:28 Assessment and Plan Assessment and plan (1) Ambulatory dysfunction: Status: Acute Assessment and plan: He has a chronic ambulatory deficit affecting his left side secondary to previous C-spine fx. Will have PT evaluate. He was given a dose of ketorolac and baclofen in the ED He does not use any chronic pain meds at home. He does have some increased bleeding risk given his alcohol abuse, but he has no know varices and platelets are normal. Consider a short course of Celebrex. (2) Adult failure to thrive: Status: Acute Assessment and plan: Related to Etoh abuse disorder. Vitamin supplementation including thiamine and folate. (3) Alcohol abuse: Status: Chronic Assessment and plan: CIWA monitoring. Phenobarbitol loading dose being administered, then prn dosing. Vitamins as above. (4) COPD (chronic obstructive pulmonary disease): Status: Chronic Assessment and plan: Cont home prn albuterol and Anoro Ellipta. NO acute exacerbation. (5) Hypomagnesemia: Status: Acute Assessment and plan: Related to poor nutritional status secondary to alcohol use. Replete and monitor. History of Present Illness History of Present Illness Chief Complaint: Generalized weakness Narrative: This is a 61 yo male with a PMH of alcohol abuse disorder, COPD, tobacco abuse disorder, adult failure to thrive, distant past c-spine fx and fusion with residual left handed weakness. He presented via EMS with 2 days of worsening malaise and weakness. He endorsed only getting up from the couch on 3 occasions to get a beer, otherwise to weak to ambulate. He does use a walker. No fever/chills/CP/palpitations/N/V/abd pain. He was afebrile, pulse of 104 RR 16 BP 154/93 RA O2 saturation of 98%. Lab: WBC 11.06. Hgb 15.1. Na 129. K 3.8. BUN 3. Cr 0.4. Mg 1.7. Blood Etoh level 41.2 He was given a dose of IV lorazepam in the ED. Mg was replaced in the ED. Phenobarbitol alcohol withdrawal protocol initiated. Of note. he was admitted to [facility] on 07/08 for hyponatremia and urinary rete ntion. Review of Systems All systems reviewed & are unremarkable except as noted in HPI and below PFSH All Active Problems (Updated 08/03/22 @ 14:16 by Hesham Mancia MD) Hypomagnesemia (Acute) Ambulatory dysfunction (Acute) Adult failure to thrive (Acute) Alcohol abuse (Chronic) Tobacco dependence (Acute) Incontinence (Acute) Nail dystrophy (Acute) Generalized weakness (Acute) Well adult (Acute) White coat syndrome with hypertension (Acute) DVT prophylaxis (Acute) COPD (chronic obstructive pulmonary disease) (Chronic) a. Ongoing tobacco abuse. Alcoholism (Chronic ~01/2014) a. Drinks at least 6 beers per day on a regular basis. Contusion of pelvis (Acute) Medical History Alcohol withdrawal delirium Arterial vascular disease Fracture of femoral neck, left a. S/P left total knee arthroplast, 01/26/[address] Mendoza. History of neck fracture a. Left-sided weakness. b. On SSI disability. Pain, foot Tendinitis involving left hip abductors Surgical History History of cervical spinal arthrodesis History of total left hip arthroplasty (01/26/14) left total hip arthroplasty; Dr. Riaz Mendoza, N.V.R.H. after fall and hip fracture Social History Smoking/Tobacco Use Status: Current every day Tobacco Type: cigarettes Smoking risk assessment performed?: Yes Alcohol Intake: current Alcohol Intake frequency: 3 or more drinks per day Alcohol type: beer Drug use: Never Do you feel safe in your relationship?: Yes Meds Allergies and Home Medications Allergies Allergy/AdvReac Type Severity Reaction Status Date / Time ENVIRONMENTAL/POLLEN Allergy CONGESTION, Uncoded 08/03/22 03:09 WATERY EYES, RUNNY NOSE Home Medications Medication Instructions Recorded Confirmed Type acetaminophen 325 mg tablet 325 - 650 mg PO Q4H PRN PRN #0 tabs 08/16/20 08/03/22 Rx (Tylenol) Inhaler, Assist Devices [Pocket 1 ea miscellaneous DIRECTED ##0 07/17/22 08/03/22 Rx Chamber] albuterol sulfate 90 mcg/actuation 2 puff inhalation Q2H PRN PRN #6.7 07/17/22 08/03/22 Rx aerosol inhaler (Ventolin HFA) grams baclofen 10 mg tablet 10 mg PO TID PRN neck pain #10 tabs 07/25/22 08/03/22 Rx diaper,brief,adult,disposable #60 ea 07/25/22 08/03/22 Rx umeclidinium 62.5 mcg-vilanterol 1 inh inhalation DAILY #60 ea 07/25/22 08/03/22 Rx 25 mcg/actuation powdr for inhalation (Anoro Ellipta) Exam Narrative Exam Narrative: Sleeping supine. Arouses to light touch but remains very sleepy. Const General: no acute distress Nutritional Appearance: thin Eyes General: appearance normal, both eyes and all related structures Sclera: sclerae normal Resp Effort & Inspection: normal respiratory effort Auscultation: clear to auscultation bilaterally Cardio Rate: regular rate Rhythm: regular rhythm Heart Sounds: S1 normal and S2 normal GI Inspection: non-distended Palpation: soft and nontender Skin General skin exam: no rashes or lesions noted Extrem General: no pedal edema and no calf tenderness Results Labs Result diagrams: 08/03/22 03:57 08/03/22 03:57 Labs: Laboratory Results - last 24 hr 08/03/22 08/03/22 08/03/22 03:38 03:57 03:57 WBC RBC Hgb Hct MCV MCH MCHC RDW Plt Count MPV Immature Gran % Neutrophils % Lymphocytes % Monocytes % Eosinophils % Basophils % Nucleated RBC % Absolute Neutrophils Absolute Lymphocytes Absolute Monocytes Absolute Eosinophils Absolute Basophils Sodium 129 L Potassium 3.8 Chloride 90 L Carbon Dioxide 30.2 Anion Gap 8.8 BUN 3 L Creatinine 0.4 L Est GFR (CKD-EPI 2020) 122.60 Glucose 95 Calcium 9.1 Magnesium 1.7 L Total Bilirubin 0.9 AST 23 ALT 17 Alkaline Phosphatase 126 H Creatine Kinase 74 Total Protein 8.6 H Albumin 3.7 Urine Color Urine Clarity Urine pH Ur Specific [place] Urine Protein Urine Ketones Urine Blood Urine Nitrite Urine Bilirubin Urine Urobilinogen Ur Leukocyte Esterase Urine Glucose Ethyl Alcohol 41.2 H COVID-19 Source Nasopharynx SARS-CoV-2 (PCR) Negative Influenza Type A (PCR) Negative Influenza Type B (PCR) Negative RSV (PCR) Negative 08/03/22 08/03/22 03:57 06:37 WBC 11.06 H RBC 4.65 Hgb 15.1 Hct 43.4 MCV 93 MCH 32.5 MCHC 34.8 RDW 12.7 Plt Count 325 MPV 8.5 Immature Gran % 0.3 Neutrophils % 58.1 Lymphocytes % 27.6 Monocytes % 12.2 Eosinophils % 1.4 Basophils % 0.4 Nucleated RBC % 0.0 Absolute Neutrophils 6.43 Absolute Lymphocytes 3.05 Absolute Monocytes 1.35 H Absolute Eosinophils 0.15 Absolute Basophils 0.04 Sodium Potassium Chloride Carbon Dioxide Anion Gap BUN Creatinine Est GFR (CKD-EPI 2020) Glucose Calcium Magnesium Total Bilirubin AST ALT Alkaline Phosphatase Creatine Kinase Total Protein Albumin Urine Color Yellow Urine Clarity Clear Urine pH 6.5 Ur Specific [place] 1.010 Urine Protein Negative Urine Ketones Negative Urine Blood Negative Urine Nitrite Negative Urine Bilirubin Negative Urine Urobilinogen 0.2 Ur Leukocyte Esterase Negative Urine Glucose Negative Ethyl Alcohol COVID-19 Source SARS-CoV-2 (PCR) Influenza Type A (PCR) Influenza Type B (PCR) RSV (PCR) Last Vital Signs Temp 37.1 C 08/03/22 12:15 Pulse 105 H 08/03/22 12:15 Resp 22 08/03/22 12:15 BP 116/72 08/03/22 12:15 Pulse Ox 96 08/03/22 12:15
[2022-08-03] MEDS: Heparin 5,000 UNITS/ML VIAL 5000 UNITS SC ×2 (13:44→22:41)
[2022-08-03] MEDS: Acetaminophen 325 MG TAB PO (19:23)
[2022-08-03] MEDS: Magnesium Oxide 400 MG TAB 800 MG PO (19:23)
[2022-08-03] MEDS: Albuterol 2.5 MG/3 ML INH SOLN VIAL UPD ×2 (19:26→22:41)
[2022-08-04 02:45] VITALS: BP 102/57; PULSE 80; RESP 18; TEMP 37.7; O2SAT 95
[2022-08-04] MEDS: Normal Saline 1,000 ML 150 ML IV ×3 (02:54→23:06)
[2022-08-04] MEDS: Acetaminophen 325 MG TAB PO (06:13)
[2022-08-04] MEDS: Heparin 5,000 UNITS/ML VIAL 5000 UNITS SC ×3 (06:13→21:12)
[2022-08-04 06:27] LABS: Abs Immature Grans 0.04 10^3/uL (0.0-0.06); Absolute Basophil Count 0.02 10^3/uL (0.0-0.2); Absolute Eosinophil Count 0.08 10^3/uL (0.0-0.7); Absolute Lymphocyte Count 3.03 10^3/uL (1.2-3.4); Absolute Monocyte Count 1.15 10^3/uL (0.1-0.8); Absolute Neutrophil Count 6.46 10^3/uL (1.2-6.7); Basophils % 0.2; Eosinophils % 0.7; HCT 32.1 % (40.0-50.0); HGB 10.8 g/dL (13.5-17.5); Immature Grans % 0.4; Lymphocytes % 28.1; MCH 32.7 pg (27.0-33.0); MCHC 33.6 % (32.0-36.0); MCV 97 fL (80-95); MPV 8.9 fL (8.0-11.0); Monocytes % 10.7; Neutrophils % 59.9; Platelet Count 208 10^3/uL (130-400); RDW 13.2 % (11.8-14.1); RDW-SD 47.1 fL; WBC 10.78 10^3/uL (4.4-10.8)
[2022-08-04] MEDS: Albuterol 2.5 MG/3 ML INH SOLN VIAL UPD ×2 (06:32→23:24)
[2022-08-04 06:43] VITALS: BP 123/67; PULSE 80; RESP 17; RESP 4; TEMP 37.5; O2SAT 96
[2022-08-04 06:43] LABS: ALT 11 U/L (16-63); AST 20 U/L (15-37); Albumin 2.3 g/dL (3.4-5.0); Alkaline Phosphatase 77 U/L (46-116); Anion Gap 4.9 mmol/L (3-11); BUN 4 mg/dL (7-18); Bilirubin, Total 0.6 mg/dL (0.2-1.0); CO2 27.1 mmol/L (21.0-32.0); CREATININE 0.4 mg/dL (0.70-1.30); Calcium 7.7 mg/dL (8.5-10.1); Chloride 102 mmol/L (98-107); Glucose 129 mg/dL (74-106); Magnesium 1.6 mg/dL (1.8-2.4); Potassium 3.3 mmol/L (3.5-5.1); Sodium 134 mmol/L (136-145); Total Protein 5.6 g/dL (6.4-8.2)
[2022-08-04] MEDS: Tiotropium/Olodaterol 10 PUFF INHALER IH (07:45)
[2022-08-04] MEDS: Thiamine 100 MG TAB PO (08:23)
[2022-08-04] MEDS: Magnesium Oxide 400 MG TAB 800 MG PO ×2 (08:23→21:08)
[2022-08-04] MEDS: Folic Acid 1 MG TAB PO (08:24)
[2022-08-04] MEDS: Multivitamin TAB 1 TAB PO (08:24)
[2022-08-04] MEDS: MAGNESIUM SULFATE 2 GM/50 ML BAG IVPB (08:51)
[2022-08-04] MEDS: POTASSIUM CHLORIDE 20 MEQ/100 ML BAG 50 MEQ IVPB ×2 (08:53→11:58)
--- NOTE | 2022-08-04 09:25 | PDOC.CMPRO ---
- If Service Date Differs Date of service: 08/04/22 Time of Service: 09:25 Care Management Progress Note S/O: Kaleb was sitting up in bed when CM met with him. He stated that he is not doing great at home, but wishes to return home as soon as he can get in and out of bed and ambulate on his own. CM discussed SNF with him, and he is open to referrals being sent as a last resort. CM will send referrals to SNF's throughout [place] and bordering [place] SNF's, at his request. Kevin had a wound consult today, which he reported was painful. He states that he is motivated to get home. He has support from his case checker, Peggy Myles, as he has [facility] moderate needs, and has housekeepers 3x/week for 2hrs each time. He also has support from [facility], [facility], and . CM will continue to follow. A: Kaleb is a 61 year old male admitted to [facility] on 08/03/22 with alcohol withdrawal, failure to thrive. P: Kaleb will likely be discharged home with a resumption of services when medically cleared by provider. He will follow up with his PCP, community services and plan of care as prescribed. He will be transported home via private vehicle by a friend/family vs RCT coordinated by CM when ready. CM will continue to follow.
--- NOTE | 2022-08-04 10:27 | IN_ITS ---
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 Hesham Mancia? PT Orders: PT CONSULT: Eval/Treat Precautions: Fall. Standard. Activity as tolerated. Patient Profile/Admitting Diagnosis:? Hesham was initially seen at the ED yesterday for PT evaluation and is admitted to the med surg unit for management of admitting diagnoses above. He is a 61-year-old male who presented to the ED on with diagnosis of EtOH abuse, muscle spasms, chronic pain, hyponatremia, and hypomagnesemia. PMHX: All Active Problems?(Updated 08/03/22 @ 05:22 by Arslan Herrmann MD) Tobacco dependence (Acute) Incontinence (Acute) Nail dystrophy (Acute) Generalized weakness (Acute) Well adult (Acute) White coat syndrome with hypertension (Acute) DVT prophylaxis (Acute) COPD (chronic obstructive pulmonary disease) (Chronic) a. Ongoing tobacco abuse.Alcoholism (Chronic ~01/2014) b. Drinks at least 6 beers per day on a regular basis.Contusion of pelvis (Acute) Medical History? Alcohol withdrawal delirium Fracture of femoral neck, left a. S/P left total knee arthroplast, 01/26/[address] Mendoza.History of? neck fracture a. Left-sided weakness. b. On SSI disability. Surgical History? History of cervical spinal arthrodesis History of total left hip arthroplasty (01/26/14) left total hip arthroplasty; Dr. Riaz Mendoza, N.V.R.H. after fall and hip fracture Social History/Home Situation: Kaleb states that he lives in a home which he shares with other tenants. He however emphasizes that he will not have the support of any of these tenants as he states he is on his own. He is independent using a 4-wheeled walker for all indoor ambulation.? He states that he rides the taxi for all his community errands.? He gets Meals on Wheels every day; gets Sunday and Sunday meals on Fridays.? Has 1 step to get into the house without rails. Equipment Owned/DME: 4WW, raised toilet seat Subjective: Kaleb reports that his spasms and his left leg has really worsened and have been limiting him.? He still has not bought the recliner he was meaning to buy and continues to struggle getting up from a very low, very worn out couch in his living room.? He reports feeling weak and unstable,? unsure of whether he can manage home on his own in this state.? Nurse Claudia indicated that patient may be starting to withdraw as his BP are in the high 180s/110 mmHg.? Adds that he could not straighten both knees due to pain level of 7-8/10 in B legs and feet with left more affected.? Denies having fallen since discharge from this hopsitla to home on 07/17/2022. Objective: General Observation: Supine in bed.?IV through R UE. Soft blue heel off-loading booties in place on B sides. Guerrero catheter in place. Atrophy of L UE and L LE hip/knee major muscle groups due to pre-existing chronic weakness related to previous spinal surgery. Mental Status: Alert and oriented x 4 Pain: Pain in gluteal area at about 5-6/10 ROM: Right Upper Extremity: ? Shoulder Flexion WFL. Shoulder abduction WFL. Elbow flexion WFL. Wrist flexion WFL. Opening and closing of hand WFL. Left Upper Extremity:? Shoulder Flexion allows up to 90 degrees only. Shoulder abduction allows up to 90 degrees only. Elbow flexion WFL. Wrist flexion WFL. Opening and closing of hand WFL. Right Lower Extremity: Hip flexion WFL. Hip abduction WFL. Knee flexion WFL.? Knee extension -20 degrees.? Ankle dorsiflexion WFL. Ankle plantarflexion WFL. Left Lower Extremity: Hip flexion lacks the last 25% of AROM due to chronic weak ness and pain. Hip abduction aloows only up to 20 degrees, gravity-eliminated. Knee flexion WFL.? Knee extension -30 degrees.? Ankle dorsiflexion WFL. Ankle plantarflexion WFL. Strength: Right Upper Extremity: Shoulder flexors 4-/5. Shoulder abductors 4-/5. Elbow flexors 4-/5. Elbow extensors 4-/5. Route Sales Associate strong. Left Upper Extremity: Shoulder flexors 3-/5. Shoulder abductors 3-/5. Elbow flexors 4-/5. Elbow extensors 3-/5. Route Sales Associate weak but functional. Right Lower Extremity: Hip flexors 4-/5. Hip abductors 4-/5. Knee flexors 4-/5. Knee extensors 3-/5. Ankle dorsiflexors 4-/5 Ankle plantarflexors 4-/5. Left Lower Extremity:Hip flexors 3-/5. Hip abductors 3-/5. Knee flexors 3-/5. Knee extensors 3-/5. Ankle dorsiflexors 4-/5. Ankle plantarflexors 4-/5. Sensation: Intact as to pain and pressure on bilateral lower extremities. Bed Mobility/Transfers: Supine to sit minimal assist Sit to stand minimal assist Bed to toilet seat minimal assist GAIT? Small asymmetric steps from bedside to toilet commode ?of about 12 steps x 2 using front-wheeled walker and minimal assist.? Trunk bent, no full extension to B knees throughout the short walk.? Balance: Static Sitting: Good Dynamic Sitting: Good Static Standing: Fair Dynamic Standing: Poor Special Tests: Mobility Limitations Standardized Measure [facility] 6 clicks Basic Mobility Inpatient Short Form: Raw Score: 12 ? CMS Score: ? 69% deficit? Informed Consent/Education: Patient was instructed in purpose of PT consult and plan of care. Agreeable to proceed with established PT POC to achieve personal goals. Assessment: Requires assistance of 1 person to transfer using FWW.? Ambulation very limited due to pain and spasms in B LE.? High risk for re-hospitalization and poor ability to thrive at home safely due to ETOH abuse complications,? functional mobility decline, and ongoing pain issues. Patient continues to present with clinical signs and symptoms consistent with current/admitting diagnoses that have resulted to mobility limitations, gait instability, generalized weakness, and impairment of motor control as demonstrated by the following impairment level findings: 1.? Decreased strength to B UE/LE major muscle groups with L more affected than R 2.? Impaired standing balance 3.? Impaired activity tolerance 4.? Limitation of joint range of motion in left hip and knee 5.? Chronic left-sided weakness 6.? Pain in B LE with L more affected Impairments are contributing to the following functional limitations: 1.? Inability to safely ambulate without assistive device 2.? Increase completion time for mobility ADL performance 3.? Increased fall risk 4.? Inability to negotiate steps alone safely Patient is assessed as a 30114 moderate complexity based on the following: History: 59-year-old male with impairment level findings, functional limitations, and past medical history as indicated above Examination: Demonstrable impairment in strength, balance, and mobility level with underlying impairments and functional limitations as documented above Presentation:Evolving Decision Makin moderate complexity Goals X1 week 1. Supine-Sit independent 2. Sit-Supine independent 3. Sit-Stand independent 4. Stand-Sit independent with 4WW 5. Bed-Chair independent with 4WW 6. Chair-Bed independent with 4WW 7. Independent gait on level surface with use of 4WW for at least 100 feet without report of pain nor dyspnea 8. Independent stair negotiation while holding onto B rails for at least 3 steps without report of pain nor dyspnea 9. Independent with home exercise program 10. Good static and dynamic standing balance/tolerance Plan of Care/Treatment Plan: 1-2x/day, 7 days/week x 1 week. Plan of care has been reviewed with the KILN FIREMAN providing the service under Physical Therapy direction. Initiate Physical Therapy intervention for pain management as needed, strengthening, bed mobility, transfers, gait, stairs, balance training, and use of assistive device. DISCHARGE RECOMMENDATIONS: [] Home with no services [] [] Home with services [specify] [] Home with outpatient PT [] [X] SNF for continued rehabilitation. Recommend short-term shelter facility placement for continued skilled physical therapy services in order to progress mobility level, strength, and balance in preparation for a safe discharge to home. [] [facility] [] [] SNF versus LTC based on ability to participate and progress [] TREATMENT CODE/TIME: 48604 x 25 minutes beginning at 10:27 AM. Thank you for the opportunity to participate in the care of this patient. Génesis Castillo PT, DPT, CLT [facility], [place]
[2022-08-04 11:07] VITALS: BP 113/66; PULSE 94; RESP 16; TEMP 37.1; O2SAT 96
[2022-08-04] MEDS: MORPHine 4 MG/ML SYR IVP (11:35)
[2022-08-04] MEDS: Normal Saline 50 ML 200 ML IV (11:59)
[2022-08-04 15:10] VITALS: BP 116/69; PULSE 89; RESP 22; TEMP 37.5; O2SAT 92
--- NOTE | 2022-08-04 15:54 | WOUNDCONS ---
- If Service Date Differs Date of service: 08/04/22 Time of Service: 12:00 Wound Initial Evaluation Narrative: Patient admitted for Hypomagnesemia, Ambulatory dysfunction, Adult failure to thrive, Alcohol abuse (Chronic). Patient also has a history of COPD, Alcohol withdrawal delirium, Arterial vascular disease, Fracture of left femoral neck, left total knee arthroplasty, neck fracture. Patient frequently admitted in unkept condition. Is incontinent at home. Per family, patient frequently chooses to buy alcohol over food. His legs and feet are improved since last admission but skin remains dry and flaky. Patient spends most of his time in his chair. WBC down to 10.78 from 11.06 H&H 10.8, 32.1 Na up to 134 from 129 Potassium 3.3 Magnesium 1.6 Albumin 2.3 Alcohol level on arrival 41.2 Body Four View: 1 - red sheer injury - Wound sacrum Wound Type: Other, Partial Thickness Wound General Appearance: Reddened, Blackened (Brown escar edges), Draining, Bleeding, Unapproximated Wound Bed Greatest Portion: Red (Granulation) Wound Bed Lesser Portion: Other (brown edges) Wound Surrounding Tissue Appearance: [place] Percent of Wound Bed Granulated/Red: 75 Percent of Wound Bed Slough/Yellow: 25 (brown crusty) Wound Length: 2.83 in (7.2 cm) Wound Width: 2.36 in (6 cm) Wound Depth: 0.04 in (0.1cm) Wound Drainage Amount: Moderate Wound Drainage Odor: None/Absent Wound Drainage Description: Serous Wound Topical Solution/Irrigant: Saline Irrigant (C/o burning with the anasept cleanser, NS used), Other Wound Debridement Method: Gauze, Other (Pt unable to tolerate debrisoft or gauze) Wound Debridement Result: Pt Unable to Tolerate Wound Debridement Amount of Tissue Removed: Minimal Additional Other Comments: Pt was premedicated with 4mg of IV morphine. - Pain Pain Level: 10 Pain Scale Used: Adult Pain Description: Burning Pain Duration (Hours): 0.5 (constant, intensifies to a 10 with touch) Pain Duration/Frequency: Constant Wound on bilateral buttocks with sheer appearance. Pt sits in his chair most of the time. Wound with pink vascular centers but brown crusty edges. Attempted to remove crust but pt was not able to tolerate despite premedication. Discussed with pt the importance of keeping the head of the bed below 45 degrees to avoid sliding down in the bed causing more sheer injury. Pt states he has to have his head up. Advised to keep knees elevated while in bed by raising the foot of the bed or with the use of pillows. Advised to turn side to side at least every 2 hours and to avoid being on his back. Also discussed the importance of high protein intake such as meat or eggs to aid in the healing process. - Photo Photo: - Treatment/Dressing Change Topicals/Ointments: Anasept Gel Cleanse With: Saline Dressing Types: Mepilex w/Border Dressing Comment: Use skin prep on intact edges of wound. Additional Other Comments: Heels and ankles have areas of redness. Bulky foam boots applied. - Nutrition Education Reviewed Nutrition Education: Yes Note: Advised to eat high protein such as meat or eggs or protein shakes to help with healing. - Recomendation Recomendation:: 1. Premedicate patient as needed. 2. Cleanse the wound with normal saline. Use debrisoft sponge or gauze to remove wound debris. 3. Apply a janie size layer of Anasept gel over the wound bed and wound edges. 4. Apply skin prep to outside area of the wound edges. 5. Apply Mepilex sacrum with border. 6. Change daily and prn. Keep HOB below 45 degrees except for meals. Reposition pt side to side at least every 2 hours. Avoid supine position. Raise the foot of the bed to help reduce sliding down in bed. Use a pull sheet for repositioning. Keep foam boots on bilateral feet. Apply lubriderm lotion to lower extremities daily. Physcian/Nurse Practioner Notified: Yes Referrals: Dietary (High protein intake.) Treatment Time - Time Total Time Spent with Patient: 30 minutes - Patient Will be Seen Weekly Treatment: daily - For: For:: 2 weeks
--- NOTE | 2022-08-04 17:53 | W.PM.PROGNOT ---
Date of Service Date of service: 08/04/22 Time of Service: 17:53 Assessment and Plan Assessment and plan (1) Ambulatory dysfunction: Status: Acute Assessment and plan: Continue to work with PT. Lenin pimentel. (2) Adult failure to thrive: Status: Acute Assessment and plan: Agree that this is related to EtOH consumption. Continue vitamins. Already has meals on wheels at home. (3) Alcohol abuse: Status: Chronic Assessment and plan: Not showing signs of EtOH w/d. S/p partial phenobarb loading. Continue to monitor for EtOH w/d. Thiamine/vitamins as above. (4) COPD (chronic obstructive pulmonary disease): Status: Chronic Assessment and plan: Not in acute exacerbation. Continue home inhalers. (5) Hypomagnesemia: Status: Acute Assessment and plan: Replete and recheck in am. (6) Hypokalemia: Status: Acute Assessment and plan: Replete and recheck in am (7) Sacral decubitus ulcer, stage III: Status: Acute Assessment and plan: Wound care consulted. (8) DVT prophylaxis: Status: Acute Assessment and plan: SC heparin (9) Discharge planning issues: Status: Acute Assessment and plan: Full code Continues to require hospitalization Subjective Subjective Interval history since last seen: Mr Prince states that he has been incontinent of both bowel and bladder. This makes him feel like . He denies dizziness, chest pain, shortness of breath. He is not nauseated. He does report abdominal cramps from trying to hold back. We (myself and the LNAs at bedside) did emphasize that he needed to let us know if he needed to have a BM and we would provide a bed pen. He refuses a valentin catheter but agrees to continued use of a [place] catheter. Objective Last Vital Signs Temp 37.5 C 08/04/22 15:10 Pulse 89 08/04/22 15:10 Resp 22 08/04/22 15:10 BP 116/69 08/04/22 15:10 Pulse Ox 92 08/04/22 15:10 Laboratory Results - last 24 hr 08/04/22 08/04/22 06:18 06:18 WBC 10.78 RBC 3.30 L Hgb 10.8 L D Hct 32.1 L MCV 97 H D MCH 32.7 MCHC 33.6 RDW 13.2 Plt Count 208 MPV 8.9 Immature Gran % 0.4 Neutrophils % 59.9 Lymphocytes % 28.1 Monocytes % 10.7 Eosinophils % 0.7 Basophils % 0.2 Nucleated RBC % 0.0 Absolute Neutrophils 6.46 Absolute Lymphocytes 3.03 Absolute Monocytes 1.15 H Absolute Eosinophils 0.08 Absolute Basophils 0.02 Sodium 134 L Potassium 3.3 L Chloride 102 Carbon Dioxide 27.1 Anion Gap 4.9 BUN 4 L Creatinine 0.4 L Est GFR (CKD-EPI 2020) 122.60 Glucose 129 H Calcium 7.7 L Magnesium 1.6 L Total Bilirubin 0.6 AST 20 ALT 11 L Alkaline Phosphatase 77 Total Protein 5.6 L Albumin 2.3 L
[2022-08-04 19:40] VITALS: BP 120/61; PULSE 89; RESP 20; TEMP 37.1; O2SAT 94
[2022-08-04 23:18] VITALS: BP 124/62; PULSE 80; RESP 20; TEMP 37.5; O2SAT 93
[2022-08-05 03:13] VITALS: BP 138/67; PULSE 76; RESP 20; TEMP 37.2; O2SAT 97
[2022-08-05] MEDS: Normal Saline 1,000 ML 150 ML IV ×2 (05:33→12:49)
[2022-08-05] MEDS: Heparin 5,000 UNITS/ML VIAL 5000 UNITS SC ×3 (06:23→20:44)
[2022-08-05 06:43] VITALS: BP 133/75; PULSE 76; RESP 16; TEMP 36.8; O2SAT 97
[2022-08-05 07:23] LABS: ALT 16 U/L (16-63); AST 21 U/L (15-37); Albumin 2.6 g/dL (3.4-5.0); Alkaline Phosphatase 75 U/L (46-116); BUN 3 mg/dL (7-18); Bilirubin, Direct 0.2 mg/dL (0.0-0.2); Bilirubin, Total 0.5 mg/dL (0.2-1.0); CREATININE 0.3 mg/dL (0.70-1.30); Chloride 99 mmol/L (98-107); Estimated GFR 133.73 (mL/min/1.73m2); Glucose 99 mg/dL (74-106); Magnesium 1.7 mg/dL (1.8-2.4); PHOSPHORUS 3.8 mg/dL (2.6-4.7); Potassium 3.9 mmol/L (3.5-5.1); Sodium 132 mmol/L (136-145); Total Protein 6.3 g/dL (6.4-8.2)
[2022-08-05] MEDS: Multivitamin TAB 1 TAB PO (07:49)
[2022-08-05] MEDS: Magnesium Oxide 400 MG TAB 800 MG PO ×2 (07:49→20:44)
[2022-08-05] MEDS: Thiamine 100 MG TAB PO (07:49)
[2022-08-05] MEDS: Folic Acid 1 MG TAB PO (07:49)
[2022-08-05] MEDS: MAGNESIUM SULFATE 2 GM/50 ML BAG IVPB (08:43)
[2022-08-05] MEDS: Tiotropium/Olodaterol 10 PUFF INHALER IH (08:48)
--- NOTE | 2022-08-05 10:59 | PT.INTREAT ---
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 He reports that he is feeling just a little better, but states I have a long way to go. I'm not sure how much I can do. He also states I cannot get off of my couch when referring to how he's doing at home. OBJECTIVE: PAIN: No c/o pain BED MOBILITY/TRANSFERS Supine-sit: SBA with HOB at 30 degrees Sit-supine: I with HOB at 30 degrees Sit-stand: SBA with cueing for safety Stand-sit: SBA with cueing for safety GAIT Assistive Device: FWW Weight bearing: Full Assist: CGA-SBA Distance: 30' x2 Deviation: Chronic B knee flexion contracture, ataxic gait, seated rest THEREX: Patient was instructed in a LE strengthening program, completed at EOB, to include: ankle pumps, heel raises, LAQ, hip flexion and hip abduction. He demonstrates limited ROM due to chronic knee flexion contractures. ASSESSMENT: Patient tolerated session well, without complaint. He was able to tolerate a progression in gait distance with CGA-SBA, although with ataxic gait and with B knee flexion contractures. PLAN: Continue with gait training and general conditioning for improved safety with mobility. TREATMENT CODE/TIME: 26 minutes; 59183, [id number] (10:33)
[2022-08-05 11:33] VITALS: BP 130/76; PULSE 74; RESP 16; TEMP 36.9; O2SAT 96
--- NOTE | 2022-08-05 12:24 | W.NUTCONSULT ---
Date of service: 08/05/22 Time of Service: 12:25 Nutritional Consult ASSESSMENT: Mr. Prince presents with stage 3 sacral decubitus ulcer with excessive ETOH intake and sitting as contributing factors. He is 168 cm and 57 kg. His BMI is 20 which is WNL. His PO intake is excellent and his weight has been stable x several years. Mr. Prince was amenable to ordering a high protein lunch with a high protein shake. Estimated energy needs is 1440 kcal/day (REE x 1.1) Estimated protein needs are 86 g/day (1.5 g/kg/day) Estimated fluid needs 1700 ml/day (30 ml/kg/day) NUTRITIONAL DIAGNOSIS: Increased need for nutrients related to wounds. INTERVENTION: Will continue to assist Mr. Prince in choosing high calorie, high protein, nutrient dense meals with high protein shakes. Will offer him [place] supplements. Would consider additional Vitamin C and Zinc along with continuing the MVI. MONITORING AND EVALUATION: 1. Will monitor PO intake, weight, tolerance to diet and supps. 2. Will evaluate nutrition care plan ongoing and adjust as needed. Time Spent in Nutritional Counseling and Treatment: 15 minutes
[2022-08-05 16:07] VITALS: BP 152/82; PULSE 87; RESP 20; TEMP 36.9; O2SAT 96
--- NOTE | 2022-08-05 16:10 | W.PM.PROGNOT ---
Date of Service Date of service: 08/05/22 Time of Service: 16:10 Assessment and Plan Assessment and plan (1) Ambulatory dysfunction: Status: Acute Assessment and plan: Continue to work with PT. Replete magnesium. (2) Adult failure to thrive: Status: Acute Assessment and plan: Agree that this is related to EtOH consumption. Continue vitamins. Already has meals on wheels at home. D/c IVF. (3) Alcohol abuse: Status: Chronic Assessment and plan: Not showing signs of EtOH w/d. S/p partial phenobarb loading. Continue to monitor for EtOH w/d. Thiamine/vitamins as above. (4) COPD (chronic obstructive pulmonary disease): Status: Chronic Assessment and plan: Not in acute exacerbation. Continue home inhalers. (5) Hypomagnesemia: Status: Acute Assessment and plan: Replete and recheck in am. (6) Hypokalemia: Status: Resolved Assessment and plan: Recheck in am (7) Sacral decubitus ulcer, stage III: Status: Acute Assessment and plan: Continue wound care (8) DVT prophylaxis: Status: Acute Assessment and plan: SC heparin (9) Discharge planning issues: Status: Acute Assessment and plan: Full code Continues to require hospitalization PT recommends SNF on discharge. Subjective Subjective Interval history since last seen: Mr Prince states that he is feeling better today. He states that his buttocks do not hurt nearly as much. He worked with PT and did better today. He states he even walked. Per PT note, he was able to walk 30 feet twice while using a FWW. He denies dizziness, chest pain, shortness of breath, nausea, abdominal pain. He has been eating and drinking. Exam Narrative Exam Narrative: General: Pleasant middle-aged male who looks older than his stated age, frail HEENT: EOMI, MMM Heart: RRR, no m/r/g Lungs: CTAB Abdomen: soft, nontender, mildly distended Extremities: no edema BLEs Objective Last Vital Signs Temp 36.9 C 08/05/22 16:07 Pulse 87 08/05/22 16:07 Resp 20 08/05/22 16:07 BP 152/82 H 08/05/22 16:07 Pulse Ox 96 08/05/22 16:07 Laboratory Results - last 24 hr 08/05/22 06:38 Sodium 132 L Potassium 3.9 Chloride 99 Carbon Dioxide 29.0 Anion Gap 4.0 BUN 3 L Creatinine 0.3 L Est GFR (CKD-EPI 2020) 133.73 Glucose 99 Calcium 8.0 L Phosphorus 3.8 Magnesium 1.7 L Total Bilirubin 0.5 Conjugated Bilirubin 0.2 AST 21 ALT 16 Alkaline Phosphatase 75 Total Protein 6.3 L Albumin 2.6 L
[2022-08-05 20:11] VITALS: BP 140/66; PULSE 82; RESP 17; TEMP 36.8; O2SAT 93
[2022-08-05] MEDS: Ascorbic Acid 500 MG TAB PO (20:45)
[2022-08-05] MEDS: Albuterol HFA 8 GM 60 PUFF INH IH (20:45)
[2022-08-05] MEDS: MORPHine 4 MG/ML SYR IVP (20:47)
[2022-08-05] MEDS: Normal Saline Flush 10 ML SYR IVP (20:47)
[2022-08-05 23:23] VITALS: BP 134/69; PULSE 78; RESP 17; TEMP 36; O2SAT 95
[2022-08-06 03:26] VITALS: BP 123/71; PULSE 89; RESP 18; TEMP 35.8; O2SAT 95
[2022-08-06 06:16] LABS: Abs Immature Grans 0.04 10^3/uL (0.0-0.06); Absolute Basophil Count 0.03 10^3/uL (0.0-0.2); Absolute Eosinophil Count 0.31 10^3/uL (0.0-0.7); Absolute Lymphocyte Count 2.79 10^3/uL (1.2-3.4); Absolute Monocyte Count 1.03 10^3/uL (0.1-0.8); Absolute Neutrophil Count 3.94 10^3/uL (1.2-6.7); Basophils % 0.4; Eosinophils % 3.8; HCT 35.5 % (40.0-50.0); HGB 11.9 g/dL (13.5-17.5); Immature Grans % 0.5; Lymphocytes % 34.3; MCH 32.2 pg (27.0-33.0); MCHC 33.5 % (32.0-36.0); MCV 96 fL (80-95); MPV 8.9 fL (8.0-11.0); Monocytes % 12.7; Neutrophils % 48.3; Platelet Count 203 10^3/uL (130-400); RDW 13.2 % (11.8-14.1); WBC 8.14 10^3/uL (4.4-10.8)
[2022-08-06] MEDS: Heparin 5,000 UNITS/ML VIAL 5000 UNITS SC ×3 (06:20→22:22)
[2022-08-06 06:29] LABS: BUN 5 mg/dL (7-18); CREATININE 0.3 mg/dL (0.70-1.30); Calcium 8.3 mg/dL (8.5-10.1); Chloride 98 mmol/L (98-107); Estimated GFR 133.73 (mL/min/1.73m2); Glucose 102 mg/dL (74-106); Magnesium 1.8 mg/dL (1.8-2.4); Potassium 3.9 mmol/L (3.5-5.1); Sodium 131 mmol/L (136-145)
[2022-08-06 07:14] VITALS: BP 139/76; PULSE 68; RESP 18; TEMP 36.8; O2SAT 96
[2022-08-06] MEDS: Zinc Sulfate 220 MG TAB PO (08:18)
[2022-08-06] MEDS: Multivitamin TAB 1 TAB PO (08:18)
[2022-08-06] MEDS: Thiamine 100 MG TAB PO (08:18)
[2022-08-06] MEDS: Folic Acid 1 MG TAB PO (08:19)
[2022-08-06] MEDS: Ascorbic Acid 500 MG TAB PO ×2 (08:19→19:55)
[2022-08-06] MEDS: Magnesium Oxide 400 MG TAB 800 MG PO ×2 (08:19→19:55)
[2022-08-06] MEDS: Tiotropium/Olodaterol 10 PUFF INHALER IH (09:18)
--- NOTE | 2022-08-06 11:15 | W.PM.PROGNOT ---
Date of Service Date of service: 08/06/22 Time of Service: 11:15 Assessment and Plan Assessment and plan (1) Ambulatory dysfunction: Status: Acute Assessment and plan: Continue to work with PT. Replete magnesium. (2) Adult failure to thrive: Status: Acute Assessment and plan: Agree that this is related to ETOH consumption. Continue vitamins. Already has meals on wheels at home. (3) Alcohol abuse: Status: Chronic Assessment and plan: Not showing signs of ETOH w/d. D/C CIWA Thiamine/vitamins as above. (4) COPD (chronic obstructive pulmonary disease): Status: Chronic Assessment and plan: Not in acute exacerbation. Continue home inhalers. (5) Hypomagnesemia: Status: Acute Assessment and plan: Replete and recheck in am. (6) Hypokalemia: Status: Resolved Assessment and plan: Recheck in am (7) Sacral decubitus ulcer, stage III: Status: Acute Assessment and plan: Continue wound care (8) DVT prophylaxis: Status: Acute Assessment and plan: SC heparin (9) Discharge planning issues: Status: Acute Assessment and plan: Full code Continues to require hospitalization PT recommends SNF on discharge; patient in agreement with SNF Discussed with Dr Salomon Subjective Subjective Patient reports: no new complaints, still having pain, tolerating a regular diet, bowel movement and afebrile; denies diarrhea, nausea or vomiting Exam Const General: no acute distress Orientation: alert HENNH Head: normal to inspection Ears: external ears normal General nose exam: external nose normal Mouth: moist mucous membranes Eyes General: appearance normal, both eyes and all related structures Neck Neck: normal visual inspection Resp Effort & Inspection: normal respiratory effort and able to speak in complete sentences Cardio Rate: regular rate Skin General skin exam: no erythema Neuro General: patient alert and patient oriented x3 Extrem General: no joint enlargement Psych Mental Status: mental status grossly normal Objective Last Vital Signs Temp 36.8 C 08/06/22 07:14 Pulse 68 08/06/22 07:14 Resp 18 08/06/22 07:14 BP 139/76 08/06/22 07:14 Pulse Ox 96 08/06/22 07:14 Laboratory Results - last 24 hr 08/06/22 08/06/22 05:30 05:30 WBC 8.14 RBC 3.70 L Hgb 11.9 L Hct 35.5 L MCV 96 H MCH 32.2 MCHC 33.5 RDW 13.2 Plt Count 203 MPV 8.9 Immature Gran % 0.5 Neutrophils % 48.3 Lymphocytes % 34.3 Monocytes % 12.7 Eosinophils % 3.8 Basophils % 0.4 Nucleated RBC % 0.0 Absolute Neutrophils 3.94 Absolute Lymphocytes 2.79 Absolute Monocytes 1.03 H Absolute Eosinophils 0.31 Absolute Basophils 0.03 Sodium 131 L Potassium 3.9 Chloride 98 Carbon Dioxide 30.0 Anion Gap 3.0 BUN 5 L Creatinine 0.3 L Est GFR (CKD-EPI 2020) 133.73 Glucose 102 Calcium 8.3 L Magnesium 1.8
[2022-08-06 11:17] VITALS: BP 131/71; PULSE 76; RESP 18; TEMP 36.9; O2SAT 97
[2022-08-06] MEDS: Baclofen 10 MG TAB PO ×2 (13:36→19:55)
[2022-08-06 15:26] VITALS: BP 156/78; PULSE 80; RESP 18; TEMP 37.3; O2SAT 97
[2022-08-06] MEDS: Normal Saline Flush 10 ML SYR IVP ×2 (19:55→22:25)
[2022-08-06 20:00] VITALS: O2SAT 97
[2022-08-06 20:03] VITALS: BP 110/77; PULSE 65; RESP 18; TEMP 37.2; O2SAT 97
[2022-08-06] MEDS: Albuterol HFA 8 GM 60 PUFF INH IH (22:24)
[2022-08-06] MEDS: MORPHine 4 MG/ML SYR IVP (22:24)
[2022-08-07] VITALS (9 sets, daily range): BP systolic 92–126; BP diastolic 58–75; PULSE 79–90; RESP 16–19; TEMP 36.5–37.6; O2SAT 94–97
[2022-08-07] MEDS: Acetaminophen 325 MG TAB PO ×2 (04:22→19:57)
[2022-08-07] MEDS: Baclofen 10 MG TAB PO (04:22)
[2022-08-07] MEDS: Albuterol HFA 8 GM 60 PUFF INH IH (06:02)
[2022-08-07] MEDS: Heparin 5,000 UNITS/ML VIAL 5000 UNITS SC ×2 (06:02→13:32)
[2022-08-07 06:21] LABS: Abs Immature Grans 0.04 10^3/uL (0.0-0.06); Absolute Basophil Count 0.01 10^3/uL (0.0-0.2); Absolute Lymphocyte Count 2.62 10^3/uL (1.2-3.4); Absolute Monocyte Count 1.35 10^3/uL (0.1-0.8); Absolute Neutrophil Count 4.86 10^3/uL (1.2-6.7); Basophils % 0.1; Eosinophils % 3.3; HCT 36.9 % (40.0-50.0); HGB 12.6 g/dL (13.5-17.5); Immature Grans % 0.4; Lymphocytes % 28.5; MCH 32.6 pg (27.0-33.0); MCHC 34.1 % (32.0-36.0); MCV 95 fL (80-95); MPV 9.1 fL (8.0-11.0); Monocytes % 14.7; Platelet Count 198 10^3/uL (130-400); RBC 3.87 10^6/uL (4.36-5.78); RDW 13.4 % (11.8-14.1); RDW-SD 47.3 fL; WBC 9.18 10^3/uL (4.4-10.8)
[2022-08-07 06:34] LABS: Anion Gap 4.3 mmol/L (3-11); BUN 6 mg/dL (7-18); CO2 30.7 mmol/L (21.0-32.0); CREATININE 0.3 mg/dL (0.70-1.30); Calcium 8.6 mg/dL (8.5-10.1); Chloride 95 mmol/L (98-107); Estimated GFR 133.73 (mL/min/1.73m2); Glucose 103 mg/dL (74-106); Magnesium 1.9 mg/dL (1.8-2.4); Potassium 4.2 mmol/L (3.5-5.1); Sodium 130 mmol/L (136-145)
[2022-08-07] MEDS: Zinc Sulfate 220 MG TAB PO (08:08)
[2022-08-07] MEDS: Ascorbic Acid 500 MG TAB PO ×2 (08:09→19:59)
[2022-08-07] MEDS: Folic Acid 1 MG TAB PO (08:09)
[2022-08-07] MEDS: Magnesium Oxide 400 MG TAB 800 MG PO ×2 (08:09→20:01)
[2022-08-07] MEDS: Multivitamin TAB 1 TAB PO (08:09)
[2022-08-07] MEDS: Thiamine 100 MG TAB PO (08:09)
[2022-08-07] MEDS: Tiotropium/Olodaterol 10 PUFF INHALER IH (08:55)
--- NOTE | 2022-08-07 10:34 | W.PM.PROGNOT ---
Date of Service Date of service: 08/07/22 Time of Service: 10:34 Assessment and Plan Assessment and plan (1) Ambulatory dysfunction: Status: Acute Assessment and plan: Continue to work with PT. Replete magnesium. (2) Adult failure to thrive: Status: Acute Assessment and plan: This is secondary to ETOH consumption. Continue vitamins. Already has meals on wheels at home. (3) Alcohol abuse: Status: Chronic Assessment and plan: Not showing signs of ETOH w/d. CIWA has been discontinued Thiamine/vitamins as above. (4) COPD (chronic obstructive pulmonary disease): Status: Chronic Assessment and plan: Not in acute exacerbation. No increased WOB, SPO2 RA >95% Continue home inhalers. (5) Hypomagnesemia: Assessment and plan: Replete and recheck in am. (6) Hypokalemia: Assessment and plan: Today 4.2 - Recheck in am (7) Sacral decubitus ulcer, stage III: Status: Acute Assessment and plan: Continue wound care - healing (8) DVT prophylaxis: Status: Deleted Assessment and plan: SC heparin (9) Discharge planning issues: Status: Deleted Assessment and plan: Full code Continues to require hospitalization PT recommends SNF on discharge; patient in agreement with SNF Discussed with Dr Salomon Exam Narrative Exam Narrative: Sitting up in chair, no complaints, states he continues to feel weak, and has pain @ coccyx area where pressure injury is located., it appears dry, red, no infection, no slough, no bone, non blanchable erythema surrounding area. he has done some walking in the room, to the bathroom and back, improving. Const General: no acute distress Orientation: alert [facility] Head: normal to inspection Ears: external ears normal General nose exam: external nose normal Mouth: moist mucous membranes Eyes General: appearance normal, both eyes and all related structures Neck Neck: normal visual inspection Resp Effort & Inspection: normal respiratory effort and able to speak in complete sentences Cardio Rate: regular rate Skin General skin exam: no erythema Neuro General: patient alert and patient oriented x3 Extrem General: no joint enlargement Psych Mental Status: mental status grossly normal Objective Last Vital Signs Temp 36.6 C 08/07/22 08:00 Pulse 85 08/07/22 08:00 Resp 18 08/07/22 08:00 BP 102/63 08/07/22 08:00 Pulse Ox 96 08/07/22 08:00 Laboratory Results - last 24 hr 08/07/22 08/07/22 05:28 05:28 WBC 9.18 RBC 3.87 L Hgb 12.6 L Hct 36.9 L MCV 95 MCH 32.6 MCHC 34.1 RDW 13.4 Plt Count 198 MPV 9.1 Immature Gran % 0.4 Neutrophils % 53.0 Lymphocytes % 28.5 Monocytes % 14.7 Eosinophils % 3.3 Basophils % 0.1 Nucleated RBC % 0.0 Absolute Neutrophils 4.86 Absolute Lymphocytes 2.62 Absolute Monocytes 1.35 H Absolute Eosinophils 0.30 Absolute Basophils 0.01 Sodium 130 L Potassium 4.2 Chloride 95 L Carbon Dioxide 30.7 Anion Gap 4.3 BUN 6 L Creatinine 0.3 L Est GFR (CKD-EPI 2020) 133.73 Glucose 103 Calcium 8.6 Magnesium 1.9
--- NOTE | 2022-08-07 12:23 | PTTR_ITS ---
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 He reports that he is feeling pretty good today. OBJECTIVE: PAIN: No c/o pain BED MOBILITY/TRANSFERS Sit-stand: SBA Stand-sit: SBA with cueing for safety GAIT Assistive Device: FWW Weight bearing: Full Assist: SBA Distance: 80' Deviation: Chronic B knee flexion contracture, ataxic gait, seated rest, shoes on, c/o increased fatigue in B knees ASSESSMENT: Patient tolerated session well, with minimal complaint of B LE fatigue with gait training. He was able to tolerate a progression in gait distance with SBA, although with ataxic gait and with B knee flexion contractures. PLAN: Continue with gait training and general conditioning for improved safety with mobility. TREATMENT CODE/TIME: 18 minutes; 63902 (10:09)
[2022-08-07] MEDS: MORPHine 4 MG/ML SYR IVP (20:01)
[2022-08-08 03:28] VITALS: BP 112/58; PULSE 80; RESP 18; TEMP 36.7; O2SAT 94
[2022-08-08] MEDS: Heparin 5,000 UNITS/ML VIAL 5000 UNITS SC ×3 (05:50→20:34)
[2022-08-08 06:17] LABS: Anion Gap 4.8 mmol/L (3-11); BUN 10 mg/dL (7-18); CO2 30.2 mmol/L (21.0-32.0); CREATININE 0.4 mg/dL (0.70-1.30); Calcium 8.5 mg/dL (8.5-10.1); Chloride 96 mmol/L (98-107); Glucose 107 mg/dL (74-106); Magnesium 1.8 mg/dL (1.8-2.4); Potassium 4.2 mmol/L (3.5-5.1); Sodium 131 mmol/L (136-145)
[2022-08-08 07:28] VITALS: BP 111/56; PULSE 75; RESP 18; TEMP 37.1; O2SAT 99
[2022-08-08] MEDS: Ascorbic Acid 500 MG TAB PO ×2 (08:23→20:43)
[2022-08-08] MEDS: Magnesium Oxide 400 MG TAB 800 MG PO ×2 (08:23→20:44)
[2022-08-08] MEDS: Multivitamin TAB 1 TAB PO (08:23)
[2022-08-08] MEDS: Zinc Sulfate 220 MG TAB PO (08:23)
[2022-08-08] MEDS: Folic Acid 1 MG TAB PO (08:24)
[2022-08-08] MEDS: Normal Saline Flush 10 ML SYR IVP (08:24)
[2022-08-08] MEDS: Thiamine 100 MG TAB PO (08:24)
[2022-08-08] MEDS: Tiotropium/Olodaterol 10 PUFF INHALER IH (09:15)
--- NOTE | 2022-08-08 09:56 | CMPROGNOTE_ITS ---
- If Service Date Differs Date of service: 08/08/22 Time of Service: 09:56 Care Management Progress Note S/O: Kaleb was sitting up in bed when CM met with him. He was watching TV and did not fully engage with CM. When asked to confirm his desire to go to a senior care facility for rehab Hesham stated that he still has questions. He specifically wanted to know the purpose of going to rehab and what the expectations would be.. He stated that he did not need to know which facilities referrals were sent to. CM informed him that it would likely be a day or 2 before any responses are received. CM also encouraged him to continue to work with PT as this will be necessary if he is to go to a SNF. He agreed and acknowledged he had been told that. A: Kaleb is a 61 year old male admitted to [facility] on 08/03/22 with alcohol withdrawal, failure to thrive. P: Kaleb will likely be discharged home with a resumption of services when medically cleared by provider. He will follow up with his PCP, community services and plan of care as prescribed. He will be transported home via private vehicle by a friend/family vs RCT coordinated by CM when ready. CM will continue to follow.
[2022-08-08] MEDS: Albuterol HFA 8 GM 60 PUFF INH IH (09:57)
--- NOTE | 2022-08-08 11:01 | PTTR_ITS ---
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 He reports that he is feeling pretty good today. OBJECTIVE: PAIN: No c/o pain BED MOBILITY/TRANSFERS Supine-sit: I Sit-supine: I Sit-stand: SBA Stand-sit: SBA with cueing for safety GAIT Assistive Device: FWW Weight bearing: Full Assist: SBA Distance: 50' x2 + 100' in a.m.; 80' in p.m. Deviation: Chronic B knee flexion contracture, ataxic gait, seated rest x2, shoes on, c/o increased fatigue in B knees, SOB TOILETING: Patient toileted with assist ASSESSMENT: Patient tolerated session well, with minimal complaint of B LE fatigue with gait training. He was able to tolerate a progression in gait distance with SBA, although with ataxic gait and with B knee flexion contractures. PLAN: Continue with gait training and general conditioning for improved safety with mobility. TREATMENT CODE/TIME: Session 1: 24 minutes; 37034 x2 (09:39) Session 2: 25 minutes; 53241 x2 (14:56)
[2022-08-08 12:18] VITALS: BP 104/63; PULSE 92; RESP 17; TEMP 36.7; O2SAT 96
--- NOTE | 2022-08-08 17:13 | W.PM.PROGNOT ---
Date of Service Date of service: 08/08/22 Time of Service: 17:21 Assessment and Plan Assessment and plan (1) Ambulatory dysfunction: Status: Acute Assessment and plan: Continue to work with PT. Improving, motivated, continue searching for SNF (2) Adult failure to thrive: Status: Acute Assessment and plan: This is secondary to ETOH consumption. Continue vitamins. Already has meals on wheels at home. Working with PT Plan to go to SNF; he is agreeable (3) Alcohol abuse: Status: Chronic Assessment and plan: Not showing signs of ETOH w/d. DAVID previously discontinued Thiamine/vitamins as above. (4) COPD (chronic obstructive pulmonary disease): Status: Chronic Assessment and plan: Not in acute exacerbation. No increased WOB, SPO2 RA >95% Continue home inhalers. (5) Hypomagnesemia: Status: Resolved Assessment and plan: Normal today 1.8 - recheck in am. (6) Hypokalemia: Status: Resolved Assessment and plan: Today 4.2 - Recheck in am (7) Sacral decubitus ulcer, stage III: Status: Acute Assessment and plan: Continue wound care - healing well, no fevers, Ensure encouraged (8) DVT prophylaxis: Status: Acute Assessment and plan: SC heparin (9) Discharge planning issues: Status: Acute Assessment and plan: Full code Continues to require hospitalization PT continues to recommend SNF on discharge; patient in agreement with SNF Discussed with Dr Salomon Subjective Subjective Patient reports: no new complaints, feels better, pain is less, tolerating a regular diet, bowel movement and afebrile; denies diarrhea, nausea, vomiting or shortness of breath Interval history since last seen: Working with PT; improving slowly. We continue to seek SNF; he does not feel strong enough to go home. Exam Narrative Exam Narrative: Side lying in bed, no complaints, states he continues to feel weak, and has pain @ coccyx area where pressure injury is located, it continues to appear dry, red, no infection, no slough, no bone, non blanchable erythema surrounding area. He is walking in the room, to the bathroom and back, improving. Const General: no acute distress Orientation: alert HENMT Head: normal to inspection Ears: external ears normal General nose exam: external nose normal Mouth: moist mucous membranes Eyes General: appearance normal, both eyes and all related structures Neck Neck: normal visual inspection Resp Effort & Inspection: normal respiratory effort and able to speak in complete sentences Cardio Rate: regular rate Skin General skin exam: no erythema Neuro General: patient alert and patient oriented x3 Extrem General: no joint enlargement Psych Mental Status: mental status grossly normal Objective Last Vital Signs Temp 36.7 C 08/08/22 12:18 Pulse 92 H 08/08/22 12:18 Resp 17 08/08/22 12:18 BP 104/63 08/08/22 12:18 Pulse Ox 96 08/08/22 12:18 Laboratory Results - last 24 hr 08/08/22 05:52 Sodium 131 L Potassium 4.2 Chloride 96 L Carbon Dioxide 30.2 Anion Gap 4.8 BUN 10 Creatinine 0.4 L Est GFR (CKD-EPI 2020) 122.60 Glucose 107 H Calcium 8.5 Magnesium 1.8
[2022-08-08 19:40] VITALS: BP 118/65; PULSE 86; RESP 16; TEMP 36.7; O2SAT 94
[2022-08-08 23:32] VITALS: BP 143/72; PULSE 109; RESP 22; TEMP 37; O2SAT 97
[2022-08-09 03:27] VITALS: BP 109/69; PULSE 73; RESP 16; TEMP 37; O2SAT 94
[2022-08-09] MEDS: Heparin 5,000 UNITS/ML VIAL 5000 UNITS SC ×3 (05:54→21:09)
[2022-08-09 06:48] LABS: Anion Gap 3.7 mmol/L (3-11); BUN 9 mg/dL (7-18); CO2 30.3 mmol/L (21.0-32.0); CREATININE 0.4 mg/dL (0.70-1.30); Calcium 8.8 mg/dL (8.5-10.1); Chloride 96 mmol/L (98-107); Glucose 110 mg/dL (74-106); Magnesium 2.1 mg/dL (1.8-2.4); Potassium 4.2 mmol/L (3.5-5.1); Sodium 130 mmol/L (136-145)
[2022-08-09 06:54] LABS: Abs Immature Grans 0.04 10^3/uL (0.0-0.06); Absolute Basophil Count 0.03 10^3/uL (0.0-0.2); Absolute Eosinophil Count 0.26 10^3/uL (0.0-0.7); Absolute Monocyte Count 1.27 10^3/uL (0.1-0.8); Basophils % 0.4; Eosinophils % 3.3; HGB 11.7 g/dL (13.5-17.5); Immature Grans % 0.5; Lymphocytes % 35.4; MCH 32.8 pg (27.0-33.0); MCHC 34.4 % (32.0-36.0); MCV 95 fL (80-95); Monocytes % 16.1; Neutrophils % 44.3; Platelet Count 206 10^3/uL (130-400); RBC 3.57 10^6/uL (4.36-5.78); RDW 13.8 % (11.8-14.1); RDW-SD 48.3 fL
[2022-08-09 07:20] VITALS: BP 136/76; PULSE 71; RESP 18; TEMP 36.4; O2SAT 98
[2022-08-09] MEDS: Tiotropium/Olodaterol 10 PUFF INHALER IH (07:54)
--- NOTE | 2022-08-09 08:37 | CMPROGNOTE_ITS ---
- If Service Date Differs Date of service: 08/09/22 Time of Service: 08:37 Care Management Progress Note S/O: Kaleb was sitting up in a chair when CM met with him. He had just showered and stated that it felt good. Kaleb continues to work with PT and has been pleasant and cooperative for the past few days. He engaged well with CM and asked questions about some of the common rules and regulations at alf facilities. He again stated that he wants to remain sober but added that he really wants to be able to smoke cigarettes. CM admitted that each facility makes its own policies about that and that none of them allow smoking inside but that some do allow it outside. His preference would be to go to a facility where smoking is allowed on a limited basis. A: Kaleb is a 61 year old male admitted to [facility] on 08/03/22 with alcohol withdrawal, failure to thrive. P: Kaleb will either be discharged home with a resumption of services or will transfer to a SNF for short term rehab when medically cleared by provider. He will follow up with his PCP, community services and plan of care as prescribed. He will be transported via private vehicle by a friend/family vs RCT coordinated by CM when ready. CM will continue to follow.
[2022-08-09] MEDS: Magnesium Oxide 400 MG TAB 800 MG PO ×2 (09:16→21:14)
[2022-08-09] MEDS: Multivitamin TAB 1 TAB PO (09:16)
[2022-08-09] MEDS: Zinc Sulfate 220 MG TAB PO (09:16)
[2022-08-09] MEDS: Folic Acid 1 MG TAB PO (09:16)
[2022-08-09] MEDS: Ascorbic Acid 500 MG TAB PO ×2 (09:17→21:14)
[2022-08-09] MEDS: Thiamine 100 MG TAB PO (09:18)
[2022-08-09 11:26] VITALS: BP 112/68; PULSE 77; RESP 18; TEMP 36.6; O2SAT 96
--- NOTE | 2022-08-09 13:31 | PTTR_ITS ---
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 Fall. SUBJECTIVE: Requests that a strap be placed for the valentin catheter he has on before walking with PT. EVY Kalyani notified and placed needed strap to stabilize catheter tubing on patients thigh. Verbalizes much improved ability to move around. Happy that he has had two showers in a row as the water temperature in his tub was too much. OBJECTIVE: ? PAIN: Denies ? BED MOBILITY/TRANSFERS? Sit-stand: stand by assist, requires use of B UE for support ? Stand-sit: stand by assist, requires use of B UE for support ? GAIT? Assistive Device: FWW ? Weight bearing: Full Assist: standby assist? Distance: 100 feet + 150 feet using FWW with wheelchair follow Deviation: Trunk more erect. Step length and height asymmetric. No loss of balance but was minimally short of breath after activity. THERA EX: Deferred as patient is too fatigued and needed an extended rest time. ASSESSMENT:? Activity tolerance improving. Functional mobility independence increasing. Overall prognosis for attaining independent mobility level is good as long as patient remains in continued level of sobriety. PLAN: Achieve modified independence with all mobility ADL tasks using FWW. Reduce fall risk. Continue with strength progression as tolerated. TREATMENT CODE/TIME: 44561 x 23 minutes beginning at 13:31 PM
--- NOTE | 2022-08-09 14:29 | PTTR_ITS ---
Date of service: 08/09/22 Time of Service: 11:41 PT Notes Visit Reasons: Alcohol withdrawal,failure to thrive,acute on [facility] Inpatient Physical Therapy Treatment Note [facility] Date: 08/09/2022 PRECAUTIONS: Fall, activity as tolerated SUBJECTIVE: Kaleb is pleasant and agreeable to participating in PT. He reports that he is feeling pretty good today. He reports that he took a shower again this morning. OBJECTIVE: Attempted to see patient x2 in a.m., patient eating breakfast x1 and patient just returning from shower x1. PAIN: No c/o pain BED MOBILITY/TRANSFERS/GAIT: Declines as lunch is to be delivered shortly THEREX: Patient was instructed in a global strengthening program, completed in a seated position, to include: ankle pumps, heel raises, LAQ, hip flexion, hip abduction, shoulder flexion and forward reaching - which he declines to continue due to shearing on sacral wounds. ASSESSMENT: Patient tolerated session well, without complaint. He demonstrates improved activity tolerance compared to previous therex sessions. PLAN: Continue with gait training and general conditioning for improved safety with mobility. TREATMENT CODE/TIME: 12 minutes; 45319 (11:41)
[2022-08-09] MEDS: Normal Saline Flush 10 ML SYR IVP (14:54)
[2022-08-09 15:08] VITALS: BP 112/70; PULSE 76; RESP 18; TEMP 36.8; O2SAT 97
[2022-08-09] MEDS: Albuterol HFA 8 GM 60 PUFF INH IH (15:29)
--- NOTE | 2022-08-09 18:35 | W.PM.PROGNOT ---
Date of Service Date of service: 08/09/22 Time of Service: 18:36 Assessment and Plan Assessment and plan (1) Ambulatory dysfunction: Status: Acute Assessment and plan: Continue to work with PT. Improving, motivated, continue searching for SNF (2) Adult failure to thrive: Status: Acute Assessment and plan: This is secondary to ETOH consumption. Continue vitamins. Already has meals on wheels at home. Working with PT Plan to go to SNF; he is agreeable (3) Alcohol abuse: Status: Chronic Assessment and plan: Not showing signs of ETOH w/d. DAVID previously discontinued Thiamine/vitamins as above. (4) COPD (chronic obstructive pulmonary disease): Status: Chronic Assessment and plan: Not in acute exacerbation. No increased WOB, SPO2 RA >95% Continue home inhalers. (5) Hypomagnesemia: Status: Resolved Assessment and plan: Normal today 1.8 - recheck in am. (6) Hypokalemia: Status: Resolved Assessment and plan: Today 4.2 - Recheck in am (7) Sacral decubitus ulcer, stage III: Status: Acute Assessment and plan: Continue wound care - healing well, no fevers, Ensure encouraged (8) DVT prophylaxis: Status: Acute Assessment and plan: SC heparin (9) Discharge planning issues: Status: Acute Assessment and plan: Full code Continues to require hospitalization PT continues to recommend SNF on discharge; patient in agreement with SNF Discussed with Dr Salomon Subjective Subjective Patient reports: no new complaints, tolerating liquids well, tolerating a regular diet, diarrhea (reports normal) and afebrile Exam Const General: no acute distress Orientation: alert HENMT Head: normal to inspection Mouth: moist mucous membranes Eyes General: appearance normal, both eyes and all related structures Neck Neck: normal visual inspection Resp Effort & Inspection: normal respiratory effort and able to speak in complete sentences Cardio Rate: regular rate Skin Lesions: lesion noted (coccyx, sacral decubitus) Neuro General: patient alert and patient oriented x3 Psych Mental Status: mental status grossly normal Objective Last Vital Signs Temp 36.8 C 08/09/22 15:08 Pulse 76 08/09/22 15:08 Resp 18 08/09/22 15:08 BP 112/70 08/09/22 15:08 Pulse Ox 97 08/09/22 15:08 Laboratory Results - last 24 hr 08/09/22 08/09/22 06:25 06:25 WBC 7.90 RBC 3.57 L Hgb 11.7 L Hct 34.0 L MCV 95 MCH 32.8 MCHC 34.4 RDW 13.8 Plt Count 206 MPV 9.0 Immature Gran % 0.5 Neutrophils % 44.3 Lymphocytes % 35.4 Monocytes % 16.1 Eosinophils % 3.3 Basophils % 0.4 Nucleated RBC % 0.0 Absolute Neutrophils 3.50 Absolute Lymphocytes 2.80 Absolute Monocytes 1.27 H Absolute Eosinophils 0.26 Absolute Basophils 0.03 Sodium 130 L Potassium 4.2 Chloride 96 L Carbon Dioxide 30.3 Anion Gap 3.7 BUN 9 Creatinine 0.4 L Est GFR (CKD-EPI 2020) 122.60 Glucose 110 H Calcium 8.8 Magnesium 2.1
[2022-08-09 19:26] VITALS: BP 110/63; PULSE 85; RESP 17; TEMP 36.6; O2SAT 96
[2022-08-09] MEDS: Baclofen 10 MG TAB PO (21:08)
[2022-08-09 23:28] VITALS: BP 111/63; PULSE 81; RESP 10; TEMP 38.3; O2SAT 94
[2022-08-10 03:30] VITALS: BP 113/64; PULSE 80; RESP 16; TEMP 37.6; O2SAT 94
[2022-08-10] MEDS: Heparin 5,000 UNITS/ML VIAL 5000 UNITS SC ×2 (05:23→13:57)
[2022-08-10 07:28] VITALS: BP 112/66; PULSE 77; RESP 14; TEMP 37; O2SAT 96
[2022-08-10] MEDS: Ascorbic Acid 500 MG TAB PO (08:25)
[2022-08-10] MEDS: Zinc Sulfate 220 MG TAB PO (08:25)
[2022-08-10] MEDS: Magnesium Oxide 400 MG TAB 800 MG PO (08:25)
[2022-08-10] MEDS: Folic Acid 1 MG TAB PO (08:25)
[2022-08-10] MEDS: Multivitamin TAB 1 TAB PO (08:26)
[2022-08-10] MEDS: Thiamine 100 MG TAB PO (08:26)
--- NOTE | 2022-08-10 09:40 | CMPROGNOTE_ITS ---
- If Service Date Differs Date of service: 08/10/22 Time of Service: 09:40 Care Management Progress Note S/O: Kaleb transitioned to SB-1 today to continue PT for strengthening and endurance. Referrals have been sent to a multitude of SNFs but no bed offers have been received to date. Many denials have been received both because of lack of bed availability and for concerns about Kaleb's history. A: Kaleb is a 61 year old male admitted to [facility] on 08/03/22 with alcohol withdrawal, failure to thrive. P: Kaleb will either be discharged home with a resumption of services or will transfer to a SNF for short term rehab when medically cleared by provider. He will follow up with his PCP, community services and plan of care as prescribed. He will be transported via private vehicle by a friend/family vs RCT coordinated by CM when ready. CM will continue to follow.
[2022-08-10 11:21] VITALS: BP 100/62; PULSE 82; RESP 18; TEMP 36.6; O2SAT 95
[2022-08-10] MEDS: Acetaminophen 325 MG TAB PO (11:32)
--- NOTE | 2022-08-10 13:30 | PT.INTREAT ---
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 He reports that he feels about the same today. OBJECTIVE: PAIN: No c/o pain BED MOBILITY/TRANSFERS Supine-sit: Sit-supine: Sit-stand: S with cueing for safety Stand-sit: S with cueing for safety GAIT: Declined gait training in p.m. Assistive Device: FWW Weight bearing: Full Assist: SBA Distance: 150' x2 in a.m.; in p.m. Deviation: Chronic B knee flexion contracture, ataxic gait, seated rest x1, shoes on THEREX: In a.m., patient was instructed in a LE strengthening program, completed in a seated position, to include: ankle pumps/heel raises, LAQ, hip flexion and hip abduction. In p.m., patient was instructed in a LE strengthening and stabilization program, completed in a supine position, to include: ankle pumps, quad sets, modified glute sets, heel slides, hip abduction, SLR and bridging. ASSESSMENT: Patient tolerated session well, without complaint. He was able to tolerate a progression in gait distance with SBA, although continues to demonstrate ataxic gait and B knee flexion contractures. PLAN: Continue with gait training and general conditioning for improved safety with mobility. TREATMENT CODE/TIME: Session 1: 26 minutes; [id number], 40683 (10:05) Session 2: 12 minutes; 44034 (14:26)
[2022-08-10 14:54] VITALS: BP 107/61; PULSE 82; RESP 16; TEMP 36.9; O2SAT 97
--- NOTE | 2022-08-10 16:22 | DSE_ITS ---
Date of service: 08/10/22 Time of Service: 16:38 DS: Diagnosis Discharge Diagnosis (1) Ambulatory dysfunction: Status: Acute Asessment and Plan: Continues to be weak, discharged to swing bed for continued PT while waiting for placement. (2) Adult failure to thrive: Status: Acute Asessment and Plan: Continues to be weak, discharged to swing bed for continued PT while waiting for placement. 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 He presented via EMS with 2 days of worsening malaise and weakness to the [facility] emergency department.?He endorsed only getting up from the couch on 3 occasions to get a beer, otherwise too weak to ambulate.? He does use a walker.? No fever/chills/CP/palpitations/N/V/abd pain.?Phenobarbitol alcohol withdrawal protocol initiated. He did not have any withdrawal and the CIWA scale was discontinued. Of note. he was admitted to [facility] on 07/08 for hyponatremia and urinary retention. He is slowly improving, but not strong enought to go home. He lives by himself and requires assistance to go beyond 10 feet with walker. He will benefit from rehab. He is interested in going. We are awaiting placement; he is stable and changing to swing status. Discussed with Dr Stranathan Home Meds and New Rx's Prescriptions: Continued (DME) diaper,brief,adult,disposable Misc See Rx Instructions .Route Qty: 60 0RF Rx Instructions: As directed, patient is a 32 waist, needs pull ups baclofen 10 mg tablet 10 mg PO TID PRN (Reason: neck pain) Qty: 10 0RF Anoro Ellipta 62.5-25 mcg/actuation blister with device 1 inh inhalation DAILY Qty: 60 4RF acetaminophen [Tylenol] 325 mg Tablet 325 - 650 mg PO Q4H PRN PRNQty: 0 0RF albuterol sulfate [Ventolin HFA] 90 mcg/actuation Hfa Aerosol Inhaler 2 puff inhalation Q2H PRN PRNQty: 6.7 0RF Inhaler, Assist Devices [Pocket Chamber] 1 ea miscellaneous DIRECTED Qty: 0 0RF Discharge Instructions Referrals: Juan Diego Luna MD [Primary Care Provider] - None Activity:: Activity as Tolerated Equipment/Supplies:: Walker Diet:: As Tolerated Discharge Orders Discharge Orders: Discharge Order (Routine); Ordered 08/10/22 Ordered By: Saskia Lowe Discharge Data Discharge Date/Time-TO BE ENTERED AT DEPARTURE: 08/10/22 16:53 DS: Summary Time Spent with Patient providing and/or coordinating discharge services: Greater than 30 minutes Status at Discharge Functional status at discharge: uses cane/walker Overall status at discharge: patient is progressing back to baseline Mental Status: mental status grossly normal Speech and Movement: speech and movement normal Mood: congruent mood Affect: normal affect Exam Psych Mental Status: mental status grossly normal Speech and Movement: speech and movement normal Mood: congruent mood Affect: normal affect DS: Data Vitals/I&O Vitals and I&O: Vital Signs Temperature 36.9 C 08/10/22 14:54 Temperature Source Tympanic 08/10/22 14:54 Pulse 82 08/10/22 14:54 Pulse Rhythm Regular 08/10/22 08:30 Pulse 97 H 08/03/22 11:00 Respiratory Rate 16 08/10/22 14:54 Respiratory Effort Non-Labored 08/10/22 08:30 Respiratory Depth Normal 08/10/22 08:30 Respiratory Pattern Normal 08/10/22 08:30 Blood Pressure 107/61 08/10/22 14:54 Blood Pressure Mean 68 08/03/22 11:00 Blood Pressure Position Supine 08/03/22 03:02 Pulse Oximetry 97 08/10/22 14:54 Oxygen Delivery Method Room Air 08/10/22 14:54 Oxygen Flow Rate 0 08/10/22 14:54 Pain Level 0 08/10/22 14:54 Comment 08/07/22 19:25 Intake & Output 08/09/22 08/10/22 08/10/22 23:59 11:59 23:59 Intake Total 204 / 564 500 / 1100 600 / 1100 Output Total 2200 / 3800 1950 / 1950 Balance -1996 / -3236 -1450 / -850 600 / -850 Intake: Oral 204 / 564 500 / 1100 600 / 1100 Output: Urine 2200 / 3800 1950 / 1950 Other: Urine Color Pale Yellow Yellow Urine Appearance Clear Clear Urine Odor Strong Strong Comment condom catheter condom cath Stool Size Moderate Stool Characteristics Soft Voiding Methods Indwelling Catheter Indwelling Catheter PFSH All Active Problems (Updated 08/08/22 @ 17:32 by Saskia Lowe NP) Sacral decubitus ulcer, stage III (Acute) Discharge planning issues (Acute) DVT prophylaxis (Acute) Ambulatory dysfunction (Acute) Adult failure to thrive (Acute) Alcohol abuse (Chronic) Tobacco dependence (Acute) Incontinence (Acute) Nail dystrophy (Acute) Generalized weakness (Acute) Well adult (Acute) White coat syndrome with hypertension (Acute) DVT prophylaxis (Acute) COPD (chronic obstructive pulmonary disease) (Chronic) a. Ongoing tobacco abuse. Alcoholism (Chronic ~01/2014) a. Drinks at least 6 beers per day on a regular basis. Contusion of pelvis (Acute) Medical History Alcohol withdrawal delirium Arterial vascular disease Fracture of femoral neck, left a. S/P left total knee arthroplast, 01/26/[address] Mendoza. History of neck fracture a. Left-sided weakness. b. On SSI disability. Pain, foot Tendinitis involving left hip abductors Surgical History History of cervical spinal arthrodesis History of total left hip arthroplasty (01/26/14) left total hip arthroplasty; Dr. Riaz Mendoza, [facility] after fall and hip fracture Social History Smoking/Tobacco Use Status: Current every day Tobacco Type: cigarettes Smoking risk assessment performed?: Yes Alcohol Intake: current Alcohol Intake frequency: 3 or more drinks per day Alcohol type: beer Drug use: Never Do you feel safe in your relationship?: Yes
--- NOTE | 2022-08-11 08:00 | INDS_ITS ---
Date of service: 08/11/22 PT Notes Visit Reasons: Alcohol withdrawal,failure to thrive,acute on hull molder Physical Therapy Discharge Summary Date: 08/11/2022 Dates of Servbice:? 08/04/2022 through 08/10/2022 This is a clinical summary of care provided for the duration of dates listed abo ve. No charge was made in the completion of this documentation. Referring Doctor:Regina Lowe MD PT Orders: PT CONSULT: Extended stay weakness Precautions: Fall. Standard. Activity as tolerated. Patient Profile/Admitting Diagnosis:? Patient converted to swing bed level I of care as of 08/10/2022.? Hesham was initially seen at the ED yesterday for PT evaluation and is admitted to the med surg unit for management of admitting diagnoses above.? He is a 61-year-old male who presented to the ED on with diagnosis of EtOH abuse, muscle spasms, chronic pain, hyponatremia, and hypomagnesemia. PMHX: All Active Problems?(Updated 08/03/22 @ 05:22 by Arslan Herrmann MD) Tobacco dependence (Acute) Incontinence (Acute) Nail dystrophy (Acute) Generalized weakness (Acute) Well adult (Acute) White coat syndrome with hypertension (Acute) DVT prophylaxis (Acute) COPD (chronic obstructive pulmonary disease) (Chronic) a. Ongoing tobacco abuse.Alcoholism (Chronic ~01/2014) b. Drinks at least 6 beers per day on a regular basis.Contusion of pelvis (Acute) Medical History? Alcohol withdrawal delirium Fracture of femoral neck, left a. S/P left total knee arthroplast, 01/26/[address] Mendoza.History of? neck fracture a. Left-sided weakness. b. On SSI disability. Surgical History? History of cervical spinal arthrodesis History of total left hip arthroplasty (01/26/14) left total hip arthroplasty; Dr. Riaz Mendoza, [facility] after fall and hip fracture Social History/Home Situation: Kaleb states that he lives in a home which he shares with other tenants. He however emphasizes that he will not have the support of any of these tenants as he states he is on his own. He is independent using a 4-wheeled walker for all indoor ambulation.? He states that he rides the taxi for all his community errands.? He gets Meals on Wheels every day; gets Sunday and Sunday meals on Fridays.? Has 1 step to get into the house without rails. Equipment Owned/DME: 4WW, raised toilet seat Subjective: NT. See most recent DIE ATTACHING MACHINE TENDER notes. Objective: General Observation: NT. See most recent DIE ATTACHING MACHINE TENDER notes. Mental Status: NT. See most recent DIE ATTACHING MACHINE TENDER notes. Pain: NT. See most recent DIE ATTACHING MACHINE TENDER notes. ROM: Right Upper Extremity: ? Shoulder Flexion WFL. Shoulder abduction WFL. Elbow flexion WFL. Wrist flexion WFL. Opening and closing of hand WFL. Left Upper Extremity:? Shoulder Flexion allows up to 90 degrees only. Shoulder abduction allows up to 90 degrees only. Elbow flexion WFL. Wrist flexion WFL. Opening and closing of hand WFL. Right Lower Extremity: Hip flexion WFL. Hip abduction WFL. Knee flexion WFL.? Knee extension -20 degrees.? Ankle dorsiflexion WFL. Ankle plantarflexion WFL. Left Lower Extremity: Hip flexion lacks the last 25% of AROM due to chronic weakness and pain. Hip abduction aloows only up to 20 degrees, gravity- eliminated. Knee flexion WFL.? Knee extension -30 degrees.? Ankle dorsiflexion WFL. Ankle plantarflexion WFL. Strength: Right Upper Extremity: Shoulder flexors 4-/5. Shoulder abductors 4-/5. Elbow flexors 4-/5. Elbow extensors 4-/5. Ferry Boat Captain strong. Left Upper Extremity: Shoulder flexors 3-/5. Shoulder abductors 3-/5. Elbow flex ors 4-/5. Elbow extensors 3-/5. Ferry Boat Captain weak but functional. Right Lower Extremity: Hip flexors 4-/5. Hip abductors 4-/5. Knee flexors 4-/5. Knee extensors 3-/5. Ankle dorsiflexors 4-/5 Ankle plantarflexors 4-/5. Left Lower Extremity:Hip flexors 3-/5. Hip abductors 3-/5. Knee flexors 3-/5. Knee extensors 3-/5. Ankle dorsiflexors 4-/5. Ankle plantarflexors 4-/5. Sensation: Intact as to pain and pressure on bilateral lower extremities. Bed Mobility/Transfers: Supine to sit independent Sit to stand independent Bed to toilet seat independent GAIT? Up to 250 feet of level surface ambulation using FWW with stand by assist.? Reports chronic pain in the L knee that minimally limits tolerance. Stairs; Stand by assist completing 3 steps while holding onto 1 rail, [id number] pattern. ? Balance: Static Sitting: Good Dynamic Sitting: Good Static Standing: Fair Dynamic Standing: Fair Assessment: With patient's sobriety level maintained while on this admission,? he has achieved significant functional gains now being able to negotiate up to 250 feet of level surface ambulation using FWW with stand by assist.? The remaining barrier he has at home is the inaccessibility of his home entrance.? Patient has a 12-inch step height from the ground onto a platform at his apartment entrance with no grab bar/rail/hand bar to hold onto.? This PT has reached out to care management and suggested the idea of touching base with patient's long-time community dependency case manager Serena Myles for the possibility of facilitating placement of said device to increase apartment accessibility and reduce fall risk as patient has a chronic L UE weakness.? Patient continues to present with clinical signs and symptoms consistent with current/admitting diagnoses that have resulted to mobility limitations, gait instability, generalized weakness, and impairment of motor control as demon strated by the following impairment level findings: 1.? Decreased strength to B UE/LE major muscle groups with L more affected than R 2.? Impaired standing balance 3.? Impaired activity tolerance 4.? Limitation of joint range of motion in left hip and knee (chronic) 5.? Chronic left-sided weakness 6.? Pain in B LE with L more affected Impairments are contributing to the following functional limitations: 1.? Inability to safely ambulate without assistive device 2.? Increase completion time for mobility ADL performance 3.? Increased fall risk 4.? Inability to negotiate steps alone safely Goals X1 week 1. Supine-Sit independent MET 2. Sit-Supine independent MET 3. Sit-Stand independent MET 4. Stand-Sit independent with 4WW MET 5. Bed-Chair independent with 4WW MET 6. Chair-Bed independent with 4WW MET 7. Independent gait on level surface with use of 4WW for at least 100 feet without report of pain nor dyspnea NOT MET, CONTINUE 8. Independent stair negotiation while holding onto 1 rail for at least 3 steps without report of pain nor dyspnea NOT MET, CONTINUE 9. Independent with home exercise program NOT MET, CONTINUE 10. Good static and dynamic standing balance/tolerance NOT MET, CONTINUE DISCHARGE RECOMMENDATIONS: [] ? Home with no services [] [X] ? Home with services.? Home when medically cleared by hospitalist.? Patient will benefit from home health PT services in order to progress mobility level using four-wheeled walker, assess home entrance accessibility, identify additional equipment needs, and establish a functional maintenance program that will increase ability of patient to remain at home. [] ? Home with outpatient PT [] [] ? SNF for continued rehabilitation [] ? Custodial Care [] [] ? SNF versus LTC based on ability to participate and progress [] [X]? Current equipment needs: ? Grab bar/hand bar in the front entrance to increase home accessibility and reduce fall risk as apartment entrance is not accessible with entrance step about 12-inch high and with no hand rails.? Perhaps community dependency case manager may be able to facilitate placement of grab bar by apartment warehouse order selector to ensure easy access to apartment. TREATMENT CODE/TIME: NE Thank you for the opportunity to participate in the care of this patient. Génesis Castillo PT, DPT, CLT [facility] [place], [place]
== END 2022-08-10 16:53 | disposition swing bed (61) | DRG 640 ==
LOC: ER 10:04 → MS 11:53
PROVIDERS: Emergency Medicine; Internal Medicine; Nurse Practitioner Family; Admitting Provider Family Medicine; Emergency Provider Physician Assistant; PCP Family Medicine; Visit Provider Family Medicine
DX: R62.7 Adult failure to thrive (principal); L89.153 Pressure ulcer of sacral region, stage 3; E46 Unspecified protein-calorie malnutrition; F10.10 Alcohol abuse, uncomplicated; J44.9 Chronic obstructive pulmonary disease, unspecified; R26.2 Difficulty in walking, not elsewhere classified; Z98.1 Arthrodesis status; F17.210 Nicotine dependence, cigarettes, uncomplicated; R32 Unspecified urinary incontinence; R53.1 Weakness; Z96.642 Presence of left artificial hip joint; E83.42 Hypomagnesemia; E87.6 Hypokalemia
CPT/HCPCS: 36415; 80048; 80053; 80076; 82550; 87637; 94640; 96361; 96365; 96367; 96375; 97162; 99222; 99285; 80320; 81003; 83735; 84100; 85025; 94667; 99232; 99233; 99239; J0131; J1644; J1885; J2060; J2270; J2560; J3475; J3480; J7613

== ENCOUNTER 2022-08-10 16:27 | Inpatient (IN) | payer MEDICAID, SELFPAY ==
--- NOTE | 2022-08-10 18:04 | W.PM.HP.N ---
Date of service: 08/10/22 Time of Service: 18:04 Assessment and Plan Assessment and plan (1) Ambulatory dysfunction: Status: Acute Assessment and plan: Continue to work with PT. Improving, motivated, continue searching for SNF (2) Adult failure to thrive: Status: Acute Assessment and plan: This is secondary to ETOH consumption. Continue vitamins. Already has meals on wheels at home. Working with PT Plan to go to SNF; he is agreeable (3) Alcohol abuse: Status: Chronic Assessment and plan: Not showing signs of ETOH w/d. [facility] previously discontinued Thiamine/vitamins as above. (4) COPD (chronic obstructive pulmonary disease): Status: Chronic Assessment and plan: Not in acute exacerbation. No increased WOB, SPO2 RA >95% Continue home inhalers. (5) Sacral decubitus ulcer, stage III: Status: Acute Assessment and plan: Continue wound care - healing well, no fevers, Wound Care consult Nutrition consult Ensure encouraged (6) DVT prophylaxis: Status: Acute Assessment and plan: SC heparin (7) Discharge planning issues: Status: Acute Assessment and plan: Full code Continues to require hospitalization PT continues to recommend SNF on discharge; patient in agreement with SNF Discussed with Dr James History of Present Illness History of Present Illness Chief Complaint: Fatigue; Weakness Narrative: This is a 61 yo male with a PMH of alcohol abuse disorder, COPD, tobacco abuse disorder, adult failure to thrive, distant past c-spine fx and fusion with residual left handed weakness.? He presented via EMS with 2 days of worsening malaise and weakness to the [facility] emergency department.?He endorsed only getting up from the couch on 3 occasions to get a beer, otherwise too weak to ambulate.? He does use a walker.? No fever/chills/CP/palpitations/N/V/abd pain.?Phenobarbitol alcohol withdrawal protocol initiated. He did not have any withdrawal and the CIWA scale was discontinued. Of note. he was admitted to [facility] on 07/08 for hyponatremia and urinary retention. He is slowly improving, but not strong enought to go home. He has stage 3 pressure injuries to his coccyx that is being treated by wound care. He lives by himself and requires assistance to go beyond 10 feet with walker. He will benefit from rehab. He is interested in going. We are awaiting placement; he is stable and changing to swing status. Review of Systems All systems reviewed & are unremarkable except as noted in HPI and below PFSH All Active Problems (Updated 08/08/22 @ 17:32 by Saskia Lowe NP) Sacral decubitus ulcer, stage III (Acute) Discharge planning issues (Acute) DVT prophylaxis (Acute) Ambulatory dysfunction (Acute) Adult failure to thrive (Acute) Alcohol abuse (Chronic) Tobacco dependence (Acute) Incontinence (Acute) Nail dystrophy (Acute) Generalized weakness (Acute) Well adult (Acute) White coat syndrome with hypertension (Acute) DVT prophylaxis (Acute) COPD (chronic obstructive pulmonary disease) (Chronic) a. Ongoing tobacco abuse. Alcoholism (Chronic ~01/2014) a. Drinks at least 6 beers per day on a regular basis. Contusion of pelvis (Acute) Medical History Alcohol withdrawal delirium Arterial vascular disease Fracture of femoral neck, left a. S/P left total knee arthroplast, 01/26/[address] Mendoza. History of neck fracture a. Left-sided weakness. b. On SSI disability. Pain, foot Tendinitis involving left hip abductors Surgical History History of cervical spinal arthrodesis History of total left hip arthroplasty (01/26/14) left total hip arthroplasty; Dr. Riaz Mendoza, [facility] after fall and hip fracture Social History Smoking/Tobacco Use Status: Current every day Tobacco Type: cigarettes Smoking risk assessment performed?: Yes Alcohol Intake: current Alcohol Intake frequency: 3 or more drinks per day Alcohol type: beer Drug use: Never Do you feel safe in your relationship?: Yes Meds Allergies and Home Medications Allergies Allergy/AdvReac Type Severity Reaction Status Date / Time ENVIRONMENTAL/POLLEN Allergy CONGESTION, Uncoded 08/03/22 03:09 WATERY EYES, RUNNY NOSE Home Medications Medication Instructions Recorded Confirmed Type acetaminophen 325 mg tablet 325 - 650 mg PO Q4H PRN PRN #0 tabs 08/16/20 08/03/22 Rx (Tylenol) Inhaler, Assist Devices [Pocket 1 ea miscellaneous DIRECTED ##0 07/17/22 08/03/22 Rx Chamber] albuterol sulfate 90 mcg/actuation 2 puff inhalation Q2H PRN PRN #6.7 07/17/22 08/03/22 Rx aerosol inhaler (Ventolin HFA) grams baclofen 10 mg tablet 10 mg PO TID PRN neck pain #10 tabs 07/25/22 08/03/22 Rx diaper,brief,adult,disposable #60 ea 07/25/22 08/03/22 Rx umeclidinium 62.5 mcg-vilanterol 1 inh inhalation DAILY #60 ea 07/25/22 08/03/22 Rx 25 mcg/actuation powdr for inhalation (Anoro Ellipta) Exam Const General: no acute distress Orientation: alert HENMT Head: normal to inspection Mouth: moist mucous membranes Eyes General: appearance normal, both eyes and all related structures Neck Neck: normal visual inspection Resp Effort & Inspection: normal respiratory effort and able to speak in complete sentences Cardio Rate: regular rate Skin Lesions: lesion noted (coccyx, sacral decubitus) Neuro General: patient alert and patient oriented x3 Psych Mental Status: mental status grossly normal
--- NOTE | 2022-08-10 18:10 | CMSA_ITS ---
- If Service Date Differs Date of service: 08/10/22 Time of Service: 18:10 SB Psychosocial/Act.Assessment - Hospital Admission Admission Date: 08/03/22 Admission From:: ED Diagnosis:: ETOH withdrawal - Swing Bed Admission Swing Bed Admit Date:: 08/10/22 Swing Bed Level of Care: Level 1/SNF - Social Supports PREVIOUS FUNCTIONAL STATUS/SOCIAL/FAMILY SUPPORTS:: Kaleb resides alone in [facility]. He is on disability and has been receiving SSI for many years. He has a long history of alcohol use and is not currently interested in decreasing the amount of alcohol he consumes on a daily basis. Reports drinking approximately 6 beers per day. His son Jagdish Prince and brother Kelvin Prince are his next of kin. - Education Highest Grade Completed:: 13 - Medical History PAST MEDICAL HISTORY/PAST SURGICAL HISTORY:: All Active Problems: Tobacco dependence (Acute), Incontinence (Acute),. Nail dystrophy (Acute), Generalized weakness (Acute), Well adult (Acute),. White coat syndrome with hypertension (Acute), DVT prophylaxis (Acute),. COPD (chronic obstructive pulmonary disease) (Chronic) - a. Ongoing tobacco abuse, Alcoholism (Chronic ~01/2014) - a. Drinks at least 6 beers per day on a regular basis, and Contusion of pelvis (Acute). Medical History: Alcohol withdrawal delirium, Fracture of femoral neck, left - a. S/P left total knee arthroplast, 01/26/[address] Mendoza, and History of neck fracture - a. Left-sided weakness. b. On SSI disability. Surgical History: History of cervical spinal arthrodesis, and History of total left hip arthroplasty (01/26/14) - left total hip arthroplasty; Dr. Riaz Mendoza, [facility] after fall and hip fracture.
[2022-08-10] MEDS: Magnesium Oxide 400 MG TAB 800 MG PO (20:58)
[2022-08-10] MEDS: Ascorbic Acid 500 MG TAB PO (20:59)
[2022-08-10] MEDS: Normal Saline Flush 10 ML SYR IVP (21:00)
[2022-08-10] MEDS: Heparin 5,000 UNITS/ML VIAL 5000 UNITS SC (22:01)
[2022-08-11] MEDS: Heparin 5,000 UNITS/ML VIAL 5000 UNITS SC ×2 (05:51→14:13)
[2022-08-11 07:17] VITALS: BP 109/65; PULSE 79; RESP 17; TEMP 36.8; O2SAT 95
[2022-08-11] MEDS: Tiotropium/Olodaterol 10 PUFF INHALER IH (07:58)
[2022-08-11] MEDS: Ascorbic Acid 500 MG TAB PO ×2 (08:21→20:31)
[2022-08-11] MEDS: Zinc Sulfate 220 MG TAB PO (08:21)
[2022-08-11] MEDS: Magnesium Oxide 400 MG TAB 800 MG PO ×2 (08:21→20:31)
--- NOTE | 2022-08-11 08:57 | IN_ITS ---
Date of service: 08/11/22 Time of Service: 08:57 PT Notes Visit Reasons: Failure to Thrive Physical Therapy SWing Bed Level I Initial Evaluation Date: 08/11/2022 Referring Doctor:Regina Lowe MD PT Orders: PT CONSULT: Extended stay weakness Precautions: Fall. Standard. Activity as tolerated. Patient Profile/Admitting Diagnosis:? Patient converted to swing bed level I of care as of 08/10/2022. Hesham was initially seen at the ED yesterday for PT evaluation and is admitted to the med surg unit for management of admitting diagnoses above.? He is a 61-year-old male who presented to the ED on with diagnosis of EtOH abuse, muscle spasms, chronic pain, hyponatremia, and hypomagnesemia. PMHX: All Active Problems?(Updated 08/03/22 @ 05:22 by Arslan Herrmann MD) Tobacco dependence (Acute) Incontinence (Acute) Nail dystrophy (Acute) Generalized weakness (Acute) Well adult (Acute) White coat syndrome with hypertension (Acute) DVT prophylaxis (Acute) COPD (chronic obstructive pulmonary disease) (Chronic) a. Ongoing tobacco abuse.Alcoholism (Chronic ~01/2014) b. Drinks at least 6 beers per day on a regular basis.Contusion of pelvis (Acute) Medical History? Alcohol withdrawal delirium Fracture of femoral neck, left a. S/P left total knee arthroplast, 01/26/[address] Mendoza.History of? neck fracture a. Left-sided weakness. b. On SSI disability. Surgical History? History of cervical spinal arthrodesis History of total left hip arthroplasty (01/26/14) left total hip arthroplasty; Dr. Riaz Mendoza, [facility] after fall and hip fracture Social History/Home Situation: Kaleb states that he lives in a home which he shares with other tenants. He however emphasizes that he will not have the support of any of these tenants as he states he is on his own. He is independent using a 4-wheeled walker for all indoor ambulation.? He states that he rides the taxi for all his community errands.? He gets Meals on Wheels every day; gets Sunday and Sunday meals on Fridays.? Has 1 step to get into the house without rails. Equipment Owned/DME: 4WW, raised toilet seat Subjective: Kaleb does not feel that he can do his laundry, his bed, and his meals at this time. He has been having difficulty managing the entrance of his house as he st ates that he has a 12-inch platform and has no rails. He does not feel that he can manage well at home. Is aware that up to this point he still has no facility in acceptance of the referral on his behalf as most of them are full. Objective: General Observation: Seated on bedside recliner Mental Status: Alert and oriented x 4 Pain: Pain in L knee at 3-4/10 ROM: Right Upper Extremity: ? Shoulder Flexion WFL. Shoulder abduction WFL. Elbow flexion WFL. Wrist flexion WFL. Opening and closing of hand WFL. Left Upper Extremity:? Shoulder Flexion allows up to 90 degrees only. Shoulder abduction allows up to 90 degrees only. Elbow flexion WFL. Wrist flexion WFL. Opening and closing of hand WFL. Right Lower Extremity: Hip flexion WFL. Hip abduction WFL. Knee flexion WFL.? Knee extension -20 degrees.? Ankle dorsiflexion WFL. Ankle plantarflexion WFL. Left Lower Extremity: Hip flexion lacks the last 25% of AROM due to chronic weakness and pain. Hip abduction aloows only up to 20 degrees, gravity- eliminated. Knee flexion WFL.? Knee extension -30 degrees.? Ankle dorsiflexion WFL. Ankle plantarflexion WFL. Strength: Right Upper Extremity: Shoulder flexors 4-/5. Shoulder abductors 4-/5. Elbow flexors 4-/5. Elbow extensors 4-/5. Diamond Die Maker strong. Left Upper Extremity: Shoulder flexors 3-/5. Shoulder abductors 3-/5. Elbow flexors 4-/5. Elbow extensors 3-/5. Diamond Die Maker weak but functional. Right Lower Extremity: Hip flexors 4-/5. Hip abductors 4-/5. Knee flexors 4-/5. Knee extensors 3-/5. Ankle dorsiflexors 4-/5 Ankle plantarflexors 4-/5. Left Lower Extremity:Hip flexors 3-/5. Hip abductors 3-/5. Knee flexors 3-/5. Knee extensors 3-/5. Ankle dorsiflexors 4-/5. Ankle plantarflexors 4-/5. Sensation: Intact as to pain and pressure on bilateral lower extremities. Bed Mobility/Transfers: Supine to sit independent Sit to stand independent Bed to toilet seat independent GAIT? Up to 250 feet of level surface ambulation using FWW with stand by assist. Reports chronic pain in the L knee that minimally limits tolerance. Stairs; Stand by assist completing 3 steps while holding onto 1 rail, [id number] pattern. ? Balance: Static Sitting: Good Dynamic Sitting: Good Static Standing: Fair Dynamic Standing: Fair Special Tests: Mobility Limitations Standardized Measure [facility] 6 clicks Basic Mobility Inpatient Short Form: Raw Score: 23? CMS Score: ? 11% deficit? Informed Consent/Education:? Patient was instructed in purpose of PT consult and plan of care. Agreeable to proceed with established PT POC to achieve personal goals. Assessment: With patient's sobriety level maintained while on this admission, he has achieved significant functional gains now being able to negotiate up to 250 feet of level surface ambulation using FWW with stand by assist. The remaining barrier he has at home is the inaccessibility of his home entrance. Patient has a 12-inch step height from the ground onto a platform at his apartment entrance with no grab bar/rail/hand bar to hold onto. This PT has reached out to care management today and suggested the idea of touching base with patient's long- time community rifle case repairer Serena Myles for the possibility of facilitating placement of said device to increase apartment accessibility and reduce fall risk as patient has a chronic L UE weakness. Patient will continue with rehabilitation under swing bed level I to achive goals listed below. Patient continues to present with clinical signs and symptoms consistent with current/admitting diagnoses that have resulted to mobility limitations, gait instability, generalized weakness, and impairment of motor control as demonstrated by the following impairment level findings: 1.? Decreased strength to B UE/LE major muscle groups with L more affected than R 2.? Impaired standing balance 3.? Impaired activity tolerance 4.? Limitation of joint range of motion in left hip and knee (chronic) 5.? Chronic left-sided weakness 6.? Pain in B LE with L more affected Impairments are contributing to the following functional limitations: 1.? Inability to safely ambulate without assistive device 2.? Increase completion time for mobility ADL performance 3.? Increased fall risk 4.? Inability to negotiate steps alone safely Patient is assessed as a 43007 moderate complexity based on the following: History: 59-year-old male with impairment level findings, functional limitations, and past medical history as indicated above Examination: Demonstrable impairment in strength, balance, and mobility level with underlying impairments and functional limitations as documented above Presentation:Evolving Decision Makin moderate complexity Goals X1 week 1. Supine-Sit independent MET 2. Sit-Supine independent MET 3. Sit-Stand independent MET 4. Stand-Sit independent with 4WW MET 5. Bed-Chair independent with 4WW MET 6. Chair-Bed independent with 4WW MET 7. Independent gait on level surface with use of 4WW for at least 100 feet without report of pain nor dyspnea NOT MET, CONTINUE 8. Independent stair negotiation while holding onto 1 rail for at least 3 steps without report of pain nor dyspnea NOT MET, CONTINUE 9. Independent with home exercise program NOT MET, CONTINUE 10. Good static and dynamic standing balance/tolerance NOT MET, CONTINUE Plan of Care/Treatment Plan: 1-2x/day, 7 days/week x 1 week. Plan of care has been reviewed with the ALUMINIZER providing the service under Physical Therapy direction. Initiate Physical Therapy intervention for pain management as needed, strengthening, bed mobility, transfers, gait, stairs, balance training, and use of assistive device. DISCHARGE RECOMMENDATIONS: [] ? Home with no services [] [X] ? Home with services. Home when medically cleared by hospitalist. Patient will benefit from home health PT services in order to progress mobility level using four-wheeled walker, assess home entrance accessibility, identify additional equipment needs, and establish a functional maintenance program that will increase ability of patient to remain at home. [] ? Home with outpatient PT [] [] ? SNF for continued rehabilitation [] ? Penitentiary Care [] [] ? SNF versus LTC based on ability to participate and progress [] [X] Current equipment needs: Grab bar/hand bar in the front entrance to increase home accessibility and reduce fall risk as apartment entrance is not ac cessible with entrance step about 12-inch high and with no hand rails. Perhaps community rifle case repairer may be able to facilitate placement of grab bar by apartment optometrist/practice owner to ensure easy access to apartment. TREATMENT CODE/TIME: [id number] x 20 minutes, 23 minutes beginning at 8:57 AM. Thank you for the opportunity to participate in the care of this patient. Génesis Castillo PT, DPT, CLT [facility] [place], [place]
--- NOTE | 2022-08-11 12:04 | W.NUTRFU ---
Date of service: 08/11/22 Time of Service: 12:08 Nutrition Note NOTE: ? Nutrition assessment done last week. See below. Mr. Prince continues with excellent PO intake and he is taking a variety of liquid nutritional supplements including [place], Ensure, and [place] Instant Breakfast. Would recommend getting another weight on Mr. Prince. Will continue to follow weight, PO, and overall nutritional status. Will evaluate nutrition care plan ongoing and adjust as needed. Date of service: 08/05/22 Time of Service: 12:25 Nutritional Consult ASSESSMENT: Mr. Prince presents with stage 3 sacral decubitus ulcer with excessive ETOH intake and sitting as contributing factors.? He is 168 cm and 57 kg.? His BMI is 20 which is WNL.? His PO intake is excellent and his weight has been stable x several years. Mr. Prince was amenable to ordering a high protein lunch with a high protein shake. Estimated energy needs is 1440 kcal/day (REE x 1.1) Estimated protein needs are 86 g/day (1.5 g/kg/day) Estimated fluid needs 1700 ml/day (30 ml/kg/day) NUTRITIONAL DIAGNOSIS: Increased need for nutrients related to wounds. INTERVENTION: Will continue to assist Mr. Prince in choosing high calorie, high protein, nutrient dense meals with high protein shakes.? Will offer him Alden supplements.? Would consider additional Vitamin C and Zinc along with continuing the MVI. MONITORING AND EVALUATION: 1.? Will monitor PO intake, weight, tolerance to diet and supps. 2.? Will evaluate nutrition care plan ongoing and adjust as needed. Time Spent in Nutritional Counseling and Treatment: 15 minutes Time Spent in Nutritional Counseling and Treatment: 0
--- NOTE | 2022-08-11 14:47 | WOUNDCONS ---
- If Service Date Differs Date of service: 08/11/22 Time of Service: 14:30 Wound Initial Evaluation Narrative: Patient is here for failure to thrive, He did have a sacral wound, that had been treated with Anasept and Mepilex. A peer on the wound team was concerned that the area was going to macerate. Provider was also concerned and ordered a new consult. This was discussed with the patient who agrees to the consult. H&P, allergies, and other pertinent information were reviewed. Due to a technical issue with the camera, there is no saved picture of this consult. Body Four View: 1 - small stageable - Wound Lumbar/Sacral Wound Type: Pressure Ulcer Pressure Ulcer Stage: II Wound General Appearance: Clean/Dry, Reddened, Unapproximated Wound Bed Greatest Portion: Red (Granulation) Wound Surrounding Tissue Appearance: Dark Red Percent of Wound Bed Granulated/Red: 100 Wound Length: 0.2 cm Wound Width: 0.6 cm Wound Depth: 0.1 cm Wound Drainage Amount: None Wound Drainage Odor: None/Absent Wound Drainage Description: No drainage Wound Topical Solution/Irrigant: Saline Irrigant Wound Debridement Method: Gauze Wound Debridement Result: Healthy Tissue Revealed Wound Debridement Amount of Tissue Removed: None - Circulation, Sensation, Motion Skin Temperature: Warm Skin Color: Ashen Additional Other Comments: na - HARRIET Comment:: na - Pain Pain Level: 0 Wound that had been described to this nurse as having had a wound bed that was partially slough. This wound bed is now 100% granulation tissue, and appears to be reaching the point of closing over. Goal of treatment at this time should be protection, and offloading of pressure to help distribute his weight and continue further healing. - Photo Photo: no photo available due technical malfunction - Treatment/Dressing Change Topicals/Ointments: None Cleanse With: Saline Dressing Types: Mepilex w/Border, Skin Prep - Nutrition Education Reviewed Nutrition Education: No - Recomendation Recomendation:: Sacrum; Cleanse with NS, pat dry. Apply skin prep to the oscar wound skin. Cover with a sacral Mepilex, Change every 3 days as to monitor for changes. Change PRN if soiled or dislodged. Offload pressure while in bed. Gel cushion while up in chair. Physcian/Nurse Practioner Notified: Yes (Saskia Lowe NP)
--- NOTE | 2022-08-11 15:17 | PT.INTREAT ---
Date of service: 08/11/22 Time of Service: 14:40 PT Notes Visit Reasons: Failure to Thrive Inpatient Physical Therapy Treatment Note [facility] Date: 08/11/2022 PRECAUTIONS: Fall, activity as tolerated SUBJECTIVE: Kaleb is pleasant and agreeable to participating in PT. He reports that he is feeling pretty good today, although he has been busy. OBJECTIVE: PAIN: No c/o pain BED MOBILITY/TRANSFERS Sit-stand: S Stand-sit: S GAIT Assistive Device: FWW Weight bearing: Full Assist: S Distance: 150' x2 Deviation: Chronic B knee flexion contracture, ataxic gait, seated rest x1, shoes on STAIRS: Up/down 3x4 and 2x6 using B rails and a step-to pattern independently. He also completes partial step ups to 12 step with L/R x5 each ASSESSMENT: Patient tolerated session well, without complaint. He was able to tolerate a progression in gait distance requiring supervision only, although continues to demonstrate ataxic gait and with B knee flexion contractures, which is chronic for him. PLAN: Continue with gait training and general conditioning for improved safety with mobility. TREATMENT CODE/TIME: 25 minutes; 70835 x2 (14:40)
[2022-08-11] MEDS: Albuterol HFA 8 GM 60 PUFF INH IH (19:25)
[2022-08-12 07:41] VITALS: BP 110/65; PULSE 84; RESP 18; TEMP 36.4; O2SAT 94
[2022-08-12] MEDS: Magnesium Oxide 400 MG TAB 800 MG PO ×2 (07:58→20:22)
[2022-08-12] MEDS: Heparin 5,000 UNITS/ML VIAL 5000 UNITS SC ×2 (07:59→14:12)
[2022-08-12] MEDS: Ascorbic Acid 500 MG TAB PO ×2 (07:59→20:22)
[2022-08-12] MEDS: Zinc Sulfate 220 MG TAB PO (07:59)
[2022-08-12] MEDS: Tiotropium/Olodaterol 10 PUFF INHALER IH (08:55)
--- NOTE | 2022-08-12 11:39 | PTTR_ITS ---
Date of service: 08/12/22 Time of Service: 10:45 PT Notes Visit Reasons: Failure to Thrive Inpatient Physical Therapy Treatment Note [facility] Date: 08/12/2022 PRECAUTIONS: Fall and activity as tolerated SUBJECTIVE: Difficult to breath at times with his COPD. Would like a digital clock in his room and asked if there is anyway he could get a new pair of sneakers. These request were given to nursing staff and career development facilitator. OBJECTIVE: PAIN: Buttock / back pain with sitting. BED MOBILITY/TRANSFERS Up in chair when I arrived Sit-stand: SBA Stand-sit: SBA GAIT Assistive Device: FWW Weight bearing: Full with shoes on Assist: SBA Distance: 100ft to dept and 200ft back to room. Deviation: No rest with walking to room but did stop twice to rest for short period when returning to room. STAIRS: Up / down 3 4 inch and 2 6 inch stairs with handrails and SBA of one. Utilized reciprocal steps up stairs and step to pattern down stairs. ASSESSMENT: Tolerated today's session fair. Did not want to do chair exercises post ambulation, but we did discuss doing LAQs, ankle pumps, seated marching and UE flexion and abd/add within his tolerance 2-3 x throughout the day to keep his extremities moving. PLAN: Continue per POC, with focus on improving patient's functional mobility with ADLs. TREATMENT CODE/TIME: Ther Activity ([id number]), 10:45 to 11:05 (20')
[2022-08-12] MEDS: Normal Saline Flush 10 ML SYR IVP (20:22)
[2022-08-12] MEDS: Albuterol HFA 8 GM 60 PUFF INH IH (20:24)
[2022-08-13 07:57] VITALS: BP 98/66; PULSE 80; RESP 16; TEMP 36.7; O2SAT 97
[2022-08-13] MEDS: Tiotropium/Olodaterol 10 PUFF INHALER IH (09:04)
[2022-08-13] MEDS: Albuterol HFA 8 GM 60 PUFF INH IH ×2 (09:04→20:00)
[2022-08-13] MEDS: Ascorbic Acid 500 MG TAB PO ×2 (09:21→19:57)
[2022-08-13] MEDS: Magnesium Oxide 400 MG TAB 800 MG PO ×2 (09:21→19:57)
[2022-08-13] MEDS: Zinc Sulfate 220 MG TAB PO (09:22)
--- NOTE | 2022-08-13 12:59 | PT.INTREAT ---
Date of service: 08/13/22 Time of Service: 11:45 PT Notes Visit Reasons: Failure to Thrive Inpatient Physical Therapy Treatment Note [facility] Date: 08/13/2022 PRECAUTIONS: Fall and activity as tolerated. SUBJECTIVE: Stated his right knee is giving him trouble today while walking. First noticed it when leaving his room on way to PT dept. Indicated that it felt like it was going to give out on him. Stated this is something new. OBJECTIVE: PAIN: Complaining of right knee feeling like it is going to give out while walking. BED MOBILITY/TRANSFERS Rolling L/R: I Supine-sit: SBA , with verbal cueing Sit-stand: SBA, with verbal cueing to push up from bed and not pull up on walker Stand-sit: SBA, with verbal cueing to reach back for chair prior to sitting GAIT Assistive Device: FWW Weight bearing: Full with sneaker on Assist: SBA / CGA Distance: 200ft room to dept and 100ft dept to room Deviation: Poor judgment with ambulation practice. Used walker to forcefully push door open causing him to become off balance, but became irritated when I assisted to steady him. Did take one 1-2 minute sit break when ambulating room to PT dept due to SOB, indicated that mask makes it extra hard to breath. STAIRS: Performed step tap on to 12 inch step x 10 reps each foot and also ambulated up 3 4 inch steps and down 2 6 inch steps with handrails and SBA of one. Due to right knee weakness requested to hold on ambulating up 6 inch steps and down 4 inch steps today. ASSESSMENT: Patient appeared easily irritated today. Did not push stair ambulation due to right knee complain. PLAN: Continue with current POC with focus on improved functional mobility with ADLs. Continue to encourage indepenent exercises in chair and bed. TREATMENT CODE/TIME: [id number], 11:45 to 12:10 (25')
[2022-08-13] MEDS: Acetaminophen 325 MG TAB PO (15:04)
[2022-08-14 07:45] VITALS: BP 115/70; PULSE 67; RESP 18; TEMP 36.5; O2SAT 96
[2022-08-14] MEDS: Magnesium Oxide 400 MG TAB 800 MG PO ×2 (08:09→20:03)
[2022-08-14] MEDS: Ascorbic Acid 500 MG TAB PO ×2 (08:09→20:03)
[2022-08-14] MEDS: Zinc Sulfate 220 MG TAB PO (08:09)
--- NOTE | 2022-08-14 09:42 | PT.INTREAT ---
PT Notes Visit Reasons: Failure to Thrive Inpatient Physical Therapy Treatment Note [facility] Date: 08/14/22 OBJECTIVE: Supine-sit: SBA Sit-stand: SBA Stand-sit: SBA GAIT Assistive Device: FWW Weight bearing: Full Assist: CGA Distance: From room to nurses desk and back to room seated rest then from chair to window and back to chair. Pt had some SOB and did require 2 standing rests during waling in the [place]. THEREX: Seated LAQ x 10, marching x 10, standing HR x 10, Seated rowing x 10, shoulder flex x 10, horz abd x 10. ASSESSMENT: Tolerated todays session well other than SOB. PLAN: Cont as per PT POC. TREATMENT CODE/TIME: 9:15-9:40 (25) TYRA BILLY
[2022-08-14] MEDS: Tiotropium/Olodaterol 10 PUFF INHALER IH (09:47)
[2022-08-14] MEDS: Normal Saline Flush 10 ML SYR IVP (20:03)
[2022-08-15 07:49] VITALS: BP 114/69; PULSE 72; RESP 17; TEMP 36.3; O2SAT 98
[2022-08-15] MEDS: Tiotropium/Olodaterol 10 PUFF INHALER IH (08:00)
[2022-08-15] MEDS: Zinc Sulfate 220 MG TAB PO (08:19)
[2022-08-15] MEDS: Ascorbic Acid 500 MG TAB PO (08:19)
[2022-08-15] MEDS: Magnesium Oxide 400 MG TAB 800 MG PO (08:19)
--- NOTE | 2022-08-15 12:47 | DSE_ITS ---
Date of service: 08/15/22 Time of Service: 12:47 DS: Diagnosis Discharge Diagnosis (1) Ambulatory dysfunction: Status: Acute (2) Adult failure to thrive: Status: Acute (3) Alcohol abuse: Status: Chronic (4) COPD (chronic obstructive pulmonary disease): Status: Chronic (5) Sacral decubitus ulcer, stage III: Status: Acute Discharge Plan Disposition Patient Disposition: Home W/Home Health Services Condition: Stable Discharge Details Reason For Visit: Failure to Thrive Admit Date/Time: 08/10/22 16:27 Admit Provider: Joshua James Attending Provider: Joshua James Primary Care Provider: Juan Diego Luna Hospital Course Hospital Course: This is a 61-year-old male patient well-known to the hospitalist service history of alcohol abuse COPD tobacco use failure to thrive distant C-spine fracture with fusion and residual left hand weakness who presented to the emergency department with failure to thrive. He was found to have stage III pressure ulcers to his coccyx and other various wounds. Work-up in the emergency department was only remarkable for generalized weakness and was thought he would not be safe for discharge to home so he was admitted under hospitalist service. Began working with physical therapy and slowly progressing. Plan was to discharge to long-term facility but no bed could be obtained so he remained here under skilled status. He continued to progress with physical therapy to the point where they felt he would be safe for discharge to home. No rehab bed has been secured and PT feels he is at or above his baseline at this point and is safe to go home. He will be discharged to home with resumption of his home health services including nursing for wound care PT OT for routine evaluation and treatment home safety eval fall risk etc. and medical record retrieval specialist for ongoing management in the community. His discharge is discussed with Dr Mancia Home Meds and New Rx's Prescriptions: Continued (DME) diaper,brief,adult,disposable Misc See Rx Instructions .Route Qty: 60 0RF Rx Instructions: As directed, patient is a 32 waist, needs pull ups baclofen 10 mg tablet 10 mg PO TID PRN (Reason: neck pain) Qty: 10 0RF Anoro Ellipta 62.5-25 mcg/actuation blister with device 1 inh inhalation DAILY Qty: 60 4RF acetaminophen [Tylenol] 325 mg Tablet 325 - 650 mg PO Q4H PRN PRNQty: 0 0RF albuterol sulfate [Ventolin HFA] 90 mcg/actuation Hfa Aerosol Inhaler 2 puff inhalation Q2H PRN PRNQty: 6.7 0RF Inhaler, Assist Devices [Pocket Chamber] 1 ea miscellaneous DIRECTED Qty: 0 0RF Discharge Instructions Instructions: Failure to Thrive (DC) Stand Alone Forms: Nursing Discharge Form Referrals: Josh Mondragon CONSUMER SERVICES ADVISOR [NURSE PRACTITIONER] - 08/29/22 12:00 pm Activity:: Activity as Tolerated Equipment/Supplies:: No Equipment Needed Diet:: As Tolerated Discharge Orders Discharge Orders: Discharge Order (Routine); Ordered 08/15/22 Ordered By: Simin Cherry Discharge Data Discharge Date/Time-TO BE ENTERED AT DEPARTURE: 08/15/22 14:04 DS: Summary Time Spent with Patient providing and/or coordinating discharge services: Greater than 30 minutes Status at Discharge Functional status at discharge: uses cane/walker Overall status at discharge: patient is back to baseline Mental Status: mental status grossly normal Speech and Movement: speech and movement normal Mood: congruent mood Affect: normal affect Exam Const General: no acute distress Nutritional Appearance: thin Orientation: alert, awake and oriented x3 HENMT Head: normal to inspection Mouth: moist mucous membranes Eyes General: appearance normal, both eyes and all related structures Neck Neck: normal visual inspection Resp Effort & Inspection: normal respiratory effort and able to speak in complete sentences Cardio Rate: regular rate Skin Lesions: lesion noted (coccyx, sacral decubitus) Neuro General: patient alert and patient oriented x3 Psych Mental Status: mental status grossly normal Speech and Movement: speech and movement normal Mood: congruent mood Affect: normal affect DS: Data Vitals/I&O Vitals and I&O: Vital Signs Temperature 36.3 C L 08/15/22 07:49 Temperature Source Tympanic 08/15/22 07:49 Pulse 72 08/15/22 07:49 Pulse Rhythm Regular 08/15/22 09:01 Respiratory Rate 17 08/15/22 07:49 Respiratory Effort Non-Labored 08/15/22 09:01 Respiratory Depth Normal 08/15/22 09:01 Respiratory Pattern Normal 08/15/22 09:01 Blood Pressure 114/69 08/15/22 07:49 Pulse Oximetry 98 08/15/22 07:49 Oxygen Delivery Method Room Air 08/15/22 07:49 Oxygen Flow Rate 0 08/15/22 07:49 Pain Level 1 08/14/22 07:45 Comment pT denied pain at this time, he stated that he hasnt moved around much to be able to say he has pain. 08/11/22 07:17 Intake & Output 08/14/22 08/15/22 08/15/22 23:59 11:59 23:59 Intake Total 1140 / 1140 Output Total 975 / 2750 600 / 600 Balance 165 / -1610 -600 / -600 Intake: Oral 1140 / 1140 Output: Urine 975 / 2750 600 / 600 Other: Urine Color Yellow Yellow Urine Appearance Clear Clear Urine Odor Normal Comment pT stated that he had voided in the toilet, very small amount, I did not see the void due to pT flush toilet. pt incontinent (soaked) Stool Size Moderate Moderate Stool Characteristics Soft Soft Formed Formed Brown Voiding Methods Incontinent Toilet PFSH All Active Problems (Updated 08/11/22 @ 00:03 by MANISH REBOLLAR) Sacral decubitus ulcer, stage III (Acute) Ambulatory dysfunction (Acute) Adult failure to thrive (Acute) Alcohol abuse (Chronic) Tobacco dependence (Acute) Incontinence (Acute) Nail dystrophy (Acute) Generalized weakness (Acute) Well adult (Acute) White coat syndrome with hypertension (Acute) DVT prophylaxis (Acute) COPD (chronic obstructive pulmonary disease) (Chronic) a. Ongoing tobacco abuse. Alcoholism (Chronic ~01/2014) a. Drinks at least 6 beers per day on a regular basis. Contusion of pelvis (Acute) Medical History Alcohol withdrawal delirium Arterial vascular disease Fracture of femoral neck, left a. S/P left total knee arthroplast, 01/26/[address] Mendoza. History of neck fracture a. Left-sided weakness. b. On SSI disability. Pain, foot Tendinitis involving left hip abductors Surgical History History of cervical spinal arthrodesis History of total left hip arthroplasty (01/26/14) left total hip arthroplasty; Dr. Riaz Mendoza, [facility] after fall and hip fracture Social History Smoking/Tobacco Use Status: Current every day Tobacco Type: cigarettes Smoking risk assessment performed?: Yes Alcohol Intake: current Alcohol Intake frequency: 3 or more drinks per day Alcohol type: beer Drug use: Never Do you feel safe in your relationship?: Yes Time Spent with Patient Time Spent with Patient: 45-69 minutes Time was spent: preparing to see the patient(eg.review tests), counseling the patient and care coordination
--- NOTE | 2022-08-15 13:36 | PDOC.CMDIS ---
- If Service Date Differs Date of service: 08/15/22 Time of Service: 13:36 LACE Index Scoring Tool - Questions: Length of Stay (in days): 4 - 6 Acuity (Admit via E.D.?): No Comorbidities: Chronic Pulmonary Disease E.D. Visits: 3 - Answers: Total Score: 9 Risk of Readmission: Low Risk Care Management Discharge Reason for Hospitalization: failure to thrive Discharge Plan: Kaleb will return home with a resumption of STEPHEN RN, TRANSCRIBING OPERATORS SUPERVISOR, and the addition of PT, OT. He has homemakers going into his home 3x/week for 2hrs each time. His friend Waldemar will drive him home via private vehicle, and has helped him get a new couch in his home, which he already delivered. He will follow up with his PCP and discharge plan of care. He is happy to be going home. Patient/Family Education Needs: Review discharge instructions and limitations, discussion of self care needs including ask me three. Services Needed at Discharge: Home Health Care Services (Resume STEPHEN RN, TRANSCRIBING OPERATORS SUPERVISOR, add PT, OT)
--- NOTE | 2022-08-15 16:29 | CHAPLAIN ---
Kaleb was resting in bed, watching TV when I visited. I introduced myself and explained my role. Kaleb told me he didn't think he was dying today, and I explained that I visit all patients, and he wasn't dying. He said today is his birthday and he's being discharged as a birthday present. He was discharged later in the day.
--- NOTE | 2022-08-16 09:51 | INDS_ITS ---
Date of service: 08/16/22 Time of Service: 09:52 PT Notes Visit Reasons: Failure to Thrive Physical Therapy Discharge Summary Date: 08/11/2022 Dates of Servbice: 08/11/2022 through 08/14/2022 This is a clinical summary of care provided for the duration of dates listed above. No charge was made in the completion of this documentation. Referring Doctor:Regina Lowe MD PT Orders: PT CONSULT: Extended stay weakness Precautions: Fall. Standard. Activity as tolerated. Patient Profile/Admitting Diagnosis:? Patient converted to swing bed level I of care as of 08/10/2022.? Hesham was initially seen at the ED yesterday for PT evaluation and is admitted to the med surg unit for management of admitting diagnoses above.? He is a 61-year-old male who presented to the ED on with diagnosis of EtOH abuse, muscle spasms, chronic pain, hyponatremia, and hypomagnesemia. PMHX: All Active Problems?(Updated 08/03/22 @ 05:22 by Arslan Herrmann MD) Tobacco dependence (Acute) Incontinence (Acute) Nail dystrophy (Acute) Generalized weakness (Acute) Well adult (Acute) White coat syndrome with hypertension (Acute) DVT prophylaxis (Acute) COPD (chronic obstructive pulmonary disease) (Chronic) a. Ongoing tobacco abuse.Alcoholism (Chronic ~01/2014) b. Drinks at least 6 beers per day on a regular basis.Contusion of pelvis (Acute) Medical History? Alcohol withdrawal delirium Fracture of femoral neck, left a. S/P left total knee arthroplast, 01/26/[address] Mendoza.History of? neck fracture a. Left-sided weakness. b. On SSI disability. Surgical History? History of cervical spinal arthrodesis History of total left hip arthroplasty (01/26/14) left total hip arthroplasty; Dr. Riaz Mendoza, [facility] after fall and hip fracture Social History/Home Situation: Kaleb states that he lives in a home which he shares with other tenants. He however emphasizes that he will not have the support of any of these tenants as he states he is on his own. He is independent using a 4-wheeled walker for all indoor ambulation.? He states that he rides the taxi for all his community errands.? He gets Meals on Wheels every day; gets Sunday and Sunday meals on Fridays.? Has 1 step to get into the house without rails. Equipment Owned/DME: 4WW, raised toilet seat Subjective: NT. See most recent EVENT STAFF MEMBER notes. Objective: General Observation: NT. See most recent EVENT STAFF MEMBER notes. Mental Status: NT. See most recent EVENT STAFF MEMBER notes. Pain: NT. See most recent EVENT STAFF MEMBER notes. ROM: Right Upper Extremity: ? Shoulder Flexion WFL. Shoulder abduction WFL. Elbow flexion WFL. Wrist flexion WFL. Opening and closing of hand WFL. Left Upper Extremity:? Shoulder Flexion allows up to 90 degrees only. Shoulder abduction allows up to 90 degrees only. Elbow flexion WFL. Wrist flexion WFL. Opening and closing of hand WFL. Right Lower Extremity: Hip flexion WFL. Hip abduction WFL. Knee flexion WFL.? Knee extension -20 degrees.? Ankle dorsiflexion WFL. Ankle plantarflexion WFL. Left Lower Extremity: Hip flexion lacks the last 25% of AROM due to chronic weakness and pain. Hip abduction aloows only up to 20 degrees, gravity- eliminated. Knee flexion WFL.? Knee extension -30 degrees.? Ankle dorsiflexion WFL. Ankle plantarflexion WFL. Strength: Right Upper Extremity: Shoulder flexors 4-/5. Shoulder abductors 4-/5. Elbow flexors 4-/5. Elbow extensors 4-/5. Wind Turbine Design Engineer strong. Left Upper Extremity: Shoulder flexors 3-/5. Shoulder abductors 3-/5. Elbow flexors 4-/5. Elbow extensors 3-/5. Wind Turbine Design Engineer weak but functional. Right Lower Extremity: Hip flexors 4-/5. Hip abductors 4-/5. Knee flexors 4-/5. Knee extensors 3-/5. Ankle dorsiflexors 4-/5 Ankle plantarflexors 4-/5. Left Lower Extremity:Hip flexors 3-/5. Hip abductors 3-/5. Knee flexors 3-/5. Knee extensors 3-/5. Ankle dorsiflexors 4-/5. Ankle plantarflexors 4-/5. Sensation: Intact as to pain and pressure on bilateral lower extremities. Bed Mobility/Transfers: Supine to sit independent Sit to stand independent Bed to toilet seat independent GAIT? Up to 250 feet of level surface ambulation using FWW with stand by assist.? Reports chronic pain in the L knee that minimally limits tolerance. Stairs; Stand by assist completing 3 steps while holding onto 1 rail, [id number] pattern. ? Balance: Static Sitting: Good Dynamic Sitting: Good Static Standing: Fair Dynamic Standing: Fair Assessment: With patient's sobriety level maintained while on this admission,? he has achieved significant functional gains now being able to negotiate up to 250 feet of level surface ambulation using FWW with stand by assist.? The remaining barrier he has at home is the inaccessibility of his home entrance.? Patient has a 12-inch step height from the ground onto a platform at his apartment entrance with no grab bar/rail/hand bar to hold onto.? This PT has reached out to care management and suggested the idea of touching base with patient's long-time community clinical case manager Serena Myles for the possibility of facilitating placement of said device to increase apartment accessibility and reduce fall risk as patient has a chronic L UE weakness.? Patient continues to present with clinical signs and symptoms consistent with current/admitting diagnoses that have resulted to mobility limitations, gait instability, generalized weakness, and impairment of motor control as demonstrated by the following impairment level findings: 1.? Decreased strength to B UE/LE major muscle groups with L more affected than R 2.? Impaired standing balance 3.? Impaired activity tolerance 4.? Limitation of joint range of motion in left hip and knee (chronic) 5.? Chronic left-sided weakness 6.? Pain in B LE with L more affected Impairments are contributing to the following functional limitations: 1.? Inability to safely ambulate without assistive device 2.? Increase completion time for mobility ADL performance 3.? Increased fall risk 4.? Inability to negotiate steps alone safely Goals X1 week 1. Supine-Sit independent MET 2. Sit-Supine independent MET 3. Sit-Stand independent MET 4. Stand-Sit independent with 4WW MET 5. Bed-Chair independent with 4WW MET 6. Chair-Bed independent with 4WW MET 7. Independent gait on level surface with use of 4WW for at least 100 feet without report of pain nor dyspnea NOT MET, CONTINUE 8. Independent stair negotiation while holding onto 1 rail for at least 3 steps without report of pain nor dyspnea NOT MET, CONTINUE 9. Independent with home exercise program NOT MET, CONTINUE 10. Good static and dynamic standing balance/tolerance NOT MET, CONTINUE DISCHARGE RECOMMENDATIONS: [] ? Home with no services [] [X] ? Home with services.? Home when medically cleared by hospitalist.? Patient will benefit from home health PT services in order to progress mobility level using four-wheeled walker, assess home entrance accessibility, identify additional equipment needs, and establish a functional maintenance program that will increase ability of patient to remain at home. [] ? Home with outpatient PT [] [] ? SNF for continued rehabilitation [] ? Care Home Care [] [] ? SNF versus LTC based on ability to participate and progress [] [X]? Current equipment needs: ? Grab bar/hand bar in the front entrance to increase home accessibility and reduce fall risk as apartment entrance is not accessible with entrance step about 12-inch high and with no hand rails.? Perhaps community clinical case manager may be able to facilitate placement of grab bar by apartment night monitor to ensure easy access to apartment. TREATMENT CODE/TIME: CO Thank you for the opportunity to participate in the care of this patient. Génesis Castillo PT, DPT, CLT [facility] [place], [place]
== END 2022-08-15 14:04 | disposition home health service (06) | DRG 640 ==
PROVIDERS: Admitting Provider Internal Medicine; PCP Family Medicine; Visit Provider Internal Medicine
DX: R62.7 Adult failure to thrive (principal); L89.153 Pressure ulcer of sacral region, stage 3; R26.2 Difficulty in walking, not elsewhere classified; J44.9 Chronic obstructive pulmonary disease, unspecified; Z98.1 Arthrodesis status; R32 Unspecified urinary incontinence; F10.20 Alcohol dependence, uncomplicated; Z96.642 Presence of left artificial hip joint
CPT/HCPCS: 94640; 97110; 97162; 97530; 99305; 99315; J1644

== ENCOUNTER 2022-08-23 16:07 | Inpatient (IN) | payer MEDICAID, SELFPAY ==
--- NOTE | 2022-08-10 17:21 | CM.SWINGPC ---
- If Service Date Differs Date of service: 08/10/22 Time of Service: 17:21 Swingbed Plan of Care Plan of care: SWING BED PROGRAM ACTIVITIES/DISCHARGE PLAN OF CARE ACTIVITIES PLAN Date:08/10/22 Identified Need:Individualized activity plan Intervention/Plan:Kaleb will be offered items from the activity cart such as puzzle books and coloring material. He enjoys watching tv and listening to music. He also enjoys NASCAR races. If pet therapy becomes available he would enjoy that as well as music therapy. Initials [facility] DISCHARGE PLAN Date:08/10/22 Identified Need:Safe Discharge plan Intervention/Plan:Kaleb would like to transfer to a SNF for short term rehab prior to returning home. Referrals have been sent to all of the SNFs in the state but to date no bed offers have been received. Initials [facility]
== END 2022-08-29 16:10 | disposition expired | DRG 641 ==
LOC: MS 04-11 16:08
PROVIDERS: Admitting Provider Internal Medicine; Visit Provider Internal Medicine
DX: R62.7 Adult failure to thrive (principal)
CPT/HCPCS: 97110; 97162; 97530